=== PATIENT | male | born 1965 | race Caucasian/White ===

== ENCOUNTER 2021-12-18 16:13 | Outpatient (REF) | payer OTHER, SELFPAY ==
--- NOTE | ~2021-12-18 | XR_ITS ---
EXAMINATION: XR CHEST CLINICAL INFORMATION: Cough COMPARISON: September 24, 2015 TECHNIQUE: 2 views of the chest were obtained. FINDINGS: No significant abnormality is noted involving the heart, lungs, mediastinum, bony thorax or soft tissues. XR/XR chest 2V IMPRESSION: No acute disease.
== END 2021-12-18 16:14 | disposition home or self-care (01) ==
LOC: HO.HMGCX 16:13
PROVIDERS: Visit Provider Physician Assistant
DX: R05.9 Cough, unspecified (principal)
CPT/HCPCS: 71046

== ENCOUNTER 2022-12-28 12:18 | Inpatient (IN) | payer OTHER, SELFPAY ==
[2022-12-28] VITALS (13 sets, daily range): BP systolic 94–126; BP diastolic 56–77; PULSE 55–86; RESP 15–18; TEMP 36.1–36.8; O2SAT 94–98; BMI 29.5; BMI 26.7
--- NOTE | ~2022-12-28 | XR_ITS ---
EXAMINATION: XR chest 1V CLINICAL INFORMATION: Reason for Exam Chest pain and SOB. expose to chemical spray pain COMPARISON: November 2021 TECHNIQUE: XR chest 1V Lungs and Latanya: Both lungs are clear. Pleura: Normal. Costophrenic angles are sharp. No pneumothorax. Heart: The heart is normal in size. Mediastinum: The mediastinum is within normal limits.. Bones: Skeletal structures included are normal for patient's age. XR/XR chest 1V IMPRESSION: No radiographic evidence of acute cardiopulmonary disease.
--- NOTE | ~2022-12-28 | CT_ITS ---
EXAMINATION: CT HEAD WITHOUT CONTRAST CLINICAL INFORMATION: Patient feeling shaky and off balance. COMPARISON: None available. TECHNIQUE: Contiguous axial imaging was performed from the skull base to vertex without intravenous administration of contrast. This CT examination was performed using dose optimization techniques as appropriate, variously including the following: *Automated exposure control *Adjustment of mA and/or kV according to patient size (this includes techniques or standardized protocols for targeted exams where dose is matched to indication/reason for exam; i.e. extremities or head) *Use of iterative reconstruction technique DLP: 717 mGy-cm FINDINGS: There is no evidence of acute intracranial hemorrhage or territorial infarction. No abnormal mass-effect or midline shift is seen. Torres to white matter differentiation is well preserved. No extra-axial fluid collections are identified. The ventricles are normal in size. There is no abnormal attenuation within the brain parenchyma. The osseous structures and soft tissues are normal. The mastoid air cells and visualized portions of the paranasal sinuses are well-aerated. CT/CT head/brain wo IV con IMPRESSION: No acute intracranial pathology.
--- NOTE | ~2022-12-28 | MR_ITS ---
EXAMINATION: MR BRAIN WITHOUT CONTRAST CLINICAL INFORMATION: Cerebrovascular accident. COMPARISON: CTA head and neck from 12/28/2022. TECHNIQUE: MRI of the brain was obtained using routine sequences without contrast. FINDINGS: No focal restricted diffusion is demonstrated to suggest acute or subacute cerebral ischemia. No evidence of acute or chronic hemorrhagic products on heme-sensitive imaging. Chronic lacunar infarct of the left cerebellar hemisphere. Scattered periventricular and deep white matter T2 FLAIR hyperintensities consistent with mild underlying microangiopathy. Proportional prominence of the ventricles and sulcal spaces without evidence of obstructive hydrocephalus. No abnormal mass effect. No midline shift. Normal appearance of the pituitary gland. Normal positioning of the cerebellar tonsils. Normal arterial and venous vascular flow voids are present. Nonspecific 0.9 cm T2 hyperintense lesion in the right parietal bone with features suggestive of underlying venous ventura by CT. Otherwise, normal homogeneous marrow signal. Mild mucosal thickening of the paranasal sinuses. No signal abnormalities within the mastoids. MR/MR head/brain wo con IMPRESSION: 1. No acute intracranial abnormalities. 2. Mild underlying microangiopathy and generalized cerebral volume loss. Chronic lacunar infarct of the left cerebellar hemisphere.
--- NOTE | ~2022-12-28 | CT_ITS ---
EXAMINATION: CT ANGIOGRAM NECK WITH CONTRAST CT ANGIOGRAM BRAIN WITH CONTRAST CLINICAL INFORMATION: Dizziness, off balance, positive Romberg, unsteady gait. COMPARISON: Prior CT performed earlier today. TECHNIQUE: Test bolus sequences followed by intravenous administration 70 mL of Omnipaque 350. Helical imaging was performed in the axial plane from the thoracic inlet to the skull vertex. Delayed postcontrast imaging of the head was also performed. The data was processed at the communications technologist workstation for generation of MIP sequences. Angled MIPs and volume rendered reformatted images were also generated at an offline 3D workstation under concurrent supervision. Stenoses are assessed in accordance with NASCET criteria unless otherwise indicated. This CT examination was performed using dose optimization techniques as appropriate, variously including the following: *Automated exposure control *Adjustment of mA and/or kV according to patient size (this includes techniques or standardized protocols for targeted exams where dose is matched to indication/reason for exam; i.e. extremities or head) *Use of iterative reconstruction technique DLP: 867 mGy-cm FINDINGS: BRAIN: Small age indeterminate infarct in the left superior cerebellar hemisphere (16:42). There is no intracranial hemorrhage, hydrocephalus, extra-axial surface collection, midline shift, or other herniation pattern. Torres to white matter differentiation is diffusely maintained. The basilar cisterns are preserved. No significant soft tissue abnormality. No acute osseous abnormality. The paranasal sinuses and the mastoid air cells are well aerated. CERVICAL SOFT TISSUES AND LUNG APICES: Emphysematous changes in the lungs, otherwise no significant abnormalities in the soft tissues of the neck. NECK CTA: There is a classic 3 vessel configuration of the aortic arch. Proximal arch vessels are non-stenotic. The right vertebral artery is dominant. No significant ostial stenosis is visualized on either side. Both vertebral arteries are widely patent throughout their extracranial cervical course. Both common and internal carotid arteries are normal in course and caliber. BRAIN CTA: There is normal opacification of major intracranial arteries. No focal flow-limiting stenosis nor discrete proximal large artery occlusion. CT/CT angio head neck IMPRESSION: 1. Small age-indeterminate infarct in the left superior cerebellar hemisphere. 2. No large vessel occlusion or significant stenosis within the intracranial or extracranial arterial vasculature.
--- NOTE | 2022-12-28 12:26 | ECG_ITS ---
Test Reason : CP Blood Pressure : / mmHG Vent. Rate : 062 BPM Atrial Rate : 062 BPM P-R Int : 202 ms QRS Dur : 122 ms QT Int : 474 ms P-R-T Axes : 043 -02 090 degrees QTc Int : 481 ms Normal sinus rhythm Non-specific intra-ventricular conduction delay Minimal voltage criteria for LVH, may be normal variant ( Jake product ) ST & T wave abnormality, consider lateral ischemia Abnormal ECG No previous ECGs available Referred By: Franki Michel Electronically Signed By:FABY STEVENS MD
--- NOTE | 2022-12-28 12:26 | ED.GENADULT ---
HPI - General Adult General Chief complaint: General Medical <MARY Holm - Last Filed: 12/29/22 11:38> Stated complaint: Falling over/Dry mouth/SOB/Low pulse <MARY Holm - Last Filed: 12/29/22 11:38> Time Seen by Provider: 12/28/22 13:41 <MARY Holm - Last Filed: 12/29/22 11:38> Source: patient, EMS, RN notes reviewed and old records reviewed <MARY Oesi - Last Filed: 12/28/22 18:14> Mode of arrival: EMS <MARY Osei - Last Filed: 12/28/22 18:14> History of Present Illness HPI narrative: 57-year-old male with no significant past medical history presenting to the ED complaining of SOB, chest tightness, lightheadedness/dizziness described as presyncopal worse with position change, jitteriness/shaking x4 days s/p spray painting house without proper mask on. Reports symptoms began after spraying pain, subsequently stopped however since has had persistent/worsening symptoms. Also reports mild headache. Denies vision change/loss, abdominal pain, nausea/vomiting, diarrhea, pedal edema, syncope. Reports occasional ETOH use, denies history of EtOH withdrawal <MARY Osei - Last Filed: 12/28/22 18:14> Onset (ago): day(s) <MARY Osei - Last Filed: 12/28/22 18:14> Related Data Home medications: Home Medications Medication Instructions Recorded Confirmed albuterol sulfate 90 mcg/actuation 2 puff PO Q4-6H PRN Dyspnea 12/18/21 12/28/22 aerosol inhaler amiodarone 200 mg tablet 400 mg PO DAILY 12/18/21 12/28/22 atorvastatin 20 mg tablet 20 mg PO DAILY 12/18/21 12/28/22 clonazepam 1 mg tablet 1 mg PO TID 12/18/21 12/28/22 cyclobenzaprine 10 mg tablet 10 mg PO TID 12/18/21 12/28/22 diltiazem HCl 360 mg 360 mg PO DAILY 12/18/21 12/28/22 capsule,extended release 24 hr fluticasone propionate 110 1 puff PO BID 12/18/21 12/28/22 mcg/actuation HFA aerosol inhaler (Flovent HFA) levothyroxine 137 mcg tablet 137 mcg PO DAILY 12/18/21 12/28/22 oxycodone 20 mg tablet 20 mg PO QID 12/18/21 12/28/22 apixaban 5 mg tablet (Eliquis) 5 mg PO BID 12/28/22 12/28/22 lisinopril 20 mg tablet 20 mg PO DAILY 12/28/22 12/28/22 <MARY Holm - Last Filed: 12/29/22 11:38> Allergies/adverse reactions: Allergies Allergy/AdvReac Type Severity Reaction Status Date / Time aspirin [ASA] Allergy Unknown BLEEDING Unverified 12/18/21 15:53 ULCERS, stomach upset NSAIDS (Non-Steroidal Allergy Unknown BLEEDING Unverified 12/18/21 15:53 Anti-Inflamma ULCERS [NSAIDS (NON-STEROIDAL ANTI-INFLAMMA] <MARY Holm Last Filed: 12/29/22 11:38> Review of Systems Review of Systems: Constitutional: No Fever, No Chills, No Fatigue, No Malaise, + jittery/shaky ENT/Mouth: No Hearing loss, No Ear Pain, No Nasal Congestion, No sore throat, No Rhinorrhea, No Swallowing Difficulty Eyes: No Eye Pain, No Swelling, No Redness, No Vision Changes Cardiovascular: + Chest Pain, + SOB, No Dyspnea on Exertion, No Orthopnea, No Edema, No Palpitations Respiratory: No Cough, No Sputum, No Dyspnea Gastrointestinal: No Nausea, No Vomiting, No Diarrhea, No Constipation, No Abdominal pain Genitourinary: No Dysuria, No Urinary Frequency, No Hematuria, No Urinary Incontinence/retention, No Flank Pain Musculoskeletal: No joint pain, No Myalgias, No Joint Swelling Skin: No Skin Lesions, No rash Neuro: No Weakness, No Numbness, No Paresthesias, No Loss of Consciousness, + lightheaded/ Dizziness, + Headache <MARY Osei Last Filed: 12/28/22 18:14> Yes all other systems are reviewed and are negative <MARY Osei Last Filed: 12/28/22 18:14> Constitutional: Constitutional: Reports as per HPI <MARY Osei - Last Filed: 12/28/22 18:14> Neurologic: Denies Abnormal speech present <MARY Osei - Last Filed: 12/28/22 18:14> [facility] Past Medical History Attestation statement: The following information was validated with the patient. <MARY Osei - Last Filed: 12/28/22 18:14> Social History Social History: Social History Household Members: Significant Other Housing: Apartment Do you presently have visiting nurse or other home services: No Alcohol intake: current Alcohol intake frequency: a few times a week Patient Tobacco Use Status: Current someday Tobacco user Tobacco use type: Cigarette Cigarettes Per Day: 2 Years Smoked: 20 Smoked in Last 30 Days: Yes e-Cigarette/Vaping Use: Never Used Patient Interested in Nicotine Replacement: No Patient Given Instructions on How to Stop Smoking: No Second Hand Smoke Exposure: Yes Use of substances other than those prescribed or required for medical reasons: No Currently Displaying Signs/Symptoms of Drug Intoxication Withdrawal: No Any prior treatment program specific to substance use: No Have you been hit, kicked, punched, or otherwise hurt by someone within the past year? If so, by whom?: No Do you feel safe in your current relationship?: Yes Is there a partner from a previous relationship who is making you feel unsafe now?: No Are you made to feel afraid or neglected: No [employer]ah[employer]ism Healthcare Practices: christian Advance Directives: No Advance Directives Information Provided: Yes Do you have thoughts of harming others: None Do you have a plan to hurt others: No Plan Recently lost weight without trying: Yes How much weight loss: 24-33 pounds Eating poorly because of decreased appetite: Yes Nutrition screen score: 6 Nutrition Risks: No Nutritional Risk Poor oral hygiene: Yes <MARY Holm - Last Filed: 12/29/22 11:38> Physical Exam ED Vital Signs: Vital Signs - 24 hr 12/28/22 12:23 12/28/22 13:17 12/28/22 14:14 Temperature 96.9 F 98.3 F Pulse Rate 70 62 61 Respiratory Rate 18 17 16 Blood Pressure 124/74 126/71 102/61 Pulse Oximetry 98 98 97 Oxygen Delivery Method Room Air Room Air Room Air 04/09/23 14:15 12/28/22 14:16 12/28/22 14:17 Temperature Pulse Rate 57 61 70 Respiratory Rate Blood Pressure 107/66 101/64 94/56 L Pulse Oximetry Oxygen Delivery Method 12/28/22 14:19 12/28/22 14:20 12/28/22 14:45 Temperature 98.2 F Pulse Rate 55 Respiratory Rate 18 Blood Pressure Pulse Oximetry 98 Oxygen Delivery Method 12/28/22 18:54 12/28/22 20:00 12/28/22 23:57 Temperature 97.8 F Pulse Rate 86 70 60 Respiratory Rate 18 15 18 Blood Pressure 110/69 107/77 121/64 Pulse Oximetry 97 94 96 Oxygen Delivery Method Room Air Room Air Room Air 12/29/22 03:44 12/29/22 07:36 12/29/22 10:53 Temperature 98.1 F 97.6 F Pulse Rate 56 98 Respiratory Rate 14 20 Blood Pressure 102/59 L 100/62 103/74 Pulse Oximetry 95 92 Oxygen Delivery Method Room Air Room Air 12/28/22 14:54 12/29/22 10:54 Temperature Pulse Rate Respiratory Rate Blood Pressure 104/66 119/76 Pulse Oximetry Oxygen Delivery Method BMI result Body Mass Index 26.7 <MARY Holm - Last Filed: 12/29/22 11:38> Vital Signs - 24 hr 12/28/22 12:23 12/28/22 13:17 12/28/22 14:14 Temperature 96.9 F 98.3 F Pulse Rate 70 62 61 Respiratory Rate 18 17 16 Blood Pressure 124/74 126/71 102/61 Pulse Oximetry 98 98 97 Oxygen Delivery Method Room Air Room Air Room Air 12/28/22 14:15 12/28/22 14:16 12/28/22 14:17 Temperature Pulse Rate 57 61 70 Respiratory Rate Blood Pressure 107/66 101/64 94/56 L Pulse Oximetry Oxygen Delivery Method 12/28/22 14:19 12/28/22 14:20 12/28/22 14:45 Temperature 98.2 F Pulse Rate 55 Respiratory Rate 18 Blood Pressure Pulse Oximetry 98 Oxygen Delivery Method 12/28/22 18:54 12/28/22 20:00 12/28/22 23:57 Temperature 97.8 F Pulse Rate 86 70 60 Respiratory Rate 18 15 18 Blood Pressure 110/69 107/77 121/64 Pulse Oximetry 97 94 96 Oxygen Delivery Method Room Air Room Air Room Air 12/29/22 03:44 12/29/22 07:36 12/29/22 10:53 Temperature 98.1 F 97.6 F Pulse Rate 56 98 Respiratory Rate 14 20 Blood Pressure 102/59 L 100/62 103/74 Pulse Oximetry 95 92 Oxygen Delivery Method Room Air Room Air 12/28/22 14:54 12/29/22 10:54 Temperature Pulse Rate Respiratory Rate Blood Pressure 104/66 119/76 Pulse Oximetry Oxygen Delivery Method BMI result Body Mass Index 26.7 <MARY Osei - Last Filed: 12/28/22 18:14> Vital Signs - 24 hr 12/28/22 12:23 12/28/22 13:17 12/28/22 14:14 Temperature 96.9 F 98.3 F Pulse Rate 70 62 61 Respiratory Rate 18 17 16 Blood Pressure 124/74 126/71 102/61 Pulse Oximetry 98 98 97 Oxygen Delivery Method Room Air Room Air Room Air 12/28/22 14:15 12/28/22 14:16 12/28/22 14:17 Temperature Pulse Rate 57 61 70 Respiratory Rate Blood Pressure 107/66 101/64 94/56 L Pulse Oximetry Oxygen Delivery Method 12/28/22 14:19 12/28/22 14:20 12/28/22 14:45 Temperature 98.2 F Pulse Rate 55 Respiratory Rate 18 Blood Pressure Pulse Oximetry 98 Oxygen Delivery Method 12/28/22 18:54 12/28/22 20:00 12/28/22 23:57 Temperature 97.8 F Pulse Rate 86 70 60 Respiratory Rate 18 15 18 Blood Pressure 110/69 107/77 121/64 Pulse Oximetry 97 94 96 Oxygen Delivery Method Room Air Room Air Room Air 12/29/22 03:44 12/29/22 07:36 12/29/22 10:53 Temperature 98.1 F 97.6 F Pulse Rate 56 98 Respiratory Rate 14 20 Blood Pressure 102/59 L 100/62 103/74 Pulse Oximetry 95 92 Oxygen Delivery Method Room Air Room Air 12/28/22 14:54 12/29/22 10:54 Temperature Pulse Rate Respiratory Rate Blood Pressure 104/66 119/76 Pulse Oximetry Oxygen Delivery Method BMI result Body Mass Index 26.7 <Dheeraj Hutton - Last Filed: 12/28/22 19:23> Const General: cooperative, healthy appearing and no acute distress <MARY Osei - Last Filed: 12/28/22 18:14> Orientation/consciousness: patient oriented x3 <MARY Osei - Last Filed: 12/28/22 18:14> Limitations: no limitations <MARY Osei - Last Filed: 12/28/22 18:14> HENMT Head: Yes normal to inspection and Yes atraumatic <MARY Osei - Last Filed: 12/28/22 18:14> Ears: hearing grossly normal bilaterally <MARY Osei - Last Filed: 12/28/22 18:14> General nose exam: Normal external nose present <MARY Osei - Last Filed: 12/28/22 18:14> Face and sinus: Yes normal facial exam <MARY Osei - Last Filed: 12/28/22 18:14> Throat: Yes posterior oropharynx normal <MARY Osei - Last Filed: 12/28/22 18:14> Eyes General: appearance normal, both eyes and all related structures <MARY Osei - Last Filed: 12/28/22 18:14> Pupils: Equal, round and reactive pupils present <MARY Osei - Last Filed: 12/28/22 18:14> EOM: EOMs intact bilaterally <MARY Osei - Last Filed: 12/28/22 18:14> Neck Neck: Yes normal visual inspection and Yes no meningeal signs <MARY Osei - Last Filed: 12/28/22 18:14> Resp Effort & Inspection: normal respiratory effort and no respiratory distress <MARY Osei - Last Filed: 12/28/22 18:14> Auscultation: wheezes expiratory wheezes and throughout <MARY Osei - Last Filed: 12/28/22 18:14> Cardio Rate: regular rate <MARY Osei Last Filed: 12/28/22 18:14> Heart sounds: S1 normal heart sound present and S2 normal heart sound present <MARY Osei Last Filed: 12/28/22 18:14> GI Inspection: Yes normal to inspection <Mindy Diaz PA - Last Filed: 12/28/22 18:14> Palpation (GI): Soft to palpation, nontender, no guarding and not rigid <Mindy Diaz PA - Last Filed: 12/28/22 18:14> Skin Rashes: no rashes <Mindy Diaz PA - Last Filed: 12/28/22 18:14> Wounds: no wounds <Mindy Diaz PA - Last Filed: 12/28/22 18:14> Neuro Other: Ambulating mildly unsteady, no ataxia <Mindy Diaz PA - Last Filed: 12/28/22 18:14> General: patient oriented x3, gait normal, tone normal, moves all extremities, no meningeal signs, no focal motor deficits and CN's II-XI intact bilaterally <Mindy Diaz PA - Last Filed: 12/28/22 18:14> Cranial nerves: Yes CN's II-XII intact bilaterally, Yes Equal, round and reactive pupils present and Yes Bilaterally intact EOM present <Mindy Diaz PA - Last Filed: 12/28/22 18:14> Cognition (Neuro): normal cognition <Mindy Diaz PA - Last Filed: 12/28/22 18:14> Speech: No Abnormal speech present <Mindy Diaz PA - Last Filed: 12/28/22 18:14> Motor exam (neuro): 5/5 motor strength present throughout, Pronator motor function not present, Motor fasciculations not present and Tremors during motor activity present (+tremulous) <Mindy Diaz PA - Last Filed: 12/28/22 18:14> Coordination: [id number] test normal <Mindy Diaz PA - Last Filed: 12/28/22 18:14> Romberg Test: Positive <Mindy Diaz PA - Last Filed: 12/28/22 18:14> Extrem General: Yes normal to inspection and Yes no pedal edema <Mindy Diaz PA - Last Filed: 12/28/22 18:14> Course Course Course Narrative: RmE: 57 yold male presents to the ED for Chest pain and SOB since after being exposed to chemical spray pain while not using proper mask. EKG, LABs, and SARS ordered <MARY Holm - Last Filed: 12/29/22 11:38> RmE: 57 yold male presents to the ED for Chest pain and SOB since after being exposed to chemical spray pain while not using proper mask. EKG, LABs, and SARS ordered -1454--labs reassuring. Troponin WNL. COVID/flu/RSV negative -CXR unremarkable -orthostatic vital signs negative -1628--head CT unremarkable. Case discussed with Dr. Green will add on B12, folate, ethanol, and CTA head neck. Plan for admission -1800--B12 mildly low at 191. Folate WNL. Ethanol negative. Case discussed with hospitalist. ED care transferred to MARY Beltran pending CTA and admit <MARY Osei - Last Filed: 12/28/22 18:14> Reevaluation(s) Reevaluation #1: Patient received in sign-out pending CTA which shows subacute infarct without evidence of large vessel occlusion. Will discuss with the hospitalist <Dheeraj Hutton - Last Filed: 12/28/22 19:23> Time: 19:23 <Dheeraj Hutton - Last Filed: 12/28/22 19:23> Medications Administered Generic Name Dose Route Start Last Admin Trade Name Freq PRN Reason Stop Dose Admin Acetaminophen 650 mg 12/28/22 20:17 12/28/22 20:46 Acetaminophen 325 Mg Tablet PO 650 mg Q6H PRN Administration Pain, Mild (Pain Scale 1-3) Amiodarone HCl 400 mg 12/29/22 09:00 12/29/22 08:13 Amiodarone Hcl 200 Mg Tablet PO 400 mg DAILY KAVEH Administration Apixaban 5 mg 12/28/22 21:30 12/29/22 08:14 Apixaban 5 Mg Tablet PO 5 mg BID KAVEH Administration Aspirin 81 mg 12/28/22 20:45 12/29/22 08:13 Aspirin 81 Mg Tab.Chew PO 81 mg DAILY KAVEH Administration Atorvastatin Calcium 80 mg 12/29/22 09:00 12/29/22 08:14 Atorvastatin Calcium 80 Mg Tablet PO 80 mg DAILY KAVEH Administration Clonazepam 1 mg 12/29/22 09:00 12/29/22 08:14 Clonazepam 1 Mg Tablet PO 1 mg TID [facility] Administration Cyanocobalamin 1,000 mcg 12/29/22 09:00 12/29/22 08:14 Cyanocobalamin (Vitamin B-12) 1,000 Mcg/Ml Vial IM 1,000 mcg DAILY KAVEH Administration Cyclobenzaprine HCl 10 mg 12/28/22 21:30 12/29/22 08:13 Cyclobenzaprine Hcl 10 Mg Tablet PO 10 mg TID [facility] Administration Diltiazem HCl 360 mg 12/29/22 09:00 12/29/22 08:29 Diltiazem Hcl Cd 180 Mg Cap.Er.24h PO Not Given DAILY [facility] Protocol Diltiazem HCl 60 mg 12/29/22 09:15 12/29/22 11:02 Diltiazem Hcl 60 Mg Tablet PO Not Given QID [facility] Protocol Fluticasone Propionate 1 puff 12/29/22 08:00 12/29/22 08:49 Fluticasone Propionate 100 Mcg Blst.W.Dev INHALE Not Given RBID [facility] Folic Acid 2 mg 12/29/22 09:00 12/29/22 08:14 Folic Acid 1 Mg Tablet PO 2 mg DAILY [facility] Administration Levothyroxine Sodium 112 mcg/ 137 mcg 12/29/22 06:00 12/29/22 06:08 Levothyroxine Sodium 25 mcg PO 137 mcg DAILY@0600 [facility] Administration Melatonin 6 mg 12/29/22 01:33 12/29/22 02:06 Melatonin 3 Mg Tablet PO 6 mg BEDTIME PRN Administration Insomnia Omeprazole 40 mg 12/29/22 06:30 12/29/22 06:08 Omeprazole 40 Mg Capsule.Dr PO 40 mg DAILY@0630 [facility] Administration Oxycodone HCl 20 mg 12/28/22 21:25 12/29/22 08:13 Oxycodone Hcl Immed Release 5 Mg Tablet PO 20 mg QID [facility] Administration Sodium Chloride 3 ml 12/29/22 00:00 12/29/22 08:15 0.9 % Sodium Chloride Flush 3 Ml Syringe IVFLUSH 3 ml QSHIFT [facility] Administration Discontinued Medications Generic Name Dose Route Start Last Admin Trade Name Freq PRN Reason Stop Dose Admin Albuterol/Ipratropium 3 ml 12/28/22 13:55 12/28/22 14:20 Albuterol/Iprat 2.5/0.5mg 3 Ml Ampul.Neb INHALE 12/28/22 13:56 3 ml ONCE ONE Administration Clonazepam 1 mg 12/28/22 20:06 12/28/22 20:21 Clonazepam 1 Mg Tablet PO 12/28/22 20:07 1 mg ONCE ONE Administration Cyanocobalamin 1,000 mcg 12/28/22 20:32 12/28/22 21:59 Cyanocobalamin (Vitamin B-12) 1,000 Mcg/Ml Vial IM 12/28/22 20:33 1,000 mcg ONCE ONE Administration Folic Acid 1 mg 12/28/22 20:32 12/28/22 20:47 Folic Acid 1 Mg Tablet PO 12/28/22 20:33 1 mg ONCE ONE Administration Magnesium Sulfate 2 gm in 50 mls @ 25 mls/hr 12/29/22 05:20 12/29/22 08:31 Magnesium Sulfate/H2o IV 12/29/22 07:19 Infused ONCE ONE Infusion Iohexol 100 ml 12/28/22 17:31 12/28/22 17:31 Iohexol 350 Mg/Ml 100 Ml Infus..Btl IV 12/28/22 17:32 70 ml ONCE ONE Administration Meclizine HCl 25 mg 12/28/22 14:48 12/28/22 15:03 Meclizine Hcl 25 Mg Tablet PO 12/28/22 14:49 25 mg ONCE ONE Administration <MARY Holm - Last Filed: 12/29/22 11:38> Medications Administered Generic Name Dose Route Start Last Admin Trade Name Freq PRN Reason Stop Dose Admin Acetaminophen 650 mg 12/28/22 20:17 12/28/22 20:46 Acetaminophen 325 Mg Tablet PO 650 mg Q6H PRN Administration Pain, Mild (Pain Scale 1-3) Amiodarone HCl 400 mg 12/29/22 09:00 12/29/22 08:13 Amiodarone Hcl 200 Mg Tablet PO 400 mg DAILY KAVEH Administration Apixaban 5 mg 12/28/22 21:30 12/29/22 08:14 Apixaban 5 Mg Tablet PO 5 mg BID [facility] Administration Aspirin 81 mg 12/28/22 20:45 12/29/22 08:13 Aspirin 81 Mg Tab.Chew PO 81 mg DAILY [facility] Administration Atorvastatin Calcium 80 mg 12/29/22 09:00 12/29/22 08:14 Atorvastatin Calcium 80 Mg Tablet PO 80 mg DAILY [facility] Administration Clonazepam 1 mg 12/29/22 09:00 12/29/22 08:14 Clonazepam 1 Mg Tablet PO 1 mg TID [facility] Administration Cyanocobalamin 1,000 mcg 12/29/22 09:00 12/29/22 08:14 Cyanocobalamin (Vitamin B-12) 1,000 Mcg/Ml Vial IM 1,000 mcg DAILY [facility] Administration Cyclobenzaprine HCl 10 mg 12/28/22 21:30 12/29/22 08:13 Cyclobenzaprine Hcl 10 Mg Tablet PO 10 mg TID [facility] Administration Diltiazem HCl 360 mg 12/29/22 09:00 12/29/22 08:29 Diltiazem Hcl Cd 180 Mg Cap.Er.24h PO Not Given DAILY [facility] Protocol Diltiazem HCl 60 mg 12/29/22 09:15 12/29/22 11:02 Diltiazem Hcl 60 Mg Tablet PO Not Given QID [facility] Protocol Fluticasone Propionate 1 puff 12/29/22 08:00 12/29/22 08:49 Fluticasone Propionate 100 Mcg Blst.W.Dev INHALE Not Given RBID [facility] Folic Acid 2 mg 12/29/22 09:00 12/29/22 08:14 Folic Acid 1 Mg Tablet PO 2 mg DAILY [facility] Administration Levothyroxine Sodium 112 mcg/ 137 mcg 12/29/22 06:00 12/29/22 06:08 Levothyroxine Sodium 25 mcg PO 137 mcg DAILY@0600 [facility] Administration Melatonin 6 mg 12/29/22 01:33 12/29/22 02:06 Melatonin 3 Mg Tablet PO 6 mg BEDTIME PRN Administration Insomnia Omeprazole 40 mg 12/29/22 06:30 12/29/22 06:08 Omeprazole 40 Mg Capsule.Dr PO 40 mg DAILY@0630 [facility] Administration Oxycodone HCl 20 mg 12/28/22 21:25 12/29/22 08:13 Oxycodone Hcl Immed Release 5 Mg Tablet PO 20 mg QID [facility] Administration Sodium Chloride 3 ml 12/29/22 00:00 12/29/22 08:15 0.9 % Sodium Chloride Flush 3 Ml Syringe IVFLUSH 3 ml QSHIFT [facility] Administration Discontinued Medications Generic Name Dose Route Start Last Admin Trade Name Kristina PRN Reason Stop Dose Admin Albuterol/Ipratropium 3 ml 12/28/22 13:55 12/28/22 14:20 Albuterol/Iprat 2.5/0.5mg 3 Ml Ampul.Neb INHALE 12/28/22 13:56 3 ml ONCE ONE Administration Clonazepam 1 mg 12/28/22 20:06 12/28/22 20:21 Clonazepam 1 Mg Tablet PO 12/28/22 20:07 1 mg ONCE ONE Administration Cyanocobalamin 1,000 mcg 12/28/22 20:32 12/28/22 21:59 Cyanocobalamin (Vitamin B-12) 1,000 Mcg/Ml Vial IM 12/28/22 20:33 1,000 mcg ONCE ONE Administration Folic Acid 1 mg 12/28/22 20:32 12/28/22 20:47 Folic Acid 1 Mg Tablet PO 12/28/22 20:33 1 mg ONCE ONE Administration Magnesium Sulfate 2 gm in 50 mls @ 25 mls/hr 12/29/22 05:20 12/29/22 08:31 Magnesium Sulfate/H2o IV 12/29/22 07:19 Infused ONCE ONE Infusion Iohexol 100 ml 12/28/22 17:31 12/28/22 17:31 Iohexol 350 Mg/Ml 100 Ml Infus..Btl IV 12/28/22 17:32 70 ml ONCE ONE Administration Meclizine HCl 25 mg 12/28/22 14:48 12/28/22 15:03 Meclizine Hcl 25 Mg Tablet PO 12/28/22 14:49 25 mg ONCE ONE Administration <MARY Osei - Last Filed: 12/28/22 18:14> Medications Administered Generic Name Dose Route Start Last Admin Trade Name Kristina PRN Reason Stop Dose Admin Acetaminophen 650 mg 12/28/22 20:17 12/28/22 20:46 Acetaminophen 325 Mg Tablet PO 650 mg Q6H PRN Administration Pain, Mild (Pain Scale 1-3) Amiodarone HCl 400 mg 12/29/22 09:00 12/29/22 08:13 Amiodarone Hcl 200 Mg Tablet PO 400 mg DAILY [facility] Administration Apixaban 5 mg 12/28/22 21:30 12/29/22 08:14 Apixaban 5 Mg Tablet PO 5 mg BID [facility] Administration Aspirin 81 mg 12/28/22 20:45 12/29/22 08:13 Aspirin 81 Mg Tab.Chew PO 81 mg DAILY [facility] Administration Atorvastatin Calcium 80 mg 12/29/22 09:00 12/29/22 08:14 Atorvastatin Calcium 80 Mg Tablet PO 80 mg DAILY [facility] Administration Clonazepam 1 mg 12/29/22 09:00 12/29/22 08:14 Clonazepam 1 Mg Tablet PO 1 mg TID [facility] Administration Cyanocobalamin 1,000 mcg 12/29/22 09:00 12/29/22 08:14 Cyanocobalamin (Vitamin B-12) 1,000 Mcg/Ml Vial IM 1,000 mcg DAILY [facility] Administration Cyclobenzaprine HCl 10 mg 12/28/22 21:30 12/29/22 08:13 Cyclobenzaprine Hcl 10 Mg Tablet PO 10 mg TID [facility] Administration Diltiazem HCl 360 mg 12/29/22 09:00 12/29/22 08:29 Diltiazem Hcl Cd 180 Mg Cap.Er.24h PO Not Given DAILY [facility] Protocol Diltiazem HCl 60 mg 12/29/22 09:15 12/29/22 11:02 Diltiazem Hcl 60 Mg Tablet PO Not Given QID [facility] Protocol Fluticasone Propionate 1 puff 12/29/22 08:00 12/29/22 08:49 Fluticasone Propionate 100 Mcg Blst.W.Dev INHALE Not Given RBID [facility] Folic Acid 2 mg 12/29/22 09:00 12/29/22 08:14 Folic Acid 1 Mg Tablet PO 2 mg DAILY [facility] Administration Levothyroxine Sodium 112 mcg/ 137 mcg 12/29/22 06:00 12/29/22 06:08 Levothyroxine Sodium 25 mcg PO 137 mcg DAILY@0600 [facility] Administration Melatonin 6 mg 12/29/22 01:33 12/29/22 02:06 Melatonin 3 Mg Tablet PO 6 mg BEDTIME PRN Administration Insomnia Omeprazole 40 mg 12/29/22 06:30 12/29/22 06:08 Omeprazole 40 Mg Capsule.Dr PO 40 mg DAILY@0630 [facility] Administration Oxycodone HCl 20 mg 12/28/22 21:25 12/29/22 08:13 Oxycodone Hcl Immed Release 5 Mg Tablet PO 20 mg QID [facility] Administration Sodium Chloride 3 ml 12/29/22 00:00 12/29/22 08:15 0.9 % Sodium Chloride Flush 3 Ml Syringe IVFLUSH 3 ml QSHIFT [facility] Administration Discontinued Medications Generic Name Dose Route Start Last Admin Trade Name Kristina PRN Reason Stop Dose Admin Albuterol/Ipratropium 3 ml 12/28/22 13:55 12/28/22 14:20 Albuterol/Iprat 2.5/0.5mg 3 Ml Ampul.Neb INHALE 12/28/22 13:56 3 ml ONCE ONE Administration Clonazepam 1 mg 12/28/22 20:06 12/28/22 20:21 Clonazepam 1 Mg Tablet PO 12/28/22 20:07 1 mg ONCE ONE Administration Cyanocobalamin 1,000 mcg 12/28/22 20:32 12/28/22 21:59 Cyanocobalamin (Vitamin B-12) 1,000 Mcg/Ml Vial IM 12/28/22 20:33 1,000 mcg ONCE ONE Administration Folic Acid 1 mg 12/28/22 20:32 12/28/22 20:47 Folic Acid 1 Mg Tablet PO 12/28/22 20:33 1 mg ONCE ONE Administration Magnesium Sulfate 2 gm in 50 mls @ 25 mls/hr 12/29/22 05:20 12/29/22 08:31 Magnesium Sulfate/H2o IV 12/29/22 07:19 Infused ONCE ONE Infusion Iohexol 100 ml 12/28/22 17:31 12/28/22 17:31 Iohexol 350 Mg/Ml 100 Ml Infus..Btl IV 12/28/22 17:32 70 ml ONCE ONE Administration Meclizine HCl 25 mg 12/28/22 14:48 12/28/22 15:03 Meclizine Hcl 25 Mg Tablet PO 12/28/22 14:49 25 mg ONCE ONE Administration <Dheeraj Hutton - Last Filed: 12/28/22 19:23> Medical Decision Making Medical Decision Making MDM Narrative: 57-year-old male with no significant past medical history presenting to the ED complaining of SOB, chest tightness, lightheadedness/dizziness described as presyncopal worse with position change, jitteriness/shaking x4 days s/p spray painting house without proper mask on. On exam vital signs stable, NAD, appears jittery/shaky trauma ambulating with mild unsteady gait, no ataxia, + Romberg, exam otherwise nonfocal, lungs with diffuse expiatory wheeze. Concern for adverse reaction to paint exposure vs subacute CVA vs atypical ACS. Rule out metabolic infectious etiologies. Lower suspicion for PE/CHF Plan: EKG, labs, UA, CXR, head CT, meclizine, orthostatics, imaging with pulse ox, re-evaluate Please refer to course for remaining clinical decision making, interpretation of labs/imaging results, and discussions with consultants and/or family members. <MARY Osei - Last Filed: 12/28/22 18:14> Differential Diagnosis Differential Diagnoses: The differential diagnosis associated with the presentation includes <MARY Osei - Last Filed: 12/28/22 18:14> As above <MARY Osei - Last Filed: 12/28/22 18:14> Admission/Observation Consideration of admission/observation: Escalation of care including admission/observation considered <MARY Osei - Last Filed: 12/28/22 18:14> Lab Data MDM Lab Attestation statement: I reviewed the patient's lab results. <MARY Osei - Last Filed: 12/28/22 18:14> Result Diagrams: 12/28/22 12:36 12/28/22 12:36 <MARY Holm - Last Filed: 12/29/22 11:38> Labs: Lab Results 12/28/22 12/28/22 12/28/22 Range/Units 12:36 12:36 12:36 WBC 8.2 (4.8-10.8) X10*3/uL RBC 4.41 L (4.60-5.80) X10*6/uL Hgb 14.7 (14.0-18.0) g/dl Hct 43.0 (42.0-52.0) % MCV 97.5 (80.0-98.0) fL MCH 33.3 H (27.0-33.0) pg MCHC 34.2 (31.0-36.0) g/dl RDW 13.2 (11.0-16.0) % Plt Count 372 (160-400) X10*3/uL MPV 8.5 L (9.4-12.4) fL Immature Gran % (Auto) 0.5 H (0.0-0.4) % Neut % (Auto) 72.3 (45-73) % Lymph % (Auto) 16.7 L (20-40) % [place] % (Auto) 9.3 (2-11) % Eos % (Auto) 0.7 (0-4) % Baso % (Auto) 0.5 (0-2) % Lymph # (Auto) 1.4 (1.2-4.9) X10*3/uL [place] # (Auto) 0.8 (0.1-1.2) X10*3/uL Eos # (Auto) 0.1 (0.0-0.4) X10*3/uL Baso # (Auto) 0.0 (0.0-0.2) X10*3/uL Abs Immat Gran (auto) 0.04 H (0.00-0.03) X10*3/uL Absolute Neuts (auto) 5.9 (2.0-8.3) x10*3/uL Absolute Nucleated RBC 0.000 (0.0-0.012) X10*3/uL Nucleated RBC % (auto) 0.0 (0.0-0.2) /100WBC PT 14.2 H (10.0-13.1) SEC INR 1.2 H (0.9-1.1) APTT 33.6 (26.0-36.4) SEC Sodium 138 (135-145) mmol/L Potassium 4.8 (3.3-5.1) mmol/L Chloride 100 (96-108) mmol/L Carbon Dioxide 30 H (22-29) mmol/L Anion Gap 13 (12-20) BUN 12 (9-16) mg/dL Creatinine 1.23 (0.5-1.4) mg/dL Estim Creat Clear Calc 84.3 Estimated GFR > 60 Random Glucose 96 (60-115) mg/dL Calcium 9.5 (8.4-10.2) mg/dL Magnesium 2.5 (1.6-2.6) mg/dL Total Bilirubin 0.9 (0.0-1.0) mg/dL AST 31 (5-37) U/L ALT 31 (0-40) U/L Alkaline Phosphatase 92 (39-117) U/L Troponin I High Sens (<3.5-35.0) ng/L B-Natriuretic Peptide (<100) pg/mL Total Protein 7.3 (6.5-8.0) g/dL Albumin 4.2 (3.5-5.0) g/dL Triglycerides mg/dL Cholesterol mg/dL LDL Cholesterol, Calc mg/dl HDL Cholesterol mg/dL Vitamin B12 191 L (200-900) pg/mL Folate 4.1 (> or = 4.0) ng/mL Ethyl Alcohol < 10 mg/dL Influenza Type A (PCR) (Negative) Influenza Type B (PCR) (Negative) RSV RNA Qual (PCR) (Negative) SARS-CoV-2 RNA (RT-PCR) (Negative) 12/28/22 12/28/22 12/28/22 Range/Units 12:36 12:36 12:36 WBC (4.8-10.8) X10*3/uL RBC (4.60-5.80) X10*6/uL Hgb (14.0-18.0) g/dl Hct (42.0-52.0) % MCV (80.0-98.0) fL MCH (27.0-33.0) pg MCHC (31.0-36.0) g/dl RDW (11.0-16.0) % Plt Count (160-400) X10*3/uL MPV (9.4-12.4) fL Immature Gran % (Auto) (0.0-0.4) % Neut % (Auto) (45-73) % Lymph % (Auto) (20-40) % [place] % (Auto) (2-11) % Eos % (Auto) (0-4) % Baso % (Auto) (0-2) % Lymph # (Auto) (1.2-4.9) X10*3/uL [place] # (Auto) (0.1-1.2) X10*3/uL Eos # (Auto) (0.0-0.4) X10*3/uL Baso # (Auto) (0.0-0.2) X10*3/uL Abs Immat Gran (auto) (0.00-0.03) X10*3/uL Absolute Neuts (auto) (2.0-8.3) x10*3/uL Absolute Nucleated RBC (0.0-0.012) X10*3/uL Nucleated RBC % (auto) (0.0-0.2) /100WBC PT (10.0-13.1) SEC INR (0.9-1.1) APTT (26.0-36.4) SEC Sodium (135-145) mmol/L Potassium (3.3-5.1) mmol/L Chloride (96-108) mmol/L Carbon Dioxide (22-29) mmol/L Anion Gap (12-20) BUN (9-16) mg/dL Creatinine (0.5-1.4) mg/dL Estim Creat Clear Calc Estimated GFR Random Glucose (60-115) mg/dL Calcium (8.4-10.2) mg/dL Magnesium (1.6-2.6) mg/dL Total Bilirubin (0.0-1.0) mg/dL AST (5-37) U/L ALT (0-40) U/L Alkaline Phosphatase (39-117) U/L Troponin I High Sens 4.4 (<3.5-35.0) ng/L B-Natriuretic Peptide 44 (<100) pg/mL Total Protein (6.5-8.0) g/dL Albumin (3.5-5.0) g/dL Triglycerides mg/dL Cholesterol mg/dL LDL Cholesterol, Calc mg/dl HDL Cholesterol mg/dL Vitamin B12 (200-900) pg/mL Folate (> or = 4.0) ng/mL Ethyl Alcohol mg/dL Influenza Type A (PCR) NEGATIVE (Negative) Influenza Type B (PCR) NEGATIVE (Negative) RSV RNA Qual (PCR) NEGATIVE (Negative) SARS-CoV-2 RNA (RT-PCR) NEGATIVE (Negative) 12/29/22 12/29/22 Range/Units 05:52 05:52 WBC (4.8-10.8) X10*3/uL RBC (4.60-5.80) X10*6/uL Hgb (14.0-18.0) g/dl Hct (42.0-52.0) % MCV (80.0-98.0) fL MCH (27.0-33.0) pg MCHC (31.0-36.0) g/dl RDW (11.0-16.0) % Plt Count (160-400) X10*3/uL MPV (9.4-12.4) fL Immature Gran % (Auto) (0.0-0.4) % Neut % (Auto) (45-73) % Lymph % (Auto) (20-40) % [place] % (Auto) (2-11) % Eos % (Auto) (0-4) % Baso % (Auto) (0-2) % Lymph # (Auto) (1.2-4.9) X10*3/uL [place] # (Auto) (0.1-1.2) X10*3/uL Eos # (Auto) (0.0-0.4) X10*3/uL Baso # (Auto) (0.0-0.2) X10*3/uL Abs Immat Gran (auto) (0.00-0.03) X10*3/uL Absolute Neuts (auto) (2.0-8.3) x10*3/uL Absolute Nucleated RBC (0.0-0.012) X10*3/uL Nucleated RBC % (auto) (0.0-0.2) /100WBC PT (10.0-13.1) SEC INR (0.9-1.1) APTT (26.0-36.4) SEC Sodium (135-145) mmol/L Potassium (3.3-5.1) mmol/L Chloride (96-108) mmol/L Carbon Dioxide (22-29) mmol/L Anion Gap (12-20) BUN (9-16) mg/dL Creatinine (0.5-1.4) mg/dL Estim Creat Clear Calc Estimated GFR Random Glucose (60-115) mg/dL Calcium (8.4-10.2) mg/dL Magnesium 2.4 (1.6-2.6) mg/dL Total Bilirubin (0.0-1.0) mg/dL AST (5-37) U/L ALT (0-40) U/L Alkaline Phosphatase (39-117) U/L Troponin I High Sens (<3.5-35.0) ng/L B-Natriuretic Peptide (<100) pg/mL Total Protein (6.5-8.0) g/dL Albumin (3.5-5.0) g/dL Triglycerides 125 mg/dL Cholesterol 133 mg/dL LDL Cholesterol, Calc 58 mg/dl HDL Cholesterol 50 mg/dL Vitamin B12 (200-900) pg/mL Folate (> or = 4.0) ng/mL Ethyl Alcohol mg/dL Influenza Type A (PCR) (Negative) Influenza Type B (PCR) (Negative) RSV RNA Qual (PCR) (Negative) SARS-CoV-2 RNA (RT-PCR) (Negative) <MARY Holm - Last Filed: 12/29/22 11:38> Lab Results 12/28/22 12/28/22 12/28/22 Range/Units 12:36 12:36 12:36 WBC 8.2 (4.8-10.8) X10*3/uL RBC 4.41 L (4.60-5.80) X10*6/uL Hgb 14.7 (14.0-18.0) g/dl Hct 43.0 (42.0-52.0) % MCV 97.5 (80.0-98.0) fL MCH 33.3 H (27.0-33.0) pg MCHC 34.2 (31.0-36.0) g/dl RDW 13.2 (11.0-16.0) % Plt Count 372 (160-400) X10*3/uL MPV 8.5 L (9.4-12.4) fL Immature Gran % (Auto) 0.5 H (0.0-0.4) % Neut % (Auto) 72.3 (45-73) % Lymph % (Auto) 16.7 L (20-40) % [place] % (Auto) 9.3 (2-11) % Eos % (Auto) 0.7 (0-4) % Baso % (Auto) 0.5 (0-2) % Lymph # (Auto) 1.4 (1.2-4.9) X10*3/uL [place] # (Auto) 0.8 (0.1-1.2) X10*3/uL Eos # (Auto) 0.1 (0.0-0.4) X10*3/uL Baso # (Auto) 0.0 (0.0-0.2) X10*3/uL Abs Immat Gran (auto) 0.04 H (0.00-0.03) X10*3/uL Absolute Neuts (auto) 5.9 (2.0-8.3) x10*3/uL Absolute Nucleated RBC 0.000 (0.0-0.012) X10*3/uL Nucleated RBC % (auto) 0.0 (0.0-0.2) /100WBC PT 14.2 H (10.0-13.1) SEC INR 1.2 H (0.9-1.1) APTT 33.6 (26.0-36.4) SEC Sodium 138 (135-145) mmol/L Potassium 4.8 (3.3-5.1) mmol/L Chloride 100 (96-108) mmol/L Carbon Dioxide 30 H (22-29) mmol/L Anion Gap 13 (12-20) BUN 12 (9-16) mg/dL Creatinine 1.23 (0.5-1.4) mg/dL Estim Creat Clear Calc 84.3 Estimated GFR > 60 Random Glucose 96 (60-115) mg/dL Calcium 9.5 (8.4-10.2) mg/dL Magnesium 2.5 (1.6-2.6) mg/dL Total Bilirubin 0.9 (0.0-1.0) mg/dL AST 31 (5-37) U/L ALT 31 (0-40) U/L Alkaline Phosphatase 92 (39-117) U/L Troponin I High Sens (<3.5-35.0) ng/L B-Natriuretic Peptide (<100) pg/mL Total Protein 7.3 (6.5-8.0) g/dL Albumin 4.2 (3.5-5.0) g/dL Triglycerides mg/dL Cholesterol mg/dL LDL Cholesterol, Calc mg/dl HDL Cholesterol mg/dL Vitamin B12 191 L (200-900) pg/mL Folate 4.1 (> or = 4.0) ng/mL Ethyl Alcohol < 10 mg/dL Influenza Type A (PCR) (Negative) Influenza Type B (PCR) (Negative) RSV RNA Qual (PCR) (Negative) SARS-CoV-2 RNA (RT-PCR) (Negative) 12/28/22 12/28/22 12/28/22 Range/Units 12:36 12:36 12:36 WBC (4.8-10.8) X10*3/uL RBC (4.60-5.80) X10*6/uL Hgb (14.0-18.0) g/dl Hct (42.0-52.0) % MCV (80.0-98.0) fL MCH (27.0-33.0) pg MCHC (31.0-36.0) g/dl RDW (11.0-16.0) % Plt Count (160-400) X10*3/uL MPV (9.4-12.4) fL Immature Gran % (Auto) (0.0-0.4) % Neut % (Auto) (45-73) % Lymph % (Auto) (20-40) % [place] % (Auto) (2-11) % Eos % (Auto) (0-4) % Baso % (Auto) (0-2) % Lymph # (Auto) (1.2-4.9) X10*3/uL [place] # (Auto) (0.1-1.2) X10*3/uL Eos # (Auto) (0.0-0.4) X10*3/uL Baso # (Auto) (0.0-0.2) X10*3/uL Abs Immat Gran (auto) (0.00-0.03) X10*3/uL Absolute Neuts (auto) (2.0-8.3) x10*3/uL Absolute Nucleated RBC (0.0-0.012) X10*3/uL Nucleated RBC % (auto) (0.0-0.2) /100WBC PT (10.0-13.1) SEC INR (0.9-1.1) APTT (26.0-36.4) SEC Sodium (135-145) mmol/L Potassium (3.3-5.1) mmol/L Chloride (96-108) mmol/L Carbon Dioxide (22-29) mmol/L Anion Gap (12-20) BUN (9-16) mg/dL Creatinine (0.5-1.4) mg/dL Estim Creat Clear Calc Estimated GFR Random Glucose (60-115) mg/dL Calcium (8.4-10.2) mg/dL Magnesium (1.6-2.6) mg/dL Total Bilirubin (0.0-1.0) mg/dL AST (5-37) U/L ALT (0-40) U/L Alkaline Phosphatase (39-117) U/L Troponin I High Sens 4.4 (<3.5-35.0) ng/L B-Natriuretic Peptide 44 (<100) pg/mL Total Protein (6.5-8.0) g/dL Albumin (3.5-5.0) g/dL Triglycerides mg/dL Cholesterol mg/dL LDL Cholesterol, Calc mg/dl HDL Cholesterol mg/dL Vitamin B12 (200-900) pg/mL Folate (> or = 4.0) ng/mL Ethyl Alcohol mg/dL Influenza Type A (PCR) NEGATIVE (Negative) Influenza Type B (PCR) NEGATIVE (Negative) RSV RNA Qual (PCR) NEGATIVE (Negative) SARS-CoV-2 RNA (RT-PCR) NEGATIVE (Negative) 12/29/22 12/29/22 Range/Units 05:52 05:52 WBC (4.8-10.8) X10*3/uL RBC (4.60-5.80) X10*6/uL Hgb (14.0-18.0) g/dl Hct (42.0-52.0) % MCV (80.0-98.0) fL MCH (27.0-33.0) pg MCHC (31.0-36.0) g/dl RDW (11.0-16.0) % Plt Count (160-400) X10*3/uL MPV (9.4-12.4) fL Immature Gran % (Auto) (0.0-0.4) % Neut % (Auto) (45-73) % Lymph % (Auto) (20-40) % [place] % (Auto) (2-11) % Eos % (Auto) (0-4) % Baso % (Auto) (0-2) % Lymph # (Auto) (1.2-4.9) X10*3/uL [place] # (Auto) (0.1-1.2) X10*3/uL Eos # (Auto) (0.0-0.4) X10*3/uL Baso # (Auto) (0.0-0.2) X10*3/uL Abs Immat Gran (auto) (0.00-0.03) X10*3/uL Absolute Neuts (auto) (2.0-8.3) x10*3/uL Absolute Nucleated RBC (0.0-0.012) X10*3/uL Nucleated RBC % (auto) (0.0-0.2) /100WBC PT (10.0-13.1) SEC INR (0.9-1.1) APTT (26.0-36.4) SEC Sodium (135-145) mmol/L Potassium (3.3-5.1) mmol/L Chloride (96-108) mmol/L Carbon Dioxide (22-29) mmol/L Anion Gap (12-20) BUN (9-16) mg/dL Creatinine (0.5-1.4) mg/dL Estim Creat Clear Calc Estimated GFR Random Glucose (60-115) mg/dL Calcium (8.4-10.2) mg/dL Magnesium 2.4 (1.6-2.6) mg/dL Total Bilirubin (0.0-1.0) mg/dL AST (5-37) U/L ALT (0-40) U/L Alkaline Phosphatase (39-117) U/L Troponin I High Sens (<3.5-35.0) ng/L B-Natriuretic Peptide (<100) pg/mL Total Protein (6.5-8.0) g/dL Albumin (3.5-5.0) g/dL Triglycerides 125 mg/dL Cholesterol 133 mg/dL LDL Cholesterol, Calc 58 mg/dl HDL Cholesterol 50 mg/dL Vitamin B12 (200-900) pg/mL Folate (> or = 4.0) ng/mL Ethyl Alcohol mg/dL Influenza Type A (PCR) (Negative) Influenza Type B (PCR) (Negative) RSV RNA Qual (PCR) (Negative) SARS-CoV-2 RNA (RT-PCR) (Negative) <MARY Osei - Last Filed: 12/28/22 18:14> Lab Results 12/28/22 12/28/22 12/28/22 Range/Units 12:36 12:36 12:36 WBC 8.2 (4.8-10.8) X10*3/uL RBC 4.41 L (4.60-5.80) X10*6/uL Hgb 14.7 (14.0-18.0) g/dl Hct 43.0 (42.0-52.0) % MCV 97.5 (80.0-98.0) fL MCH 33.3 H (27.0-33.0) pg MCHC 34.2 (31.0-36.0) g/dl RDW 13.2 (11.0-16.0) % Plt Count 372 (160-400) X10*3/uL MPV 8.5 L (9.4-12.4) fL Immature Gran % (Auto) 0.5 H (0.0-0.4) % Neut % (Auto) 72.3 (45-73) % Lymph % (Auto) 16.7 L (20-40) % [place] % (Auto) 9.3 (2-11) % Eos % (Auto) 0.7 (0-4) % Baso % (Auto) 0.5 (0-2) % Lymph # (Auto) 1.4 (1.2-4.9) X10*3/uL [place] # (Auto) 0.8 (0.1-1.2) X10*3/uL Eos # (Auto) 0.1 (0.0-0.4) X10*3/uL Baso # (Auto) 0.0 (0.0-0.2) X10*3/uL Abs Immat Gran (auto) 0.04 H (0.00-0.03) X10*3/uL Absolute Neuts (auto) 5.9 (2.0-8.3) x10*3/uL Absolute Nucleated RBC 0.000 (0.0-0.012) X10*3/uL Nucleated RBC % (auto) 0.0 (0.0-0.2) /100WBC PT 14.2 H (10.0-13.1) SEC INR 1.2 H (0.9-1.1) APTT 33.6 (26.0-36.4) SEC Sodium 138 (135-145) mmol/L Potassium 4.8 (3.3-5.1) mmol/L Chloride 100 (96-108) mmol/L Carbon Dioxide 30 H (22-29) mmol/L Anion Gap 13 (12-20) BUN 12 (9-16) mg/dL Creatinine 1.23 (0.5-1.4) mg/dL Estim Creat Clear Calc 84.3 Estimated GFR > 60 Random Glucose 96 (60-115) mg/dL Calcium 9.5 (8.4-10.2) mg/dL Magnesium 2.5 (1.6-2.6) mg/dL Total Bilirubin 0.9 (0.0-1.0) mg/dL AST 31 (5-37) U/L ALT 31 (0-40) U/L Alkaline Phosphatase 92 (39-117) U/L Troponin I High Sens (<3.5-35.0) ng/L B-Natriuretic Peptide (<100) pg/mL Total Protein 7.3 (6.5-8.0) g/dL Albumin 4.2 (3.5-5.0) g/dL Triglycerides mg/dL Cholesterol mg/dL LDL Cholesterol, Calc mg/dl HDL Cholesterol mg/dL Vitamin B12 191 L (200-900) pg/mL Folate 4.1 (> or = 4.0) ng/mL Ethyl Alcohol < 10 mg/dL Influenza Type A (PCR) (Negative) Influenza Type B (PCR) (Negative) RSV RNA Qual (PCR) (Negative) SARS-CoV-2 RNA (RT-PCR) (Negative) 12/28/22 12/28/22 12/28/22 Range/Units 12:36 12:36 12:36 WBC (4.8-10.8) X10*3/uL RBC (4.60-5.80) X10*6/uL Hgb (14.0-18.0) g/dl Hct (42.0-52.0) % MCV (80.0-98.0) fL MCH (27.0-33.0) pg MCHC (31.0-36.0) g/dl RDW (11.0-16.0) % Plt Count (160-400) X10*3/uL MPV (9.4-12.4) fL Immature Gran % (Auto) (0.0-0.4) % Neut % (Auto) (45-73) % Lymph % (Auto) (20-40) % [place] % (Auto) (2-11) % Eos % (Auto) (0-4) % Baso % (Auto) (0-2) % Lymph # (Auto) (1.2-4.9) X10*3/uL [place] # (Auto) (0.1-1.2) X10*3/uL Eos # (Auto) (0.0-0.4) X10*3/uL Baso # (Auto) (0.0-0.2) X10*3/uL Abs Immat Gran (auto) (0.00-0.03) X10*3/uL Absolute Neuts (auto) (2.0-8.3) x10*3/uL Absolute Nucleated RBC (0.0-0.012) X10*3/uL Nucleated RBC % (auto) (0.0-0.2) /100WBC PT (10.0-13.1) SEC INR (0.9-1.1) APTT (26.0-36.4) SEC Sodium (135-145) mmol/L Potassium (3.3-5.1) mmol/L Chloride (96-108) mmol/L Carbon Dioxide (22-29) mmol/L Anion Gap (12-20) BUN (9-16) mg/dL Creatinine (0.5-1.4) mg/dL Estim Creat Clear Calc Estimated GFR Random Glucose (60-115) mg/dL Calcium (8.4-10.2) mg/dL Magnesium (1.6-2.6) mg/dL Total Bilirubin (0.0-1.0) mg/dL AST (5-37) U/L ALT (0-40) U/L Alkaline Phosphatase (39-117) U/L Troponin I High Sens 4.4 (<3.5-35.0) ng/L B-Natriuretic Peptide 44 (<100) pg/mL Total Protein (6.5-8.0) g/dL Albumin (3.5-5.0) g/dL Triglycerides mg/dL Cholesterol mg/dL LDL Cholesterol, Calc mg/dl HDL Cholesterol mg/dL Vitamin B12 (200-900) pg/mL Folate (> or = 4.0) ng/mL Ethyl Alcohol mg/dL Influenza Type A (PCR) NEGATIVE (Negative) Influenza Type B (PCR) NEGATIVE (Negative) RSV RNA Qual (PCR) NEGATIVE (Negative) SARS-CoV-2 RNA (RT-PCR) NEGATIVE (Negative) 12/29/22 12/29/22 Range/Units 05:52 05:52 WBC (4.8-10.8) X10*3/uL RBC (4.60-5.80) X10*6/uL Hgb (14.0-18.0) g/dl Hct (42.0-52.0) % MCV (80.0-98.0) fL MCH (27.0-33.0) pg MCHC (31.0-36.0) g/dl RDW (11.0-16.0) % Plt Count (160-400) X10*3/uL MPV (9.4-12.4) fL Immature Gran % (Auto) (0.0-0.4) % Neut % (Auto) (45-73) % Lymph % (Auto) (20-40) % [place] % (Auto) (2-11) % Eos % (Auto) (0-4) % Baso % (Auto) (0-2) % Lymph # (Auto) (1.2-4.9) X10*3/uL [place] # (Auto) (0.1-1.2) X10*3/uL Eos # (Auto) (0.0-0.4) X10*3/uL Baso # (Auto) (0.0-0.2) X10*3/uL Abs Immat Gran (auto) (0.00-0.03) X10*3/uL Absolute Neuts (auto) (2.0-8.3) x10*3/uL Absolute Nucleated RBC (0.0-0.012) X10*3/uL Nucleated RBC % (auto) (0.0-0.2) /100WBC PT (10.0-13.1) SEC INR (0.9-1.1) APTT (26.0-36.4) SEC Sodium (135-145) mmol/L Potassium (3.3-5.1) mmol/L Chloride (96-108) mmol/L Carbon Dioxide (22-29) mmol/L Anion Gap (12-20) BUN (9-16) mg/dL Creatinine (0.5-1.4) mg/dL Estim Creat Clear Calc Estimated GFR Random Glucose (60-115) mg/dL Calcium (8.4-10.2) mg/dL Magnesium 2.4 (1.6-2.6) mg/dL Total Bilirubin (0.0-1.0) mg/dL AST (5-37) U/L ALT (0-40) U/L Alkaline Phosphatase (39-117) U/L Troponin I High Sens (<3.5-35.0) ng/L B-Natriuretic Peptide (<100) pg/mL Total Protein (6.5-8.0) g/dL Albumin (3.5-5.0) g/dL Triglycerides 125 mg/dL Cholesterol 133 mg/dL LDL Cholesterol, Calc 58 mg/dl HDL Cholesterol 50 mg/dL Vitamin B12 (200-900) pg/mL Folate (> or = 4.0) ng/mL Ethyl Alcohol mg/dL Influenza Type A (PCR) (Negative) Influenza Type B (PCR) (Negative) RSV RNA Qual (PCR) (Negative) SARS-CoV-2 RNA (RT-PCR) (Negative) <Dheeraj Hutton - Last Filed: 12/28/22 19:23> Radiology Impression Discussion of test interpretation with radiology: I have reviewed the radiologist's reading. <MARY Osei - Last Filed: 12/28/22 18:14> External Record Review External record reviewed: Inpatient record, Office record, Outpatient record, Prior outpatient labs, Prior outpatient radiology, Primary care record and Outside ED record <MARY Osei - Last Filed: 12/28/22 18:14> Discharge Plan Discharge Clinical Impression: Lightheadedness, SOB (shortness of breath), Dizziness <MARY Holm - Last Filed: 12/29/22 11:38> Patient Disposition: Admitted As Inpatient <MARY Holm - Last Filed: 12/29/22 11:38> Interventions: Admission Worksheet (ED) Last Done: 12/28/22 22:43 <MARY Holm - Last Filed: 12/29/22 11:38> Discharge Date/Time: 12/28/22 22:58 <MARY Holm - Last Filed: 12/29/22 11:38>
[2022-12-28 12:47] LABS: MANUAL DIFF FLAG NO
[2022-12-28 12:49] LABS: Basophils Percent Auto 0.5 % (0-2); Eosinophils Absolute Auto 0.1 X10*3/uL (0.0-0.4); Eosinophils Percent Auto 0.7 % (0-4); Hemoglobin 14.7 g/dl (14.0-18.0); Imm Gran Abs Auto 0.04 X10*3/uL (0.00-0.03); Imm Gran Pct Auto 0.5 % (0.0-0.4); Lymphocytes Absolute Auto 1.4 X10*3/uL (1.2-4.9); Lymphocytes Percent Auto 16.7 % (20-40); Mean Corpuscular HGB Conc 34.2 g/dl (31.0-36.0); Mean Corpuscular Hemoglobin 33.3 pg (27.0-33.0); Mean Corpuscular Volume 97.5 fL (80.0-98.0); Mean Platelet Volume 8.5 fL (9.4-12.4); Monocytes Absolute Auto 0.8 X10*3/uL (0.1-1.2); Monocytes Percent Auto 9.3 % (2-11); Neutrophils Absolute Auto 5.9 x10*3/uL (2.0-8.3); Neutrophils Percent Auto 72.3 % (45-73); Platelet Count 372 X10*3/uL (160-400); Red Blood Count 4.41 X10*6/uL (4.60-5.80); Red Cell Distribution Width 13.2 % (11.0-16.0); White Blood Count 8.2 X10*3/uL (4.8-10.8)
[2022-12-28 12:54] LABS: INTERNATIONAL NORM RATIO 1.2 (0.9-1.1); Prothrombin Time 14.2 SEC (10.0-13.1)
[2022-12-28 12:57] LABS: Partial Thromboplastin Time 33.6 SEC (26.0-36.4)
[2022-12-28 13:07] LABS: Alanine Aminotransferase 31 U/L (0-40); Albumin Level 4.2 g/dL (3.5-5.0); Alkaline Phosphatase 92 U/L (39-117); Anion Gap 13 (12-20); Aspartate Amino Transferase 31 U/L (5-37); Bilirubin Total 0.9 mg/dL (0.0-1.0); Blood Urea Nitrogen 12 mg/dL (9-16); Calcium 9.5 mg/dL (8.4-10.2); Carbon Dioxide 30 mmol/L (22-29); Chloride 100 mmol/L (96-108); Creatinine Clr Calc Pharmacy 84.3; Estimated Glomerular Filt Rate > 60; Glucose Random 96 mg/dL (60-115); Potassium 4.8 mmol/L (3.3-5.1); Sodium 138 mmol/L (135-145); Total Protein 7.3 g/dL (6.5-8.0)
[2022-12-28 13:12] LABS: B Type Natriuretic Peptide 44 pg/mL (<100)
[2022-12-28 13:14] LABS: Troponin-I High Sensitivity 4.4 ng/L (<3.5-35.0)
[2022-12-28 13:25] LABS: Influenza A PCR NEGATIVE (Negative); Influenza B PCR NEGATIVE (Negative); Resp Syncy Virus RNA Qual PCR NEGATIVE (Negative); SARS COV2 PCR INHOUSE NEGATIVE (Negative)
[2022-12-28] MEDS: Albuterol/Iprat 2.5/0.5MG 3 ML AMPUL.NEB INHALE (14:20)
--- NOTE | 2022-12-28 14:30 | PC.NURSE ---
Pt lying in stretcher, airway open and patent, no obvious signs of distress, speaking in full sentences, no difficulty/labored breathing. A&ox4. Skin color pink, warm, and dry. Lung sounds reveal wheezing in right lower base, slight wheezing in right upper. Left side lung sounds clear. Heart sounds normal. Bowel sounds present all silva, abdomen soft, non-tender. No edema noted. Pt reports that he was painting on and didn't wear the proper mask, afterwards having some shortness of breath as well as his throat burning, and lightheadedness. Neuros intact. Pt denies any pain.
[2022-12-28 14:37] LABS: Magnesium 2.5 mg/dL (1.6-2.6)
--- NOTE | 2022-12-28 14:45 | MHC.EDTECH ---
STANDING RM 02: 99. I walked the patient around the Main ED. He tolerated it fine, No Complaints or concerns. Speaking and joking with Tech. Patient's 02 didn't drop below 98 %. Stated he is feeling much better after the breathing tx. While walking around took a couple of deep breaths no coughing, no distress.
[2022-12-28] MEDS: Meclizine HCl 25 MG TABLET PO (15:03)
[2022-12-28 17:11] LABS: Ethanol < 10 mg/dL
[2022-12-28] MEDS: iohexoL 350 MG/ML 100 ML INFUS..BTL IV (17:31)
[2022-12-28 17:38] LABS: Folate 4.1 ng/mL (> or = 4.0); Vitamin B12 191 pg/mL (200-900)
--- NOTE | 2022-12-28 18:55 | PC.NURSE ---
pt alert and oriented, skin pwd, respirations even and unlabored, all nuro intact at this time, pt is reporting a headache at this time, pain at 5/10 at this time, ns -tachy sinus on the monitor.
--- NOTE | 2022-12-28 19:23 | P.HPHOSP_ITS ---
History of Present Illness Date of Service: 12/28/22 Attending physician on admission: Jon Peterson Chief Complaint: Lightheadedness and dizziness Pt is a 57-year-old male with a PMH significant for?AFib on Eliquis, HTN, anxiety, panic disorder, COPD,and hypothyroidism who presents to the ED with?worsening lightheadedness, dizziness, and ataxia since . Pt states he woke up feeling weird on and felt even worse on Thursday: he had no appetite, felt hot and then cold, had lightheadedness and dizziness and a headache. Was also feeling off balance and having some difficulties walking. Watkins even worse on Thursday and this morning. Pt notes he has had similar episodes on and off the past couple of years. Says there are times he has uncontrollable shaking of his hands and feet and will fall down when walking. Will also find himself leaning to one side while standing or sitting in his recliner. 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 Complains too of photophobia. Denies chest pain/pressure. No N/V/diarrhea, abdomnial pain. In the ED patient was afebrile. Labs were largely unremarkable: Troponin negative, B12 slighlty low at 191, folate low-normal at 4.1. CXR showed no evidence of acute cardiopulmonary disease. CT of head showed no acute intracranial pathology. CTA head showed small age-indeterminate infarct in the left superior cerebellar hemisphere with no large vessel occlusion or significant stenosis within the intracranial or extracranial arterial vasculatures.?EKG demonstrated normal sinus rhythm with nonspecific ST and T- wave abnormality. Pt was treated with DuoNeb and meclizine. Pt will be admitted to observation on telemetry for further workup and evaluation of potential CVA. Review of Systems Review of Systems: Lightheadedness, dizziness Tremors, shaking of upper and lower extremities Ataxia Headache Dry mouth and sore throat Yes all other systems are reviewed and are negative [facility] Social History Household Members: Significant Other Housing: Apartment Do you presently have visiting nurse or other home services: No Alcohol intake: current Alcohol intake frequency: a few times a week Patient Tobacco Use Status: Current someday Tobacco user Tobacco use type: Cigarette Cigarettes Per Day: 2 Years Smoked: 20 Smoked in Last 30 Days: Yes e-Cigarette/Vaping Use: Never Used Patient Interested in Nicotine Replacement: No Patient Given Instructions on How to Stop Smoking: No Second Hand Smoke Exposure: Yes Use of substances other than those prescribed or required for medical reasons: No Currently Displaying Signs/Symptoms of Drug Intoxication Withdrawal: No Any prior treatment program specific to substance use: No Have you been hit, kicked, punched, or otherwise hurt by someone within the past year? If so, by whom?: No Do you feel safe in your current relationship?: Yes Is there a partner from a previous relationship who is making you feel unsafe now?: No Are you made to feel afraid or neglected: No Roman [employer] Healthcare Practices: church Advance Directives: No Advance Directives Information Provided: Yes Do you have thoughts of harming others: None Do you have a plan to hurt others: No Plan Recently lost weight without trying: Yes How much weight loss: 24-33 pounds Eating poorly because of decreased appetite: Yes Nutrition screen score: 6 Nutrition Risks: No Nutritional Risk Poor oral hygiene: Yes Meds Allergies Allergy/AdvReac Type Severity Reaction Status Date / Time aspirin [ASA] Allergy Unknown BLEEDING Unverified 12/18/21 15:53 ULCERS, stomach upset NSAIDS (Non-Steroidal Allergy Unknown BLEEDING Unverified 12/18/21 15:53 Anti-Inflamma ULCERS [NSAIDS (NON-STEROIDAL ANTI-INFLAMMA] Active Medications: Current Medications Pharmacy Consult (Consult Rx Perform Med Rec) 1 each MISCELLANE ONCE PRN PRN Reason: Consult order Home Medications Medication Instructions Recorded Confirmed Last Taken Type albuterol sulfate 90 mcg/actuation 2 puff PO Q4-6H PRN Dyspnea 12/18/21 12/28/22 12/27/22 History aerosol inhaler amiodarone 200 mg tablet 400 mg PO DAILY 12/18/21 12/28/22 12/27/22 History atorvastatin 20 mg tablet 20 mg PO DAILY 12/18/21 12/28/22 12/27/22 History clonazepam 1 mg tablet 1 mg PO TID 12/18/21 12/28/22 12/27/22 History cyclobenzaprine 10 mg tablet 10 mg PO TID 12/18/21 12/28/22 12/27/22 History diltiazem HCl 360 mg 360 mg PO DAILY 12/18/21 12/28/22 12/27/22 History capsule,extended release 24 hr fluticasone propionate 110 1 puff PO BID 12/18/21 12/28/22 12/27/22 History mcg/actuation HFA aerosol inhaler (Flovent HFA) levothyroxine 137 mcg tablet 137 mcg PO DAILY 12/18/21 12/28/22 12/27/22 History lisinopril 20 1 tab PO DAILY 12/18/21 12/28/22 12/27/22 History mg-hydrochlorothiazide 25 mg tablet oxycodone 20 mg tablet 20 mg PO QID 12/18/21 12/28/22 12/27/22 History apixaban 5 mg tablet (Eliquis) 5 mg PO BID 12/28/22 12/28/22 12/27/22 History lisinopril 20 mg tablet 20 mg PO DAILY 12/28/22 12/28/22 12/27/22 History Physical Exam Vital Signs and Narrative: Vital Signs: Last Vital Signs Temp 98.2 F 12/28/22 14:19 Pulse 86 12/28/22 18:54 Resp 18 12/28/22 18:54 BP 110/69 12/28/22 18:54 Pulse Ox 97 12/28/22 18:54 O2 Del Method Room Air 12/28/22 18:54 BMI result Body Mass Index 29.5 Constitutional: Alert, anxious, in no acute distress. Mental Status: Oriented to person, place and time. Eyes: Pupils are equal, round, and reactive to light. Ear, Nose, and Throat: Oropharynx clear, mucous membranes moist. Ears and nose without deformities. Trachea midline. Respiratory: Clear to auscultation bilaterally. No wheezing, rales, or rhonchi. Cardiovascular: S1, S2 regular. No murmurs, rubs, or gallops. Gastrointestinal: Abdomen soft, non-tender, non-distended. Normal bowel sounds. Neurologic: Cranial nerves II-XII are grossly intact bilaterally. No focal neurological deficits. Moves all extremities spontaneously. 5/5 strength to upper and lower right extremities. 4/5 strength to upper and lower left ext remities. Moderate intentional tremors noted of left upper and lower extremities. Skin: No rashes or lesions noted. Musculoskeletal: No cyanosis or clubbing. Extremities: No edema. Psychiatric: Anxious, emotionally labile. Results Labs 12/28/22 12:36 12/28/22 12:36 Labs: Laboratory Results - last 24 hr 12/28/22 12/28/22 12/28/22 12:36 12:36 12:36 MCV 97.5 MCH 33.3 H MCHC 34.2 RDW 13.2 Plt Count 372 MPV 8.5 L Immature Gran % (Auto) 0.5 H Neut % (Auto) 72.3 Lymph % (Auto) 16.7 L [place] % (Auto) 9.3 Eos % (Auto) 0.7 Baso % (Auto) 0.5 Lymph # (Auto) 1.4 [place] # (Auto) 0.8 Eos # (Auto) 0.1 Baso # (Auto) 0.0 Abs Immat Gran (auto) 0.04 H Absolute Neuts (auto) 5.9 Absolute Nucleated RBC 0.000 Nucleated RBC % (auto) 0.0 PT 14.2 H INR 1.2 H APTT 33.6 Anion Gap 13 Estim Creat Clear Calc 84.3 Estimated GFR > 60 Random Glucose 96 Calcium 9.5 Magnesium 2.5 Total Bilirubin 0.9 AST 31 ALT 31 Alkaline Phosphatase 92 Troponin I High Sens B-Natriuretic Peptide Total Protein 7.3 Albumin 4.2 Vitamin B12 191 L Folate 4.1 Ethyl Alcohol < 10 Influenza Type A (PCR) Influenza Type B (PCR) RSV RNA Qual (PCR) SARS-CoV-2 RNA (RT-PCR) 12/28/22 12/28/22 12/28/22 12:36 12:36 12:36 MCV MCH MCHC RDW Plt Count MPV Immature Gran % (Auto) Neut % (Auto) Lymph % (Auto) [place] % (Auto) Eos % (Auto) Baso % (Auto) Lymph # (Auto) [place] # (Auto) Eos # (Auto) Baso # (Auto) Abs Immat Gran (auto) Absolute Neuts (auto) Absolute Nucleated RBC Nucleated RBC % (auto) PT INR APTT Anion Gap Estim Creat Clear Calc Estimated GFR Random Glucose Calcium Magnesium Total Bilirubin AST ALT Alkaline Phosphatase Troponin I High Sens 4.4 B-Natriuretic Peptide 44 Total Protein Albumin Vitamin B12 Folate Ethyl Alcohol Influenza Type A (PCR) NEGATIVE Influenza Type B (PCR) NEGATIVE RSV RNA Qual (PCR) NEGATIVE SARS-CoV-2 RNA (RT-PCR) NEGATIVE Imaging Radiologist's Impressions: Impressions Chest X-Ray 12/28/22 12:57 IMPRESSION: No radiographic evidence of acute cardiopulmonary disease. Head CT 12/28/22 14:36 IMPRESSION: No acute intracranial pathology. Head/Neck CTA 12/28/22 17:25 IMPRESSION: 1. Small age-indeterminate infarct in the left superior cerebellar hemisphere. 2. No large vessel occlusion or significant stenosis within the intracranial or extracranial arterial vasculature. Assessment and Plan (1) CVA (cerebral vascular accident): Status: Acute Plan Pt is a 57-year-old male with a PMH significant for?AFib on Eliquis, HTN, anxiety, panic disorder, COPD,and hypothyroidism who presents to the ED with?worsening lightheadedness, dizziness, and ataxia since . Pt will be admitted to observation on telemetry for further workup and evaluation of potential CVA. CVA Question of acute vs subacute vs chronic CTA shows evidence of an age-indeterminate infarct in the left superior cerebellar hemisphere, no evidence of large vessel occlusion or significant stenosis Patient has been experiencing intentional tremors, tremors at rest, and moments of ataxia on and off for the past couple of years, seemingly worse since Start Aspirin 81mg qd and omerprazole 40mg qd Increase atorvastatin to 80 mg daily Echocardiogram MRI of head/brain wo contrast Lipid panel PT/OT evaluation Neurology consult Admit to telemetry Vitamin B12 Low at 191 Cyanocobalamin 1000 mcg IM Folate Low normal at 4.1 Folic acid 1 mg p.o. Paroxysmal AFib Continue Eliquis, diltiazem, amiodarone Anxiety Continue clonazepam COPD Continue home inhalers HTN BP soft, hold for antihypertensive for now Resume as indicated Hypothyroidism Continue levothyroxine Chronic back pain Continue oxycodone Full Code Attending:?Dr. Aviles DVT Prophylaxis: On Eliquis Patient will be admitted to observation and telemetry for further workup of possible CVA. Time Spent With Patient Time: Total time managing care of this patient today ____ minutes. Quality Stroke Does the patient have a stroke diagnosis?: Yes Reason for No Anti-thrombotic by Day Two: Not indicated (Outside of tPA therapeutic window) VTE Prior VTE?: No VTE Risk Level:: Medical - moderate - high VTE Device Contraindication: Treatment Not Indicated VTE Drug Contraindication: N/A - Med Ordered
[2022-12-28] MEDS: clonazePAM 1 MG TABLET PO (20:21)
[2022-12-28] MEDS: Acetaminophen 325 MG TABLET 650 MG PO (20:46)
[2022-12-28] MEDS: Aspirin 81 MG TAB.CHEW PO (20:47)
[2022-12-28] MEDS: Folic Acid 1 MG TABLET PO (20:47)
[2022-12-28] MEDS: oxyCODONE HCl Immed Release 5 MG TABLET 20 MG PO (21:59)
[2022-12-28] MEDS: Cyclobenzaprine HCl 10 MG TABLET PO (21:59)
[2022-12-28] MEDS: Cyanocobalamin (Vitamin B-12) 1,000 MCG/ML VIAL 1000 MCG IM (21:59)
[2022-12-28] MEDS: Apixaban 5 MG TABLET PO (21:59)
--- NOTE | 2022-12-28 22:24 | PC.NURSE ---
Pt noted to have shakiness in his hands. Pt stated this is not normal for him and it is likely caused by anxiety. Pt was given clonidine which helped relieve the anxiety. Pt was also medicated with oxycodone and flexeril per MAR for pain, medications helped with pain and anxiety. Pt states he feels much better.
[2022-12-29] VITALS (10 sets, daily range): BP systolic 96–119; BP diastolic 52–79; PULSE 53–98; RESP 14–20; TEMP 36.2–37.3; O2SAT 92–97
--- NOTE | 2022-12-29 | ECG_ITS ---
Test Reason : rhythm Blood Pressure : / mmHG Vent. Rate : 060 BPM Atrial Rate : 060 BPM P-R Int : 216 ms QRS Dur : 132 ms QT Int : 518 ms P-R-T Axes : 076 -01 071 degrees QTc Int : 518 ms Sinus rhythm with 1st degree A-V block with Premature atrial complexes Non-specific intra-ventricular conduction block Minimal voltage criteria for LVH, may be normal variant ( [place] product ) Nonspecific T wave abnormality Abnormal ECG When compared with ECG of 28-DEC-2022 12:39, Premature atrial complexes are now Present Nonspecific T wave abnormality has replaced inverted T waves in Lateral leads Referred By: Jon Peterson Electronically Signed By:FABY STEVENS MD
[2022-12-29] MEDS: 0.9 % Sodium Chloride Flush 3 ML SYRINGE IVFLUSH ×4 (02:06→20:46)
[2022-12-29] MEDS: Melatonin 3 MG TABLET 6 MG PO ×2 (02:06→20:42)
--- NOTE | 2022-12-29 04:54 | PC.NURSE ---
pt on teley, earlier on monitor pt's rhythm was sinus rhythm, but at 04:50, pt's rhythm on monitor is reading between afib/aflutter & pt c/o of chest pain. MD Peterson notified. Md Peterson ordered EKG, results pending. Will continue to monitor.
--- NOTE | 2022-12-29 05:10 | ECG_ITS ---
Test Reason : CP Blood Pressure : / mmHG Vent. Rate : 073 BPM Atrial Rate : 084 BPM P-R Int : 000 ms QRS Dur : 134 ms QT Int : 494 ms P-R-T Axes : 000 005 081 degrees QTc Int : 544 ms Atrial tachycardia /atrial flutter with variable conduction Non-specific intra-ventricular conduction block Minimal voltage criteria for LVH, may be normal variant ( [place] product ) Nonspecific T wave abnormality Abnormal ECG When compared with ECG of 29-DEC-2022 05:06, Atrial tachycardia / atrial flutter has replaced NST Nonspecific T wave abnormality no longer evident in Anterior leads Referred By: Jon Peterson Electronically Signed By:FABY STEVENS MD
[2022-12-29] MEDS: Magnesium Sulfate/H2O 2 GM/50 ML PIGGYBACK IV (06:02)
[2022-12-29] MEDS: Omeprazole 40 MG CAPSULE.DR PO (06:08)
[2022-12-29] MEDS: Levothyroxine Sodium 112 MCG, Levothyroxine Sodium 25 MCG 137 MCG PO (06:08)
[2022-12-29 06:55] LABS: Cholesterol 133 mg/dL; HDL Cholesterol 50 mg/dL; LDL Cholesterol Calculated 58 mg/dl; Magnesium 2.4 mg/dL (1.6-2.6); Triglycerides 125 mg/dL
--- NOTE | 2022-12-29 07:00 | CA_ITS ---
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 Normal LV systolic function with normal filling pattern 2. No obvious intracardiac shunting especially at atrial level based on bubble study 3. Normal cardiac valvular Doppler 4. Normal RV systolic pressure 5. Upper limits of normal ascending aortic size 6. No gross pericardial effusion Findings Left Ventricle Normal left ventricular size, thickness, and systolic function. The visually estimated ejection fraction is between 55-60%. Spectral Doppler is indicative of a normal filling pattern. Right Ventricle Normal right ventricular cavity size. Atria The left atrium is likely dilated. There is no evidence of interatrial shunt by agitated saline. The right atrium is normal in size. Aortic Valve Normal aortic valve structure and function. There is no aortic valve stenosis. There is no aortic valve regurgitation. Mitral Valve Likely normal mitral valve structure and function. There is trace mitral valve regurgitation. There is no mitral valve stenosis. Pulmonic Valve The pulmonic valve was not well visualized. Tricuspid Valve Likely normal tricuspid valve structure and function. There is trace tricuspid valve regurgitation. The right ventricular systolic pressure is normal. The right ventricular systolic pressure is 21 mmHg. Normal right atrial pressure. There is no evidence of pulmonary hypertension. Great Vessels The pulmonary artery was not well visualized. ascending aorta is at upper limits of normal in size Venous The inferior vena cava is normal in size and collapses greater than 50% with inspiration. Pericardium/Pleural There is no evidence of pericardial effusion. Prior Study Comparison No prior study available for comparison. Measurements 2D Linear Measurements IVSd: 0.86 0.6-0.9/0.6-1.0 cm LVIDd: 5.54 3.9-5.3/4.2-5.9 cm LVIDd Index: 2.40 2.4-3.2/2.2-3.1 cm/m2 LVIDs: 3.04 2.0-3.6 cm LVPWd: 0.85 0.7-1.1 cm LA Diam: 3.30 2.7-3.8/3.0-4.0 cm LAIDs Index: 1.43 1.5-2.3 cm/m2 LV Mass: 219.32 67-162/88-224 g LV Mass Index: 94.95 43-95/49-115 g/m2 LVOT Diam: 2.40 3.0+(-)1.3 cm 2D Systolic Function EF 4C: 62.30 >55% EF 2C: 54.20 >55% EF BiP: 56.80 >55% Mitral Valve MV Pk E: 0.56 MV PK A: 0.55 MV Decel Time: 248.00 E/A: 1.00 E'Lateral: 7.56 E'Medial: 5.43 E/E' Med: 10.20 E/E' Lat: 7.30 PHT: 73.00 MVA PHT: 3.01 Decel Bland: 2.24 Aortic Valve AoV Pk Rafael: 1.32 AoV Pk Grad: 7.00 GOPAL: 3.60 LVOT LVOT Pk Rafael: 1.05 LVOT Mn Rafael: 0.72 LVOT VTI: 0.19 LVOT Pk Grad: 4.00 LVOT Mn Grad: 2.00 LVOT Diam: 2.40 LVOT Area: 4.52 Diastolic Function MV Pk E: 0.56 MV Pk A: 0.55 E/A: 1.00 E'Medial: 5.43 E/E' Med: 10.20 E' Laterial: 7.56 E/E' Lat: 7.30 Right Ventricle TAPSE (mm): 18.00 TVS' Rafael: 11.30 Tricuspid Valve TR Pk Rafael: 2.13 TR Pk Grad: 18.00 RA Press: 3.00 RVSP: 21.00 Great Vessels Aorta Sinus of Valsalva: 3.50 2.0-3.5 cm Ao Asc: 3.70 2.1-3.4 cm Pulmonary Valve PV Pk Rafael: 0.80 Peak PV Grad: 3.00 Updated in Other Vendor System with Status of Final Alfredo Gomez MD electronically signed on 12/29/2022 11:03:07 AM with status of Final
--- NOTE | 2022-12-29 07:19 | PHA.MEDREC ---
Pharmacy Consult ? Medication Reconciliation Pharmacy has completed the medication reconciliation. Pharmacy has reviewed med rec done by nursing
[2022-12-29] MEDS: Amiodarone HCL 200 MG TABLET 400 MG PO (08:13)
[2022-12-29] MEDS: oxyCODONE HCl Immed Release 5 MG TABLET 20 MG PO ×4 (08:13→20:43)
[2022-12-29] MEDS: Aspirin 81 MG TAB.CHEW PO (08:13)
[2022-12-29] MEDS: Cyclobenzaprine HCl 10 MG TABLET PO ×3 (08:13→20:42)
[2022-12-29] MEDS: Cyanocobalamin (Vitamin B-12) 1,000 MCG/ML VIAL 1000 MCG IM (08:14)
[2022-12-29] MEDS: Apixaban 5 MG TABLET PO ×2 (08:14→20:43)
[2022-12-29] MEDS: Atorvastatin Calcium 80 MG TABLET PO (08:14)
[2022-12-29] MEDS: Folic Acid 1 MG TABLET 2 MG PO (08:14)
[2022-12-29] MEDS: clonazePAM 1 MG TABLET PO ×3 (08:14→20:42)
--- NOTE | 2022-12-29 12:17 | HO.PM.IMPN ---
Subjective Subjective Date of Service: 12/29/22 Interval History: ? cva vitamin b deficiency Review of Systems ? still has mild atxia Denies any new weakness or numbness or dizziness. No fever or chills Physical Exam Vital Signs: Vital Signs: Last Vital Signs Temp 97.1 F 12/29/22 12:00 Pulse 60 12/29/22 12:00 Resp 18 12/29/22 12:00 BP 113/72 12/29/22 12:00 Pulse Ox 94 12/29/22 12:00 O2 Del Method Room Air 12/29/22 12:00 BMI result Body Mass Index 26.7 Appearance: Alert.? Oriented X3. cvs: rrr, [id number] . res: clear to auscultation ,no rhonchii or wheezing abd: no rebound or guarding ,nt, bs present. ext pulses present , no cyanosis . neuro: axo3 , nonfocal. Objective Data Active Medications Acetaminophen (Acetaminophen 325 Mg Tablet) 650 mg PO Q6H PRN PRN Reason: Pain, Mild (Pain Scale 1-3) Last Admin: 12/28/22 20:46 Dose: 650 mg Documented By: YUE Albuterol Sulfate (Albuterol Sulfate 90 Mcg 8 Gm Inhaler) 2 puff INHALE Q4H PRN PRN Reason: Dyspnea Amiodarone HCl (Amiodarone Hcl 200 Mg Tablet) 400 mg PO DAILY [facility] Last Admin: 12/29/22 08:13 Dose: 400 mg Documented By: MARIAELENA Apixaban (Apixaban 5 Mg Tablet) 5 mg PO BID [facility] Last Admin: 12/29/22 08:14 Dose: 5 mg Documented By: MARIAELENA Aspirin (Aspirin 81 Mg Tab.Chew) 81 mg PO DAILY [facility] Last Admin: 12/29/22 08:13 Dose: 81 mg Documented By: MARIAELENA Atorvastatin Calcium (Atorvastatin Calcium 80 Mg Tablet) 80 mg PO DAILY [facility] Last Admin: 12/29/22 08:14 Dose: 80 mg Documented By: MARIAELENA Clonazepam (Clonazepam 1 Mg Tablet) 1 mg PO TID [facility] Last Admin: 12/29/22 08:14 Dose: 1 mg Documented By: MARIAELENA Cyanocobalamin (Cyanocobalamin (Vitamin B-12) 1,000 Mcg/Ml Vial) 1,000 mcg IM DAILY [facility] Last Admin: 12/29/22 08:14 Dose: 1,000 mcg Documented By: MARIAELENA Cyclobenzaprine HCl (Cyclobenzaprine Hcl 10 Mg Tablet) 10 mg PO TID [facility] Last Admin: 12/29/22 08:13 Dose: 10 mg Documented By: MARIAELENA Diltiazem HCl (Diltiazem Hcl Cd 180 Mg Cap.Er.24h) 360 mg PO DAILY [facility]; Protocol Last Admin: 12/29/22 08:29 Dose: Not Given Documented By: MARIAELENA Non-Admin Reason: Decreased Blood Pressure Diltiazem HCl (Diltiazem Hcl 60 Mg Tablet) 60 mg PO QID [facility]; Protocol Last Admin: 12/29/22 11:02 Dose: Not Given Documented By: MARIAELENA Non-Admin Reason: Decreased Blood Pressure Docusate Sodium (Docusate Sodium 100 Mg Capsule) 100 mg PO DAILY PRN PRN Reason: Constipation Fluticasone Propionate (Fluticasone Propionate 100 Mcg Blst.W.Dev) 1 puff INHALE RBID [facility] Last Admin: 12/29/22 08:49 Dose: Not Given Documented By: JOHN Non-Admin Reason: blocked by pharmacy Folic Acid (Folic Acid 1 Mg Tablet) 2 mg PO DAILY [facility] Last Admin: 12/29/22 08:14 Dose: 2 mg Documented By: MARIAELENA Levothyroxine Sodium 112 mcg/ (Levothyroxine Sodium 25 mcg) 137 mcg PO DAILY@0600 [facility] Last Admin: 12/29/22 06:08 Dose: 137 mcg Documented By: PRIYANKA Melatonin (Melatonin 3 Mg Tablet) 6 mg PO BEDTIME PRN PRN Reason: Insomnia Last Admin: 12/29/22 02:06 Dose: 6 mg Documented By: PRIYANKA Omeprazole (Omeprazole 40 Mg Capsule.) 40 mg PO DAILY@0630 [facility] Last Admin: 12/29/22 06:08 Dose: 40 mg Documented By: PRIYANKA Oxycodone HCl (Oxycodone Hcl Immed Release 5 Mg Tablet) 20 mg PO QID [facility] Last Admin: 12/29/22 08:13 Dose: 20 mg Documented By: MARIAELENA Pharmacy Consult (Consult Rx Perform Med Rec) 1 each MISCELLANE ONCE PRN PRN Reason: Consult order Sodium Chloride (0.9 % Sodium Chloride Flush 3 Ml Syringe) 3 ml IVFLUSH QSHIFT [facility] Last Admin: 12/29/22 08:15 Dose: 3 ml Documented By: MARIAELENA Labs 12/28/22 12:36 12/28/22 12:36 Labs: Laboratory Results - last 24 hr 12/28/22 12/28/22 12/28/22 12:36 12:36 12:36 MCV 97.5 MCH 33.3 H MCHC 34.2 RDW 13.2 Plt Count 372 MPV 8.5 L Immature Gran % (Auto) 0.5 H Neut % (Auto) 72.3 Lymph % (Auto) 16.7 L [place] % (Auto) 9.3 Eos % (Auto) 0.7 Baso % (Auto) 0.5 Lymph # (Auto) 1.4 [place] # (Auto) 0.8 Eos # (Auto) 0.1 Baso # (Auto) 0.0 Abs Immat Gran (auto) 0.04 H Absolute Neuts (auto) 5.9 Absolute Nucleated RBC 0.000 Nucleated RBC % (auto) 0.0 PT 14.2 H INR 1.2 H APTT 33.6 Anion Gap 13 Estim Creat Clear Calc 84.3 Estimated GFR > 60 Random Glucose 96 Calcium 9.5 Magnesium 2.5 Total Bilirubin 0.9 AST 31 ALT 31 Alkaline Phosphatase 92 Troponin I High Sens B-Natriuretic Peptide Total Protein 7.3 Albumin 4.2 Triglycerides Cholesterol LDL Cholesterol, Calc HDL Cholesterol Vitamin B12 191 L Folate 4.1 Ethyl Alcohol < 10 Influenza Type A (PCR) Influenza Type B (PCR) RSV RNA Qual (PCR) SARS-CoV-2 RNA (RT-PCR) 12/28/22 12/28/22 12/28/22 12:36 12:36 12:36 MCV MCH MCHC RDW Plt Count MPV Immature Gran % (Auto) Neut % (Auto) Lymph % (Auto) [place] % (Auto) Eos % (Auto) Baso % (Auto) Lymph # (Auto) [place] # (Auto) Eos # (Auto) Baso # (Auto) Abs Immat Gran (auto) Absolute Neuts (auto) Absolute Nucleated RBC Nucleated RBC % (auto) PT INR APTT Anion Gap Estim Creat Clear Calc Estimated GFR Random Glucose Calcium Magnesium Total Bilirubin AST ALT Alkaline Phosphatase Troponin I High Sens 4.4 B-Natriuretic Peptide 44 Total Protein Albumin Triglycerides Cholesterol LDL Cholesterol, Calc HDL Cholesterol Vitamin B12 Folate Ethyl Alcohol Influenza Type A (PCR) NEGATIVE Influenza Type B (PCR) NEGATIVE RSV RNA Qual (PCR) NEGATIVE SARS-CoV-2 RNA (RT-PCR) NEGATIVE 12/29/22 12/29/22 05:52 05:52 MCV MCH MCHC RDW Plt Count MPV Immature Gran % (Auto) Neut % (Auto) Lymph % (Auto) [place] % (Auto) Eos % (Auto) Baso % (Auto) Lymph # (Auto) [place] # (Auto) Eos # (Auto) Baso # (Auto) Abs Immat Gran (auto) Absolute Neuts (auto) Absolute Nucleated RBC Nucleated RBC % (auto) PT INR APTT Anion Gap Estim Creat Clear Calc Estimated GFR Random Glucose Calcium Magnesium 2.4 Total Bilirubin AST ALT Alkaline Phosphatase Troponin I High Sens B-Natriuretic Peptide Total Protein Albumin Triglycerides 125 Cholesterol 133 LDL Cholesterol, Calc 58 HDL Cholesterol 50 Vitamin B12 Folate Ethyl Alcohol Influenza Type A (PCR) Influenza Type B (PCR) RSV RNA Qual (PCR) SARS-CoV-2 RNA (RT-PCR) Assessment and Plan (1) CVA (cerebral vascular accident): Status: Acute Plan 57-year-old male with a PMH significant for?AFib on Eliquis, HTN, anxiety, panic disorder, COPD,and? hypothyroidism who presents to the ED with?worsening lightheadedness, dizziness, and ataxia since . Pt will be admitted to observation on telemetry for further workup and evaluation of potential CVA. CVA Question of acute vs subacute vs chronic CTA shows evidence of an age-indeterminate infarct in the left superior cerebellar hemisphere, no evidence of large vessel occlusion or significant stenosis ataxia on and off for the past couple of years, seemingly worse since he says was missing eliquis on /off . Echocardiogram,MRI of head/brain wo contrast . plan:continue eliquis ,? added asa, statin,added b12 also due to low b12 levels . PT/OT evaluation,Neurology consult Vitamin B12 deficiency: Low at 191 Cyanocobalamin 1000 mcg IM Folate Low normal at 4.1 Folic acid 1 mg p.o. Paroxysmal AFib Continue Eliquis, diltiazem, amiodarone Anxiety Continue clonazepam COPD Continue home inhalers HTN BP soft, hold for antihypertensive for now Resume as indicated Hypothyroidism Continue levothyroxine Chronic back pain Continue oxycodone DVT Prophylaxis: On Eliquis inpatient need : possible CVA- pening workup , neurology eval,pt/ot. Time Spent With Patient Time: Total time managing care of this patient today ____ minutes. Quality Stroke Does the patient have a stroke diagnosis?: Yes Reason for No Anti-thrombotic by Day Two: Not indicated (Outside of tPA therapeutic window) VTE Prior VTE?: No VTE Risk Level:: Medical - moderate - high VTE Device Contraindication: Treatment Not Indicated VTE Drug Contraindication: N/A - Med Ordered
--- NOTE | 2022-12-29 14:14 | P.CNNE_ITS ---
History of Present Illness Data of Consult Service Date: 12/29/22 Primary Care Provider: Unknown Physician HPI Reason for consult: possible stroke 57-year-old male with a PMH significant for?AFib on Eliquis, HTN, anxiety, panic disorder, COPD,and? hypothyroidism who presents to the ED with?worsening lightheadedness, dizziness, and ataxia? who I was asked to see for possible left cerebellar infarct. He said that he did not drink that much and was treated for anxiety for number of years. He came to hospital with unsteadiness and felt better after anxiety medicine was given. Head CT done suggested possible stroke prompting this consultation. Review of Systems 2 Review of Systems: No recent cold or flu-like illness PMFSH Social History Social History Household Members: Significant Other Housing: Apartment Do you presently have visiting nurse or other home services: No Alcohol intake: current Alcohol intake frequency: a few times a week Comment: pt refusing alarms and staff in [place] with him Patient Tobacco Use Status: Current someday Tobacco user Tobacco use type: Cigarette Cigarettes Per Day: 2 Years Smoked: 20 e-Cigarette/Vaping Use: Never Used Second Hand Smoke Exposure: Yes Advance Directives Date on File: 01/02/23 service: No Current occupational status: disabled Meds Allergies Allergy/AdvReac Type Severity Reaction Status Date / Time aspirin [ASA] Allergy Unknown BLEEDING Verified 07/31/23 10:05 ULCERS, stomach upset NSAIDS (Non-Steroidal Allergy Unknown BLEEDING Verified 07/31/23 10:05 Anti-Inflamma ULCERS [NSAIDS (NON-STEROIDAL ANTI-INFLAMMA] Active Medications: Current Medications Acetaminophen (Acetaminophen 325 Mg Tablet) 650 mg PO Q6H PRN PRN Reason: Pain, Mild (Pain Scale 1-3) Last Admin: 12/28/22 20:46 Dose: 650 mg Albuterol Sulfate (Albuterol Sulfate 90 Mcg 8 Gm Inhaler) 2 puff INHALE Q4H PRN PRN Reason: Dyspnea Amiodarone HCl (Amiodarone Hcl 200 Mg Tablet) 400 mg PO DAILY [facility] Last Admin: 12/29/22 08:13 Dose: 400 mg Apixaban (Apixaban 5 Mg Tablet) 5 mg PO BID [facility] Last Admin: 12/29/22 08:14 Dose: 5 mg Aspirin (Aspirin 81 Mg Tab.Chew) 81 mg PO DAILY [facility] Last Admin: 12/29/22 08:13 Dose: 81 mg Atorvastatin Calcium (Atorvastatin Calcium 80 Mg Tablet) 80 mg PO DAILY [facility] Last Admin: 12/29/22 08:14 Dose: 80 mg Clonazepam (Clonazepam 1 Mg Tablet) 1 mg PO TID [facility] Last Admin: 12/29/22 14:09 Dose: 1 mg Cyanocobalamin (Cyanocobalamin (Vitamin B-12) 1,000 Mcg/Ml Vial) 1,000 mcg IM DAILY [facility] Last Admin: 12/29/22 08:14 Dose: 1,000 mcg Cyclobenzaprine HCl (Cyclobenzaprine Hcl 10 Mg Tablet) 10 mg PO TID [facility] Last Admin: 12/29/22 14:09 Dose: 10 mg Protocol Last Admin: 12/29/22 08:29 Dose: Not Given Diltiazem HCl (Diltiazem Hcl 60 Mg Tablet) 60 mg PO QID [facility]; Protocol Last Admin: 12/29/22 14:10 Dose: Not Given Docusate Sodium (Docusate Sodium 100 Mg Capsule) 100 mg PO DAILY PRN PRN Reason: Constipation Fluticasone Propionate (Fluticasone Propionate 100 Mcg Blst.W.Dev) 1 puff INHALE RBID [facility] Last Admin: 12/29/22 08:49 Dose: Not Given Folic Acid (Folic Acid 1 Mg Tablet) 2 mg PO DAILY [facility] Last Admin: 12/29/22 08:14 Dose: 2 mg Levothyroxine Sodium 112 mcg/ (Levothyroxine Sodium 25 mcg) 137 mcg PO DAILY@0600 [facility] Last Admin: 12/29/22 06:08 Dose: 137 mcg Melatonin (Melatonin 3 Mg Tablet) 6 mg PO BEDTIME PRN PRN Reason: Insomnia Last Admin: 12/29/22 02:06 Dose: 6 mg Omeprazole (Omeprazole 40 Mg Capsule.Dr) 40 mg PO DAILY@0630 [facility] Last Admin: 12/29/22 06:08 Dose: 40 mg Oxycodone HCl (Oxycodone Hcl Immed Release 5 Mg Tablet) 20 mg PO QID [facility] Last Admin: 12/29/22 14:08 Dose: 20 mg Pharmacy Consult (Consult Rx Perform Med Rec) 1 each MISCELLANE ONCE PRN PRN Reason: Consult order Sodium Chloride (0.9 % Sodium Chloride Flush 3 Ml Syringe) 3 ml IVFLUSH QSHIFT [facility] Last Admin: 12/29/22 08:15 Dose: 3 ml Home Medications Medication Instructions Recorded Confirmed Last Taken Type albuterol sulfate 90 mcg/actuation 2 puff PO Q4-6H PRN Dyspnea 12/18/21 12/28/22 12/27/22 History aerosol inhaler atorvastatin 20 mg tablet 20 mg PO DAILY 12/18/21 12/28/22 12/27/22 History clonazepam 1 mg tablet 1 mg PO TID 12/18/21 12/28/22 12/27/22 History cyclobenzaprine 10 mg tablet 10 mg PO TID 12/18/21 12/28/22 12/27/22 History fluticasone propionate 110 1 puff PO BID 12/18/21 12/28/22 12/27/22 History mcg/actuation HFA aerosol inhaler (Flovent HFA) oxycodone 20 mg tablet 20 mg PO QID 12/18/21 12/28/22 12/27/22 History apixaban 5 mg tablet (Eliquis) 5 mg PO BID 12/28/22 12/28/22 12/27/22 History lisinopril 20 mg tablet 20 mg PO DAILY 12/28/22 12/28/22 12/27/22 History diltiazem HCl 360 mg 360 mg PO DAILY 07/31/23 Unknown History capsule,extended release 24 hr levothyroxine 100 mcg tablet 100 mcg PO DAILY 07/31/23 Unknown History naloxone 4 mg/actuation nasal spray intranasal 07/31/23 Unknown History Physical Exam 2 Vital Signs: Vital Signs: Last Vital Signs Temp 97.1 F 12/29/22 12:00 Pulse 60 12/29/22 12:00 Resp 18 12/29/22 12:00 BP 113/72 12/29/22 12:00 Pulse Ox 94 12/29/22 12:00 O2 Del Method Room Air 12/29/22 12:00 BMI result Body Mass Index 26.7 Neuro: Other: alert and awake with normal spontaneity of speech fluency comprehension and anxious affect. There is mild [id number] ataxia bilaterally. There is mild postural tremor. Deep tendon reflexes are absent with flat plantars. Results Labs 01/01/23 06:10 01/01/23 06:10 Labs: Mild diffuse cerebellar arm minimal cortical cerebral atrophy is noted with mild microvascular ischemic changes on MRI of brain. Assessment and Plan (1) Tremor: Status: Acute 57 years old man who probably has chronic anxiety and tremor. There is no evidence of any significant acute or chronic cerebellar infarct. There is evidence of mild diffuse cerebellar atrophy the type usually is seen with alcohol but he was resistant to that idea. In any case, this type of pathology is treated with reassurance and education, a avoidance of alcohol, and sometime with the medicine like primidone or propanolol. He already felt better and at this time probably did not require any intervention Other than treatment of anxiety. (2) Anxiety disorder: Status: Acute Time Spent With Patient Time: Total time managing care of this patient today ____ minutes. Procedures Date of Service Date of Service: 12/29/22 Status: Acute 57 years old man who probably has chronic anxiety and tremor. There is no evidence of any significant acute or chronic cerebellar infarct. There is evidence of mild diffuse cerebellar atrophy the type usually is seen with alcohol but he was resistant to that idea. In any case, this type of pathology is treated with reassurance and education, a avoidance of alcohol, and sometime with the medicine like primidone or propanolol. He already felt better and at this time probably did not require any intervention Other than treatment of anxiety. (2) Anxiety disorder: Status: Acute Time Spent With Patient Time: Total time managing care of this patient today ____ minutes.
--- NOTE | 2022-12-29 16:08 | MHC.CM.PN ---
IMM 12/29/22. D/C plan for pt to return home care self care once medically cleared. HCP completed today with pt and his girlfriend Mehnaz whom he appointed. PCP none. List of PCPs in the local area given to pt. Ben x 1 Carlos.
[2022-12-29] MEDS: Propranolol HCL 10 MG TABLET 5 MG PO (20:44)
[2022-12-30] VITALS (12 sets, daily range): BP systolic 100–129; BP diastolic 58–83; PULSE 52–64; RESP 15–18; TEMP 36.2–37.4; O2SAT 94–97
[2022-12-30] MEDS: Levothyroxine Sodium 112 MCG, Levothyroxine Sodium 25 MCG 137 MCG PO (06:07)
[2022-12-30] MEDS: Omeprazole 40 MG CAPSULE.DR PO (06:07)
--- NOTE | 2022-12-30 07:15 | PC.NURSE ---
Pt began having periods of bradycardia all the was down to 45. He was also having some pauses. Dr. Soto notified, will continue to monitor, pt respirations even.
[2022-12-30] MEDS: 0.9 % Sodium Chloride Flush 3 ML SYRINGE IVFLUSH (09:27)
[2022-12-30] MEDS: Cyanocobalamin (Vitamin B-12) 1,000 MCG/ML VIAL 1000 MCG IM (09:27)
[2022-12-30] MEDS: Amiodarone HCL 200 MG TABLET 400 MG PO (09:28)
[2022-12-30] MEDS: Folic Acid 1 MG TABLET 2 MG PO (09:29)
[2022-12-30] MEDS: Atorvastatin Calcium 80 MG TABLET PO (09:29)
[2022-12-30] MEDS: clonazePAM 1 MG TABLET PO ×3 (09:29→20:23)
[2022-12-30] MEDS: Cyclobenzaprine HCl 10 MG TABLET PO ×3 (09:29→20:23)
[2022-12-30] MEDS: dilTIAZem HCL 60 MG TABLET PO (09:29)
[2022-12-30] MEDS: Apixaban 5 MG TABLET PO ×2 (09:29→20:22)
[2022-12-30] MEDS: oxyCODONE HCl Immed Release 5 MG TABLET 20 MG PO ×4 (09:30→20:23)
[2022-12-30] MEDS: Propranolol HCL 10 MG TABLET 5 MG PO (09:32)
[2022-12-30] MEDS: Fluticasone Propionate 100 MCG BLST.W.DEV 1 PUFF INHALE ×2 (11:24→19:42)
--- NOTE | 2022-12-30 13:46 | MHC.CM.PN ---
EMR reviewed, and per PT recommendations and MD rounds D/C plan for pt to return home with PT vs acute rehab. Referrals placed for acute rehab, awaiting placement. CM will continue to follow.
--- NOTE | 2022-12-30 14:22 | P.PNIM_ITS ---
Subjective Subjective Date of Service: 12/30/22 Interval History: tremers Review of Systems patient is having dizziness with standing up and walkin Denies any chest pain or shortness of breath or palpitations. Physical Exam Vital Signs: Vital Signs: Last Vital Signs Temp 97.2 F 12/30/22 11:25 Pulse 59 12/30/22 13:19 Resp 16 12/30/22 11:25 BP 116/68 12/30/22 13:19 Pulse Ox 96 12/30/22 11:25 O2 Del Method Room Air 12/30/22 11:25 BMI result Body Mass Index 26.7 Appearance: Alert.? Oriented X3. cvs: rrr, [id number] . res: clear to auscultation ,no rhonchii or wheezing abd: no rebound or guarding ,nt, bs present. ext pulses present , no cyanosis . neuro: axo3 , nonfocal. Objective Data Active Medications Acetaminophen (Acetaminophen 325 Mg Tablet) 650 mg PO Q6H PRN PRN Reason: Pain, Mild (Pain Scale 1-3) Last Admin: 12/28/22 20:46 Dose: 650 mg Documented By: YUE Albuterol Sulfate (Albuterol Sulfate 90 Mcg 8 Gm Inhaler) 2 puff INHALE Q4H PRN PRN Reason: Dyspnea Amiodarone HCl (Amiodarone Hcl 200 Mg Tablet) 400 mg PO DAILY [facility] Last Admin: 12/30/22 09:28 Dose: 400 mg Documented By: GUSTAVO Apixaban (Apixaban 5 Mg Tablet) 5 mg PO BID [facility] Last Admin: 12/30/22 09:29 Dose: 5 mg Documented By: GUSTAVO Atorvastatin Calcium (Atorvastatin Calcium 80 Mg Tablet) 80 mg PO DAILY [facility] Last Admin: 12/30/22 09:29 Dose: 80 mg Documented By: GUSTAVO Clonazepam (Clonazepam 1 Mg Tablet) 1 mg PO TID [facility] Last Admin: 12/30/22 09:29 Dose: 1 mg Documented By: GUSTAVO Cyanocobalamin (Cyanocobalamin (Vitamin B-12) 1,000 Mcg/Ml Vial) 1,000 mcg IM DAILY [facility] Last Admin: 12/30/22 09:27 Dose: 1,000 mcg Documented By: GUSTAVO Cyclobenzaprine HCl (Cyclobenzaprine Hcl 10 Mg Tablet) 10 mg PO TID [facility] Last Admin: 12/30/22 09:29 Dose: 10 mg Documented By: GUSTAVO Diltiazem HCl (Diltiazem Hcl 60 Mg Tablet) 60 mg PO QID [facility]; Protocol Last Admin: 12/30/22 12:28 Dose: Not Given Documented By: DUGLAS Non-Admin Reason: Decreased Heart Rate Docusate Sodium (Docusate Sodium 100 Mg Capsule) 100 mg PO DAILY PRN PRN Reason: Constipation Fluticasone Propionate (Fluticasone Propionate 100 Mcg Blst.W.Dev) 1 puff INHALE RBID [facility] Last Admin: 12/30/22 11:24 Dose: 1 puff Documented By: ALEXEY Folic Acid (Folic Acid 1 Mg Tablet) 2 mg PO DAILY [facility] Last Admin: 12/30/22 09:29 Dose: 2 mg Documented By: GUSTAVO Levothyroxine Sodium 112 mcg/ (Levothyroxine Sodium 25 mcg) 137 mcg PO DAILY@0600 [facility] Last Admin: 12/30/22 06:07 Dose: 137 mcg Documented By: NIDIA Melatonin (Melatonin 3 Mg Tablet) 6 mg PO BEDTIME PRN PRN Reason: Insomnia Last Admin: 12/29/22 20:42 Dose: 6 mg Documented By: NIDIA Omeprazole (Omeprazole 40 Mg Capsule.Dr) 40 mg PO DAILY@0630 [facility] Last Admin: 12/30/22 06:07 Dose: 40 mg Documented By: NIDIA Oxycodone HCl (Oxycodone Hcl Immed Release 5 Mg Tablet) 20 mg PO QID [facility] Last Admin: 12/30/22 12:26 Dose: 20 mg Documented By: DUGLAS Pharmacy Consult (Consult Rx Perform Med Rec) 1 each MISCELLANE ONCE PRN PRN Reason: Consult order Propranolol HCl (Propranolol Hcl 10 Mg Tablet) 5 mg PO BID [facility]; Protocol Last Admin: 12/30/22 09:32 Dose: 5 mg Documented By: GUSTAVO Sodium Chloride (0.9 % Sodium Chloride Flush 3 Ml Syringe) 3 ml IVFLUSH QSHIFT [facility] Last Admin: 12/30/22 09:27 Dose: 3 ml Documented By: GUSTAVO Labs 12/28/22 12:36 12/28/22 12:36 Assessment and Plan (1) Anxiety disorder: Status: Acute (2) Tremor: Status: Acute Plan 57-year-old male with a PMH significant for?AFib on Eliquis, HTN, anxiety, panic disorder, COPD,and? hypothyroidism who presents to the ED with?worsening lightheadedness, dizziness, and ataxia since . Pt will be admitted to observation on telemetry for further workup and evaluation of potential CVA. Tremer s: dizziness CTA shows evidence of an age-indeterminate infarct in the left superior cerebellar hemisphere, no evidence of large vessel occlusion or significant stenosis ?ataxia on and off for the past couple of years, seemingly worse since mri done-less likely acute cva Echocardiogram: seems fine : - 1.? Normal LV systolic function with normal filling pattern? ? 2.? No obvious intracardiac shunting especially at atrial level? based on bubble study? 3.? Normal cardiac valvular Doppler? 4.? Normal RV systolic pressure? 5.? Upper limits of normal ascending aortic size ? 6.? No gross pericardial effusion? plan:continue eliquis , statin,added b12 also due to low b12 levels . also added orthosatstic signs neuro eval-thought to be symptom related to chronic anxiety and tremor. Also possible cerebellar atrophy usually seen in alcohol use. Patient was strongly advised to abstain from alcohol. Added propranolol but patient blood pressure fluctuates with that, we stop prop ranolol, check orthostatic if needed will need to add IV fluid. PT/OT evaluation-decide disposition acute rehab versus home. Vitamin B12 deficiency: Low at 191 Cyanocobalamin 1000 mcg IM Folate Low normal at 4.1 Folic acid 1 mg p.o. Paroxysmal AFib Continue Eliquis, diltiazem, amiodarone Anxiety Continue clonazepam COPD Continue home inhalers HTN BP soft, hold for antihypertensive for now Resume as indicated Hypothyroidism Continue levothyroxine Chronic back pain Continue oxycodone DVT Prophylaxis: On Eliquis inpatient need :? Possible orthostatic hypotension, symptomatic, may need IV fluid and monitoring of for propanolol. Time Spent With Patient Time: Total time managing care of this patient today ____ minutes. Quality Stroke Does the patient have a stroke diagnosis?: Yes Reason for No Anti-thrombotic by Day Two: Not indicated (Outside of tPA therapeutic window) VTE Prior VTE?: No VTE Risk Level:: Medical - moderate - high VTE Device Contraindication: Treatment Not Indicated VTE Drug Contraindication: N/A - Med Ordered
[2022-12-30] MEDS: Lactated Ringers 1,000 ML 70 ML IVCONT (14:32)
[2022-12-30] MEDS: Melatonin 3 MG TABLET 6 MG PO (20:22)
[2022-12-31] VITALS (11 sets, daily range): BP systolic 111–133; BP diastolic 56–83; PULSE 52–59; RESP 14–20; TEMP 36–36.8; O2SAT 95–97
[2022-12-31] MEDS: Lactated Ringers 1,000 ML 70 ML IVCONT ×3 (04:25→22:44)
[2022-12-31] MEDS: Omeprazole 40 MG CAPSULE.DR PO (05:12)
[2022-12-31] MEDS: Levothyroxine Sodium 112 MCG, Levothyroxine Sodium 25 MCG 137 MCG PO (05:12)
[2022-12-31] MEDS: Fluticasone Propionate 100 MCG BLST.W.DEV 1 PUFF INHALE ×2 (07:56→19:55)
[2022-12-31] MEDS: Apixaban 5 MG TABLET PO ×2 (08:19→20:59)
[2022-12-31] MEDS: 0.9 % Sodium Chloride Flush 3 ML SYRINGE IVFLUSH ×2 (08:19→21:02)
[2022-12-31] MEDS: dilTIAZem HCL 60 MG TABLET PO ×2 (08:20→13:20)
[2022-12-31] MEDS: Folic Acid 1 MG TABLET 2 MG PO (08:20)
[2022-12-31] MEDS: clonazePAM 1 MG TABLET PO ×3 (08:21→20:59)
[2022-12-31] MEDS: Atorvastatin Calcium 80 MG TABLET PO (08:21)
[2022-12-31] MEDS: Cyclobenzaprine HCl 10 MG TABLET PO ×3 (08:21→20:59)
[2022-12-31] MEDS: oxyCODONE HCl Immed Release 5 MG TABLET 20 MG PO ×4 (08:22→20:58)
[2022-12-31] MEDS: Amiodarone HCL 200 MG TABLET 400 MG PO (08:23)
[2022-12-31] MEDS: Cyanocobalamin (Vitamin B-12) 1,000 MCG/ML VIAL 1000 MCG IM (08:25)
--- NOTE | 2022-12-31 09:32 | ECG_ITS ---
Test Reason : sinus bradycardia Blood Pressure : / mmHG Vent. Rate : 058 BPM Atrial Rate : 058 BPM P-R Int : 238 ms QRS Dur : 126 ms QT Int : 484 ms P-R-T Axes : 065 -10 066 degrees QTc Int : 475 ms Sinus bradycardia with 1st degree A-V block with Premature supraventricular complexes Non-specific intra-ventricular conduction block Minimal voltage criteria for LVH, may be normal variant ( Jake product ) Nonspecific T wave abnormality Abnormal ECG When compared with ECG of 29-DEC-2022 05:10, Significant changes have occurred Referred By: Alfredo Gomez Electronically Signed By:ALFREDO GOMEZ MD
--- NOTE | 2022-12-31 11:05 | PM.CNCAR ---
History of Present Illness History of Present Illness Date of Service: 12/31/22 Requesting physician: Adryan Sarmiento Consult reason: other (Bradycardia) Chief complaint: ?CVA Narrative: I was consulted to see Adrian in cardiology consultation today as he was noted to have heart rate in the 30s overnight while sleeping. He has a prior history of atrial fibrillation, on amiodarone therapy. Last seen a network professional 5-6 years ago and has remained on amiodarone at 400 mg for all this time. Unclear why he did not have a follow-up, he said he just did not. He has been religiously taking his Eliquis 5 mg b.i.d. as per him and his significant other present at the bedside. He has also been taking Cardizem all this time. He came to the hospital with lightheadedness, dizziness. Suspected to might have a thrombus. His lisinopril as been withheld because of low blood pressure. He has no obvious symptoms at rest. Denies any lightheadedness. No shortness of breath, orthopnea, PND. No irregular heartbeat. Noted to have blocked PACs on the monitor. Denies any palpitations. No bleeding issues. Review of Systems Constitutional: Constitutional: Reports weakness Eyes: Eyes: Reports no additional eye complaints Cardiovascular: Cardiovascular: Denies chest pain, Reports lightheadedness, Denies Loss of Consciousness, Denies palpitations and Denies dyspnea Respiratory: Respiratory: Reports no additional respiratory complaints and Denies dyspnea Gastrointestinal: Gastrointestinal: Reports no additional gastrointestinal complaints Musculoskeletal: Musculoskeletal: Reports no additional musculoskeletal complaints Integumentary/Breasts: Skin/Breast: Reports system reviewed and no additional complaints, except as docu Neurologic: Reports weakness Psychiatric: Psychiatric: Reports no additional psychiatric complaints Endocrine: Endocrine: Denies palpitations [facility] Social History Social History Household Members: Significant Other Housing: Apartment Do you presently have visiting nurse or other home services: No Alcohol intake: current Alcohol intake frequency: a few times a week Patient Tobacco Use Status: Current someday Tobacco user Tobacco use type: Cigarette Cigarettes Per Day: 2 Years Smoked: 20 Smoked in Last 30 Days: Yes e-Cigarette/Vaping Use: Never Used Patient Interested in Nicotine Replacement: No Patient Given Instructions on How to Stop Smoking: No Second Hand Smoke Exposure: Yes Use of substances other than those prescribed or required for medical reasons: No Currently Displaying Signs/Symptoms of Drug Intoxication Withdrawal: No Any prior treatment program specific to substance use: No Have you been hit, kicked, punched, or otherwise hurt by someone within the past year? If so, by whom?: No Do you feel safe in your current relationship?: Yes Is there a partner from a previous relationship who is making you feel unsafe now?: No Are you made to feel afraid or neglected: No [facility] Practices: orthodox Advance Directives: No Advance Directives Information Provided: Yes Do you have thoughts of harming others: None Do you have a plan to hurt others: No Plan Recently lost weight without trying: Yes How much weight loss: 24-33 pounds Eating poorly because of decreased appetite: Yes Nutrition screen score: 6 Nutrition Risks: No Nutritional Risk Poor oral hygiene: Yes service: No Current occupational status: disabled Meds Allergies Allergy/AdvReac Type Severity Reaction Status Date / Time aspirin [ASA] Allergy Unknown BLEEDING Unverified 12/18/21 15:53 ULCERS, stomach upset NSAIDS (Non-Steroidal Allergy Unknown BLEEDING Unverified 12/18/21 15:53 Anti-Inflamma ULCERS [NSAIDS (NON-STEROIDAL ANTI-INFLAMMA] Active Medications: Current Medications Acetaminophen (Acetaminophen 325 Mg Tablet) 650 mg PO Q6H PRN PRN Reason: Pain, Mild (Pain Scale 1-3) Last Admin: 12/28/22 20:46 Dose: 650 mg Albuterol Sulfate (Albuterol Sulfate 90 Mcg 8 Gm Inhaler) 2 puff INHALE Q4H PRN PRN Reason: Dyspnea Amiodarone HCl (Amiodarone Hcl 200 Mg Tablet) 400 mg PO DAILY [facility] Last Admin: 12/31/22 08:23 Dose: 400 mg Apixaban (Apixaban 5 Mg Tablet) 5 mg PO BID [facility] Last Admin: 12/31/22 08:19 Dose: 5 mg Atorvastatin Calcium (Atorvastatin Calcium 80 Mg Tablet) 80 mg PO DAILY [facility] Last Admin: 12/31/22 08:21 Dose: 80 mg Clonazepam (Clonazepam 1 Mg Tablet) 1 mg PO TID [facility] Last Admin: 12/31/22 08:21 Dose: 1 mg Cyanocobalamin (Cyanocobalamin (Vitamin B-12) 1,000 Mcg/Ml Vial) 1,000 mcg IM DAILY [facility] Last Admin: 12/31/22 08:25 Dose: 1,000 mcg Cyclobenzaprine HCl (Cyclobenzaprine Hcl 10 Mg Tablet) 10 mg PO TID [facility] Last Admin: 12/31/22 08:21 Dose: 10 mg Diltiazem HCl (Diltiazem Hcl 60 Mg Tablet) 60 mg PO QID [facility]; Protocol Last Admin: 12/31/22 08:20 Dose: 60 mg Docusate Sodium (Docusate Sodium 100 Mg Capsule) 100 mg PO DAILY PRN PRN Reason: Constipation Fluticasone Propionate (Fluticasone Propionate 100 Mcg Blst.W.Dev) 1 puff INHALE RBID [facility] Last Admin: 12/31/22 07:56 Dose: 1 puff Folic Acid (Folic Acid 1 Mg Tablet) 2 mg PO DAILY [facility] Last Admin: 12/31/22 08:20 Dose: 2 mg Lactated Ringer's (Lr) 1,000 mls @ 70 mls/hr IVCONT .[id number] [facility] Last Admin: 12/31/22 04:25 Dose: 70 mls/hr Levothyroxine Sodium 112 mcg/ (Levothyroxine Sodium 25 mcg) 137 mcg PO DAILY@0600 [facility] Last Admin: 12/31/22 05:12 Dose: 137 mcg Melatonin (Melatonin 3 Mg Tablet) 6 mg PO BEDTIME PRN PRN Reason: Insomnia Last Admin: 12/30/22 20:22 Dose: 6 mg Omeprazole (Omeprazole 40 Mg Capsule.Dr) 40 mg PO DAILY@0630 [facility] Last Admin: 12/31/22 05:12 Dose: 40 mg Oxycodone HCl (Oxycodone Hcl Immed Release 5 Mg Tablet) 20 mg PO QID [facility] Last Admin: 12/31/22 08:22 Dose: 20 mg Pharmacy Consult (Consult Rx Perform Med Rec) 1 each MISCELLANE ONCE PRN PRN Reason: Consult order Sodium Chloride (0.9 % Sodium Chloride Flush 3 Ml Syringe) 3 ml IVFLUSH QSHIFT [facility] Last Admin: 12/31/22 08:19 Dose: 3 ml Home Medications Medication Instructions Recorded Confirmed Last Taken Type albuterol sulfate 90 mcg/actuation 2 puff PO Q4-6H PRN Dyspnea 12/18/21 12/28/22 12/27/22 History aerosol inhaler amiodarone 200 mg tablet 400 mg PO DAILY 12/18/21 12/28/22 12/27/22 History atorvastatin 20 mg tablet 20 mg PO DAILY 12/18/21 12/28/22 12/27/22 History clonazepam 1 mg tablet 1 mg PO TID 12/18/21 12/28/22 12/27/22 History cyclobenzaprine 10 mg tablet 10 mg PO TID 12/18/21 12/28/22 12/27/22 History diltiazem HCl 360 mg 360 mg PO DAILY 12/18/21 12/28/22 12/27/22 History capsule,extended release 24 hr fluticasone propionate 110 1 puff PO BID 12/18/21 12/28/22 12/27/22 History mcg/actuation HFA aerosol inhaler (Flovent HFA) levothyroxine 137 mcg tablet 137 mcg PO DAILY 12/18/21 12/28/22 12/27/22 History oxycodone 20 mg tablet 20 mg PO QID 12/18/21 12/28/22 12/27/22 History apixaban 5 mg tablet (Eliquis) 5 mg PO BID 12/28/22 12/28/22 12/27/22 History lisinopril 20 mg tablet 20 mg PO DAILY 12/28/22 12/28/22 12/27/22 History Physical Exam Vital Signs: Vital Signs: Last Vital Signs Temp 97.4 F 12/31/22 07:25 Pulse 59 12/31/22 08:01 Resp 14 12/31/22 07:57 BP 127/77 12/31/22 08:01 Pulse Ox 97 12/31/22 07:25 O2 Del Method Room Air 12/31/22 07:25 BMI result Body Mass Index 26.7 Const: General: cooperative, comfortable, no acute distress, alert, awake and anxious Nutritional Appearance: average body habitus Orientation/consciousness: patient oriented x3 Limitations: no limitations HEENT: Head: Yes normocephalic and Yes atraumatic Neck: Neck: Yes trachea midline, Yes supple and Yes no JVD Resp: Effort & Inspection: normal respiratory effort Auscultation: clear to auscultation bilaterally Cardio: Jugular venous distension: no JVD Palpation: normal PMI Rate: bradycardic Rhythm: regular rhythm Heart sounds: S1 normal heart sound present, S2 normal heart sound present, no click, no gallops and no murmurs GI: Auscultation: normal bowel sounds Skin: General skin exam: no rashes or lesions noted Neuro: General: patient oriented x3 and no focal motor deficits Extrem: General: Yes no clubbing, cyanosis or edema Objective Labs and Meds 12/28/22 12:36 12/28/22 12:36 Assessment and Plan (1) Sinus bradycardia: Status: Acute Sinus bradycardia appears to be related to overmedication. Patient currently on very high dose of amiodarone for long-term for unclear reasons. He never followed with Cardiology in last 5-6 years for unclear reasons as well. Is also on Cardizem therapy. At this point in time I would suggest to discontinue Cardizem therapy and reduce amiodarone to 200 mg daily. He might also have underlying sleep apnea will require outpatient sleep study. I would also consider ambulating him later in the day today to assess for chronotropic competence. There is no obvious indication for pacing therapy at this point in time. His lightheadedness might be related to bradycardia and low blood pressure related to other pharmacotherapy and would continue to hold lisinopril therapy at this point in time. He is very anxious about all these findings were told him that I do not think there is any clear abnormal findings. Will continue monitor for bradycardia and pauses overnight. (2) Paroxysmal atrial fibrillation: Status: Acute Paroxysmal atrial fibrillation the past along with prior CVA could be embolic in nature. Not sure why still on 400 mg of amiodarone. He said this was being prescribed and he was taking it religiously. He also has been taking Eliquis religiously. Importance of compliance with medication and follow-up was discussed. Reduce amiodarone to 200 mg daily and eventually will need alternative therapies if remains in sinus rhythm. Seems like rhythm control approach was selected for him many years ago. Continue uninterrupted oral anticoagulation therapy. Will follow with you Time Spent With Patient Time: Total time managing care of this patient today ____ minutes. Procedures Date of Service Date of Service: 12/31/22
--- NOTE | 2022-12-31 12:55 | P.PNIM_ITS ---
Subjective Subjective Date of Service: 12/31/22 Interval History: Episodes of asymptomatic bradycardia overnight. No tachyarrhythmias Review of Systems Denies chest pain Denies shortness of breath Denies fever chills Denies nausea vomiting diarrhea Physical Exam Vital Signs: Vital Signs: Last Vital Signs Temp 96.8 F 12/31/22 11:09 Pulse 56 12/31/22 11:09 Resp 16 12/31/22 11:09 BP 117/71 12/31/22 11:09 Pulse Ox 96 12/31/22 11:09 O2 Del Method Room Air 12/31/22 11:09 BMI result Body Mass Index 26.7 Const: Other: No acute distress Resp: Other: Clear to auscultation bilaterally no rales rhonchi or wheezes Cardio: Other: No S4; positive S1-S2; no S3 murmurs rubs or gallops GI: Other: Soft nontender nondistended normoactive bowel sounds Extrem: Other: No edema bilaterally Objective Data Active Medications Acetaminophen (Acetaminophen 325 Mg Tablet) 650 mg PO Q6H PRN PRN Reason: Pain, Mild (Pain Scale 1-3) Last Admin: 12/28/22 20:46 Dose: 650 mg Documented By: YUE Albuterol Sulfate (Albuterol Sulfate 90 Mcg 8 Gm Inhaler) 2 puff INHALE Q4H PRN PRN Reason: Dyspnea Amiodarone HCl (Amiodarone Hcl 200 Mg Tablet) 400 mg PO DAILY [facility] Last Admin: 12/31/22 08:23 Dose: 400 mg Documented By: ONDINA Apixaban (Apixaban 5 Mg Tablet) 5 mg PO BID [facility] Last Admin: 12/31/22 08:19 Dose: 5 mg Documented By: ONDINA Atorvastatin Calcium (Atorvastatin Calcium 80 Mg Tablet) 80 mg PO DAILY [facility] Last Admin: 12/31/22 08:21 Dose: 80 mg Documented By: ONDINA Clonazepam (Clonazepam 1 Mg Tablet) 1 mg PO TID [facility] Last Admin: 12/31/22 08:21 Dose: 1 mg Documented By: ONDINA Cyanocobalamin (Cyanocobalamin (Vitamin B-12) 1,000 Mcg/Ml Vial) 1,000 mcg IM DAILY [facility] Last Admin: 12/31/22 08:25 Dose: 1,000 mcg Documented By: ONDINA Cyclobenzaprine HCl (Cyclobenzaprine Hcl 10 Mg Tablet) 10 mg PO TID [facility] Last Admin: 12/31/22 08:21 Dose: 10 mg Documented By: ONDINA Diltiazem HCl (Diltiazem Hcl 60 Mg Tablet) 60 mg PO QID [facility]; Protocol Last Admin: 12/31/22 08:20 Dose: 60 mg Documented By: ONDINA Docusate Sodium (Docusate Sodium 100 Mg Capsule) 100 mg PO DAILY PRN PRN Reason: Constipation Fluticasone Propionate (Fluticasone Propionate 100 Mcg Blst.W.Dev) 1 puff INHALE RBID [facility] Last Admin: 12/31/22 07:56 Dose: 1 puff Documented By: SHARI Folic Acid (Folic Acid 1 Mg Tablet) 2 mg PO DAILY [facility] Last Admin: 12/31/22 08:20 Dose: 2 mg Documented By: ONDINA Lactated Ringer's (Lr) 1,000 mls @ 70 mls/hr IVCONT .[id number] [facility] Last Admin: 12/31/22 04:25 Dose: 70 mls/hr Documented By: LILLIAM Levothyroxine Sodium 112 mcg/ (Levothyroxine Sodium 25 mcg) 137 mcg PO ZACH LY@0600 [facility] Last Admin: 12/31/22 05:12 Dose: 137 mcg Documented By: LILLIAM Melatonin (Melatonin 3 Mg Tablet) 6 mg PO BEDTIME PRN PRN Reason: Insomnia Last Admin: 12/30/22 20:22 Dose: 6 mg Documented By: GUSTAVO Omeprazole (Omeprazole 40 Mg Frank.) 40 mg PO DAILY@0630 [facility] Last Admin: 12/31/22 05:12 Dose: 40 mg Documented By: LILLIAM Oxycodone HCl (Oxycodone Hcl Immed Release 5 Mg Tablet) 20 mg PO QID [facility] Last Admin: 12/31/22 08:22 Dose: 20 mg Documented By: ONDINA Pharmacy Consult (Consult Rx Perform Med Rec) 1 each MISCELLANE ONCE PRN PRN Reason: Consult order Sodium Chloride (0.9 % Sodium Chloride Flush 3 Ml Syringe) 3 ml IVFLUSH QSHIFT [facility] Last Admin: 12/31/22 08:19 Dose: 3 ml Documented By: ONDINA Labs 12/28/22 12:36 12/28/22 12:36 Assessment and Plan (1) Paroxysmal atrial fibrillation: Status: Acute (2) Sinus bradycardia: Status: Acute (3) Anxiety disorder: Status: Acute (4) Hypertension: Status: Acute Plan 57-year-old male with a PMH significant for?AFib on Eliquis, HTN, anxiety, panic disorder, COPD,and? hypothyroidism who presents to the ED with?worsening lighthe adedness, dizziness, and ataxia since . Pt will be admitted to observation on telemetry for further workup and evaluation of potential CVA. 1. Paroxysmal atrial fibrillation -admitting symptoms including dizziness thought to be secondary to overmedication -will DC Cardizem as per Cardiology and decrease amiodarone to 200 mg daily -follow on telemetry -ambulate later in day to assess Coreg dramatic response -continue Eliquis 2.Anxiety -continue clonazepam 3BP soft, hold for antihypertensive for now Resume as indicated 4.HTN -acceptable control on current therapies -follow response to med adjustment 5.Chronic back pain -Continue oxycodone as ordered -adjusted as indicated Eliquis Full COde Will require ongoing hospitalization on telemetry to monitor chronotropic response to decreasing medicines Time Spent With Patient Time: Total time managing care of this patient today ____ minutes. Quality Stroke Does the patient have a stroke diagnosis?: Yes Reason for No Anti-thrombotic by Day Two: Not indicated (Outside of tPA therapeutic window) VTE Prior VTE?: No VTE Risk Level:: Medical - moderate - high VTE Device Contraindication: Treatment Not Indicated VTE Drug Contraindication: N/A - Med Ordered
[2022-12-31] MEDS: LORazepam 1 MG TABLET PO (13:40)
--- NOTE | 2022-12-31 14:46 | MHC.CM.PN ---
EMR reviewed, D/C pending further evaluation, per MD rounds, pt will require ongoing hospitalization on telemetry to monitor pt response to decreasing medicines. CM will continue to follow.
[2022-12-31] MEDS: oxyCODONE HCl Immed Release 5 MG TABLET PO (17:25)
[2022-12-31] MEDS: Melatonin 3 MG TABLET 6 MG PO (21:06)
[2023-01-01] VITALS (9 sets, daily range): BP systolic 122–145; BP diastolic 72–82; PULSE 59–67; RESP 16–20; TEMP 35.9–37; O2SAT 94–98
--- NOTE | 2023-01-01 02:29 | PC.NURSE ---
VSS. HR at HS 56-Dr Soto notified-told to hold Cardizem. Midnight VSS. SB-SR on telemetry. See charting for complete assessment. Pt's girlfriend, Mehnaz staying overnight (was allowed to stay last night). Pt sleeping comfortably after receiving Melatonin per his request. IV fluids infusing as ordered.
[2023-01-01] MEDS: Levothyroxine Sodium 112 MCG, Levothyroxine Sodium 25 MCG 137 MCG PO (06:14)
[2023-01-01] MEDS: Omeprazole 40 MG CAPSULE.DR PO (06:14)
[2023-01-01 06:16] LABS: MANUAL DIFF FLAG NO
[2023-01-01 06:20] LABS: Basophils Absolute Auto 0.1 X10*3/uL (0.0-0.2); Basophils Percent Auto 0.7 % (0-2); Eosinophils Absolute Auto 0.2 X10*3/uL (0.0-0.4); Eosinophils Percent Auto 2.4 % (0-4); Hematocrit 33.5 % (42.0-52.0); Hemoglobin 11.4 g/dl (14.0-18.0); Imm Gran Abs Auto 0.05 X10*3/uL (0.00-0.03); Imm Gran Pct Auto 0.7 % (0.0-0.4); Mean Corpuscular Hemoglobin 33.3 pg (27.0-33.0); Mean Platelet Volume 8.3 fL (9.4-12.4); Monocytes Absolute Auto 0.7 X10*3/uL (0.1-1.2); Monocytes Percent Auto 9.9 % (2-11); Neutrophils Percent Auto 57.3 % (45-73); Platelet Count 240 X10*3/uL (160-400); Red Blood Count 3.42 X10*6/uL (4.60-5.80); Red Cell Distribution Width 13.1 % (11.0-16.0)
--- NOTE | 2023-01-01 06:27 | PC.NURSE ---
Went in to give Adrian his early am meds and he was just coming out of the bathroom. Pt saw me and started shaking his head, blinking his eyes and stumbled around a little. I grabbed his arm and asked him what was going on as I assisted hi, to the bed. He stated he was dizzy. After sitting a few minutes he said he was better and layed down after taking his medications. I checked telemetry and his heart rate did not change during this incident. Pts girlfriend sleeping at bedside. Will pass along in report.
[2023-01-01 06:42] LABS: Alanine Aminotransferase 22 U/L (0-40); Albumin Level 3.1 g/dL (3.5-5.0); Alkaline Phosphatase 63 U/L (39-117); Anion Gap 10 (12-20); Aspartate Amino Transferase 21 U/L (5-37); Bilirubin Total 0.3 mg/dL (0.0-1.0); Blood Urea Nitrogen 16 mg/dL (9-16); Calcium 8.2 mg/dL (8.4-10.2); Carbon Dioxide 26 mmol/L (22-29); Chloride 107 mmol/L (96-108); Creatinine Clr Calc Pharmacy 89.1; Estimated Glomerular Filt Rate > 60; Glucose Fasting 94 mg/dL (60-99); Potassium 4.3 mmol/L (3.3-5.1); Sodium 139 mmol/L (135-145); Total Protein 5.3 g/dL (6.5-8.0)
[2023-01-01] MEDS: 0.9 % Sodium Chloride Flush 3 ML SYRINGE IVFLUSH (07:51)
[2023-01-01] MEDS: oxyCODONE HCl Immed Release 5 MG TABLET 20 MG PO ×2 (07:52→13:34)
[2023-01-01] MEDS: clonazePAM 1 MG TABLET PO (07:52)
[2023-01-01] MEDS: Cyclobenzaprine HCl 10 MG TABLET PO (07:52)
[2023-01-01] MEDS: Apixaban 5 MG TABLET PO (07:53)
[2023-01-01] MEDS: Atorvastatin Calcium 80 MG TABLET PO (07:53)
[2023-01-01] MEDS: Folic Acid 1 MG TABLET 2 MG PO (07:53)
[2023-01-01] MEDS: Fluticasone Propionate 100 MCG BLST.W.DEV 1 PUFF INHALE (08:17)
--- NOTE | 2023-01-01 10:17 | MHC.CM.PN ---
IMM 01/01/23. EMR reviewed and per MD rounds pt medically cleared to D/C today, pt to return home self care. Pt to be transported by girlfriend/HCP Mehnaz.
[2023-01-01] MEDS: Amiodarone HCL 200 MG TABLET PO (10:51)
--- NOTE | 2023-01-01 11:05 | PM.PNCARD ---
Subjective Subjective Date of Service: 01/01/23 Principal diagnosis: Sinus bradycardia, paroxysmal atrial fibrillation. Interval history: Patient's heart rate as remained above 50 since yesterday. Received 1 dose of Cardizem last afternoon. His morning amiodarone and Cardizem were withheld. No atrial fibrillation. No cardiac symptoms. Review of Systems Constitutional: Reports no additional constitutional complaints Reports system reviewed and no additional complaints, except as documented and Reports disequilibrium Cardiovascular: Reports no additional cardiovascular complaints Reports disequilibrium Physical Exam Vital Signs: Last Vital Signs Temp 96.7 F L 01/01/23 07:41 Pulse 67 01/01/23 08:55 Resp 16 01/01/23 08:18 BP 138/78 01/01/23 08:55 Pulse Ox 97 01/01/23 07:41 O2 Del Method Room Air 01/01/23 07:41 BMI result Body Mass Index 26.7 Const General: cooperative, comfortable, no acute distress, alert, awake and anxious Nutritional Appearance: average body habitus Orientation/consciousness: patient oriented x3 Limitations: no limitations Neck Neck: Yes trachea midline, Yes supple and Yes no JVD Resp Effort & Inspection: normal respiratory effort Auscultation: clear to auscultation bilaterally Cardio Jugular venous distension: no JVD Palpation: normal PMI Rate: bradycardic Rhythm: regular rhythm Heart sounds: S1 normal heart sound present, S2 normal heart sound present, no click, no gallops and no murmurs Skin General skin exam: no rashes or lesions noted Neuro General: patient oriented x3 and no focal motor deficits Extrem General: Yes no clubbing, cyanosis or edema Objective Labs and Meds 01/01/23 06:10 01/01/23 06:10 Lab results: Laboratory Results - last 24 hr 01/01/23 01/01/23 06:10 06:10 WBC 7.0 RBC 3.42 L D Hgb 11.4 L D Hct 33.5 L D MCV 98.0 MCH 33.3 H MCHC 34.0 RDW 13.1 Plt Count 240 D MPV 8.3 L Immature Gran % (Auto) 0.7 H Neut % (Auto) 57.3 Lymph % (Auto) 29.0 [place] % (Auto) 9.9 Eos % (Auto) 2.4 Baso % (Auto) 0.7 Lymph # (Auto) 2.0 [place] # (Auto) 0.7 Eos # (Auto) 0.2 Baso # (Auto) 0.1 Abs Immat Gran (auto) 0.05 H Absolute Neuts (auto) 4.0 Absolute Nucleated RBC 0.000 Nucleated RBC % (auto) 0.0 Sodium 139 Potassium 4.3 Chloride 107 Carbon Dioxide 26 Anion Gap 10 L BUN 16 Creatinine 1.05 Estim Creat Clear Calc 89.1 Estimated GFR > 60 Fasting Glucose 94 Calcium 8.2 L D Total Bilirubin 0.3 AST 21 ALT 22 Alkaline Phosphatase 63 Total Protein 5.3 L Albumin 3.1 L Progress Note: A&P Assessment and plan (1) Sinus bradycardia: Status: Acute Assessment and Plan: Sinus bradycardia related to medical therapy. Discontinue Cardizem. Switch amiodarone to 200 mg daily. In the long run will have to readdress amiodarone issue given his age. Will follow-up as outpatient for the same and patient wants to follow locally. Will obtain Holter monitor as an outpatient. No indication for pacing therapy at this time (2) Paroxysmal atrial fibrillation: Status: Acute Assessment and Plan: Paroxysmal atrial fibrillation with overall suppression of atrial fibrillation amiodarone therapy. He has prior history of CVA. Strongly recommend to continue full oral anticoagulation. Does not require dual therapy with Cardizem and amiodarone. Management as above. Follow up in the clinic after Holter monitor. Will sign of the case. Will follow-up in 6 weeks time Time Spent With Patient Time: Total time managing care of this patient today ____ minutes. Progress Note: Quality Stroke Does the patient have a stroke diagnosis?: Yes Reason for No Anti-thrombotic by Day Two: Not indicated (Outside of tPA therapeutic window) Procedures Date of Service Date of Service: 01/01/23
--- NOTE | 2023-01-01 11:53 | P.DS_ITS ---
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 Reason for consultation: bradycardia Has provider been notified: Yes DS: Diagnosis Discharge Diagnosis (1) Sinus bradycardia: Status: Acute (2) Paroxysmal atrial fibrillation: Status: Acute DS: Summary Hospital Course Hospital Course: 57-year-old male with a PMH significant for?AFib on Eliquis, HTN, anxiety, panic disorder, COPD,and? hypothyroidism who presents to the ED with?worsening lightheadedness, dizziness, and ataxia since . Pt states he woke up feeling weird on and felt even worse on Thursday: he had no appetite, felt hot and then cold, had lightheadedness and dizziness and a headache. Was also feeling off balance and having some difficulties walking. Novice even worse on Thursday and this morning. Pt notes he has had similar episodes on and off the past couple of years. Says there are times he has uncontrollable shaking of his hands and feet and will fall down when walking. Will also find himself leaning to one side while standing or sitting in his recliner.? 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 Complains too of photophobia. Denies chest pain/pressure. No N/V/diarrhea, abdomnial pain. In the ED patient was afebrile. Labs were largely unremarkable: Troponin negative, B12 slighlty low at 191, folate low-normal at 4.1. CXR showed no evidence of acute cardiopulmonary disease. CT of head showed no acute intracranial pathology.? CTA head showed small age-indeterminate infarct in the left superior cerebellar hemisphere with no large vessel occlusion or significant stenosis within the intracranial or extracranial arterial vasculatures.?EKG demonstrated normal sinus rhythm with nonspecific ST and T- wave abnormality. Pt was treated with DuoNeb and meclizine. Pt will be admitted to observation on telemetry for further workup and evaluation of potential CVA. Hospital Course Patient was admitted to telemetry and observed on monitor. On several occasions heart rate dropped to 30s. Cardiology consultation was placed and was felt this was med related. Cardizem CD was DC 8 and amiodarone was cut to 200 mg daily. Going forward patient's heart rate remained 50s 60s and 70s during his stay. He was also seen in consultation by Neurology for CT findings. Neurology felt this was probably chronic anxiety and tremor and there was no evidence of any significant acute or chronic cerumen pallor infarct. Neural also felt there was evidence of mild diffuse cerebellar atrophy the type usually seen with alcohol. By the end of his hospital stay, patient felt was back to baseline. He was instructed on medication changes and advised not to ride his motorcycle until seen in follow-up by his PCP at which time his PCP can make a decision regarding usage going forward. Time Spent with Patient Time attestation: Total time managing care of this patient today ____ minutes. Discharge coordination time: Greater than 30 minutes Quality: Safe Use of Opioids Does Pt have an Active Cancer Diagnosis on the Problem List?: No Quality: Stroke Does the patient have a stroke diagnosis?: No Physical Exam Vital Signs: Vital Signs: Last Vital Signs Temp 97.3 F 01/01/23 11:42 Pulse 61 01/01/23 11:42 Resp 20 01/01/23 11:42 BP 123/74 01/01/23 11:42 Pulse Ox 98 01/01/23 11:42 O2 Del Method Room Air 01/01/23 11:42 BMI result Body Mass Index 26.7 Const: Other: No acute distress Resp: Other: Clear to auscultation bilaterally no rales rhonchi or wheezes Cardio: Other: No S4; positive S1-S2; no S3 murmurs rubs or gallops GI: Other: Soft nontender nondistended normoactive bowel sounds Neuro: Other: Cranial nerves 2-12 grossly intact as tested. Motor is 5/5 all extremities. Sensation is intact. Gait stable Extrem: Other: No edema bilaterally DS: Data Data Completed and Pending Labs on day of discharge: Laboratory Results - last 24 hr 01/01/23 01/01/23 06:10 06:10 WBC 7.0 RBC 3.42 L D Hgb 11.4 L D Hct 33.5 L D MCV 98.0 MCH 33.3 H MCHC 34.0 RDW 13.1 Plt Count 240 D MPV 8.3 L Immature Gran % (Auto) 0.7 H Neut % (Auto) 57.3 Lymph % (Auto) 29.0 Blair % (Auto) 9.9 Eos % (Auto) 2.4 Baso % (Auto) 0.7 Lymph # (Auto) 2.0 Blair # (Auto) 0.7 Eos # (Auto) 0.2 Baso # (Auto) 0.1 Abs Immat Gran (auto) 0.05 H Absolute Neuts (auto) 4.0 Absolute Nucleated RBC 0.000 Nucleated RBC % (auto) 0.0 Sodium 139 Potassium 4.3 Chloride 107 Carbon Dioxide 26 Anion Gap 10 L BUN 16 Creatinine 1.05 Estim Creat Clear Calc 89.1 Estimated GFR > 60 Fasting Glucose 94 Calcium 8.2 L D Total Bilirubin 0.3 AST 21 ALT 22 Alkaline Phosphatase 63 Total Protein 5.3 L Albumin 3.1 L Discharge Plan Discharge Anticipated Discharge Date/Time: 01/01/23 11:49 Patient Disposition: Home, Self-Care Discharge Diagnosis: Tremers Referrals: Physician,Unknown J [Primary Care Provider] - 1 Week Discharge Medications: New amiodarone 200 mg tablet 200 mg PO DAILY Qty: 30 2RF Continued lisinopril 20 mg tablet 20 mg PO DAILY Eliquis 5 mg tablet 5 mg PO BID oxycodone 20 mg tablet 20 mg PO QID levothyroxine 137 mcg tablet 137 mcg PO DAILY cyclobenzaprine 10 mg tablet 10 mg PO TID Flovent HFA 110 mcg/actuation HFA aerosol inhaler 1 puff PO BID clonazepam 1 mg tablet 1 mg PO TID atorvastatin 20 mg tablet 20 mg PO DAILY albuterol sulfate 90 mcg/actuation HFA aerosol inhaler 2 puff PO Q4-6H PRN (Reason: Dyspnea) Discontinued amiodarone 200 mg tablet 400 mg PO DAILY diltiazem HCl 360 mg capsule,extended release 24hr 360 mg PO DAILY Discharge Orders: Discharge Order (Routine); Ordered 01/01/23 Ordered By: Adryan Sarmiento Diet: Advance to usual diet Activity on Discharge: No motorcycle until seen by PCP Stand Alone Forms: Patient Portal Discharge page Care Plan Goals: Stop taking Cardizem 360 CD. Decrease amiodarone to 200 mg 1 tablet daily Health Concerns: Follow-up with cardiology; Dr. Gomez office will call with appointment Plan of Treatment: Resume all other pre-hospital meds Assessment: See discharge summary
== END 2023-01-01 14:45 | disposition home or self-care (01) | DRG 310 ==
LOC: HO.ED 18:02 → HO.EDOVER 21:02 → HO.IMC 22:09
PROVIDERS: Internal Medicine; Physician Assistant; Admitting Provider Student in an Organized Health Care Education/Training Program; Emergency Provider Emergency Medicine; Visit Provider Hospitalist
DX: R00.1 Bradycardia, unspecified (principal); T46.1X5A Adverse effect of calcium-channel blockers, initial encounter; F17.210 Nicotine dependence, cigarettes, uncomplicated; I10 Essential (primary) hypertension; E03.9 Hypothyroidism, unspecified; G89.29 Other chronic pain; M54.9 Dorsalgia, unspecified; J44.9 Chronic obstructive pulmonary disease, unspecified; E53.8 Deficiency of other specified B group vitamins; R25.1 Tremor, unspecified; F41.9 Anxiety disorder, unspecified; G31.89 Other specified degenerative diseases of nervous system; I48.0 Paroxysmal atrial fibrillation; Z20.822 Contact with and (suspected) exposure to COVID-19; Z86.73 Personal history of transient ischemic attack (TIA), and cerebral infarction without residual deficits; Z71.6 Tobacco abuse counseling; Z88.6 Allergy status to analgesic agent; Z79.01 Long term (current) use of anticoagulants; Z79.51 Long term (current) use of inhaled steroids; Z79.890 Hormone replacement therapy; Z79.899 Other long term (current) drug therapy
CPT/HCPCS: 0241U; 36415; 70450; 70496; 70498; 70551; 71045; 80053; 80061; 82077; 82607; 82746; 83735; 83880; 84484; 85025; 85610; 85730; 93005; 93306; 94640; 97116; 97162; 97166; 97530; 97535; 99285; J3475; Q9967

== ENCOUNTER 2023-01-06 21:27 | Emergency (ER) | payer OTHER, SELFPAY ==
--- NOTE | 2023-01-06 | ECG_ITS ---
Test Reason : REPEAT Blood Pressure : / mmHG Vent. Rate : 064 BPM Atrial Rate : 064 BPM P-R Int : 216 ms QRS Dur : 118 ms QT Int : 460 ms P-R-T Axes : 047 -19 057 degrees QTc Int : 474 ms Sinus rhythm with 1st degree A-V block with Premature supraventricular complexes Incomplete left bundle branch block Minimal voltage criteria for LVH, may be normal variant ( Gordon product ) Nonspecific ST and T wave abnormality Abnormal ECG When compared with ECG of 06-JAN-2023 21:37, No significant changes seen Referred By: Generic ED Physician Electronically Signed By:KEMI YADAV
--- NOTE | ~2023-01-06 | CT_ITS ---
EXAMINATION: CT HEAD WITHOUT CONTRAST CLINICAL INFORMATION: Dizziness. COMPARISON: CT head 12/28/2022 TECHNIQUE: Contiguous axial imaging was performed from the skull base to vertex without intravenous administration of contrast. Coronal and sagittal reformatted images are performed at the CT scanner. [This CT examination was performed using dose optimization techniques as appropriate, variously including the following: *Automated exposure control *Adjustment of mA and/or kV according to patient size (this includes techniques or standardized protocols for targeted exams where dose is matched to indication/reason for exam; i.e. extremities or head) *Use of iterative reconstruction technique] DLP: 676 mGy-cm. FINDINGS: There is no evidence of acute intracranial hemorrhage or territorial infarction. No abnormal mass-effect or midline shift is seen. Torres to white matter differentiation is well preserved. No extra-axial fluid collections are identified. The ventricles are normal in size. There is no abnormal attenuation within the brain parenchyma. There is no osseous abnormality. The mastoid air cells and visualized portions of the paranasal sinuses are well-aerated. CT/CT head/brain wo IV con IMPRESSION: No acute intracranial pathology.
[2023-01-06 21:27] VITALS: BP 168/93; PULSE 101; RESP 20; TEMP 36.8; O2SAT 98; BMI 21.5
--- NOTE | 2023-01-06 21:31 | ECG_ITS ---
Test Reason : CHEST PAIN Blood Pressure : / mmHG Vent. Rate : 100 BPM Atrial Rate : 100 BPM P-R Int : 146 ms QRS Dur : 120 ms QT Int : 396 ms P-R-T Axes : 074 -44 081 degrees QTc Int : 510 ms Normal sinus rhythm Left axis deviation Minimal voltage criteria for LVH, may be normal variant ( [place] product ) Inferior infarct , age undetermined Abnormal ECG When compared with ECG of 31-DEC-2022 09:48, Increase in ventricular rate Referred By: Generic ED Physician Electronically Signed By:KEMI YADAV
[2023-01-06 21:49] LABS: MANUAL DIFF FLAG NO
[2023-01-06 21:50] LABS: Basophils Absolute Auto 0.1 X10*3/uL (0.0-0.2); Basophils Percent Auto 0.7 % (0-2); Eosinophils Absolute Auto 0.1 X10*3/uL (0.0-0.4); Eosinophils Percent Auto 0.8 % (0-4); Hematocrit 40.1 % (42.0-52.0); Hemoglobin 13.5 g/dl (14.0-18.0); Imm Gran Abs Auto 0.06 X10*3/uL (0.00-0.03); Imm Gran Pct Auto 0.8 % (0.0-0.4); Lymphocytes Absolute Auto 1.7 X10*3/uL (1.2-4.9); Mean Corpuscular HGB Conc 33.7 g/dl (31.0-36.0); Mean Corpuscular Hemoglobin 33.2 pg (27.0-33.0); Mean Corpuscular Volume 98.5 fL (80.0-98.0); Mean Platelet Volume 8.5 fL (9.4-12.4); Monocytes Absolute Auto 0.7 X10*3/uL (0.1-1.2); Monocytes Percent Auto 9.4 % (2-11); Neutrophils Percent Auto 65.3 % (45-73); Platelet Count 325 X10*3/uL (160-400); Red Blood Count 4.07 X10*6/uL (4.60-5.80); Red Cell Distribution Width 12.9 % (11.0-16.0); White Blood Count 7.6 X10*3/uL (4.8-10.8)
[2023-01-06 22:02] LABS: Anion Gap 11 (12-20); Blood Urea Nitrogen 12 mg/dL (9-16); Calcium 8.8 mg/dL (8.4-10.2); Carbon Dioxide 26 mmol/L (22-29); Chloride 105 mmol/L (96-108); Creatinine Clr Calc Pharmacy 79.8; Estimated Glomerular Filt Rate > 60; Glucose Random 113 mg/dL (60-115); Potassium 4.3 mmol/L (3.3-5.1); Sodium 138 mmol/L (135-145)
[2023-01-06 22:10] LABS: Troponin-I High Sensitivity 5.2 ng/L (<3.5-35.0)
--- NOTE | 2023-01-06 22:14 | PC.NURSE ---
Pt brought in from external triage, pt stood and immediately reported sharp and increased chest pain. Repeat EKG ordered.
--- NOTE | 2023-01-06 22:52 | ED.CHESTPAIN ---
HPI - Chest Pain General Chief Complaint: Chest Pain Stated Complaint: Chest pain Time Seen by Provider: 01/06/23 22:33 Source: patient and family Mode of arrival: ambulatory History of Present Illness HPI narrative: 57-year-old male presents with known history paroxysmal atrial fibrillation and is currently on hypertensive medications as well as Eliquis. Patient was seen here recently now presents with similar symptoms lightheadedness and not feeling well. Patient is unable to identify exactly why he does not feel well but reports that his blood pressure was noted to be elevated throughout the day causing him to become more anxious and then he took his blood pressure medication just prior to presentation. Patient states that he still feels somewhat lightheaded. Otherwise, he denies any fever, chills, shortness of breath, chest pain/palpitations, GI or symptoms. Related Data Home Medications Medication Instructions Recorded Confirmed albuterol sulfate 90 mcg/actuation 2 puff PO Q4-6H PRN Dyspnea 12/18/21 12/28/22 aerosol inhaler atorvastatin 20 mg tablet 20 mg PO DAILY 12/18/21 12/28/22 clonazepam 1 mg tablet 1 mg PO TID 12/18/21 12/28/22 cyclobenzaprine 10 mg tablet 10 mg PO TID 12/18/21 12/28/22 fluticasone propionate 110 1 puff PO BID 12/18/21 12/28/22 mcg/actuation HFA aerosol inhaler (Flovent HFA) levothyroxine 137 mcg tablet 137 mcg PO DAILY 12/18/21 12/28/22 oxycodone 20 mg tablet 20 mg PO QID 12/18/21 12/28/22 apixaban 5 mg tablet (Eliquis) 5 mg PO BID 12/28/22 12/28/22 lisinopril 20 mg tablet 20 mg PO DAILY 12/28/22 12/28/22 Previous Rx's Medication Instructions Recorded amiodarone 200 mg tablet 200 mg PO DAILY #30 tabs 01/01/23 Allergies Allergy/AdvReac Type Severity Reaction Status Date / Time aspirin [ASA] Allergy Unknown BLEEDING Unverified 12/18/21 15:53 ULCERS, stomach upset NSAIDS (Non-Steroidal Allergy Unknown BLEEDING Unverified 12/18/21 15:53 Anti-Inflamma ULCERS [NSAIDS (NON-STEROIDAL ANTI-INFLAMMA] Review of Systems Review of Systems: Pertinent positives and negatives as stated in HPI [facility] Past Medical History Source: nursing notes reviewed Social History Social History Household Members: Significant Other Housing: Apartment Do you presently have visiting nurse or other home services: No Alcohol intake: current Alcohol intake frequency: a few times a week Patient Tobacco Use Status: Current someday Tobacco user Tobacco use type: Cigarette Cigarettes Per Day: 2 Years Smoked: 20 e-Cigarette/Vaping Use: Never Used Second Hand Smoke Exposure: Yes Advance Directives: Yes Advance Directives on File: Yes Advance Directives Date on File: 01/02/23 service: No Current occupational status: disabled Physical Exam Vital Signs: Vital Signs: Last Vital Signs Temp 98.3 F 01/06/23 23:45 Pulse 61 01/06/23 23:45 Resp 10 L 01/06/23 23:45 BP 137/80 01/06/23 23:45 Pulse Ox 97 01/06/23 23:45 O2 Del Method Room Air 01/06/23 23:45 BMI result Body Mass Index 21.5 VITAL SIGNS: Reviewed. GENERAL: Well developed, well nourished, in no acute distress. HEAD: Normocephalic/atraumatic EYES: PERRLA, EOMI EARS: Ext canals without abnormality NOSE: Nares patent bilateral OROPHARYNX: no oral lesions noted, posterior pharynx clear NECK: Supple, no adenopathy LUNGS: Normal breath sounds. No adventitious sounds or accessory muscle use. SpO2<98> CARDIOVASCULAR: Regular rate and rhythm without noted murmurs ABDOMEN: Soft, non-tender, non-distended with bowel sounds. MUSCULOSKELETAL: No tenderness, deformities, or effusions noted on gross inspection. EXTREMITIES: No cyanosis, clubbing or edema. SKIN: Inspection of the skin reveals no rashes NEUROLOGIC: Alert and oriented x 4. Strength and sensation to light touch were grossly intact x 4, baseline tremulousness all 4 extremities, no facial asymmetry, no pronator drift, cranial nerves 2-12 are grossly intact. Medications Administered Discontinued Medications Generic Name Dose Route Start Last Admin Trade Name Freq PRN Reason Stop Dose Admin Sodium Chloride 1,000 mls @ 999 mls/hr 01/06/23 23:45 01/06/23 23:47 Ns IV 01/07/23 00:45 999 mls/hr .Q1H1M KAVEH Administration Medical Decision Making Medical Decision Making [facility] Narrative: 2245: 57-year-old male with history and clinical presentation suggestive of possible hypovolemia, but adamantly denies any recent alcohol use or history of alcohol use, has continued to take his medications, but as he is on chronic anticoagulation will proceed with CT scan to better evaluate lightheadedness. He is otherwise nonfocal. I have low clinical suspicion after review of all previous notes by Neurology as well as hospitalist. I reviewed all investigations to include imaging studies and my interpretation is this patient is actually mildly dehydrated, he was rehydrated with 1 L of IV fluids and afterwards is reporting significant improvement. Otherwise, troponins are lateral and patient did not communicate to me that he had chest pain he was more concerned about the feeling of lightheadedness. My interpretation is in agreement with radiology's impression of the imaging studies. 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 Differential Diagnosis Please see the discussion above Lab Data Please see the discussion above 01/06/23 21:44 01/06/23 21:44 Labs: Lab Results 01/06/23 01/06/23 01/06/23 Range/Units 21:44 21:44 21:44 WBC 7.6 (4.8-10.8) X10*3/uL RBC 4.07 L (4.60-5.80) X10*6/uL Hgb 13.5 L (14.0-18.0) g/dl Hct 40.1 L (42.0-52.0) % MCV 98.5 H (80.0-98.0) fL MCH 33.2 H (27.0-33.0) pg MCHC 33.7 (31.0-36.0) g/dl RDW 12.9 (11.0-16.0) % Plt Count 325 D (160-400) X10*3/uL MPV 8.5 L (9.4-12.4) fL Immature Gran % (Auto) 0.8 H (0.0-0.4) % Neut % (Auto) 65.3 (45-73) % Lymph % (Auto) 23.0 (20-40) % Pickens % (Auto) 9.4 (2-11) % Eos % (Auto) 0.8 (0-4) % Baso % (Auto) 0.7 (0-2) % Lymph # (Auto) 1.7 (1.2-4.9) X10*3/uL Pickens # (Auto) 0.7 (0.1-1.2) X10*3/uL Eos # (Auto) 0.1 (0.0-0.4) X10*3/uL Baso # (Auto) 0.1 (0.0-0.2) X10*3/uL Abs Immat Gran (auto) 0.06 H (0.00-0.03) X10*3/uL Absolute Neuts (auto) 5.0 (2.0-8.3) x10*3/uL Absolute Nucleated RBC 0.000 (0.0-0.012) X10*3/uL Nucleated RBC % (auto) 0.0 (0.0-0.2) /100WBC Sodium 138 (135-145) mmol/L Potassium 4.3 (3.3-5.1) mmol/L Chloride 105 (96-108) mmol/L Carbon Dioxide 26 (22-29) mmol/L Anion Gap 11 L (12-20) BUN 12 (9-16) mg/dL Creatinine 0.97 (0.5-1.4) mg/dL Estim Creat Clear Calc 79.8 Estimated GFR > 60 Random Glucose 113 (60-115) mg/dL Calcium 8.8 D (8.4-10.2) mg/dL Troponin I High Sens 5.2 (<3.5-35.0) ng/L 01/06/23 Range/Units 23:57 WBC (4.8-10.8) X10*3/uL RBC (4.60-5.80) X10*6/uL Hgb (14.0-18.0) g/dl Hct (42.0-52.0) % MCV (80.0-98.0) fL MCH (27.0-33.0) pg MCHC (31.0-36.0) g/dl RDW (11.0-16.0) % Plt Count (160-400) X10*3/uL MPV (9.4-12.4) fL Immature Gran % (Auto) (0.0-0.4) % Neut % (Auto) (45-73) % Lymph % (Auto) (20-40) % Pickens % (Auto) (2-11) % Eos % (Auto) (0-4) % Baso % (Auto) (0-2) % Lymph # (Auto) (1.2-4.9) X10*3/uL Pickens # (Auto) (0.1-1.2) X10*3/uL Eos # (Auto) (0.0-0.4) X10*3/uL Baso # (Auto) (0.0-0.2) X10*3/uL Abs Immat Gran (auto) (0.00-0.03) X10*3/uL Absolute Neuts (auto) (2.0-8.3) x10*3/uL Absolute Nucleated RBC (0.0-0.012) X10*3/uL Nucleated RBC % (auto) (0.0-0.2) /100WBC Sodium (135-145) mmol/L Potassium (3.3-5.1) mmol/L Chloride (96-108) mmol/L Carbon Dioxide (22-29) mmol/L Anion Gap (12-20) BUN (9-16) mg/dL Creatinine (0.5-1.4) mg/dL Estim Creat Clear Calc Estimated GFR Random Glucose (60-115) mg/dL Calcium (8.4-10.2) mg/dL Troponin I High Sens 5.2 (<3.5-35.0) ng/L Independent Interpretation I performed an independent interpretation of an: EKG Interpretation: Sinus rhythm with first-degree AV block, HR-64, no STEMI, QTC is within normal limits Radiology Impression Radiologist Impression: My interpretation is in agreement with radiology's impression of the imaging studies. External Record Review External record reviewed: Inpatient record, Outpatient record and Prior outpatient labs Discharge Plan Discharge Clinical Impression: Light-headed, Hypertension Patient Disposition: Home, Self-Care Instructions: Lightheadedness (ED), Hypertension (ED), DASH Eating Plan (ED) Additional Instructions: 1. Resume all home medications as prescribed. 2. You should continue to drink plenty of fluids, especially when the temperatures are increasing. 3. 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 Return to the ER for any worsening symptoms. Prescriptions: No Action lisinopril 20 mg tablet 20 mg PO DAILY Eliquis 5 mg tablet 5 mg PO BID amiodarone 200 mg tablet 200 mg PO DAILY Qty: 30 2RF oxycodone 20 mg tablet 20 mg PO QID levothyroxine 137 mcg tablet 137 mcg PO DAILY cyclobenzaprine 10 mg tablet 10 mg PO TID Flovent HFA 110 mcg/actuation HFA aerosol inhaler 1 puff PO BID clonazepam 1 mg tablet 1 mg PO TID atorvastatin 20 mg tablet 20 mg PO DAILY albuterol sulfate 90 mcg/actuation HFA aerosol inhaler 2 puff PO Q4-6H PRN (Reason: Dyspnea)
[2023-01-06 23:45] VITALS: BP 137/80; PULSE 61; RESP 10; TEMP 36.8; O2SAT 97
[2023-01-06] MEDS: 0.9 % Sodium Chloride 1,000 ML 999 ML IV (23:47)
[2023-01-07 00:22] LABS: Troponin-I High Sensitivity 5.2 ng/L (<3.5-35.0)
[2023-01-07 01:55] VITALS: BP 142/90; PULSE 67; RESP 18; TEMP 36.8; O2SAT 96
--- NOTE | 2023-01-07 02:04 | PC.NURSE ---
late entry- iv line placed pt tolerated well. pt medicated according to mar. pt partner at bedside.
--- NOTE | 2023-01-07 02:05 | PC.NURSE ---
vss. skin pwd. iv removed at discharge. pt ambulatory at discharge. pt provided with discharge packet. pt verbalized understanding of discharge plan
== END 2023-01-07 02:07 | disposition home or self-care (01) ==
PROVIDERS: Emergency Provider Student in an Organized Health Care Education/Training Program
DX: R42 Dizziness and giddiness (principal); I10 Essential (primary) hypertension; I48.0 Paroxysmal atrial fibrillation; Z79.899 Other long term (current) drug therapy; Z79.01 Long term (current) use of anticoagulants
CPT/HCPCS: 36415; 70450; 80048; 84484; 85025; 93005; 96360; 96361; 99285

== ENCOUNTER 2023-07-31 09:40 | Outpatient (AMB) | payer OTHER, SELFPAY ==
[2023-07-31 09:56] VITALS: BP 132/80; PULSE 78; TEMP 37.6; O2SAT 96; BMI 29.7
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
== END 2023-07-31 10:56 | disposition home or self-care (01) ==
PROVIDERS: Visit Provider Physician Assistant Medical
DX: T24.012A Burn of unspecified degree of left thigh, initial encounter (principal); X76.XXXA Intentional self-harm by smoke, fire and flames, initial encounter; X08.8XXA Exposure to other specified smoke, fire and flames, initial encounter
CPT/HCPCS: 99213

== ENCOUNTER 2023-12-26 14:06 | Outpatient (AMB) | payer OTHER, SELFPAY ==
[2023-12-26 12:58] VITALS: BP 160/82; PULSE 57; O2SAT 96; BMI 30.7
--- NOTE | 2023-12-26 12:58 | MHC.PC.OV ---
Vital Signs 12/26/23 12:58 Height 5 ft 10 in Weight 214 lb 4 oz BMI 30.7 BP 160/82 H Blood Pressure Location Lt brachial Position Sitting Pulse 57 Pulse Source Pulse Oximeter Pulse Oximetry (%) 96 Oxygen Delivery Method Room Air Intake Visit Reasons: EP Light Head, Blurred Vision, feeling off Intake Note: Patient is here with feeling of llightheadedness, blurred vision, feeling off, feeling scared and nervous. Allergies aspirin [ASA] Allergy (Unknown, Verified 07/31/23 10:05) BLEEDING ULCERS, stomach upset NSAIDS (Non-Steroidal Anti-Inflamma [NSAIDS (NON-STEROIDAL ANTI-INFLAMMA] Allergy (Unknown, Verified 07/31/23 10:05) BLEEDING ULCERS PFSH Social History Household Members: Significant Other Housing: Apartment Do you presently have visiting nurse or other home services: No Alcohol intake: current Alcohol intake frequency: a few times a week Comment: pt refusing alarms and staff in BR with him Patient Tobacco Use Status: Current someday Tobacco user Tobacco use type: Cigarette Cigarettes Per Day: 2 Years Smoked: 20 e-Cigarette/Vaping Use: Never Used Second Hand Smoke Exposure: Yes Advance Directives Date on File: 01/02/23 service: No Current occupational status: disabled Physical exam (Primary Care) Tobacco/Smoking Status: Tobacco use Status Patient Tobacco Use Status Current someday Tobacco 07/31/23 09:59 Tobacco use type Cigarette 12/28/22 23:00 e-Cigarette/Vaping Use Never Used 12/28/22 23:00 Coding
--- NOTE | 2023-12-26 14:05 | AM.OFFWIN_ITS ---
Intake Vital Signs 12/26/23 12:58 Height 5 ft 10 in Weight 214 lb 4 oz BMI 30.7 BP 160/82 H Blood Pressure Location Lt brachial Position Sitting Pulse 57 Pulse Source Pulse Oximeter Pulse Oximetry (%) 96 Oxygen Delivery Method Room Air Intake Visit Reasons: EP Light Head, Blurred Vision, feeling off Patient Tobacco Use Status: Current someday Tobacco user Allergies aspirin [ASA] Allergy (Unknown, Verified 12/26/23 14:39) BLEEDING ULCERS, stomach upset NSAIDS (Non-Steroidal Anti-Inflamma [NSAIDS (NON-STEROIDAL ANTI-INFLAMMA] Allerg y (Unknown, Verified 12/26/23 14:39) BLEEDING ULCERS HPI EP Light Head, Blurred Vision, feeling off HPI0 Details Patient is a 58-year-old male with a history of hypertension as well as paroxysmal AFib, who comes to the walk-in clinic complaining of lightheadedness, vision changes and feeling off today. He states that he checked his blood pressure yesterday and it was normotensive, however today he had a reading of 190/90, associated with his symptoms, so he came to the walk-in to be evaluated. He reports that he had been taking his blood pressure medication as well as his Eliquis regularly until yesterday when he took his morning doses later in the da y. He has Klonopin for which she takes for anxiety prior to sleeping, but did not take this morning. Since then he has been compliant with medication. He denies current chest pain or shortness of breath, fever or chills, respiratory symptoms, numbness or tingling, memory changes, difficulty speaking, headache, GI or other significant associated symptoms. He reports a history of coronary artery disease along with the AFib, and reports that he was briefly seeing a search engine marketing manager, but has not followed up with suggested further treatment for the past year. He reports that he does smoke heavily, but had not smoked in the last 2 days, and denies alcohol intake or other drug use. Reviewed past medical history with the patient. [facility] Social History Household Members: Significant Other Housing: Apartment Do you presently have visiting nurse or other home services: No Alcohol intake: current Alcohol intake frequency: holidays/special occasions only Comment: pt refusing alarms and staff in BR with him Patient Tobacco Use Status: Current someday Tobacco user Tobacco use type: Cigarette Cigarettes Per Day: 2 Years Smoked: 20 e-Cigarette/Vaping Use: Never Used Second Hand Smoke Exposure: Yes Advance Directives Date on File: 01/02/23 service: No Current occupational status: disabled Physical Exam Vital Signs: Last Vital Signs Pulse 57 12/26/23 12:58 BP 160/82 H 12/26/23 12:58 Pulse Ox 96 12/26/23 12:58 Oxygen Delivery Method Room Air 12/26/23 12:58 BMI result Body Mass Index 30.7 Const General: cooperative, alert, awake, Physically active, acute distress and anxious; No comfortable or diaphoretic Nutritional Appearance: average body habitus Orientation/consciousness: patient oriented x3 Limitations: no limitations Chest Chest palpation & inspection: normal palpation of entire chest wall Resp Effort & Inspection: normal respiratory effort, able to speak in complete sentences, no audible wheezes, no cough, no grunting, not labored, no nasal flaring, no retractions and symmetric chest movement Auscultation: clear to auscultation bilaterally, no crackles, no rales, no rhonchi, no wheezes, lung sounds not diminished and No rub present Cardio Rate: regular rate Skin Other: Red face, warm and dry Neuro General: patient oriented x3 Psych Appearance: grossly normal Mental Status: mental status grossly normal Speech and movement: Normal speech and movement present Affect: normal affect Attitude: cooperative Thought process: Normal thought process present Insight: Good insight present (Psych) Judgement: Good judgement present (Psych) Assessment & Plan Assessment & Plan (1) Malignant hypertension: Code(s): I10 - Essential (primary) hypertension Plan: Patient is a 58-year-old male who comes to the walk-in clinic complaining of not feeling like himself along with lightheadedness and blurred vision in the setting of uncontrolled hypertension, and being noncompliant with cardiology follow-up for the past year. He states that he had a reading at home which was elevated at 190/90. He was a little lower here in the office, but was still symptomatic and had an anxious appearance, with a red face and seemed agitated. He was dealing a family member on the phone during the visit which appeared to be causing him distress. He denied chest pain or shortness of breath. His 12 lead EKG showed an incomplete left bundle-branch block, with no ST elevation noted. I told him that this was nondiagnostic for heart attack, and due to his symptoms, he should go to the emergency department for evaluation, for which she was amenable. We called for an ambulance, which came to pick him up and we were told he was going to be transported to [facility] unless his presentation changed and he needed to be transported to [facility]. An expect was called in to the emergency department. Coding Level of Care Code Est Pt Level 4 (77421) Diagnoses Malignant hypertension I10
== END 2023-12-26 14:12 | disposition home or self-care (01) ==
LOC: HO.HMGWI 14:06
DX: I10 Essential (primary) hypertension (principal)
CPT/HCPCS: 99214

== ENCOUNTER 2023-12-26 14:06 | Emergency (ER) | payer OTHER, SELFPAY ==
--- NOTE | ~2023-12-26 | XR_ITS ---
EXAMINATION: XR CHEST CLINICAL INFORMATION: Lightheaded COMPARISON: Multiple priors with the last chest x-ray of 01/07/2023 TECHNIQUE: 2 views of the chest were obtained. FINDINGS: Cardiomediastinal silhouette is normal. Biapical pleural thickening is a stable finding. No focal consolidation, changes of congestion, pleural effusions or pneumothorax. Regional skeleton is intact. Visualized upper abdomen is unremarkable. XR/XR chest 2V IMPRESSION: No radiographic evidence of pneumonia. No acute pulmonary process.
--- NOTE | 2023-12-26 14:22 | ECG_ITS ---
Test Reason : LIGHTHEADED Blood Pressure : / mmHG Vent. Rate : 047 BPM Atrial Rate : 047 BPM P-R Int : 194 ms QRS Dur : 112 ms QT Int : 532 ms P-R-T Axes : 059 -06 035 degrees QTc Int : 470 ms Sinus bradycardia with Premature supraventricular complexes T wave abnormality, consider lateral ischemia Prolonged QT Abnormal ECG When compared with ECG of 06-JAN-2023 22:14, T wave inversion now evident in Lateral leads Referred By: Francheska Schwartz Electronically Signed By:FABY STEVENS MD
[2023-12-26 14:36] VITALS: BP 129/62; BP 147/85; PULSE 50; PULSE 52; RESP 16; TEMP 36.6; O2SAT 94; O2SAT 97; BMI 27.9
--- NOTE | 2023-12-26 14:48 | ED.GENADULT ---
HPI - General Adult General Chief complaint: General Medical Stated complaint: lightheaded Time Seen by Provider: 12/26/23 14:22 Source: patient, EMS and RN notes reviewed Mode of arrival: EMS Limitations: no limitations History of Present Illness HPI narrative: Patient is a 58-year-old male with history of HTN, afib on Eliquis, anxiety, panic disorder, COPD, hypothyroidism presenting to the emergency department after getting high readings when checking his blood pressure on his machine at home. He states that yesterday, he fell asleep and did not take his a.m. meds until 6:00 p.m., then fell asleep again and woke at 11:00 p.m. and took his p.m. meds at that time. This morning he reports that he wanted to try his new blood pressure machine, so he checked his blood pressure and found it to be very high, reports systolic of 190. States that he checked his blood pressure multiple times and got similar readings. He denies any episodes of chest pain, shortness of breath, palpitations, dizziness, lightheadedness, syncope. Denies headaches or changes in vision. States his blood pressure has been well-managed with medications for the past year. MD complaint: high BP readings Onset (ago): hour(s) Associated symptoms: denies other symptoms Treatments prior to arrival: none Related Data Home Medications ?Medication ?Instructions ?Recorded ?Confirmed albuterol sulfate 90 mcg/actuation 2 puff PO Q4-6H PRN Dyspnea 12/18/21 12/28/22 aerosol inhaler atorvastatin 20 mg tablet 20 mg PO DAILY 12/18/21 12/28/22 clonazepam 1 mg tablet 1 mg PO TID 12/18/21 12/28/22 cyclobenzaprine 10 mg tablet 10 mg PO TID 12/18/21 12/28/22 fluticasone propionate 110 1 puff PO BID 12/18/21 12/28/22 mcg/actuation HFA aerosol inhaler (Flovent HFA) oxycodone 20 mg tablet 20 mg PO QID 12/18/21 12/28/22 apixaban 5 mg tablet (Eliquis) 5 mg PO BID 12/28/22 12/28/22 lisinopril 20 mg tablet 20 mg PO DAILY 12/28/22 12/28/22 diltiazem HCl 360 mg 360 mg PO DAILY 07/31/23 capsule,extended release 24 hr levothyroxine 100 mcg tablet 100 mcg PO DAILY 07/31/23 naloxone 4 mg/actuation nasal spray intranasal 07/31/23 Previous Rx's ?Medication ?Instructions ?Recorded amiodarone 200 mg tablet 200 mg PO DAILY #30 tabs 01/01/23 sulfamethoxazole 800 1 tab PO BID #20 tabs 07/31/23 mg-trimethoprim 160 mg tablet Allergies Allergy/AdvReac Type Severity Reaction Status Date / Time aspirin [ASA] Allergy Unknown BLEEDING Verified 12/26/23 14:39 ULCERS, stomach upset NSAIDS (Non-Steroidal Allergy Unknown BLEEDING Verified 12/26/23 14:39 Anti-Inflamma ULCERS [NSAIDS (NON-STEROIDAL ANTI-INFLAMMA] Review of Systems Review of Systems: As per HPI. Yes all other systems are reviewed and are negative Constitutional: Constitutional: Reports as per HPI [facility] Social History Social History Household Members: Significant Other Housing: Apartment Do you presently have visiting nurse or other home services: No Alcohol intake: current Alcohol intake frequency: holidays/special occasions only Comment: pt refusing alarms and staff in BR with him Patient Tobacco Use Status: Current someday Tobacco user Tobacco use type: Cigarette Cigarettes Per Day: 2 Years Smoked: 20 Smoked in Last 30 Days: Yes e-Cigarette/Vaping Use: Never Used Second Hand Smoke Exposure: Yes Use of substances other than those prescribed or required for medical reasons: No Advance Directives: Yes Advance Directives on File: Yes Advance Directives Date on File: 01/02/23 service: No Current occupational status: disabled Physical Exam ED Vital Signs: Vital Signs - 24 hr 12/26/23 14:36 12/26/23 16:27 Temperature 97.8 F 98.4 F Pulse Rate 50 48 L Respiratory Rate 16 16 Blood Pressure 129/62 132/63 Pulse Oximetry 94 98 Oxygen Delivery Method Room Air Room Air BMI result Body Mass Index 27.9 Vital signs have been reviewed and appear to be correct. Blood pressure normal. Heart rate bradycardic. Respiratory rate normal. Temperature normal. Oxygen saturation normal. Const General: cooperative, healthy appearing and no acute distress Orientation/consciousness: oriented to person, oriented to place, oriented to time and patient oriented x3 Limitations: no limitations [facility] Head: Yes normocephalic and Yes atraumatic Ears: external ears normal General nose exam: Normal external nose present Face and sinus: Yes face symmetric Mouth: oropharynx normal and moist mucous membranes Throat: Yes uvula midline Eyes Pupils: Equal, round and reactive pupils present Neck Neck: Yes normal visual inspection and Yes supple Resp Effort & Inspection: normal respiratory effort and able to speak in complete sentences Auscultation: clear to auscultation bilaterally Cardio Rate: regular rate Rhythm: regular rhythm Heart sounds: S1 normal heart sound present and S2 normal heart sound present GI Palpation (GI): Soft to palpation and nontender Auscultation: normoactive bowel sounds General: Yes no CVA tenderness Back/Spine/Pelvis Back: no CVA tenderness Skin General skin exam: elasticity normal and turgor normal Neuro General: oriented to person, oriented to place, oriented to time, patient oriented x3, moves all extremities, no focal motor deficits and CN's II-XI intact bilaterally Cranial nerves: Yes Equal, round and reactive pupils present Cognition (Neuro): normal cognition Extrem General: Yes full ROM, Yes no pedal edema and Yes no calf tenderness Psych Mental Status: mental status grossly normal Affect: normal affect Thought process: Normal thought process present Course Reevaluation(s) Reevaluation #1: Patient received in sign-out at change of shift pending labs and disposition. He has no leukocytosis. He does have a mild macrocytic anemia. The patient is on Eliquis for AFib. He denies any black or bloody stool. He reports he is due for a colonoscopy any ways which I encouraged him to have done. His chemistries do not have any significant abnormalities. Renal function within normal limits. The patient has not had any episodes of hypertension, he is stable for discharge Time: 18:23 Medical Decision Making Medical Decision Making MDM Narrative: Patient is a 58-year-old male with history of HTN, afib on Eliquis, anxiety, panic disorder, COPD, hypothyroidism presenting to the emergency department after getting high readings when checking his blood pressure on his machine at home. On exam patient is awake, A+Ox3, VS WNL, afebrile, normal neurological exam without focal deficits, physical exam findings as above. Given reported symptoms and physical exam findings, initial differential includes essential hypertension, ACS, viral illness, cardiac dysrhythmia. EKG notable for sinus bradycardic with premature supraventricular complexes, prolonged QT, T wave inversion in lateral leads. X-ray chest notable for no evidence pneumonia or other acute process. My interpretation is in agreement with the radiologist's interpretation. Patient signed out to MARY Beltran pending labs. Differential Diagnosis Differential Diagnoses: The differential diagnosis associated with the presentation includes As per MDM. Admission/Observation Consideration of admission/observation: Escalation of care including admission/observation considered Lab Data 12/26/23 16:00 12/26/23 16:00 Labs: Lab Results 12/26/23 Range/Units 16:00 WBC 6.1 (4.8-10.8) X10*3/uL RBC 3.76 L (4.60-5.80) X10*6/uL Hgb 12.6 L (14.0-18.0) g/dl Hct 37.0 L (42.0-52.0) % MCV 98.4 H (80.0-98.0) fL MCH 33.5 H (27.0-33.0) pg MCHC 34.1 (31.0-36.0) g/dl RDW 13.3 (11.0-16.0) % Plt Count 239 D (160-400) X10*3/uL MPV 9.0 L (9.4-12.4) fL Immature Gran % (Auto) 0.8 H (0.0-0.4) % Neut % (Auto) 63.9 (45-73) % Lymph % (Auto) 24.9 (20-40) % [place] % (Auto) 8.3 (2-11) % Eos % (Auto) 1.3 (0-4) % Baso % (Auto) 0.8 (0-2) % Lymph # (Auto) 1.5 (1.2-4.9) X10*3/uL [place] # (Auto) 0.5 (0.1-1.2) X10*3/uL Eos # (Auto) 0.1 (0.0-0.4) X10*3/uL Baso # (Auto) 0.1 (0.0-0.2) X10*3/uL Abs Immat Gran (auto) 0.05 H (0.00-0.03) X10*3/uL Absolute Neuts (auto) 3.9 (2.0-8.3) x10*3/uL Absolute Nucleated RBC 0.000 (0.0-0.012) X10*3/uL Nucleated RBC % (auto) 0.0 (0.0-0.2) /100WBC PT 14.5 H (11.1-13.3) SEC INR 1.2 H (0.9-1.1) Sodium 140 (135-145) mmol/L Potassium 4.1 (3.3-5.1) mmol/L Chloride 111 H (96-108) mmol/L Carbon Dioxide 25 (22-29) mmol/L Anion Gap 8 L (12-20) BUN 16 (9-16) mg/dL Creatinine 1.10 (0.5-1.4) mg/dL Estim Creat Clear Calc 90.8 Estimated GFR > 60 Random Glucose 98 (60-115) mg/dL Calcium 8.5 (8.4-10.2) mg/dL Magnesium 2.4 (1.6-2.6) mg/dL Total Bilirubin 0.5 (0.0-1.0) mg/dL AST 20 (5-37) U/L ALT 16 (0-40) U/L Alkaline Phosphatase 67 (39-117) U/L Troponin I High Sens 2.7 (<3.5-35.0) ng/L Total Protein 6.9 (6.5-8.0) g/dL Albumin 3.6 (3.5-5.0) g/dL Ethyl Alcohol < 10 mg/dL Influenza Type A (PCR) NEGATIVE (Negative) Influenza Type B (PCR) NEGATIVE (Negative) RSV RNA Qual (PCR) NEGATIVE (Negative) SARS-CoV-2 RNA (RT-PCR) NEGATIVE (Negative) Independent Interpretation I performed an independent interpretation of an: EKG (sinus bradycardic with premature supraventricular complexes, prolonged QT, T wave inversion in lateral leads, rate 47bpm) and Plain X-Ray Interpretation: No evidence of pneumonia or other acute abnormality on chest x-ray Radiology Impression Discussion of test interpretation with radiology: I have reviewed the radiologist's reading. Radiologist Impression: XR/XR chest 2V IMPRESSION: No radiographic evidence of pneumonia. No acute pulmonary process. External Record Review External record reviewed: Inpatient record, Office record and Outpatient record Discharge Plan Discharge Clinical Impression: Light-headedness Patient Disposition: Home, Self-Care Instructions: Lightheadedness (ED) Additional Instructions: Your blood pressure in the emergency department today was reassuring. You had no episodes of high blood pressure You are slightly anemic As discussed, I recommend that you follow-up with your colonoscopy Return to the ER if you notice any black or bloody stool Prescriptions: No Action lisinopril 20 mg tablet 20 mg PO DAILY Eliquis 5 mg tablet 5 mg PO BID amiodarone 200 mg tablet 200 mg PO DAILY Qty: 30 2RF oxycodone 20 mg tablet 20 mg PO QID cyclobenzaprine 10 mg tablet 10 mg PO TID Flovent HFA 110 mcg/actuation HFA aerosol inhaler 1 puff PO BID clonazepam 1 mg tablet 1 mg PO TID atorvastatin 20 mg tablet 20 mg PO DAILY albuterol sulfate 90 mcg/actuation HFA aerosol inhaler 2 puff PO Q4-6H PRN (Reason: Dyspnea) levothyroxine 100 mcg tablet 100 mcg PO DAILY diltiazem HCl 360 mg capsule,extended release 24hr 360 mg PO DAILY naloxone 4 mg/actuation spray,non-aerosol intranasal sulfamethoxazole-trimethoprim 800-160 mg tablet 1 tab PO BID Qty: 20 0RF Print Language: [place]
[2023-12-26 16:05] LABS: MANUAL DIFF FLAG NO
[2023-12-26 16:10] LABS: Basophils Absolute Auto 0.1 X10*3/uL (0.0-0.2); Basophils Percent Auto 0.8 % (0-2); Eosinophils Absolute Auto 0.1 X10*3/uL (0.0-0.4); Eosinophils Percent Auto 1.3 % (0-4); Hemoglobin 12.6 g/dl (14.0-18.0); Imm Gran Abs Auto 0.05 X10*3/uL (0.00-0.03); Imm Gran Pct Auto 0.8 % (0.0-0.4); Lymphocytes Absolute Auto 1.5 X10*3/uL (1.2-4.9); Lymphocytes Percent Auto 24.9 % (20-40); Mean Corpuscular HGB Conc 34.1 g/dl (31.0-36.0); Mean Corpuscular Hemoglobin 33.5 pg (27.0-33.0); Mean Corpuscular Volume 98.4 fL (80.0-98.0); Monocytes Absolute Auto 0.5 X10*3/uL (0.1-1.2); Monocytes Percent Auto 8.3 % (2-11); Neutrophils Absolute Auto 3.9 x10*3/uL (2.0-8.3); Neutrophils Percent Auto 63.9 % (45-73); Platelet Count 239 X10*3/uL (160-400); Red Blood Count 3.76 X10*6/uL (4.60-5.80); Red Cell Distribution Width 13.3 % (11.0-16.0); White Blood Count 6.1 X10*3/uL (4.8-10.8)
[2023-12-26 16:18] LABS: Ethanol < 10 mg/dL
[2023-12-26 16:20] LABS: Alanine Aminotransferase 16 U/L (0-40); Albumin Level 3.6 g/dL (3.5-5.0); Alkaline Phosphatase 67 U/L (39-117); Anion Gap 8 (12-20); Aspartate Amino Transferase 20 U/L (5-37); Bilirubin Total 0.5 mg/dL (0.0-1.0); Blood Urea Nitrogen 16 mg/dL (9-16); Calcium 8.5 mg/dL (8.4-10.2); Carbon Dioxide 25 mmol/L (22-29); Chloride 111 mmol/L (96-108); Creatinine Clr Calc Pharmacy 90.8; Estimated Glomerular Filt Rate > 60; Glucose Random 98 mg/dL (60-115); Magnesium 2.4 mg/dL (1.6-2.6); Potassium 4.1 mmol/L (3.3-5.1); Sodium 140 mmol/L (135-145); Total Protein 6.9 g/dL (6.5-8.0)
[2023-12-26 16:27] VITALS: BP 132/63; PULSE 48; RESP 16; TEMP 36.9; O2SAT 98
[2023-12-26 16:27] LABS: Troponin-I High Sensitivity 2.7 ng/L (<3.5-35.0)
[2023-12-26 16:31] LABS: INTERNATIONAL NORM RATIO 1.2 (0.9-1.1); Prothrombin Time 14.5 SEC (11.1-13.3)
--- NOTE | 2023-12-26 16:36 | MHC.EDTECH ---
PROVIDER SAID NOT TO DO THE REPEATED EKG AT THIS TIME .
[2023-12-26 16:45] LABS: Influenza A PCR NEGATIVE (Negative); Influenza B PCR NEGATIVE (Negative); Resp Syncy Virus RNA Qual PCR NEGATIVE (Negative); SARS COV2 PCR INHOUSE NEGATIVE (Negative)
[2023-12-26 18:25] VITALS: BP 152/88; PULSE 57; RESP 20; TEMP 36.9; O2SAT 98
== END 2023-12-26 18:26 | disposition home or self-care (01) ==
PROVIDERS: Registered Nurse Emergency; Emergency Provider Student in an Organized Health Care Education/Training Program
DX: R42 Dizziness and giddiness (principal); I10 Essential (primary) hypertension; I48.91 Unspecified atrial fibrillation; J44.9 Chronic obstructive pulmonary disease, unspecified; R00.1 Bradycardia, unspecified; Z79.899 Other long term (current) drug therapy; Z03.818 Encounter for observation for suspected exposure to other biological agents ruled out
CPT/HCPCS: 0241U; 36415; 71046; 80053; 80307; 83735; 84484; 85025; 85610; 93005; 99283; 99284

== ENCOUNTER → 2023-12-26 14:22 | Outpatient (BNV) | payer OTHER, SELFPAY | PROVIDERS: Emergency Provider Student in an Organized Health Care Education/Training Program; Visit Provider Internal Medicine Cardiovascular Disease | DX: R00.1 Bradycardia, unspecified (principal) | CPT/HCPCS: 93010 ==

== ENCOUNTER 2024-01-01 10:57 | Outpatient (AMB) | payer OTHER, SELFPAY ==
--- NOTE | 2024-01-01 11:12 | A.OFFVIS_ITS ---
Intake Visit Reasons: peyronie's disease Intake Note: NEW Patient presents today to established treatment for Peyronie's Disease: Meds- None Allergies to Antibiotic- No Known Allergies Blood Thinner- Eliquis Transfer Specialist Required: No Accompanied by: Self / Same As Patient Allergies aspirin [ASA] Allergy (Unknown, Verified 02/08/24 12:12) BLEEDING ULCERS, stomach upset NSAIDS (Non-Steroidal Anti-Inflamma [NSAIDS (NON-STEROIDAL ANTI-INFLAMMA] Allergy (Unknown, Verified 02/08/24 12:12) BLEEDING ULCERS HPI Comments Details: Adrian is a 58-year-old male with multiple medical conditions, nicotine dependence, chronic opioid dependence, he is here with complaints of curvature of the penis and plaque. He denies pain with erection. I have discussed smoking cessation. I will prescribe vitamin-E and pentoxifylline. [facility] Medical History (Updated 02/12/24 @ 22:14 by Janki Bran MD) Encounter for prostate cancer screening Social History Household Members: Significant Other Housing: Apartment Do you presently have visiting nurse or other home services: No Alcohol intake: current Alcohol intake frequency: holidays/special occasions only Comment: pt refusing alarms and staff in [place] with him Patient Tobacco Use Status: Current someday Tobacco user Tobacco use type: Cigarette Cigarettes Per Day: 2 Years Smoked: 20 e-Cigarette/Vaping Use: Never Used Second Hand Smoke Exposure: Yes Advance Directives: Yes Advance Directives on File: Yes Advance Directives Date on File: 01/02/23 service: No Current occupational status: disabled Review of Systems Const All systems reviewed & are unremarkable except as noted in HPI and below Reports no additional complaints Eyes Reports no additional complaints ENT Reports no additional complaints Card Reports no additional complaints Resp Reports no additional complaints GI Reports no additional complaints Reports as per HPI Musc Reports no additional complaints Skin/Breast Reports system reviewed and no additional complaints, except as documented Neuro Reports no additional complaints Psych Reports no additional complaints Endo Reports no additional complaints Roberto/Lymph Reports no additional complaints Aller/Immun Reports no additional complaints Physical Exam Const General: healthy appearing, no acute distress and well developed Orientation/consciousness: patient oriented x3 HEENT Head: Yes normocephalic and Yes atraumatic Eyes Conjunctivae: conjunctivae normal Neck Neck: Yes normal visual inspection Chest Chest palpation & inspection: normal inspection of the chest Resp Effort & Inspection: normal respiratory effort Cardio Rate: regular rate GI Inspection: Yes normal to inspection Palpation (GI): Soft to palpation Other: Penis-discrete plaque not palpated well Scrotum: scrotum normal Skin General skin exam: no rashes or lesions noted Neuro General: patient oriented x3 Extrem General: No pedal edema Psych Appearance: grossly normal Affect: normal affect Results AMB Urinalysis, Automated UA Leukoctes 0 Troy/uL Last Edit by ALAN Hassan on 01/01/24 12:03 UA Nitrite Negative Last Edit by ALAN Hassan on 01/01/24 12:03 UA Urobilinogen 0.2 mg/dL Last Edit by ALAN Hassna on 01/01/24 12:0 3 UA Protein 0 mg/dL Last Edit by ALAN Hassan on 01/01/24 12:03 UA pH 5.5 Last Edit by ALAN Hassan on 01/01/24 12:03 UA Blood 0 Valeriano/uL Last Edit by ALAN Hassan on 01/01/24 12:03 UA Specific Ashburn 1.020 Last Edit by ALAN Hassan on 01/01/24 12: 03 UA Ketone Negative Last Edit by ALAN Hassan on 01/01/24 12:03 UA Bilirubin 0 mg/dL Last Edit by ALAN Hassan on 01/01/24 12:03 UA Glucose 0 mg/dL Last Edit by ALAN Hassan on 01/01/24 12:03 Results Reviewed Results Reviewed: Laboratory Last Values Urine pH (Auto) 5.5 01/01/24 12:02 Specific [place] (Auto) 1.020 01/01/24 12:02 Urine Protein (Auto) 0 mg/dL 01/01/24 12:02 Glucose (UA)(Auto) 0 mg/dL 01/01/24 12:02 Urine Ketones (Auto) Negative 01/01/24 12:02 Urine Blood (Auto) 0 Valeriano/uL 01/01/24 12:02 Urine Nitrite (Auto) Negative 01/01/24 12:02 Urine Bilirubin (Auto) 0 mg/dL 01/01/24 12:02 Urine Urobilinogen (Auto) 0.2 mg/dL 01/01/24 12:02 Leukocyte Esterase (Auto) 0 Troy/uL 01/01/24 12:02 Assessment & Plan Assessment & Plan (1) Peyronie's disease: Code(s): N48.6 - Induration penis plastica Category: Medical (2) Nicotine dependence: Code(s): F17.200 - Nicotine dependence, unspecified, uncomplicated Category: Medical Plan Medications as noted below. Orders: Orders AMB Urinalysis Automated 01/01/24 Z13.9 - Encounter for screening, unspecified PSA,Total (Free>4and<10) 01/07/24 Z12.5 - Encounter for screening for malignant neoplasm of prostate Medications: New vitamin E (dl, acetate) 450 mg PO DAILY 90 caps 3RF pentoxifylline ER must administer with a meal/food 400 mg PO BID 180 tabs 2RF Patient Instructions: The patient had an opportunity to ask questions regarding treatment plan. The patient expressed understanding and agreement with the above treatment plan. The patient is aware they should contact our office by phone for worsening of their current condition or the appearance of new symptoms. Compliance is encouraged with any medications and followup testing that is ordered. It is a privilege to be allowed the opportunity to participate in the urologic care of your patient. If you have any questions or concerns regarding treatment for the above conditions please do not hesitate to contact me. The office telephone contact is [phone]. This note is constructed in part using voice recognition software. While every effort has been made to ensure accuracy barber tool sharpener errors may have been included. Yours sincerely, Janki Bran MD Coding Level of Care Code New Pt Level 3 (24398) Diagnoses Peyronie's disease N48.6 Nicotine dependence F17.200
== END 2024-01-01 12:34 | disposition home or self-care (01) ==
PROVIDERS: Visit Provider Urology
DX: N48.6 Induration penis plastica (principal); F17.200 Nicotine dependence, unspecified, uncomplicated
CPT/HCPCS: 99203

== ENCOUNTER → 2024-01-01 10:57 | Outpatient (BNVA) | payer OTHER, SELFPAY | PROVIDERS: Visit Provider Urology | DX: N48.6 Induration penis plastica (principal); F17.210 Nicotine dependence, cigarettes, uncomplicated | CPT/HCPCS: 81003; 99202 ==

== ENCOUNTER 2024-02-08 11:59 | Emergency (ER) | payer OTHER, SELFPAY ==
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
[2024-02-08 12:05] VITALS: BP 106/70; PULSE 94; RESP 20; TEMP 36.2; O2SAT 95; BMI 28.1
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
[2024-02-08 16:39] VITALS: BP 118/69; PULSE 69; RESP 16; TEMP 37.1; O2SAT 100
[2024-02-08 17:44] VITALS: BP 118/69; PULSE 69; RESP 16; TEMP 37.1; O2SAT 100
== END 2024-02-08 17:45 | disposition home or self-care (01) ==
PROVIDERS: Emergency Provider Internal Medicine
DX: Z04.1 Encounter for examination and observation following transport accident (principal); M54.2 Cervicalgia; M79.18 Myalgia, other site; M25.532 Pain in left wrist; M25.531 Pain in right wrist; F17.210 Nicotine dependence, cigarettes, uncomplicated; I10 Essential (primary) hypertension; I48.0 Paroxysmal atrial fibrillation; Z86.73 Personal history of transient ischemic attack (TIA), and cerebral infarction without residual deficits; Z79.01 Long term (current) use of anticoagulants; Z79.899 Other long term (current) drug therapy
CPT/HCPCS: 70450; 72125; 73110; 99282; 99284

== ENCOUNTER → 2024-04-13 16:27 | Outpatient (AMB) | payer OTHER, SELFPAY ==
[2024-04-13 16:29] VITALS: BP 178/90; PULSE 52; TEMP 36.8; O2SAT 98; BMI 28.8
--- NOTE | 2024-04-13 16:29 | MHC.OFFWIV ---
Intake Vital Signs 04/13/24 16:29 Height 6 ft 2 in Weight 224 lb BMI 28.8 BP 178/90 H Blood Pressure Location Lt brachial Position Sitting Pulse 52 Pulse Source Pulse Oximeter Temp 98.2 F Temp Source Oral Pulse Oximetry (%) 98 Intake Visit Reasons: EP Chest, Elevated BP Intake Note: pt is here for chest pain, elevated BP, BP at home was 185/74 and HR was 50 Patient Tobacco Use Status: Current someday Tobacco user Allergies aspirin [ASA] Allergy (Unknown, Verified 04/13/24 16:29) BLEEDING ULCERS, stomach upset NSAIDS (Non-Steroidal Anti-Inflamma [NSAIDS (NON-STEROIDAL ANTI-INFLAMMA] Allergy (Unknown, Verified 04/13/24 16:29) BLEEDING ULCERS Do you need a note to return to daycare/school/sports/work: No HPI HPI Comments History of Present Illness Details Patient is a 58-year-old male with a past medical history of hypertension, paroxysmal AFib, prior CVA complaining of chest pain, nausea, lightheadedness and dizziness for most of the day today. He states he woke up feeling like this. He believes his blood pressure is elevated. COUNTS INCLUDE 234 BEDS AT THE [facility] Medical History (Updated 04/13/24 @ 16:44 by Cyndie Chairez PA-C) Encounter for prostate cancer screening Social History Household Members: Significant Other Housing: Apartment Do you presently have visiting nurse or other home services: No Alcohol intake: current Alcohol intake frequency: holidays/special occasions only Comment: pt refusing alarms and staff in [place] with him Patient Tobacco Use Status: Current someday Tobacco user Tobacco use type: Cigarette Cigarettes Per Day: 2 Years Smoked: 20 e-Cigarette/Vaping Use: Never Used Second Hand Smoke Exposure: Yes Advance Directives Date on File: 01/02/23 service: No Current occupational status: disabled Review of Systems Const All systems reviewed & are unremarkable except as noted in HPI and below Physical Exam Vital Signs: BMI result Body Mass Index 28.8 Const Other: Tremulous General: cooperative, well developed, anxious and tired appearing Orientation/consciousness: patient oriented x3 Limitations: no limitations HEENT Head: Yes normal to inspection Eyes General: appearance normal, both eyes and all related structures Neck Neck: Yes normal visual inspection and Yes full ROM Resp Effort & Inspection: normal respiratory effort and able to speak in complete sentences Auscultation: clear to auscultation bilaterally Cardio Rate: bradycardic Rhythm: regular rhythm Heart sounds: normal S1 and S2 GI Inspection: Yes normal to inspection Palpation (GI): Soft to palpation and nontender Skin General skin exam: no rashes or lesions noted Neuro General: patient oriented x3 Extrem General: Yes normal to inspection Office Procedures EKG Details: Sinus bradycardia at 50 beats per minute, with sinus arrhythmia [id number], Complete Assessment & Plan Assessment & Plan (1) Hypertensive urgency: Code(s): I16.0 - Hypertensive urgency (2) Symptomatic bradycardia: Code(s): R00.1 - Bradycardia, unspecified Plan: Patient is hypertensive to 178 systolic, EKG shows sinus bradycardia @50BPM with sinus arrhythmia. Patient is symptomatic of the bradycardia and tremulous on exam. Called ambulance, requested ACLS crew for transport to [facility] ED. Called expect to ED. we will have ACLS crew do a 12 lead before the patient leaves so we can ensure there are no changes and they do not need to bring him to [facility] ED. Plan See above Coding Level of Care Code New Pt Level 5 (00028) Diagnoses Hypertensive urgency I16.0 Symptomatic bradycardia R00.1 CPT Codes EKG - CPT: 76589-[id number], Complete ([id number])
== END ==
PROVIDERS: Visit Provider Physician Assistant
DX: I16.0 Hypertensive urgency (principal); R00.1 Bradycardia, unspecified
CPT/HCPCS: 93000; 99215

== ENCOUNTER 2024-04-13 17:15 | Emergency (ER) | payer OTHER, SELFPAY ==
--- NOTE | ~2024-04-13 | CT_ITS ---
EXAMINATION: CT HEAD WITHOUT CONTRAST CLINICAL INFORMATION: Headache. On Eliquis COMPARISON: CT head February 08, 2024 TECHNIQUE: Contiguous axial imaging was performed from the skull base to vertex without intravenous administration of contrast. Coronal and sagittal reformatted images are performed at the CT scanner. [This CT examination was performed using dose optimization techniques as appropriate, variously including the following: *Automated exposure control *Adjustment of mA and/or kV according to patient size (this includes techniques or standardized protocols for targeted exams where dose is matched to indication/reason for exam; i.e. extremities or head) *Use of iterative reconstruction technique] DLP: 752 mGy-cm. FINDINGS: There is no evidence of acute intracranial hemorrhage or acute territorial infarction. Redemonstration of small lacunar infarct left cerebellar hemisphere. No abnormal mass-effect or midline shift is seen. Torres to white matter differentiation is well preserved. No extra-axial fluid collections are identified. There is generalized global volume loss. There is mild prominence of the ventricles and the sulci . There is mild hypodensity of the periventricular white matter due to chronic small vessel ischemic disease. There is no osseous abnormality. The mastoid air cells and visualized portions of the paranasal sinuses are well-aerated. CT/CT head/brain wo IV con IMPRESSION: No acute intracranial pathology.
--- NOTE | ~2024-04-13 | XR_ITS ---
EXAMINATION: XR CHEST CLINICAL INFORMATION: Pain COMPARISON: None available. TECHNIQUE: Frontal view of the chest was obtained. FINDINGS: No significant abnormality is noted involving the heart, lungs, mediastinum, bony thorax or soft tissues. XR/XR chest 1V IMPRESSION: Unremarkable examination.
--- NOTE | 2024-04-13 17:19 | ECG_ITS ---
Test Reason : chest pain Blood Pressure : / mmHG Vent. Rate : 081 BPM Atrial Rate : 000 BPM P-R Int : 000 ms QRS Dur : 102 ms QT Int : 444 ms P-R-T Axes : 000 -12 061 degrees QTc Int : 515 ms Atrial fibrillation Nonspecific ST abnormality Prolonged QT Abnormal ECG When compared with ECG of 26-DEC-2023 15:04, Atrial fibrillation has replaced Sinus rhythm Vent. rate has increased BY 34 BPM T wave inversion no longer evident in Anterolateral leads Referred By: Generic ED Physician Electronically Signed By:KEMI YADAV
[2024-04-13 17:25] VITALS: BP 177/110; PULSE 67; O2SAT 98
[2024-04-13 17:30] VITALS: BP 164/92; PULSE 71; RESP 14; TEMP 36.9; O2SAT 97
--- NOTE | 2024-04-13 17:30 | MHC.EDTECH ---
Patient was biba from home ,ekg taken and was rad by Provider ,Patient was hooked up to termite control service representative ,vitals taken ,Patient was change into hospital gown ,Patient in bed resting ,Call islas within Patient reach .
[2024-04-13 17:32] VITALS: BMI 27.7
--- NOTE | 2024-04-13 17:40 | PC.NURSE ---
pt biba after waking up from sleeping d/t sudden onset left sided chest pain. pt reports taking BP at home (190s systolic - states that this is not usual for him). pt went to [facility] office in [place] for concerns. pt was found to be hypertensive (200/120) and bradycardic (low 40s). pt also stating that throughout the day he has felt dyspnea w/ exertion. EMS administered 324mg ASA and 2 nitroglycerin (intranasally). 20gIV in the left AC via EMS DATA MANAGEMENT SPECIALIST. upon ED arrival - pt c/o 8/10 left sided chest pain/sob/[place] s/p NTG administration. labs obtained/ekg performed by tech. plan of care ongoing.
--- NOTE | 2024-04-13 17:49 | ED.CHESTPAIN ---
HPI - Chest Pain General Chief Complaint: Chest Pain Stated Complaint: Chest pain Time Seen by Provider: 04/13/24 17:26 Source: patient, EMS and old records reviewed Mode of arrival: EMS Limitations: no limitations History of Present Illness ED Provider: RAMÍREZ VINSON narrative: 58 yo male with pMH of HTN, PAF on eliquis and amiodarone, CVA, HTN here with c/o working on his car this AM then taking a nap he woke up with a startle and felt his heart racing. He had chest pain as well and felt like crap. He checked his BP and HR - it was persistently 190 and HR was 50 or 40s which is unusual for him. He went to urgent care his BP was 178 and his HR was 50. He was sent over for further work up. He reports recently he has been more short of breath. He has no changes in medications and is compliant. He states after the nitro he has a headache and he feels his eyes are blurry. He did not have headache prior to NTG. The nitro did not help his chest pain. MD complaint: chest pain Onset (ago): hour(s) (2) Timing of current episode: constant Prior episodes: Yes Onset: during rest and during exertion Pain location: left chest Pain radiation: none Severity: moderate Quality: aching Relieving factors: nothing Exacerbating factors: nothing Associated symptoms: dyspnea Treatment prior to arrival: aspirin and nitroglycerin Related Data Home Medications ?Medication ?Instructions ?Recorded ?Confirmed albuterol sulfate 90 mcg/actuation 2 puff PO Q4-6H PRN Dyspnea 12/18/21 12/28/22 aerosol inhaler atorvastatin 20 mg tablet 20 mg PO DAILY 12/18/21 12/28/22 clonazepam 1 mg tablet 1 mg PO TID 12/18/21 12/28/22 fluticasone propionate 110 1 puff PO BID 12/18/21 12/28/22 mcg/actuation HFA aerosol inhaler (Flovent HFA) oxycodone 20 mg tablet 20 mg PO QID 12/18/21 12/28/22 apixaban 5 mg tablet (Eliquis) 5 mg PO BID 12/28/22 12/28/22 lisinopril 20 mg tablet 20 mg PO DAILY 12/28/22 12/28/22 levothyroxine 100 mcg tablet 100 mcg PO DAILY 07/31/23 naloxone 4 mg/actuation nasal spray intranasal PRN 01/01/24 Previous Rx's ?Medication ?Instructions ?Recorded amiodarone 200 mg tablet 200 mg PO DAILY #30 tabs 01/01/23 pentoxifylline 400 mg 400 mg PO BID #180 tabs 01/01/24 tablet,extended release vitamin E (dl, acetate) 450 mg 450 mg PO DAILY #90 caps 01/01/24 (1,000 unit) capsule Allergies Allergy/AdvReac Type Severity Reaction Status Date / Time aspirin [ASA] Allergy Unknown BLEEDING Verified 04/13/24 17:33 ULCERS, stomach upset NSAIDS (Non-Steroidal Allergy Unknown BLEEDING Verified 04/13/24 17:33 Anti-Inflamma ULCERS [NSAIDS (NON-STEROIDAL ANTI-INFLAMMA] Review of Systems Review of Systems: Constitutional : No Fever, No Chills, No Fatigue ENT/Mouth : No sore throat, No Rhinorrhea Eyes: No Eye Pain, No Swelling, No Redness Cardiovascular : pos Chest Pain, pos SOB, No Dyspnea on Exertion, pos palpitations Respiratory : No Cough, No Sputum Gastrointestinal : No Nausea, No Vomiting, No Diarrhea, No abdominal Pain Genitourinary : No Dysuria, No Urinary Frequency, No Hematuria, Musculoskeletal : No joint pain, No Myalgias, No Joint Swelling Skin : No Skin Lesions, No rash Neuro : No Weakness, No Numbness, No Dizziness, positive Headache Psych : pos Anxiety/Panic, No Depression Heme/Lymph: No Bruising, No Bleeding,No Lymphadenopathy Endocrine : No Polyuria, No Polydipsia All other systems reviewed and are negative [facility] Past Medical History Attestation statement: The following information was validated with the patient. Source: old records reviewed Medical History (Updated 04/13/24 @ 20:45 by Karie Flood DO) Hypertension CVA (cerebral vascular accident) Paroxysmal atrial fibrillation Anxiety disorder Symptomatic bradycardia Hypertensive urgency Encounter for prostate cancer screening Social History Social History Household Members: Significant Other Housing: Apartment Do you presently have visiting nurse or other home services: No Alcohol intake: current Alcohol intake frequency: holidays/special occasions only Comment: pt refusing alarms and staff in [place] with him Patient Tobacco Use Status: Current someday Tobacco user Tobacco use type: Cigarette Cigarettes Per Day: 2 Years Smoked: 20 Smoked in Last 30 Days: No e-Cigarette/Vaping Use: Never Used Second Hand Smoke Exposure: Yes Use of substances other than those prescribed or required for medical reasons: No Advance Directives: No Advance Directives Information Provided: No Advance Directives Date on File: 01/02/23 Do you have a plan to hurt others: No Plan service: No Current occupational status: disabled Physical Exam Vital Signs: Vital Signs: Last Vital Signs Temp 98.4 F 04/13/24 19:51 Pulse 54 04/13/24 19:51 Resp 16 04/13/24 19:51 BP 177/86 H 04/13/24 19:51 Pulse Ox 98 04/13/24 19:51 O2 Del Method Room Air 04/13/24 19:51 BMI result Body Mass Index 27.7 Appearance: Alert. Oriented X3. No acute distress. anxious Eyes: Pupils equal, round and reactive to light. ENT: Pharynx normal. Neck: Normal inspection. Neck supple. CVS: irregular heart rate and rhythm. Pulses normal. Respiratory: No respiratory distress. Breath sounds normal. Abdomen: Soft and nontender. Skin: Skin warm and dry. Normal skin color. Normal skin turgor. Extremities: No lower extremity edema. Neuro: Oriented X 3. No motor deficit. No sensory deficit. 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 He is very anxious. I feel comfortable discharging him from cardiac standpoint would just try to see if our cardiology team would see him as outpatient as for the blurry vision and headache will obtain dry CT head if negative he can be DC home repeat anxiolytic ordered did ask dr. medina to follow up with patient he is agreeable Reevaluation #2: signed out to Dr. Green pending CT scan if negative would DC home Medications Administered Discontinued Medications Generic Name Dose Route Start Last Admin Trade Name Kristina PRN Reason Stop Dose Admin Magnesium Sulfate 2 gm in 50 mls @ 25 mls/hr 04/13/24 17:51 04/13/24 20:42 Magnesium Sulfate/H2o IV 04/13/24 19:50 Infused ONCE ONE Infusion Lorazepam 0.5 mg 04/13/24 18:26 04/13/24 18:37 Lorazepam 2 Mg/Ml Vial IVPUSH 04/13/24 18:27 0.5 mg ONCE ONE Administration Oxycodone HCl 20 mg 04/13/24 19:51 04/13/24 20:00 Oxycodone Hcl Immed Release 5 Mg Tablet PO 04/13/24 19:52 20 mg ONCE ONE Administration Medical Decision Making Medical Decision Making [facility] Narrative: 58 yo male with pMH of HTN, PAF on eliquis and amiodarone, CVA, HTN here with c/o L sided chest pain and HR down to 50s he has no relief with 2L nitro at this time will obtain basic labs , trop x 2, CXR, EKG, IV ativan for anxiety. Headache was after nitro doubt ICH. Differential Diagnosis Differential Diagnoses: The differential diagnosis associated with the presentation includes atypical chest pain, MSK pain, anxiety, doubt VTE is on eliquis left lateral doubt dissection has had chest pain before with admission in past Admission/Observation Consideration of admission/observation: Escalation of care including admission/observation considered negative work up atypical symptoms, trop flat in no distress watching TV has been seen here for before and admitting for neurological symptoms and pain / bradycardia with negative work up Lab Data [facility] Lab Attestation statement: I reviewed the patient's lab results. 04/13/24 17:46 04/13/24 17:45 Labs: Lab Results 04/13/24 04/13/24 04/13/24 Range/Units 17:45 17:46 19:49 WBC 8.0 (4.8-10.8) X10*3/uL RBC 3.58 L (4.60-5.80) X10*6/uL Hgb 12.0 L (14.0-18.0) g/dl Hct 35.8 L (42.0-52.0) % MCV 100.0 H (80.0-98.0) fL MCH 33.5 H (27.0-33.0) pg MCHC 33.5 (31.0-36.0) g/dl RDW 13.6 (11.0-16.0) % Plt Count 247 (160-400) X10*3/uL MPV 8.6 L (9.4-12.4) fL Immature Gran % (Auto) 0.9 H (0.0-0.4) % Neut % (Auto) 67.5 (45-73) % Lymph % (Auto) 22.8 (20-40) % Slope % (Auto) 6.7 (2-11) % Eos % (Auto) 1.6 (0-4) % Baso % (Auto) 0.5 (0-2) % Lymph # (Auto) 1.8 (1.2-4.9) X10*3/uL Slope # (Auto) 0.5 (0.1-1.2) X10*3/uL Eos # (Auto) 0.1 (0.0-0.4) X10*3/uL Baso # (Auto) 0.0 (0.0-0.2) X10*3/uL Abs Immat Gran (auto) 0.07 H (0.00-0.03) X10*3/uL Absolute Neuts (auto) 5.4 (2.0-8.3) x10*3/uL Absolute Nucleated RBC 0.000 (0.0-0.012) X10*3/uL Nucleated RBC % (auto) 0.0 (0.0-0.2) /100WBC PT 13.4 H (11.1-13.3) SEC INR 1.1 (0.9-1.1) APTT 32.0 (26.0-36.8) SEC Sodium 147 H (135-145) mmol/L Potassium 4.5 (3.3-5.1) mmol/L Chloride 110 H (96-108) mmol/L Carbon Dioxide 27 (22-29) mmol/L Anion Gap 15 (12-20) BUN 11 (9-16) mg/dL Creatinine 1.09 (0.5-1.4) mg/dL Estim Creat Clear Calc 84.8 Estimated GFR > 60 Random Glucose 96 (60-115) mg/dL Calcium 8.4 (8.4-10.2) mg/dL Magnesium 2.0 (1.6-2.6) mg/dL Total Bilirubin 0.4 (0.0-1.0) mg/dL AST 24 (5-37) U/L ALT 17 (0-40) U/L Alkaline Phosphatase 72 (39-117) U/L Troponin I High Sens 3.4 3.6 (<3.5-35.0) ng/L B-Natriuretic Peptide 100 (<100) pg/mL Total Protein 6.5 (6.5-8.0) g/dL Albumin 3.6 (3.5-5.0) g/dL Ethyl Alcohol < 10 mg/dL Influenza Type A (PCR) NEGATIVE (Negative) Influenza Type B (PCR) NEGATIVE (Negative) RSV RNA Qual (PCR) NEGATIVE (Negative) SARS-CoV-2 RNA (RT-PCR) NEGATIVE (Negative) Independent Interpretation I performed an independent interpretation of an: EKG, Plain X-Ray (normal ) and CT Scan (no ICH) Interpretation: Rate: 81 Rhythm: afib [place]: normal Normal QRS complex. ST T wave : no BITA, ST depressions V5 - V6 qTC: 515 prior studies: st depressions noted on prior The study has been interpreted contemporaneously by me. . Radiology Impression Discussion of test interpretation with radiology: I have reviewed the radiologist's reading. Discharge Plan Discharge Clinical Impression: Atypical chest pain Patient Disposition: Home, Self-Care Instructions: Chest Pain (ED) Additional Instructions: EKG afib continue eliquis and amiodarone labs at baseline troponin x 2 negative no rise and no ischemic changes on EKG no drop in HR seen on te please call the supervising producer listed below for follow up you need to see a supervising producer regularly. Prescriptions: No Action lisinopril 20 mg tablet 20 mg PO DAILY Eliquis 5 mg tablet 5 mg PO BID amiodarone 200 mg tablet 200 mg PO DAILY Qty: 30 2RF oxycodone 20 mg tablet 20 mg PO QID Flovent HFA 110 mcg/actuation HFA aerosol inhaler 1 puff PO BID clonazepam 1 mg tablet 1 mg PO TID atorvastatin 20 mg tablet 20 mg PO DAILY albuterol sulfate 90 mcg/actuation HFA aerosol inhaler 2 puff PO Q4-6H PRN (Reason: Dyspnea) levothyroxine 100 mcg tablet 100 mcg PO DAILY naloxone 4 mg/actuation spray,non-aerosol intranasal PRN vitamin E (dl, acetate) 450 mg (1,000 unit) capsule 450 mg PO DAILY Qty: 90 3RF pentoxifylline 400 mg tablet extended release 400 mg PO BID Qty: 180 2RF Rx Instructions: must administer with a meal/food Referrals: Nazario Medina MD [Physician] - (cardiology call to schedule appointment) Print Language: Ghanaian
[2024-04-13 17:51] LABS: MANUAL DIFF FLAG NO
[2024-04-13 17:53] LABS: Basophils Percent Auto 0.5 % (0-2); Eosinophils Absolute Auto 0.1 X10*3/uL (0.0-0.4); Eosinophils Percent Auto 1.6 % (0-4); Hematocrit 35.8 % (42.0-52.0); Imm Gran Abs Auto 0.07 X10*3/uL (0.00-0.03); Imm Gran Pct Auto 0.9 % (0.0-0.4); Lymphocytes Absolute Auto 1.8 X10*3/uL (1.2-4.9); Lymphocytes Percent Auto 22.8 % (20-40); Mean Corpuscular HGB Conc 33.5 g/dl (31.0-36.0); Mean Corpuscular Hemoglobin 33.5 pg (27.0-33.0); Mean Platelet Volume 8.6 fL (9.4-12.4); Monocytes Absolute Auto 0.5 X10*3/uL (0.1-1.2); Monocytes Percent Auto 6.7 % (2-11); Neutrophils Absolute Auto 5.4 x10*3/uL (2.0-8.3); Neutrophils Percent Auto 67.5 % (45-73); Platelet Count 247 X10*3/uL (160-400); Red Blood Count 3.58 X10*6/uL (4.60-5.80); Red Cell Distribution Width 13.6 % (11.0-16.0)
[2024-04-13 18:00] LABS: INTERNATIONAL NORM RATIO 1.1 (0.9-1.1); Prothrombin Time 13.4 SEC (11.1-13.3)
[2024-04-13 18:08] LABS: Alanine Aminotransferase 17 U/L (0-40); Albumin Level 3.6 g/dL (3.5-5.0); Alkaline Phosphatase 72 U/L (39-117); Anion Gap 15 (12-20); Aspartate Amino Transferase 24 U/L (5-37); Bilirubin Total 0.4 mg/dL (0.0-1.0); Blood Urea Nitrogen 11 mg/dL (9-16); Calcium 8.4 mg/dL (8.4-10.2); Carbon Dioxide 27 mmol/L (22-29); Chloride 110 mmol/L (96-108); Creatinine Clr Calc Pharmacy 84.8; Estimated Glomerular Filt Rate > 60; Glucose Random 96 mg/dL (60-115); Potassium 4.5 mmol/L (3.3-5.1); Sodium 147 mmol/L (135-145); Total Protein 6.5 g/dL (6.5-8.0)
[2024-04-13 18:14] LABS: Troponin-I High Sensitivity 3.4 ng/L (<3.5-35.0)
[2024-04-13 18:34] LABS: Influenza A PCR NEGATIVE (Negative); Influenza B PCR NEGATIVE (Negative); Resp Syncy Virus RNA Qual PCR NEGATIVE (Negative); SARS COV2 PCR INHOUSE NEGATIVE (Negative)
[2024-04-13] MEDS: Magnesium Sulfate/H2O 2 GM/50 ML PIGGYBACK IV (18:37)
[2024-04-13] MEDS: LORazepam 2 MG/ML VIAL 0.5 MG IVPUSH ×2 (18:37→21:05)
[2024-04-13 19:29] LABS: Ethanol < 10 mg/dL
[2024-04-13 19:40] LABS: B Type Natriuretic Peptide 100 pg/mL (<100)
--- NOTE | 2024-04-13 19:43 | PC.NURSE ---
repeat troponin obtained/sent to lab at this time by tech.
[2024-04-13 19:51] VITALS: BP 177/86; PULSE 54; RESP 16; TEMP 36.9; O2SAT 98
--- NOTE | 2024-04-13 19:53 | MHC.EDTECH ---
This tech assisted with the pt,repeat trop obtained and sent to lab,vitals taken BP is elevated 177/86 RN was made aware,call islas in reach
[2024-04-13] MEDS: oxyCODONE HCl Immed Release 5 MG TABLET 20 MG PO (20:00)
--- NOTE | 2024-04-13 20:01 | PC.NURSE ---
chest xray completed. medication administered per provider order.
[2024-04-13 20:24] LABS: Troponin-I High Sensitivity 3.6 ng/L (<3.5-35.0)
--- NOTE | 2024-04-13 20:44 | PC.NURSE ---
pt to CT at this time.
[2024-04-13 22:00] VITALS: BP 182/80; PULSE 56; RESP 18; TEMP 36.8; O2SAT 95
[2024-04-14 00:16] VITALS: BP 167/92; PULSE 53; RESP 15; TEMP 37.1; O2SAT 98
[2024-04-14 00:22] VITALS: BP 167/92; PULSE 53; RESP 15; TEMP 36.8; O2SAT 98
== END 2024-04-14 00:31 | disposition home or self-care (01) ==
PROVIDERS: Emergency Medicine; Emergency Provider Internal Medicine
DX: R07.89 Other chest pain (principal); R51.9 Headache, unspecified; R06.02 Shortness of breath; R06.00 Dyspnea, unspecified; Z03.818 Encounter for observation for suspected exposure to other biological agents ruled out; I10 Essential (primary) hypertension; I48.0 Paroxysmal atrial fibrillation; F17.210 Nicotine dependence, cigarettes, uncomplicated; Z79.01 Long term (current) use of anticoagulants; Z79.02 Long term (current) use of antithrombotics/antiplatelets; Z79.899 Other long term (current) drug therapy
CPT/HCPCS: 0241U; 36415; 70450; 71045; 80053; 80307; 83735; 83880; 84484; 85025; 85610; 85730; 93005; 96365; 96366; 96376; 99284; 99285; J2060; J3475

== ENCOUNTER → 2024-04-13 17:19 | Outpatient (BNV) | payer OTHER, SELFPAY | PROVIDERS: Emergency Provider Internal Medicine; Visit Provider Internal Medicine | DX: R07.9 Chest pain, unspecified (principal); I48.91 Unspecified atrial fibrillation; R94.31 Abnormal electrocardiogram [ECG] [EKG] | CPT/HCPCS: 93010 ==

== ENCOUNTER 2024-04-18 17:46 | Inpatient (IN) | payer OTHER, SELFPAY ==
--- NOTE | ~2024-04-18 | CT_ITS ---
EXAMINATION: CT head/brain wo IV con CLINICAL INFORMATION: Reason for Exam fall COMPARISON: CT head without contrast 04/13/2024 TECHNIQUE: Contiguous axial imaging was performed from the skull base to vertex without intravenous contrast. Sagittal and coronal reformatted images were obtained. This CT examination was performed using dose optimization techniques as appropriate, variously including the following: * Automated exposure control * Adjustment of mA and/or kV according to patient size (this includes techniques or standardized protocols for targeted exams where dose is matched to indication/reason for exam; i.e. extremities or head) Use of iterative reconstruction technique DLP: 675.93 mGy-cm FINDINGS: No acute osseous or soft tissue abnormality. The mastoid air cells and visualized portions of the paranasal sinuses are well aerated. There is no evidence of acute intracranial hemorrhage or territorial infarction. No abnormal mass effect or midline shift is seen. Torres to white matter differentiation is well preserved. No extra-axial fluid collections are identified. No hydrocephalus. No significant volume loss. Patchy periventricular and deep white matter hypoattenuation is consistent with mild small vessel ischemic changes. CT/CT head/brain wo IV con IMPRESSION: No acute intracranial abnormality including hemorrhage, mass effect, hydrocephalus, or acute territorial edematous infarction.
--- NOTE | 2024-04-18 17:47 | ECG_ITS ---
Test Reason : CHEST PAIN Blood Pressure : / mmHG Vent. Rate : 080 BPM Atrial Rate : 080 BPM P-R Int : 154 ms QRS Dur : 110 ms QT Int : 394 ms P-R-T Axes : 101 -15 077 degrees QTc Int : 454 ms Atrial flutter with variable block Nonspecific ST and T wave abnormality Abnormal ECG When compared with ECG of 13-APR-2024 17:18, Atrial flutter present Referred By: Sabina Barbour Electronically Signed By:Rome Queen
--- NOTE | 2024-04-18 18:00 | MHC.EDTECH ---
PATIENT EKG TAKEN AND WAS READ BY PROVIDER .
--- NOTE | 2024-04-18 18:01 | ED.GENADULT ---
HPI - General Adult General Chief complaint: Dizziness Stated complaint: Chest pain, headache, BP195/93 Time Seen by Provider: 04/18/24 21:20 Related Data Home Medications ?Medication ?Instructions ?Recorded ?Confirmed albuterol sulfate 90 mcg/actuation 2 puff PO Q4-6H PRN Dyspnea 12/18/21 12/28/22 aerosol inhaler atorvastatin 20 mg tablet 20 mg PO DAILY 12/18/21 12/28/22 clonazepam 1 mg tablet 1 mg PO TID 12/18/21 12/28/22 fluticasone propionate 110 1 puff PO BID 12/18/21 12/28/22 mcg/actuation HFA aerosol inhaler (Flovent HFA) oxycodone 20 mg tablet 20 mg PO QID 12/18/21 12/28/22 apixaban 5 mg tablet (Eliquis) 5 mg PO BID 12/28/22 12/28/22 lisinopril 20 mg tablet 20 mg PO DAILY 12/28/22 12/28/22 levothyroxine 100 mcg tablet 100 mcg PO DAILY 07/31/23 naloxone 4 mg/actuation nasal spray intranasal PRN 01/01/24 Previous Rx's ?Medication ?Instructions ?Recorded amiodarone 200 mg tablet 200 mg PO DAILY #30 tabs 01/01/23 pentoxifylline 400 mg 400 mg PO BID #180 tabs 01/01/24 tablet,extended release vitamin E (dl, acetate) 450 mg 450 mg PO DAILY #90 caps 01/01/24 (1,000 unit) capsule Allergies Allergy/AdvReac Type Severity Reaction Status Date / Time aspirin [ASA] Allergy Unknown BLEEDING Verified 04/18/24 18:03 ULCERS, stomach upset NSAIDS (Non-Steroidal Allergy Unknown BLEEDING Verified 04/18/24 18:03 Anti-Inflamma ULCERS [NSAIDS (NON-STEROIDAL ANTI-INFLAMMA] PMFSH Past Medical History Medical History Hypertension CVA (cerebral vascular accident) Paroxysmal atrial fibrillation Anxiety disorder Symptomatic bradycardia Hypertensive urgency Encounter for prostate cancer screening Social History Social History Household Members: Significant Other Housing: Apartment Do you presently have visiting nurse or other home services: No Alcohol intake: current Alcohol intake frequency: holidays/special occasions only Comment: pt refusing alarms and staff in [place] with him Patient Tobacco Use Status: Current someday Tobacco user Tobacco use type: Cigarette Cigarettes Per Day: 2 Years Smoked: 20 Smoked in Last 30 Days: Yes e-Cigarette/Vaping Use: Never Used Second Hand Smoke Exposure: Yes Use of substances other than those prescribed or required for medical reasons: No Advance Directives: Yes Advance Directives on File: Yes Advance Directives Date on File: 01/02/23 Do you have a plan to hurt others: No Plan service: No Current occupational status: disabled Physical Exam ED Vital Signs: Vital Signs - 24 hr 04/18/24 18:02 04/18/24 20:15 04/18/24 20:52 Temperature 98 F 98.2 F 97.7 F Pulse Rate 80 57 57 Respiratory Rate 16 15 17 Blood Pressure 163/93 H 161/62 H 148/81 H Pulse Oximetry 96 97 97 Oxygen Delivery Method Room Air Room Air Room Air 04/18/24 23:59 Temperature 97.9 F Pulse Rate 60 Respiratory Rate 17 Blood Pressure 156/82 H Pulse Oximetry 97 Oxygen Delivery Method Room Air BMI result Body Mass Index 28.5 Course Course Course Narrative: This is an RME: Additional HPI, ROS, PE not included below will be deferred to primary provider. RME assessment and note performed by: Sabina Barbour PA-C This is a [id number], with a hx of HTN, PAF on eliquis and amiodarone, CVA, HTN, who presents to the ER with complaints of lightheadedness and dizziness starting 1 hour ago. Was seen here several days ago for similar symptoms. He is concerned as his blood pressure was elevated at home. Plan: Labs, EKG, further ER evaluation Medical Decision Making Lab Data 04/18/24 18:42 04/18/24 18:42 Labs: Lab Results 04/18/24 Range/Units 18:42 WBC 8.2 (4.8-10.8) X10*3/uL RBC 3.88 L (4.60-5.80) X10*6/uL Hgb 13.1 L (14.0-18.0) g/dl Hct 38.9 L (42.0-52.0) % MCV 100.3 H (80.0-98.0) fL MCH 33.8 H (27.0-33.0) pg MCHC 33.7 (31.0-36.0) g/dl RDW 13.7 (11.0-16.0) % Plt Count 263 (160-400) X10*3/uL MPV 9.1 L (9.4-12.4) fL Immature Gran % (Auto) 0.9 H (0.0-0.4) % Neut % (Auto) 62.2 (45-73) % Lymph % (Auto) 26.0 (20-40) % [place] % (Auto) 8.5 (2-11) % Eos % (Auto) 1.8 (0-4) % Baso % (Auto) 0.6 (0-2) % Lymph # (Auto) 2.1 (1.2-4.9) X10*3/uL [place] # (Auto) 0.7 (0.1-1.2) X10*3/uL Eos # (Auto) 0.2 (0.0-0.4) X10*3/uL Baso # (Auto) 0.1 (0.0-0.2) X10*3/uL Abs Immat Gran (auto) 0.07 H (0.00-0.03) X10*3/uL Absolute Neuts (auto) 5.1 (2.0-8.3) x10*3/uL Absolute Nucleated RBC 0.000 (0.0-0.012) X10*3/uL Nucleated RBC % (auto) 0.0 (0.0-0.2) /100WBC PT 12.3 (11.1-13.3) SEC INR 1.0 (0.9-1.1) APTT 31.2 (26.0-36.8) SEC Sodium 141 (135-145) mmol/L Potassium 4.8 (3.3-5.1) mmol/L Chloride 109 H (96-108) mmol/L Carbon Dioxide 25 (22-29) mmol/L Anion Gap 12 (12-20) BUN 11 (9-16) mg/dL Creatinine 1.13 (0.5-1.4) mg/dL Estim Creat Clear Calc 89.2 Estimated GFR > 60 Random Glucose 92 (60-115) mg/dL Calcium 8.9 (8.4-10.2) mg/dL Magnesium 2.2 (1.6-2.6) mg/dL Total Bilirubin 0.3 (0.0-1.0) mg/dL Direct Bilirubin 0.1 (0.0-0.5) mg/dL AST 32 (5-37) U/L ALT 23 (0-40) U/L Alkaline Phosphatase 76 (39-117) U/L Troponin I High Sens < 2.7 (<3.5-35.0) ng/L Total Protein 7.1 (6.5-8.0) g/dL Albumin 4.0 (3.5-5.0) g/dL Discharge Plan Discharge Clinical Impression: Chest pain, Syncope Patient Disposition: Admitted As Inpatient Print Language: Colombian
[2024-04-18 18:02] VITALS: BP 163/93; PULSE 80; RESP 16; TEMP 36.6; O2SAT 96; BMI 28.5
--- NOTE | 2024-04-18 18:46 | MHC.EDTECH ---
PATIENT BLOOD DRAWN AND SENT TO LAB .
[2024-04-18 18:47] LABS: MANUAL DIFF FLAG NO
[2024-04-18 19:02] LABS: Alanine Aminotransferase 23 U/L (0-40); Alkaline Phosphatase 76 U/L (39-117); Anion Gap 12 (12-20); Aspartate Amino Transferase 32 U/L (5-37); Bilirubin Direct 0.1 mg/dL (0.0-0.5); Bilirubin Total 0.3 mg/dL (0.0-1.0); Blood Urea Nitrogen 11 mg/dL (9-16); Calcium 8.9 mg/dL (8.4-10.2); Carbon Dioxide 25 mmol/L (22-29); Chloride 109 mmol/L (96-108); Creatinine Clr Calc Pharmacy 89.2; Estimated Glomerular Filt Rate > 60; Glucose Random 92 mg/dL (60-115); Magnesium 2.2 mg/dL (1.6-2.6); Potassium 4.8 mmol/L (3.3-5.1); Sodium 141 mmol/L (135-145); Total Protein 7.1 g/dL (6.5-8.0)
[2024-04-18 19:04] LABS: Prothrombin Time 12.3 SEC (11.1-13.3)
[2024-04-18 19:07] LABS: Partial Thromboplastin Time 31.2 SEC (26.0-36.8)
[2024-04-18 19:08] LABS: Basophils Absolute Auto 0.1 X10*3/uL (0.0-0.2); Basophils Percent Auto 0.6 % (0-2); Eosinophils Absolute Auto 0.2 X10*3/uL (0.0-0.4); Eosinophils Percent Auto 1.8 % (0-4); Hematocrit 38.9 % (42.0-52.0); Hemoglobin 13.1 g/dl (14.0-18.0); Imm Gran Abs Auto 0.07 X10*3/uL (0.00-0.03); Imm Gran Pct Auto 0.9 % (0.0-0.4); Lymphocytes Absolute Auto 2.1 X10*3/uL (1.2-4.9); Mean Corpuscular HGB Conc 33.7 g/dl (31.0-36.0); Mean Corpuscular Hemoglobin 33.8 pg (27.0-33.0); Mean Corpuscular Volume 100.3 fL (80.0-98.0); Mean Platelet Volume 9.1 fL (9.4-12.4); Monocytes Absolute Auto 0.7 X10*3/uL (0.1-1.2); Monocytes Percent Auto 8.5 % (2-11); Neutrophils Absolute Auto 5.1 x10*3/uL (2.0-8.3); Neutrophils Percent Auto 62.2 % (45-73); Platelet Count 263 X10*3/uL (160-400); Red Blood Count 3.88 X10*6/uL (4.60-5.80); Red Cell Distribution Width 13.7 % (11.0-16.0); White Blood Count 8.2 X10*3/uL (4.8-10.8)
[2024-04-18 19:10] LABS: Troponin-I High Sensitivity < 2.7 ng/L (<3.5-35.0)
[2024-04-18 20:15] VITALS: BP 161/62; PULSE 57; RESP 15; TEMP 36.8; O2SAT 97
[2024-04-18 20:52] VITALS: BP 148/81; PULSE 57; RESP 17; TEMP 36.5; O2SAT 97
--- NOTE | 2024-04-18 21:43 | ECG_ITS ---
Test Reason : DIZZINESS Blood Pressure : / mmHG Vent. Rate : 055 BPM Atrial Rate : 055 BPM P-R Int : 202 ms QRS Dur : 110 ms QT Int : 516 ms P-R-T Axes : 076 -13 059 degrees QTc Int : 493 ms Sinus bradycardia with Premature supraventricular complexes Nonspecific ST and T wave abnormality Abnormal ECG When compared with ECG of 18-APR-2024 17:47, Premature supraventricular complexes are now Present Incomplete left bundle branch block is no longer Present Nonspecific T wave abnormality, worse in Lateral leads Referred By: Anila Rosales Electronically Signed By:Rome Queen
--- NOTE | 2024-04-18 22:57 | ED_ITS ---
HPI - Dizziness General Chief Complaint: Dizziness Stated Complaint: Chest pain, headache, BP195/93 Time Seen by Provider: 04/18/24 21:20 History of Present Illness HPI Narrative: Patient is a 58-year-old male with a history of hypertension, hypercholesterolemia, smoking, history of atrial fibrillation currently on Eliquis. History of having CVA. Patient had a stroke to the cerebellar area. Complaining today of having chest pain along with light-headedness dizziness spinning and almost passing out. Patient denies any fever chills. Denies any coughing congestion. Denies any bloody stool. He is from home. No travel history no leg swelling. No new medication. Been compliant in taking his Eliquis. Related Data Home Medications ?Medication ?Instructions ?Recorded ?Confirmed albuterol sulfate 90 mcg/actuation 2 puff PO Q4-6H PRN Dyspnea 12/18/21 12/28/22 aerosol inhaler atorvastatin 20 mg tablet 20 mg PO DAILY 12/18/21 12/28/22 clonazepam 1 mg tablet 1 mg PO TID 12/18/21 12/28/22 fluticasone propionate 110 1 puff PO BID 12/18/21 12/28/22 mcg/actuation HFA aerosol inhaler (Flovent HFA) oxycodone 20 mg tablet 20 mg PO QID 12/18/21 12/28/22 apixaban 5 mg tablet (Eliquis) 5 mg PO BID 12/28/22 12/28/22 lisinopril 20 mg tablet 20 mg PO DAILY 12/28/22 12/28/22 levothyroxine 100 mcg tablet 100 mcg PO DAILY 07/31/23 naloxone 4 mg/actuation nasal spray intranasal PRN 01/01/24 Previous Rx's ?Medication ?Instructions ?Recorded amiodarone 200 mg tablet 200 mg PO DAILY #30 tabs 01/01/23 pentoxifylline 400 mg 400 mg PO BID #180 tabs 01/01/24 tablet,extended release vitamin E (dl, acetate) 450 mg 450 mg PO DAILY #90 caps 01/01/24 (1,000 unit) capsule Allergies Allergy/AdvReac Type Severity Reaction Status Date / Time aspirin [ASA] Allergy Unknown BLEEDING Verified 04/18/24 18:03 ULCERS, stomach upset NSAIDS (Non-Steroidal Allergy Unknown BLEEDING Verified 04/18/24 18:03 Anti-Inflamma ULCERS [NSAIDS (NON-STEROIDAL ANTI-INFLAMMA] Review of Systems 2 Review of Systems: Positive dizziness positive chest pain Yes all other systems are reviewed and are negative [facility] Past Medical History Attestation statement: The following information was validated with the patient. Medical History Hypertension CVA (cerebral vascular accident) Paroxysmal atrial fibrillation Anxiety disorder Symptomatic bradycardia Hypertensive urgency Encounter for prostate cancer screening Social History Social History Household Members: Significant Other Housing: Apartment Do you presently have visiting nurse or other home services: No Alcohol intake: current Alcohol intake frequency: holidays/special occasions only Comment: pt refusing alarms and staff in [place] with him Patient Tobacco Use Status: Current someday Tobacco user Tobacco use type: Cigarette Cigarettes Per Day: 2 Years Smoked: 20 Smoked in Last 30 Days: Yes e-Cigarette/Vaping Use: Never Used Second Hand Smoke Exposure: Yes Use of substances other than those prescribed or required for medical reasons: No Advance Directives: Yes Advance Directives on File: Yes Advance Directives Date on File: 01/02/23 Do you have a plan to hurt others: No Plan service: No Current occupational status: disabled Physical Exam 2 Vital Signs: Vital Signs: Last Vital Signs Temp 97.9 F 04/18/24 23:59 Pulse 60 04/18/24 23:59 Resp 17 04/18/24 23:59 BP 156/82 H 04/18/24 23:59 Pulse Ox 97 04/18/24 23:59 O2 Del Method Room Air 04/18/24 23:59 BMI result Body Mass Index 28.5 Appearance: Alert. Oriented X3. No acute distress. Eyes: Pupils equal, round and reactive to light. ENT: Pharynx normal. Neck: Normal inspection. Neck supple. No lymph nodes noted. No crepitus CVS: Normal heart rate and rhythm. Pulses normal. Normal S1 and S2 Respiratory: No respiratory distress. Breath sounds normal. No Wheezing. No rales Abdomen: Soft and nontender. No rigidity. No distention. good BS x4 Skin: Skin warm and dry. Normal skin color. Normal skin turgor. Extremities: No lower extremity edema. Neurovascular intact to all extremities. No Lacerations. No Rash Neuro: Oriented X 3. No motor deficit. No sensory deficit. Moving all extermities. No slurred speech Medical Decision Making Medical Decision Making [facility] Narrative: Significant cardiac risk factors including hypertension hypercholesterolemia smoking previous history of CVA history of atrial fibrillation on Eliquis presented today with having lightheadedness spinning and chest pain that is mid chest. Associated with some shortness of breath. My interpretation of patient's EKG showed a sinus rhythm heart rate is 60 [place] QRS QTC is normal there is diffuse T-wave flattening noted. This EKG is not changed from a previous EKG done. He also has a history of anxiety. However given patient's history significant cardiac risk now has chest pain along with having a near syncopal episode. Will admit for further observation. Patient is hemoglobin is 13. Electrolytes are normal LFTs are normal 1st set of troponin came back negative. Patient claims compliance with his medication denies noticing any bloody stool. No evidence for GI bleed. Differential Diagnosis Differential Diagnoses: The differential diagnosis associated with the presentation includes Anemia, irregular heartbeat, PE, ACS Admission/Observation Consideration of admission/observation: Escalation of care including admission/observation considered Consult Healthcare Provider Management of the patient was discussed with: Hospitalist Lab Data [facility] Lab Attestation statement: I reviewed the patient's lab results. 04/18/24 18:42 04/18/24 18:42 Labs: Lab Results 04/18/24 Range/Units 18:42 WBC 8.2 (4.8-10.8) X10*3/uL RBC 3.88 L (4.60-5.80) X10*6/uL Hgb 13.1 L (14.0-18.0) g/dl Hct 38.9 L (42.0-52.0) % MCV 100.3 H (80.0-98.0) fL MCH 33.8 H (27.0-33.0) pg MCHC 33.7 (31.0-36.0) g/dl RDW 13.7 (11.0-16.0) % Plt Count 263 (160-400) X10*3/uL MPV 9.1 L (9.4-12.4) fL Immature Gran % (Auto) 0.9 H (0.0-0.4) % Neut % (Auto) 62.2 (45-73) % Lymph % (Auto) 26.0 (20-40) % [place] % (Auto) 8.5 (2-11) % Eos % (Auto) 1.8 (0-4) % Baso % (Auto) 0.6 (0-2) % Lymph # (Auto) 2.1 (1.2-4.9) X10*3/uL [place] # (Auto) 0.7 (0.1-1.2) X10*3/uL Eos # (Auto) 0.2 (0.0-0.4) X10*3/uL Baso # (Auto) 0.1 (0.0-0.2) X10*3/uL Abs Immat Gran (auto) 0.07 H (0.00-0.03) X10*3/uL Absolute Neuts (auto) 5.1 (2.0-8.3) x10*3/uL Absolute Nucleated RBC 0.000 (0.0-0.012) X10*3/uL Nucleated RBC % (auto) 0.0 (0.0-0.2) /100WBC PT 12.3 (11.1-13.3) SEC INR 1.0 (0.9-1.1) APTT 31.2 (26.0-36.8) SEC Sodium 141 (135-145) mmol/L Potassium 4.8 (3.3-5.1) mmol/L Chloride 109 H (96-108) mmol/L Carbon Dioxide 25 (22-29) mmol/L Anion Gap 12 (12-20) BUN 11 (9-16) mg/dL Creatinine 1.13 (0.5-1.4) mg/dL Estim Creat Clear Calc 89.2 Estimated GFR > 60 Random Glucose 92 (60-115) mg/dL Calcium 8.9 (8.4-10.2) mg/dL Magnesium 2.2 (1.6-2.6) mg/dL Total Bilirubin 0.3 (0.0-1.0) mg/dL Direct Bilirubin 0.1 (0.0-0.5) mg/dL AST 32 (5-37) U/L ALT 23 (0-40) U/L Alkaline Phosphatase 76 (39-117) U/L Troponin I High Sens < 2.7 (<3.5-35.0) ng/L Total Protein 7.1 (6.5-8.0) g/dL Albumin 4.0 (3.5-5.0) g/dL Independent Interpretation I performed an independent interpretation of an: EKG (Sinus heart rate is 60 [place] QRS QTC normal no acute ST segment elevation diffuse T-wave flattening noted.) Radiology Impression Discussion of test interpretation with radiology: I have reviewed the radiologist's reading. External Record Review External record reviewed: Inpatient record Chronic Conditions Patient?s care impacted by: Hypertension Hypercholesterolemia smoking Social Determinants Patient?s care significantly limited by Social Determinants of Health including: Inadequate housing, Low income and Alcoholism and drug addiction in family Discharge Plan Discharge Clinical Impression: Chest pain, Syncope Patient Disposition: Admitted As Inpatient Print Language: Chinese
[2024-04-18 23:59] VITALS: BP 156/82; PULSE 60; RESP 17; TEMP 36.6; O2SAT 97
[2024-04-19] VITALS (12 sets, daily range): BP systolic 133–190; BP diastolic 55–92; PULSE 41–65; RESP 12–20; TEMP 36.3–36.9; O2SAT 94–97; BMI 28.5
--- NOTE | 2024-04-19 00:08 | P.HPHOSP_ITS ---
History of Present Illness Date of Service: 04/19/24 Chief Complaint: Syncope This is a 58-year-old male with pertinent history of paroxysmal atrial fibrillation on Eliquis, hypothyroidism, hypertension, chronic back pain with chronic opioid use, mood disorder who presents to the emergency department for evaluation of chest pain and syncope. Patient states he started having midsternal chest discomfort when he was sitting in chair and watching the [place]. It was nonradiating but associated with sweating. Patient soon after started having palpitations and when he tried to get up, the next thing he knew he was on the floor. Patient felt dizzy and lightheaded before he lost consciousness. This has never happened before. Patient states he has been maintaining adequate p.o. intake. He was having loose stools for the last 4 days but says he is maintaining adequate hydration. No fever, chills, shortness of breath, abdominal pain, changes in urinary or bowel habits. Review of Systems 2 Constitutional: Constitutional: Reports no additional constitutional complaints ENT: Reports dizziness Cardiovascular: Cardiovascular: Reports chest pain, Reports syncope and Reports rapid heart rate Respiratory: Respiratory: Reports no additional respiratory complaints Gastrointestinal: Gastrointestinal: Reports no additional gastrointestinal complaints Genitourinary: Genitourinary: Reports no additional male genitourinary complaints Neurologic: Reports dizziness and Reports syncope [facility] Medical History Hypertension CVA (cerebral vascular accident) Paroxysmal atrial fibrillation Anxiety disorder Symptomatic bradycardia Hypertensive urgency Encounter for prostate cancer screening Social History Household Members: Significant Other Housing: Apartment Do you presently have visiting nurse or other home services: No Alcohol intake: current Alcohol intake frequency: holidays/special occasions only Comment: pt refusing alarms and staff in [place] with him Patient Tobacco Use Status: Current someday Tobacco user Tobacco use type: Cigarette Cigarettes Per Day: 2 Years Smoked: 20 Smoked in Last 30 Days: Yes e-Cigarette/Vaping Use: Never Used Second Hand Smoke Exposure: Yes Use of substances other than those prescribed or required for medical reasons: No Advance Directives: Yes Advance Directives on File: Yes Advance Directives Date on File: 01/02/23 Do you have a plan to hurt others: No Plan service: No Current occupational status: disabled Meds Allergies Allergy/AdvReac Type Severity Reaction Status Date / Time aspirin [ASA] Allergy Unknown BLEEDING Verified 04/18/24 18:03 ULCERS, stomach upset NSAIDS (Non-Steroidal Allergy Unknown BLEEDING Verified 04/18/24 18:03 Anti-Inflamma ULCERS [NSAIDS (NON-STEROIDAL ANTI-INFLAMMA] Home Medications ?Medication ?Instructions ?Recorded ?Confirmed ?Last Taken ?Type albuterol sulfate 90 mcg/actuation 2 puff PO Q4-6H PRN Dyspnea 12/18/21 12/28/22 12/27/22 History aerosol inhaler atorvastatin 20 mg tablet 20 mg PO DAILY 12/18/21 12/28/22 12/27/22 History clonazepam 1 mg tablet 1 mg PO TID 12/18/21 12/28/22 12/27/22 History fluticasone propionate 110 1 puff PO BID 12/18/21 12/28/22 12/27/22 History mcg/actuation HFA aerosol inhaler (Flovent HFA) oxycodone 20 mg tablet 20 mg PO QID 12/18/21 12/28/22 12/27/22 History apixaban 5 mg tablet (Eliquis) 5 mg PO BID 12/28/22 12/28/22 12/27/22 History lisinopril 20 mg tablet 20 mg PO DAILY 12/28/22 12/28/22 12/27/22 History levothyroxine 100 mcg tablet 100 mcg PO DAILY 07/31/23 Unknown History naloxone 4 mg/actuation nasal spray intranasal PRN 01/01/24 Unknown History Physical Exam 2 Vital Signs and Narrative: Vital Signs: Last Vital Signs Temp 97.9 F 04/18/24 23:59 Pulse 60 04/18/24 23:59 Resp 17 04/18/24 23:59 BP 156/82 H 04/18/24 23:59 Pulse Ox 97 04/18/24 23:59 O2 Del Method Room Air 04/18/24 23:59 BMI result Body Mass Index 28.5 Middle-aged male lying in bed in no distress Neck supple, no JVD Regular rate and rhythm, S1-S2 heard Regular breath sounds bilaterally, no wheezing or crackles appreciated Abdomen soft nontender, no guarding, no rigidity Patient is awake, alert and oriented to self, place, time and person ; no focal motor deficit Psych: Normal mood No pedal edema Results Labs 04/18/24 18:42 04/18/24 18:42 Labs: Laboratory Results - last 24 hr 04/18/24 18:42 MCV 100.3 H MCH 33.8 H MCHC 33.7 RDW 13.7 Plt Count 263 MPV 9.1 L Immature Gran % (Auto) 0.9 H Neut % (Auto) 62.2 Lymph % (Auto) 26.0 [place] % (Auto) 8.5 Eos % (Auto) 1.8 Baso % (Auto) 0.6 Lymph # (Auto) 2.1 [place] # (Auto) 0.7 Eos # (Auto) 0.2 Baso # (Auto) 0.1 Abs Immat Gran (auto) 0.07 H Absolute Neuts (auto) 5.1 Absolute Nucleated RBC 0.000 Nucleated RBC % (auto) 0.0 PT 12.3 INR 1.0 APTT 31.2 Anion Gap 12 Estim Creat Clear Calc 89.2 Estimated GFR > 60 Random Glucose 92 Calcium 8.9 Magnesium 2.2 Total Bilirubin 0.3 Direct Bilirubin 0.1 AST 32 ALT 23 Alkaline Phosphatase 76 Troponin I High Sens < 2.7 Total Protein 7.1 Albumin 4.0 Assessment and Plan (1) Syncope: Status: Acute Plan This is a 58-year-old male with pertinent history of paroxysmal atrial fibrillation on Eliquis, hypothyroidism, hypertension, chronic back pain with chronic opioid use, mood disorder who presents to the emergency department for evaluation of chest pain and syncope. #. Syncope: Will admit patient with cardiac monitoring for observation. Giving 1 L IV crystalloids and obtain orthostatic vital signs in a.m.. Also had episode of chest pain and palpitations. Appreciate cardiology assistance. #. Paroxysmal atrial fibrillation: On Eliquis and amiodarone #. Hypothyroidism: On Synthroid #. Hypertension: On lisinopril #. Chronic back pain: On opiates #. Mood disorder: On clonazepam Med rec pending DVT prophylaxis: Eliquis Full code Quality Stroke Does the patient have a stroke diagnosis?: No VTE Prior VTE?: No VTE Risk Level:: Medical - moderate - high VTE Device Contraindication: Treatment Not Indicated VTE Drug Contraindication: N/A - Med Ordered
[2024-04-19] MEDS: 0.9 % Sodium Chloride 1,000 ML 999 ML IV (01:06)
[2024-04-19] MEDS: oxyCODONE HCl Immed Release 5 MG TABLET 20 MG PO ×5 (01:09→21:23)
[2024-04-19] MEDS: Apixaban 5 MG TABLET PO ×3 (01:09→21:24)
[2024-04-19] MEDS: clonazePAM 1 MG TABLET PO ×3 (01:09→21:23)
[2024-04-19 05:07] LABS: Hematocrit 34.9 % (42.0-52.0); Mean Corpuscular HGB Conc 34.4 g/dl (31.0-36.0); Mean Corpuscular Hemoglobin 33.8 pg (27.0-33.0); Mean Corpuscular Volume 98.3 fL (80.0-98.0); Platelet Count 214 X10*3/uL (160-400); Red Blood Count 3.55 X10*6/uL (4.60-5.80); Red Cell Distribution Width 13.6 % (11.0-16.0); White Blood Count 6.1 X10*3/uL (4.8-10.8)
[2024-04-19 05:30] LABS: Anion Gap 11 (12-20); Blood Urea Nitrogen 13 mg/dL (9-16); Calcium 8.6 mg/dL (8.4-10.2); Carbon Dioxide 26 mmol/L (22-29); Chloride 109 mmol/L (96-108); Creatinine Clr Calc Pharmacy 92.4; Estimated Glomerular Filt Rate > 60; Glucose Random 97 mg/dL (60-115); Potassium 3.8 mmol/L (3.3-5.1); Sodium 142 mmol/L (135-145)
[2024-04-19 05:35] LABS: Troponin-I High Sensitivity < 2.7 ng/L (<3.5-35.0)
--- NOTE | 2024-04-19 06:07 | PC.NURSE ---
C/O palpitations, MD notified
[2024-04-19] MEDS: 0.9 % Sodium Chloride Flush 3 ML SYRINGE IVFLUSH ×3 (07:06→21:24)
--- NOTE | 2024-04-19 07:07 | PC.NURSE ---
report recieved from previous RN, patient resting on stretcher at this time, offering no complaints at time, patient awaiting inpatient bed assignment.
--- NOTE | 2024-04-19 07:20 | PC.NURSE ---
patient provided with breakfast tray
--- NOTE | 2024-04-19 09:13 | PHA.MEDREC ---
Pharmacy Consult ? Medication Reconciliation Pharmacy has completed the medication reconciliation, spoke to patient at bedside, was able to confirm most medications, including all heart meds and oxycodone. Pt was very unsure of using flovent but does have pharmacy claims to support use, when [facility] was called, stated the patient just got a 60 day supply on 03/07/24. Pt was also really unsure of taking pentoxifylline 400mg ER tablet BID but [facility] confirmed it was last picked up on 03/31/24. For bupropion 100 mg, pt states that he does not know if he takes it, [facility] confirmed it was last picked up 09/22/23, so that was left unconfirmed.
[2024-04-19] MEDS: Levothyroxine Sodium 100 MCG TABLET PO (09:48)
[2024-04-19] MEDS: lisinopriL 20 MG TABLET PO (09:48)
[2024-04-19] MEDS: Pentoxifylline ER 400 MG TABLET.ER PO ×2 (09:48→21:23)
[2024-04-19] MEDS: Amiodarone HCL 200 MG TABLET 400 MG PO (09:48)
[2024-04-19] MEDS: Atorvastatin Calcium 20 MG TABLET PO (09:49)
--- NOTE | 2024-04-19 09:58 | MHC.CM.PN ---
[facility]VIS 04/19/24, EMR REVIEWED, PT W/SYNCOPE, PT LIVES ALONE, IS FULLY INDEP W/CARE, DENIES USE OF DME/SERVICES AND HAS NO PCP, STATES, SOMEONE IS WORKING ON THAT FOR ME AND DECLINES TO LET CM MAKE A NEW PCP APPT FOR HIM, PT'S GOAL FOR DC IS HOME. PT COOMPLETED A NEW HCP HE BROKE UP W/GF, PT'S NEW PCP/PRIMARY CONTACT IS EX MICHAEL PRECIADO [phone], COPY UPLOADED TO [employer] AND PLACED IN CHART.
--- NOTE | 2024-04-19 10:12 | PM.CNCAR ---
History of Present Illness History of Present Illness Date of Service: 04/19/24 Requesting physician: Sukhdev Tomlinson Chief complaint: Syncope Narrative: 58-year-old gentleman who is presenting for syncopal episode. He has background history of atrial fibrillation and has been on anticoagulation with Eliquis 5 mg twice a day. Apparently also has been taking amiodarone 400 mg daily. Yesterday he was sitting with his friend when he stood up to go get a drink of water. He said he was feeling little lightheaded and apparently as he got close to the refrigerator he fell down and passed out. He is not sure how long he passed out for. His friend quickly came and checked on him. The patient said he was little confused for few seconds but knew where he was. He said his friend's is a nurse who checked his blood pressure was quite elevated and there talked him into coming to the emergency department. He also had some pressure-like feeling in the chest which he stills feels. He is smoking 4-5 cigarettes per day and has known diagnosis of COPD. He drinks off and on but does not do binge drinking. He is saying he was not drinking alcohol yesterday. As mentioned he is taking amiodarone 400 mg daily. Blood pressure continues to be elevated. His biomarkers are negative. Initial EKGs showed atrial flutter but repeat EKGs showing sinus bradycardia with nonspecific ST changes. [facility] Past Medical History Medical History Hypertension CVA (cerebral vascular accident) Paroxysmal atrial fibrillation Anxiety disorder Symptomatic bradycardia Hypertensive urgency Encounter for prostate cancer screening Social History Social History Household Members: Significant Other Housing: Apartment Do you presently have visiting nurse or other home services: No Alcohol intake: current Alcohol intake frequency: holidays/special occasions only Comment: pt refusing alarms and staff in [place] with him Patient Tobacco Use Status: Current someday Tobacco user Tobacco use type: Cigarette Cigarettes Per Day: 4 Years Smoked: 20 Smoked in Last 30 Days: Yes e-Cigarette/Vaping Use: Never Used Patient Interested in Nicotine Replacement: No Patient Given Instructions on How to Stop Smoking: No Second Hand Smoke Exposure: Yes Use of substances other than those prescribed or required for medical reasons: No Currently Displaying Signs/Symptoms of Drug Intoxication Withdrawal: No Advance Directives: Yes Advance Directives on File: Yes Advance Directives Date on File: 01/02/23 Do you have a plan to hurt others: No Plan service: No Current occupational status: disabled Meds Allergies Allergy/AdvReac Type Severity Reaction Status Date / Time aspirin [ASA] Allergy Unknown BLEEDING Verified 04/18/24 18:03 ULCERS, stomach upset NSAIDS (Non-Steroidal Allergy Unknown BLEEDING Verified 04/18/24 18:03 Anti-Inflamma ULCERS [NSAIDS (NON-STEROIDAL ANTI-INFLAMMA] Active Medications: Current Medications Acetaminophen (Acetaminophen 325 Mg Tablet) 650 mg PO Q6H PRN PRN Reason: Pain, Mild (Pain Scale 1-3), fever or headache Albuterol Sulfate (Albuterol Sulfate 90 Mcg 8 Gm Inhaler) 2 puff INHALE Q4H PRN PRN Reason: Dyspnea Amiodarone HCl (Amiodarone Hcl 200 Mg Tablet) 400 mg PO DAILY [facility] Last Admin: 04/19/24 09:48 Dose: 400 mg Apixaban (Apixaban 5 Mg Tablet) 5 mg PO BID [facility] Atorvastatin Calcium (Atorvastatin Calcium 20 Mg Tablet) 20 mg PO DAILY [facility] Last Admin: 04/19/24 09:49 Dose: 20 mg Calcium Carbonate (Calcium Carbonate 750 Mg Tab.Chew) 750 mg PO Q4H PRN PRN Reason: Heartburn Clonazepam (Clonazepam 1 Mg Tablet) 1 mg PO TID [facility] Fluticasone Propionate (Fluticasone Propionate 100 Mcg Blst.W.Dev) 1 puff INHALE RBID [facility] Levothyroxine Sodium (Levothyroxine Sodium 100 Mcg Tablet) 100 mcg PO DAILY@0600 [facility] Last Admin: 04/19/24 09:48 Dose: 100 mcg Lisinopril (Lisinopril 20 Mg Tablet) 20 mg PO DAILY [facility]; Protocol Last Admin: 04/19/24 09:48 Dose: 20 mg Magnesium Hydroxide (Milk Of Magnesia 30 Ml Oral.Susp) 30 ml PO DAILY PRN PRN Reason: Constipation Melatonin (Melatonin 3 Mg Tablet) 6 mg PO BEDTIME PRN PRN Reason: Insomnia Naloxone HCl (Naloxone Hcl Nasal 4 Mg [place]) 4 mg NOSTRILALT Q5M PRN PRN Reason: overdose Ondansetron HCl (Ondansetron Hcl 4 Mg/2 Ml Vial) 4 mg IVPUSH Q8H PRN PRN Reason: Nausea and Vomiting Oxycodone HCl (Oxycodone Hcl Immed Release 5 Mg Tablet) 20 mg PO QID [facility] Pentoxifylline (Pentoxifylline Er 400 Mg Tablet.Er) 400 mg PO BID [facility] Last Admin: 04/19/24 09:48 Dose: 400 mg Sodium Chloride (0.9 % Sodium Chloride Flush 3 Ml Syringe) 3 ml IVFLUSH QSHIFT [facility] Last Admin: 04/19/24 07:06 Dose: 3 ml Home Medications ?Medication ?Instructions ?Recorded ?Confirmed ?Last Taken ?Type albuterol sulfate 90 mcg/actuation 2 puff PO Q4H PRN Dyspnea 12/18/21 04/19/24 12/27/22 History aerosol inhaler atorvastatin 20 mg tablet 20 mg PO DAILY 12/18/21 04/19/24 04/18/24 History clonazepam 1 mg tablet 1 mg PO TID 12/18/21 04/19/24 12/27/22 History fluticasone propionate 110 1 puff PO BID 12/18/21 04/19/24 12/27/22 History mcg/actuation HFA aerosol inhaler (Flovent HFA) oxycodone 20 mg tablet 20 mg PO QID 12/18/21 04/19/24 12/27/22 History apixaban 5 mg tablet (Eliquis) 5 mg PO BID 12/28/22 04/19/24 04/18/24 History lisinopril 20 mg tablet 20 mg PO DAILY 12/28/22 04/19/24 04/18/24 History levothyroxine 100 mcg tablet 100 mcg PO DAILY@0600 07/31/23 04/19/24 04/18/24 History naloxone 4 mg/actuation nasal spray 1 spray intranasal Q5M PRN overdose 01/01/24 04/19/24 Unknown History amiodarone 200 mg tablet 400 mg PO DAILY 04/19/24 04/19/24 04/18/24 History Physical Exam Vital Signs: Vital Signs: Last Vital Signs Temp 98.1 F 04/19/24 08:00 Pulse 65 04/19/24 08:48 Resp 20 04/19/24 08:00 BP 179/92 H 04/19/24 08:48 Pulse Ox 97 04/19/24 08:00 O2 Del Method Room Air 04/19/24 08:00 BMI result Body Mass Index 28.5 GENERAL APPEARANCE: in no acute distress, pleasant. NECK: no carotid bruit, no jugular venous distention. SKIN: no suspicious lesions, warm and dry. HEART: no murmurs, regular rate and rhythm. Bradycardic. LUNGS: clear to auscultation bilaterally. Diminished breath sounds bilaterally. ABDOMEN: soft, nontender. EXTREMITIES: no edema. PERIPHERAL PULSES: equal. NEUROLOGIC: No gross deficits, AAO X 3 Objective Labs and Meds 04/19/24 04:54 04/19/24 04:54 Lab results: Laboratory Results - last 24 hr 04/18/24 04/19/24 18:42 04:54 WBC 8.2 6.1 RBC 3.88 L 3.55 L Hgb 13.1 L 12.0 L Hct 38.9 L 34.9 L MCV 100.3 H 98.3 H MCH 33.8 H 33.8 H MCHC 33.7 34.4 RDW 13.7 13.6 Plt Count 263 214 MPV 9.1 L 9.0 L Immature Gran % (Auto) 0.9 H Neut % (Auto) 62.2 Lymph % (Auto) 26.0 [place] % (Auto) 8.5 Eos % (Auto) 1.8 Baso % (Auto) 0.6 Lymph # (Auto) 2.1 [place] # (Auto) 0.7 Eos # (Auto) 0.2 Baso # (Auto) 0.1 Abs Immat Gran (auto) 0.07 H Absolute Neuts (auto) 5.1 Absolute Nucleated RBC 0.000 0.000 Nucleated RBC % (auto) 0.0 0.0 PT 12.3 INR 1.0 APTT 31.2 Sodium 141 142 Potassium 4.8 3.8 D Chloride 109 H 109 H Carbon Dioxide 25 26 Anion Gap 12 11 L BUN 11 13 Creatinine 1.13 1.09 Estim Creat Clear Calc 89.2 92.4 Estimated GFR > 60 > 60 Random Glucose 92 97 Calcium 8.9 8.6 Magnesium 2.2 Total Bilirubin 0.3 Direct Bilirubin 0.1 AST 32 ALT 23 Alkaline Phosphatase 76 Troponin I High Sens < 2.7 < 2.7 Total Protein 7.1 Albumin 4.0 Imaging Radiologist's impression: Impressions Head CT 04/19/24 00:20 IMPRESSION: No acute intracranial abnormality including hemorrhage, mass effect, hydrocephalus, or acute territorial edematous infarction. Assessment and Plan (1) Syncope: Status: Acute Plan [age] gentleman with known history of atrial fibrillation for which he has been on amiodarone and Eliquis, COPD, peripheral vascular disease and tobacco use who is presenting for syncopal episode. Etiology is unclear currently. He is not orthostatic. Blood pressures are elevated. Resume his home blood pressure medications and titrate. Stop the amiodarone for few weeks and restart at 200 mg daily. Monitor on telemetry for any arrhythmia. We will check echocardiogram to assess for any wall motion abnormalities. His chest pressure appears to be related to elevated blood pressure as it has been persistently present other possibility is underlying COPD 2. As he improves we will discuss further workup including ischemic evaluation. If echocardiography showed wall motion abnormalities or cardiomyopathy then we will transfer him for diagnostic angiography. Thank you for allowing me to participate in the care of your patient. Please feel free to contact me if you have any questions. Procedures Date of Service Date of Service: 04/19/24
--- NOTE | 2024-04-19 12:46 | HO.PM.IMPN ---
Subjective Subjective Date of Service: 04/20/24 Interval History: f/u on syncope, elevated BP no dizziness, no arrythmia Physical Exam Vital Signs: Vital Signs: Last Vital Signs Temp 98.5 F 04/19/24 12:00 Pulse 53 04/19/24 12:00 Resp 20 04/19/24 12:00 BP 162/82 H 04/19/24 12:00 Pulse Ox 94 04/19/24 12:00 O2 Del Method Room Air 04/19/24 12:00 BMI result Body Mass Index 28.5 General: AO X 3, no acute distress Resp: CTA bilateral CVS: S1,S2,RRR GI: +BS, NT, no distention Skin: No rash Neuro: motor grossly intact Psych: appropriate affect Objective Data Active Medications Acetaminophen (Acetaminophen 325 Mg Tablet) 650 mg PO Q6H PRN PRN Reason: Pain, Mild (Pain Scale 1-3), fever or headache Albuterol Sulfate (Albuterol Sulfate 90 Mcg 8 Gm Inhaler) 2 puff INHALE Q4H PRN PRN Reason: Dyspnea Apixaban (Apixaban 5 Mg Tablet) 5 mg PO ONCE ONE Stop: 04/19/24 23:01 Apixaban (Apixaban 5 Mg Tablet) 5 mg PO BID [facility] Atorvastatin Calcium (Atorvastatin Calcium 20 Mg Tablet) 20 mg PO DAILY [facility] Last Admin: 04/19/24 09:49 Dose: 20 mg Documented By: JALEN Calcium Carbonate (Calcium Carbonate 750 Mg Tab.Chew) 750 mg PO Q4H PRN PRN Reason: Heartburn Clonazepam (Clonazepam 1 Mg Tablet) 1 mg PO TID [facility] Fluticasone Propionate (Fluticasone Propionate 100 Mcg Blst.W.Dev) 1 puff INHALE RBID [facility] Last Admin: 04/19/24 12:05 Dose: Not Given Documented By: JALEN Non-Admin Reason: awaiting med to come Levothyroxine Sodium (Levothyroxine Sodium 100 Mcg Tablet) 100 mcg PO DAILY@0600 [facility] Last Admin: 04/19/24 09:48 Dose: 100 mcg Documented By: JALEN Lisinopril (Lisinopril 20 Mg Tablet) 20 mg PO DAILY [facility]; Protocol Last Admin: 04/19/24 09:48 Dose: 20 mg Documented By: JALEN Magnesium Hydroxide (Milk Of Magnesia 30 Ml Oral.Susp) 30 ml PO DAILY PRN PRN Reason: Constipation Melatonin (Melatonin 3 Mg Tablet) 6 mg PO BEDTIME PRN PRN Reason: Insomnia Naloxone HCl (Naloxone Hcl Nasal 4 Mg [place]) 4 mg NOSTRILALT Q5M PRN PRN Reason: overdose Ondansetron HCl (Ondansetron Hcl 4 Mg/2 Ml Vial) 4 mg IVPUSH Q8H PRN PRN Reason: Nausea and Vomiting Oxycodone HCl (Oxycodone Hcl Immed Release 5 Mg Tablet) 20 mg PO QID [facility] Pentoxifylline (Pentoxifylline Er 400 Mg Tablet.Er) 400 mg PO BID [facility] Last Admin: 04/19/24 09:48 Dose: 400 mg Documented By: JALEN Sodium Chloride (0.9 % Sodium Chloride Flush 3 Ml Syringe) 3 ml IVFLUSH QSHIFT [facility] Last Admin: 04/19/24 07:06 Dose: 3 ml Documented By: CHU Labs 04/19/24 04:54 04/19/24 04:54 Labs: Laboratory Results - last 24 hr 04/18/24 04/19/24 18:42 04:54 MCV 100.3 H 98.3 H MCH 33.8 H 33.8 H MCHC 33.7 34.4 RDW 13.7 13.6 Plt Count 263 214 MPV 9.1 L 9.0 L Immature Gran % (Auto) 0.9 H Neut % (Auto) 62.2 Lymph % (Auto) 26.0 [place] % (Auto) 8.5 Eos % (Auto) 1.8 Baso % (Auto) 0.6 Lymph # (Auto) 2.1 [place] # (Auto) 0.7 Eos # (Auto) 0.2 Baso # (Auto) 0.1 Abs Immat Gran (auto) 0.07 H Absolute Neuts (auto) 5.1 Absolute Nucleated RBC 0.000 0.000 Nucleated RBC % (auto) 0.0 0.0 PT 12.3 INR 1.0 APTT 31.2 Anion Gap 12 11 L Estim Creat Clear Calc 89.2 92.4 Estimated GFR > 60 > 60 Random Glucose 92 97 Calcium 8.9 8.6 Magnesium 2.2 Total Bilirubin 0.3 Direct Bilirubin 0.1 AST 32 ALT 23 Alkaline Phosphatase 76 Troponin I High Sens < 2.7 < 2.7 Total Protein 7.1 Albumin 4.0 Assessment and Plan (1) Syncope: Status: Acute (2) Chest pain: Status: Acute Plan 58-year-old male with pertinent history of paroxysmal atrial fibrillation on Eliquis, hypothyroidism, hypertension, chronic back pain with chronic opioid use, mood disorder who presents to the emergency department for evaluation of chest pain and syncope. Syncope: Story is rather vague, hard to figure what may have happened, DDx orthostatic hypotension, no arrythmia noted. Cardiology Paroxysmal atrial fibrillation: On Eliquis and amiodarone Hypothyroidism: On Synthroid Hypertension: On lisinopril Chronic back pain: On opiates Mood disorder: On clonazepam DVT prophylaxis: Eliquis Full code Quality Stroke Does the patient have a stroke diagnosis?: No VTE Prior VTE?: No VTE Risk Level:: Medical - moderate - high VTE Device Contraindication: Treatment Not Indicated VTE Drug Contraindication: N/A - Med Ordered
--- NOTE | 2024-04-19 14:11 | PC.NURSE ---
Addendum entered by Alisa Green RN 04/19/24 14:13: cardio following* Original Note: Pt flipped into afib on tele for 3min then back into SB HR 50s. Pt asymptomatic after wasnt aware but states does have palpitations at times, especially when goes from laying to sittng does feel well. notified, maddy mascorro
[2024-04-19] MEDS: Fluticasone Propionate 100 MCG BLST.W.DEV 1 PUFF INHALE (20:35)
[2024-04-20] VITALS (8 sets, daily range): BP systolic 121–180; BP diastolic 54–85; PULSE 52–66; RESP 16–20; TEMP 36.1–37.2; O2SAT 94–96
[2024-04-20] MEDS: Levothyroxine Sodium 100 MCG TABLET PO (04:41)
--- NOTE | 2024-04-20 07:00 | CA_ITS ---
Transthoracic Echocardiogram Patient (Last, First, Middle): Adrian Samuels, Gender: Male Date of : 1965 Age: 58 Procedure Date: 04/20/2024 Procedure Type: Transthoracic Echocardiogram Location: [facility] [place] Height: 187.96 cm Weight: 100.7 kg BSA: 2.27 m2 Heart Rate: 55 bpm BP: 180 / 85 mmHg Stone Trimmer: RAMANDEEP Referring MD: Linnea HERNANDEZ Symptoms: syncope Study Quality: Adequate w contrast ECG Rhythm: Bradycardia Conclusions: - Normal left ventricular size and systolic function. There is mildly increased left ventricular wall thickness. The visually estimated ejection fraction is between 55-60%. There is no evidence of regional wall motion abnormalities. Diastolic function is normal for age. - Normal right ventricular cavity size and systolic function. - The left atrium is mildly dilated. The right atrium is mildly dilated. - There is mild dilatation of the ascending aorta measuring 3.80 cm. Findings Procedure Information Contrast agent, definity, is being given per protocol without apparent complications. Left Ventricle Normal left ventricular size and systolic function. There is mildly increased left ventricular wall thickness. The visually estimated ejection fraction is between 55-60%. There is no evidence of regional wall motion abnormalities. Diastolic function is normal for age. Right Ventricle Normal right ventricular cavity size and systolic function. Atria The left atrium is mildly dilated. The right atrium is mildly dilated. Aortic Valve Normal aortic valve structure and function. There is no aortic valve stenosis. There is no aortic valve regurgitation. Mitral Valve The mitral valve appears normal. There is no mitral valve regurgitation. There is no mitral valve stenosis. Pulmonic Valve The pulmonic valve is likely normal. Tricuspid Valve Normal tricuspid valve structure. There is no tricuspid valve regurgitation. Normal right atrial pressure. There is no evidence of pulmonary hypertension. Great Vessels There is mild dilatation of the ascending aorta measuring 3.80 cm. The visualized portions of the pulmonary artery and branches are normal. Venous The inferior vena cava is normal in size and collapses greater than 50% with inspiration. Pericardium/Pleural There is no evidence of pericardial effusion. Prior Study Comparison Changes noted compared to prior study dated: 12/29/2022. Mild dilatation ascending aorta 3.8 cm. Measurements 2D Linear Measurements LVOT Diam: 2.50 3.0+(-)1.3 cm Mitral Valve MV Pk E: 0.64 MV PK A: 0.57 MV Decel Time: 373.00 E/A: 1.10 E'Lateral: 8.05 E'Medial: 5.87 E/E' Med: 10.90 E/E' Lat: 7.90 PHT: 109.00 MVA PHT: 2.02 Decel [place]: 1.71 Aortic Valve AoV Pk Rafael: 1.31 AoV Mn Rafael: 0.92 AoV VTI: 0.33 AoV Pk Grad: 7.00 Aov Mn Grad: 4.00 GOPAL Cont.VTI: 3.04 LVOT LVOT Pk Rafael: 0.90 LVOT Mn Rafael: 0.51 LVOT VTI: 0.20 LVOT Pk Grad: 3.00 LVOT Mn Grad: 1.00 LVOT Diam: 2.50 LVOT Area: 4.91 Diastolic Function MV Pk E: 0.64 MV Pk A: 0.57 E/A: 1.10 E'Medial: 5.87 E/E' Med: 10.90 E' Laterial: 8.05 E/E' Lat: 7.90 Right Ventricle TAPSE (mm): 25.40 TVS' Rafael: 11.20 Tricuspid Valve TR Pk Rafael: 1.97 TR Pk Grad: 16.00 RA Press: 3.00 RVSP: 19.00 Great Vessels Aorta Sinus of Valsalva: 3.60 2.0-3.5 cm Ao Asc: 3.80 2.1-3.4 cm Ao Arch: 3.30 Updated in Other Vendor System with Status of Final Rome Queen MD electronically signed on 04/20/2024 7:02:56 PM with status of Final
[2024-04-20] MEDS: Fluticasone Propionate 100 MCG BLST.W.DEV 1 PUFF INHALE (07:38)
[2024-04-20] MEDS: Pentoxifylline ER 400 MG TABLET.ER PO ×2 (08:02→22:09)
[2024-04-20] MEDS: clonazePAM 1 MG TABLET PO ×3 (08:02→22:10)
[2024-04-20] MEDS: oxyCODONE HCl Immed Release 5 MG TABLET 20 MG PO ×4 (08:02→22:09)
[2024-04-20] MEDS: Atorvastatin Calcium 20 MG TABLET PO (08:02)
[2024-04-20] MEDS: lisinopriL 20 MG TABLET PO (08:02)
[2024-04-20] MEDS: Apixaban 5 MG TABLET PO ×2 (08:04→22:10)
[2024-04-20] MEDS: 0.9 % Sodium Chloride Flush 3 ML SYRINGE IVFLUSH ×3 (08:09→22:10)
--- NOTE | 2024-04-20 13:34 | PM.PNCARD ---
Subjective Subjective Date of Service: 04/20/24 Interval history: Seen examined at bedside. Blood pressure is better. He said he felt mildly dizzy when he got out of bed today. He is wheezing on examination and has mild chest tightness. Physical Exam Vital Signs: Last Vital Signs Temp 97.7 F 04/20/24 11:49 Pulse 55 04/20/24 11:49 Resp 20 04/20/24 11:49 BP 121/65 04/20/24 11:49 Pulse Ox 94 04/20/24 11:49 O2 Del Method Room Air 04/20/24 11:49 BMI result Body Mass Index 28.5 GENERAL APPEARANCE: in no acute distress, pleasant. NECK: no carotid bruit, no jugular venous distention. SKIN: no suspicious lesions, warm and dry. HEART: no murmurs, regular rate and rhythm. Bradycardic. LUNGS: Mild expiratory wheezes. ABDOMEN: soft, nontender. EXTREMITIES: no edema. PERIPHERAL PULSES: equal. NEUROLOGIC: No gross deficits, AAO X 3 Objective Labs and Meds 04/19/24 04:54 04/19/24 04:54 Progress Note: A&P Assessment and plan (1) Syncope: Status: Acute Plan [age] year gentleman with known history of paroxysmal atrial fibrillation who has been on amiodarone and Eliquis presenting with syncope. Etiology is currently unclear. He is due to get echocardiography to assess LV function. Has been on anticoagulation so pulmonary embolism is low risk. He is describing that someone took his heart rate at the time and his heart rate was 30s but he has been in 50s to 60s heart rate here. He has chronic bradycardia based on previous presentation. There is also some confusion whether he was taking amiodarone 200 mg or 400 mg. He is saying that he has been taking amiodarone 200 mg daily but when he felt the script he was told by pharmacist to take it 400 mg for 3 days. He took it for 3 days and then went back to 1 tablet daily. I have advised him that amiodarone should be used 200 mg daily. We have to look at some definitive treatment for his atrial fibrillation like ablation and then get him off the amiodarone because he is young. Mild wheezes on examination due to underlying COPD and this is likely cause for the chest tightness he has been experiencing. Please treat this. I think we will get echocardiogram today and if it is normal then do exercise stress test on him tomorrow. Thank you for allowing me to participate in the care of your patient. Please feel free to contact me if you have any questions. Time Spent With Patient Time: Total time managing care of this patient today ____ minutes. Progress Note: Quality Stroke Does the patient have a stroke diagnosis?: No Procedures Date of Service Date of Service: 04/20/24
--- NOTE | 2024-04-20 13:56 | MHC.CM.PN ---
Pt changed to inpatient, IMM given 04/20.
--- NOTE | 2024-04-20 14:04 | PC.NURSE ---
Pt refusing bed alarm - educated pt on purpose of especially with fall history. Pt still declined, states will ring if feels dizzy upon ambulaton. Will cont to re-edu importance
--- NOTE | 2024-04-20 15:08 | P.PNIM_ITS ---
Subjective Subjective Date of Service: 04/21/24 Interval History: f/u on syncope, elevated BP no dizziness, no arrythmia, variable bp, anxious Physical Exam 2 Vital Signs: Vital Signs: Last Vital Signs Temp 97.7 F 04/20/24 11:49 Pulse 55 04/20/24 11:49 Resp 20 04/20/24 11:49 BP 121/65 04/20/24 11:49 Pulse Ox 94 04/20/24 11:49 O2 Del Method Room Air 04/20/24 11:49 BMI result Body Mass Index 28.5 GENERAL APPEARANCE: in no acute distress, pleasant. NECK: no carotid bruit, no jugular venous distention. SKIN: no suspicious lesions, warm and dry. HEART: no murmurs, regular rate and rhythm. Bradycardic. LUNGS: Mild expiratory wheezes. ABDOMEN: soft, nontender. EXTREMITIES: no edema. PERIPHERAL PULSES: equal. NEUROLOGIC: No gross deficits, AAO X 3 Objective Data Active Medications Acetaminophen (Acetaminophen 325 Mg Tablet) 650 mg PO Q6H PRN PRN Reason: Pain, Mild (Pain Scale 1-3), fever or headache Albuterol Sulfate (Albuterol Sulfate 90 Mcg 8 Gm Inhaler) 2 puff INHALE Q4H PRN PRN Reason: Dyspnea Amiodarone HCl (Amiodarone Hcl 200 Mg Tablet) 200 mg PO DAILY [facility] Apixaban (Apixaban 5 Mg Tablet) 5 mg PO BID [facility] Last Admin: 04/19/24 21:24 Dose: 5 mg Documented By: NIK Atorvastatin Calcium (Atorvastatin Calcium 20 Mg Tablet) 20 mg PO DAILY [facility] Last Admin: 04/20/24 08:02 Dose: 20 mg Documented By: JALEN Calcium Carbonate (Calcium Carbonate 750 Mg Tab.Chew) 750 mg PO Q4H PRN PRN Reason: Heartburn Clonazepam (Clonazepam 1 Mg Tablet) 1 mg PO TID [facility] Last Admin: 04/20/24 08:02 Dose: 1 mg Documented By: JALEN Fluticasone Propionate (Fluticasone Propionate 100 Mcg Blst.W.Dev) 1 puff INHALE RBID [facility] Last Admin: 04/20/24 07:38 Dose: 1 puff Documented By: ROSA ELENA Levothyroxine Sodium (Levothyroxine Sodium 100 Mcg Tablet) 100 mcg PO DAILY@0600 [facility] Last Admin: 04/20/24 04:41 Dose: 100 mcg Documented By: NIK Lisinopril (Lisinopril 20 Mg Tablet) 20 mg PO DAILY [facility]; Protocol Last Admin: 04/20/24 08:02 Dose: 20 mg Documented By: JALEN Magnesium Hydroxide (Milk Of Magnesia 30 Ml Oral.Susp) 30 ml PO DAILY PRN PRN Reason: Constipation Melatonin (Melatonin 3 Mg Tablet) 6 mg PO BEDTIME PRN PRN Reason: Insomnia Naloxone HCl (Naloxone Hcl Nasal 4 Mg [place]) 4 mg NOSTRILALT Q5M PRN PRN Reason: overdose Ondansetron HCl (Ondansetron Hcl 4 Mg/2 Ml Vial) 4 mg IVPUSH Q8H PRN PRN Reason: Nausea and Vomiting Oxycodone HCl (Oxycodone Hcl Immed Release 5 Mg Tablet) 20 mg PO QID [facility] Last Admin: 04/20/24 12:39 Dose: 20 mg Documented By: JALEN Pentoxifylline (Pentoxifylline Er 400 Mg Tablet.Er) 400 mg PO BID [facility] Last Admin: 04/20/24 08:02 Dose: 400 mg Documented By: JALEN Sodium Chloride (0.9 % Sodium Chloride Flush 3 Ml Syringe) 3 ml IVFLUSH QSHIFT [facility] Last Admin: 04/20/24 08:09 Dose: 3 ml Documented By: JALEN Labs 04/19/24 04:54 04/19/24 04:54 Assessment and Plan (1) Syncope: Status: Acute (2) Chest pain: Status: Acute Plan 58-year-old male with pertinent history of paroxysmal atrial fibrillation on Eliquis, hypothyroidism, hypertension, chronic back pain with chronic opioid use, mood disorder who presents to the emergency department for evaluation of chest pain and syncope. Syncope: difficult to characterise what happened, no further episodes. DDx orthostatic hypotension, no arrythmia noted. To have echo today and possibly stress test tomorrow. Further testing with echo and stress Paroxysmal atrial fibrillation: On Eliquis, amiodarone--dose adjusted Hypothyroidism: On Synthroid Hypertension: On lisinopril Chronic back pain: On opiates Mood disorder: On clonazepam DVT prophylaxis: Eliquis Full code Quality Stroke Does the patient have a stroke diagnosis?: No VTE Prior VTE?: No VTE Risk Level:: Medical - moderate - high VTE Device Contraindication: Treatment Not Indicated VTE Drug Contraindication: N/A - Med Ordered
[2024-04-21 03:33] VITALS: BP 151/66; PULSE 53; RESP 16; TEMP 36.1; O2SAT 95
[2024-04-21] MEDS: Fluticasone Propionate 100 MCG BLST.W.DEV 1 PUFF INHALE (07:34)
[2024-04-21 07:37] VITALS: PULSE 60; RESP 16; O2SAT 97
[2024-04-21 07:43] VITALS: BP 173/79; PULSE 53; RESP 20; TEMP 36.4; O2SAT 97
[2024-04-21] MEDS: lisinopriL 20 MG TABLET PO (08:04)
[2024-04-21] MEDS: Apixaban 5 MG TABLET PO (08:04)
[2024-04-21] MEDS: clonazePAM 1 MG TABLET PO (08:04)
[2024-04-21] MEDS: Atorvastatin Calcium 20 MG TABLET PO (08:04)
[2024-04-21] MEDS: Levothyroxine Sodium 100 MCG TABLET PO (08:05)
[2024-04-21] MEDS: Amiodarone HCL 200 MG TABLET PO (08:05)
[2024-04-21] MEDS: oxyCODONE HCl Immed Release 5 MG TABLET 20 MG PO ×2 (08:05→11:56)
[2024-04-21] MEDS: Pentoxifylline ER 400 MG TABLET.ER PO (08:05)
[2024-04-21] MEDS: 0.9 % Sodium Chloride Flush 3 ML SYRINGE IVFLUSH (08:07)
--- NOTE | 2024-04-21 11:07 | PM.DS ---
DS: Providers Provider Date of Service: 04/21/24 Date of admission: 04/20/24 13:36 Primary care physician: Unknown Physician Consults: 04/19/24 00:06 Consult to Cardiology Routine Consulting [place] [facility] [place] [facility] Reason for consultation: syncope, chest pain, palpitations Has provider been notified: Yes DS: Diagnosis Discharge Diagnosis (1) Syncope: Status: Acute (2) Chest pain: Status: Acute DS: Summary Hospital Course Hospital Course: admission hpi Chief Complaint: Syncope This is a 58-year-old male with pertinent history of paroxysmal atrial fibrillation on Eliquis, hypothyroidism, hypertension, chronic back pain with chronic opioid use, mood disorder who presents to the emergency department for evaluation of chest pain and syncope. Patient states he started having midsternal chest discomfort when he was sitting in chair and watching the [place]. It was nonradiating but associated with sweating. Patient soon after started having palpitations and when he tried to get up, the next thing he knew he was on the floor. Patient felt dizzy and lightheaded before he lost consciousness. This has never happened before. Patient states he has been maintaining adequate p.o. intake. He was having loose stools for the last 4 days but says he is maintaining adequate hydration. No fever, chills, shortness of breath, abdominal pain, changes in urinary or bowel habits. Hospital course: Patient presented with syncope of unclear etiology and was noted to have elevated blood pressures. Troponin levels were unremarkable, and no ischemic changes were observed on the ECG. Orthostatic blood pressures were negative. The patient was monitored on cardiac telemetry, which showed no malignant arrhythmias to account for the syncope, though there were episodes of bradycardia in the 40s but no sinus pauses. Cardiology assessed the patient and recommended reducing amiodarone to 200 mg daily. Norvasc 5 mg was added to the blood pressure regimen. An echocardiogram revealed no significant abnormalities and a normal ejection fraction. A stress test was also normal. Currently, the patient's blood pressure is within the normal range at 138/81, and the heart rate is 65. The patient has no other symptoms. Final diagnosis: uncontrolled HTN, Syncope, chest pain Time Attestation Discharge Coordination Time (in mins): 35 Quality: Safe Use of Opioids Does Pt have an Active Cancer Diagnosis on the Problem List?: No Quality: Stroke Does the patient have a stroke diagnosis?: No Physical Exam Vital Signs: Vital Signs: Last Vital Signs Temp 97.5 F 04/21/24 07:43 Pulse 53 04/21/24 07:43 Resp 20 04/21/24 07:43 BP 173/79 H 04/21/24 07:43 Pulse Ox 97 04/21/24 07:43 O2 Del Method Room Air 04/21/24 07:43 BMI result Body Mass Index 28.5 General: AO X 3, no acute distress Resp: CTA bilateral CVS: S1,S2,RRR GI: +BS, NT, no distention Skin: No rash Neuro: motor grossly intact Psych: appropriate affect Discharge Plan Discharge Anticipated Discharge Date/Time: 04/21/24 13:18 Patient Disposition: Home, Self-Care Discharge Diagnosis: syncope, chest pain Referrals: Physician,Unknown J [Primary Care Provider] - 1 Week Discharge Medications: New amlodipine 5 mg Tablet 5 mg PO DAILY Qty: 90 0RF Protocol: Hold for SBP< HOLD for SBP < : 90 amiodarone 200 mg Tablet 200 mg PO DAILY Qty: 90 0RF Continued lisinopril 20 mg tablet 20 mg PO DAILY Eliquis 5 mg tablet 5 mg PO BID oxycodone 20 mg tablet 20 mg PO QID Flovent HFA 110 mcg/actuation HFA aerosol inhaler 1 puff PO BID clonazepam 1 mg tablet 1 mg PO TID atorvastatin 20 mg tablet 20 mg PO DAILY albuterol sulfate 90 mcg/actuation HFA aerosol inhaler 2 puff PO Q4H PRN (Reason: Dyspnea) levothyroxine 100 mcg tablet 100 mcg PO DAILY@0600 naloxone 4 mg/actuation spray,non-aerosol 1 spray intranasal Q5M PRN (Reason: overdose) pentoxifylline 400 mg tablet extended release 400 mg PO BID Qty: 180 2RF Rx Instructions: must administer with a meal/food Discontinued amiodarone 200 mg tablet 400 mg PO DAILY Discharge Orders: Discharge Order (Routine); Ordered 04/21/24 Ordered By: Sukhdev Tomlinson Diet: Advance to usual diet Activity on Discharge: As tolerated Stand Alone Forms: Patient Portal Discharge page Print Language: Mohawk Care Plan Goals: Good blood pressure control and prevent cardiovascular disease Health Concerns: Syncope chest pain Elevated blood pressure Plan of Treatment: Amiodarone dose has been reduced to 200 mg (1tab) daily Norvasc is new blood pressure medication to help control your blood pressure Follow up with your regular doctor in a week, call for appointment Assessment: see above Patient Instructions: Low-Sodium Diet (GEN) Discharge Date/Time: 04/21/24 13:46
--- NOTE | 2024-04-21 11:30 | CA_ITS ---
Acquisition Time: 2024-04-21 10:13:43 Total Exercise Time: 00:06:31 Test Indications: Syncope Medications: SEE EMAR Protocol: JONNIE Max HR: 129 BPM 80% of Pred: 161 BPM Max BP: 200/088 mmHG Max Work Load: 7.7 METS Exercise stress test exercise 6 min 31 sec of Jonnie protocfol 78% MPHR, with moderate to severe SOB, without chest discomfort, with frequent PACs and isolated PVCs , with hypertensive response to exercise, without EKG changes. Echo images obtained by tech at rest and immdiately post peak exercise. Definity contrast used. Breathing returned to baselien with rest. Test reviewed with Dr. Queen. Stress echo images reviewed at rest and post stress. At rest: Normal LVEF with no regional wall motion abnormalities. Post tress: LVEF augmented, LV cavity is smaller and no definite regional wall motion abnormalities. Conclusion: No evidence of ischemia at the achieved workload. Hypertensive response to exercise. Close monitoring of blood pressure and titration of medications. Referred By: Rome Queen Overread By: Rome Queen
[2024-04-21 11:51] VITALS: BP 138/81; PULSE 65; RESP 20; TEMP 36.2; O2SAT 96
[2024-04-21] MEDS: amLODIPine Besylate 5 MG TABLET PO (11:57)
--- NOTE | 2024-04-21 12:58 | PM.PNCARD ---
Subjective Subjective Date of Service: 04/21/24 Interval history: Seen examined at bedside. Feeling good. Underwent stress testing today. Physical Exam Vital Signs: Last Vital Signs Temp 97.2 F 04/21/24 11:51 Pulse 65 04/21/24 11:51 Resp 20 04/21/24 11:51 BP 138/81 04/21/24 11:51 Pulse Ox 96 04/21/24 11:51 O2 Del Method Room Air 04/21/24 11:51 BMI result Body Mass Index 28.5 GENERAL APPEARANCE: in no acute distress, pleasant. NECK: no carotid bruit, no jugular venous distention. SKIN: no suspicious lesions, warm and dry. HEART: no murmurs, regular rate and rhythm. Bradycardic. LUNGS: Mild expiratory wheezes. ABDOMEN: soft, nontender. EXTREMITIES: no edema. PERIPHERAL PULSES: equal. NEUROLOGIC: No gross deficits, AAO X 3 Objective Labs and Meds 04/19/24 04:54 04/19/24 04:54 Progress Note: A&P Assessment and plan (1) Syncope: Status: Acute Plan [age] year gentleman with known history of paroxysmal atrial fibrillation who has been on amiodarone and Eliquis presenting with syncope. Etiology is currently unclear. No arrhythmia noticed on telemetry. He has bradycardia but has been bradycardic for more than a year based on previous consults. Continue amiodarone 200 mg daily. Echocardiography showed normal biventricular function without any wall motion abnormalities. He underwent exercise stress test where he had dyspnea (due to COPD as he has been wheezing) but no ischemic EKG changes were noted and his stress echo images did not show any stress-induced ischemia. He did have a hypertensive response to exercise. Continue lisinopril 20 mg and send him home with amlodipine 2.5 mg which can be titrated further on follow-up with us. He has seen Dr. Gomez in the past and he will follow-up with him. Thank you for allowing me to participate in the care of your patient. Please feel free to contact me if you have any questions. Time Spent With Patient Time: Total time managing care of this patient today ____ minutes. Progress Note: Quality Stroke Does the patient have a stroke diagnosis?: No Procedures Date of Service Date of Service: 04/21/24
--- NOTE | 2024-04-21 14:06 | MHC.CM.PN ---
PT MEDICALLY CLEARED FOR DC HOME SELF-CARE, PT HAS ARRANGED TRANSPORT
== END 2024-04-21 13:46 | disposition home or self-care (01) | DRG 312 ==
LOC: HO.ED 23:07 → HO.EDOVER 04-19 00:52 → HO.IMC 04-19 07:34
PROVIDERS: Physician Assistant Medical; Admitting Provider Student in an Organized Health Care Education/Training Program; Emergency Provider Emergency Medicine Emergency Medical Services; Visit Provider Internal Medicine
DX: R55 Syncope and collapse (principal); R07.9 Chest pain, unspecified; F17.210 Nicotine dependence, cigarettes, uncomplicated; I10 Essential (primary) hypertension; E78.00 Pure hypercholesterolemia, unspecified; E03.9 Hypothyroidism, unspecified; I48.0 Paroxysmal atrial fibrillation; F39 Unspecified mood [affective] disorder; J44.9 Chronic obstructive pulmonary disease, unspecified; M45.9 Ankylosing spondylitis of unspecified sites in spine; I73.9 Peripheral vascular disease, unspecified; G89.29 Other chronic pain; Z71.6 Tobacco abuse counseling; Z79.891 Long term (current) use of opiate analgesic; Z79.01 Long term (current) use of anticoagulants; Z79.890 Hormone replacement therapy; Z79.899 Other long term (current) drug therapy
CPT/HCPCS: 36415; 70450; 80048; 80076; 83735; 84484; 85025; 85027; 85610; 85730; 93005; 93306; 93350; 94640; 99222; 99285; Q9957

== ENCOUNTER → 2024-04-18 17:47 | Outpatient (BNV) | payer OTHER, SELFPAY | PROVIDERS: Admitting Provider Student in an Organized Health Care Education/Training Program; Emergency Provider Emergency Medicine Emergency Medical Services; Visit Provider Internal Medicine Cardiovascular Disease | DX: R42 Dizziness and giddiness (principal); R00.1 Bradycardia, unspecified; R94.31 Abnormal electrocardiogram [ECG] [EKG]; R07.9 Chest pain, unspecified; I48.92 Unspecified atrial flutter | CPT/HCPCS: 93010 ==

== ENCOUNTER → 2024-04-18 19:43 | Outpatient (BNV) | payer OTHER, SELFPAY | PROVIDERS: Emergency Provider Emergency Medicine Emergency Medical Services; Visit Provider Student in an Organized Health Care Education/Training Program | DX: R55 Syncope and collapse (principal); R07.9 Chest pain, unspecified | CPT/HCPCS: 99222; 99232; 99239; 99499 ==

== ENCOUNTER → 2024-04-19 00:06 | Outpatient (BNV) | payer OTHER, SELFPAY | PROVIDERS: Admitting Provider Student in an Organized Health Care Education/Training Program; Emergency Provider Emergency Medicine Emergency Medical Services; Visit Provider Internal Medicine Cardiovascular Disease | DX: R55 Syncope and collapse (principal) | CPT/HCPCS: 99223; 99233 ==

== ENCOUNTER → 2024-04-20 07:00 | Outpatient (BNV) | payer OTHER, SELFPAY | PROVIDERS: Admitting Provider Student in an Organized Health Care Education/Training Program; Emergency Provider Emergency Medicine Emergency Medical Services; Visit Provider Internal Medicine Cardiovascular Disease | DX: I51.7 Cardiomegaly (principal); R93.1 Abnormal findings on diagnostic imaging of heart and coronary circulation | CPT/HCPCS: 93306 ==

== ENCOUNTER 2024-04-20 13:36 | Outpatient (BNV) | payer OTHER, SELFPAY | END 2024-04-21 11:30 | PROVIDERS: Admitting Provider Student in an Organized Health Care Education/Training Program; Emergency Provider Emergency Medicine Emergency Medical Services; Visit Provider Internal Medicine Cardiovascular Disease | DX: R06.02 Shortness of breath (principal); I49.1 Atrial premature depolarization; I49.3 Ventricular premature depolarization | CPT/HCPCS: 93351; 93352 ==

== ENCOUNTER 2024-05-18 13:30 | Outpatient (AMB) | payer OTHER, SELFPAY ==
[2024-05-18 13:42] VITALS: BP 116/58; PULSE 75; BMI 27.2
--- NOTE | 2024-05-18 13:42 | MHC.OFFVIS ---
Vital Signs 05/18/24 13:42 Height 6 ft 2 in Weight 211 lb 10.3 oz BMI 27.2 BP 116/58 L Blood Pressure Location Lt brachial Position Sitting Pulse 75 Pulse Source Monitor Intake Visit Reasons: r/s x 2 05/03/24 [facility] [place] Allergies aspirin [ASA] Allergy (Unknown, Verified 05/25/24 14:48) BLEEDING ULCERS, stomach upset NSAIDS (Non-Steroidal Anti-Inflamma [NSAIDS (NON-STEROIDAL ANTI-INFLAMMA] Allergy (Unknown, Verified 05/25/24 13:52) BLEEDING ULCERS Medication List - Last Reconciled 05/18/24 by Rakel Michael NP albuterol sulfate 90 mcg/actuation 2 puffs PO Q4H PRN amiodarone 200 mg PO DAILY amlodipine 10 mg See Protocol PO DAILY apixaban (Eliquis) 5 mg PO BID atorvastatin 20 mg PO DAILY clonazepam 1 mg PO TID fluticasone propionate 110 mcg/actuation (Flovent HFA) 1 puff PO BID levothyroxine 100 mcg PO DAILY@0600 lisinopril 20 mg PO DAILY oxycodone 20 mg PO QID pentoxifylline ER 400 mg PO BID HPI Comments Details: 58-year-old male presents today for follow-up after hospitalization. He was seen on 04/18/2024 at the [facility] Emergency Department. He was complaining of chest pains and headache and was noted to be hypertensive. He has a history of atrial fibrillation, nicotine dependence, alcohol use, CVA, and hypertension. Since his discharge he reports he is on longer is having chest pains, palpitations, or shortness of breath. He has no bleeding concerns related to his anticoagulation. He has stopped drinking hard liquor but still drinks beer. He reports eating better and is avoiding salt. [facility] Medical History (Updated 05/30/24 @ 12:40 by Rakel Michael NP) Hypertension Paroxysmal atrial fibrillation CVA (cerebral vascular accident) Anxiety disorder Symptomatic bradycardia Hypertensive urgency Encounter for prostate cancer screening Social History Household Members: None Housing: Apartment Do you presently have visiting nurse or other home services: No Alcohol intake: current Alcohol intake frequency: a few times a month Alcohol type: beer Patient Tobacco Use Status: Current everyday Tobacco user Tobacco use type: Cigarette Cigarettes Per Day: 3 Years Smoked: 20 e-Cigarette/Vaping Use: Never Used Second Hand Smoke Exposure: Yes Advance Directives Date on File: 01/02/23 service: No Current occupational status: disabled Review of Systems Const Denies weakness ENT Denies dizziness Card Denies chest pain, Denies chest pain with activity, Denies syncope, Denies rapid heart rate, Denies pedal edema, Denies edema, Denies leg edema, Denies lightheadedness, Denies palpitations, Denies dyspnea, Denies dyspnea on exertion and Denies orthopnea Resp Denies cough, Denies dyspnea and Denies dyspnea on exertion GI Denies hematochezia and Denies change in stool character Musc Denies abnormal gait, Denies muscle cramps, Denies muscle weakness, Denies numbness, Denies radiating pain into limb and Denies tingling Neuro Denies abnormal gait, Denies dizziness, Denies syncope, Denies numbness, Denies tingling and Denies weakness Endo Denies palpitations Physical Exam Vital Signs: Last Vital Signs Pulse 75 05/18/24 13:42 BP 116/58 L 05/18/24 13:42 BMI result Body Mass Index 27.2 Const General: healthy appearing and no acute distress Orientation/consciousness: patient oriented x3 HEENT Head: Yes normal to inspection Eyes General: appearance normal, both eyes and all related structures Neck Neck: Yes normal visual inspection Chest Chest palpation & inspection: normal inspection of the chest Resp Effort & Inspection: normal respiratory effort Auscultation: clear to auscultation bilaterally Cardio Jugular venous distension: no JVD Palpation: normal PMI Rate: regular rate Rhythm: regular rhythm Heart sounds: S1 normal heart sound present, S2 normal heart sound present, no click, no gallops, no murmurs and no rubs GI Inspection: Yes normal to inspection Palpation (GI): Soft to palpation Skin General skin exam: no rashes or lesions noted Neuro General: patient oriented x3 Extrem General: Yes normal to inspection Psych Appearance: grossly normal Office Procedures EKG Details: EKG today. Normal sinus rhythm. Ventricular rate 75 beats per minute. TX interval 180 MS. QRS duration 108 MS. QTC 57 [place]. [id number], Complete Assessment & Plan Assessment & Plan (1) Hypertension: Code(s): I10 - Essential (primary) hypertension Category: Medical (2) Paroxysmal atrial fibrillation: Code(s): I48.0 - Paroxysmal atrial fibrillation Category: Medical (3) Nicotine dependence: Code(s): F17.200 - Nicotine dependence, unspecified, uncomplicated Category: Medical Plan Stress echo revealed hypertensive response. No ischemia at achieved workload. Blood pressure as high as 200/88. Workload of 7.7 Mets. Discussed in detail blood pressure control in his importance. We will increase amlodipine at this time to help lower blood pressure a little more. Monitor blood pressures at home. Goal under 130/80. Log blood pressures and bring to next visit. He is currently on amiodarone and Eliquis. Signs and symptoms of bleeding reviewed. Advised complete smoking cessation. Avoidance of alcohol strongly advised. Medications: Changed From amlodipine 5 mg See Protocol PO DAILY To amlodipine 10 mg See Protocol PO DAILY Coding Level of Care Code Est Pt Level 4 (38521) Diagnoses Hypertension I10 Paroxysmal atrial fibrillation I48.0 Nicotine dependence F17.200 CPT Codes EKG - CPT: 85045-[id number], Complete ([id number])
== END 2024-05-18 14:35 | disposition home or self-care (01) ==
PROVIDERS: Visit Provider Nurse Practitioner
DX: I48.0 Paroxysmal atrial fibrillation (principal)
CPT/HCPCS: 93010; 99214

== ENCOUNTER → 2024-05-18 13:30 | Outpatient (BNVA) | payer OTHER, SELFPAY | PROVIDERS: Visit Provider Nurse Practitioner | DX: I10 Essential (primary) hypertension (principal); I48.0 Paroxysmal atrial fibrillation; F17.210 Nicotine dependence, cigarettes, uncomplicated; Z86.73 Personal history of transient ischemic attack (TIA), and cerebral infarction without residual deficits | CPT/HCPCS: 93005; 99212 ==

== ENCOUNTER 2024-05-25 13:15 | Outpatient (AMB) | payer OTHER, SELFPAY ==
[2024-05-25 13:21] VITALS: BP 90/60; PULSE 70; TEMP 36.8; O2SAT 95; BMI 27.3
--- NOTE | 2024-05-25 13:21 | MHC.OFFWIV ---
Intake Vital Signs 05/25/24 13:21 05/25/24 13:51 05/25/24 13:52 Height 6 ft 2 in Weight 213 lb BMI 27.3 BP 90/60 78/48 L 134/80 Blood Pressure Location Rt brachial Lt brachial Rt brachial Position Sitting Sitting Supine Pulse 70 Pulse Source Pulse Oximeter Temp 98.3 F Temp Source Oral Pulse Oximetry (%) 95 Oxygen Delivery Method Room Air Intake Visit Reasons: EP Spider bite Intake Note: pt c/o spider bite LT leg. Redness and swelling at site. Low BP, dizziness. Sore throat. Noticed bite yesterday Patient Tobacco Use Status: Current everyday Tobacco user Allergies aspirin [ASA] Allergy (Unknown, Verified 05/25/24 14:48) BLEEDING ULCERS, stomach upset NSAIDS (Non-Steroidal Anti-Inflamma [NSAIDS (NON-STEROIDAL ANTI-INFLAMMA] Allergy (Unknown, Verified 05/25/24 13:52) BLEEDING ULCERS HPI HPI Comments History of Present Illness Details While this patient was being roomed, the MA checked his blood pressure, it was 90/60, upon recheck it was 70/40 and patient began to lose consciousness. The MA immediately shut it out for help, we laid the patient down and elevated his legs. He was alert and oriented x3 however kept a fluttering his eyes. He maintained a good pulse and his blood pressure did increase to 130's systolic. EKG was normal sinus rhythm, no acute ST changes. Patient was able to tell me he got a spider bite a few days ago and that is why he came in. He also tells me he is allergic to aspirin, has a diagnosis of hypertension and diabetes and takes a few to-since. He is thinking he might have taken his antihypertensives a little too early this afternoon and that is why his blood pressure is low. He states he has been eating and drinking normally and has had no recent fevers. Patient denies any illicit drug use. [facility] Medical History Hypertension CVA (cerebral vascular accident) Paroxysmal atrial fibrillation Anxiety disorder Symptomatic bradycardia Hypertensive urgency Encounter for prostate cancer screening Social History Household Members: None Housing: Apartment Do you presently have visiting nurse or other home services: Yes Alcohol intake: current Alcohol intake frequency: a few times a month Alcohol type: beer Patient Tobacco Use Status: Current everyday Tobacco user Tobacco use type: Cigarette Cigarettes Per Day: 3 Years Smoked: 20 e-Cigarette/Vaping Use: Never Used Second Hand Smoke Exposure: Yes Advance Directives: Yes Advance Directives on File: Yes Advance Directives Date on File: 01/02/23 service: No Current occupational status: disabled Review of Systems Const Details: as above Physical Exam Vital Signs: Last Vital Signs Temp 98.3 F 05/25/24 13:21 Pulse 70 05/25/24 13:21 BP 134/80 05/25/24 13:52 Pulse Ox 95 05/25/24 13:21 Oxygen Delivery Method Room Air 05/25/24 13:21 BMI result Body Mass Index 27.3 Const General: cooperative, anxious, poor hygiene and tired appearing Orientation/consciousness: patient oriented x3 Limitations: no limitations HEENT Head: Yes normal to inspection Ears: hearing grossly normal bilaterally General nose exam: Normal external nose present Face and sinus: Yes normal facial exam Eyes General: appearance normal, both eyes and all related structures Neck Neck: Yes normal visual inspection and Yes full ROM Resp Effort & Inspection: normal respiratory effort Skin General skin exam: no rashes or lesions noted Neuro General: patient oriented x3 Extrem General: Yes normal to inspection Office Procedures EKG Details: NSR no acute changes [id number], Complete Assessment & Plan Assessment & Plan (1) Hypotension: Code(s): I95.9 - Hypotension, unspecified Qualifiers: Hypotension type: unspecified hypotension type Qualified Code(s): I95.9 - Hypotension, unspecified Plan: Called ALS crew to transport patient to the hospital, improvement in blood pressure as we raised the patient's legs but this is probably temporary, most likely hypotensive secondary to medication misuse. However, patient does have prescriptions for opioids and benzos which he did not report to us but show up on the prescription monitoring program. Plan See above Coding Level of Care Code Est Pt Level 5 (56609) Diagnoses Hypotension, unspecified hypotension type I95.9 Hypotension type: unspecified hypotension type CPT Codes EKG - CPT: 77823-[id number], Complete ([id number])
[2024-05-25 13:51] VITALS: BP 78/48
[2024-05-25 13:52] VITALS: BP 134/80
== END 2024-05-25 14:15 | disposition home or self-care (01) ==
PROVIDERS: Visit Provider Physician Assistant
DX: I95.9 Hypotension, unspecified (principal)
CPT/HCPCS: 93000; 99215

== ENCOUNTER 2024-05-25 14:22 | Inpatient (IN) | payer OTHER, SELFPAY ==
[2024-05-25 14:42] VITALS: BP 116/76; BP 127/71; PULSE 68; PULSE 86; RESP 20; TEMP 37.2; O2SAT 100; O2SAT 98; BMI 27.3
--- NOTE | 2024-05-25 15:16 | ECG_ITS ---
Test Reason : DIZZINESS Blood Pressure : / mmHG Vent. Rate : 078 BPM Atrial Rate : 000 BPM P-R Int : 000 ms QRS Dur : 116 ms QT Int : 446 ms P-R-T Axes : 000 -03 049 degrees QTc Int : 508 ms Atrial fibrillation Incomplete left bundle branch block Prolonged QT Abnormal ECG When compared with ECG of 18-APR-2024 22:26, Atrial fibrillation has replaced Sinus rhythm Incomplete left bundle branch block is now Present Nonspecific T wave abnormality no longer evident in Lateral leads Referred By: Karie Flood Electronically Signed By:ANTOINETTE RUCKER
[2024-05-25] MEDS: Lactated Ringers 1,000 ML 999 ML IV ×2 (15:30→16:53)
[2024-05-25 15:56] LABS: MANUAL DIFF FLAG NO
[2024-05-25 15:59] LABS: Basophils Absolute Auto 0.1 X10*3/uL (0.0-0.2); Basophils Percent Auto 0.7 % (0-2); Eosinophils Absolute Auto 0.1 X10*3/uL (0.0-0.4); Eosinophils Percent Auto 1.3 % (0-4); Hematocrit 34.3 % (42.0-52.0); Hemoglobin 11.9 g/dl (14.0-18.0); Imm Gran Abs Auto 0.07 X10*3/uL (0.00-0.03); Imm Gran Pct Auto 0.8 % (0.0-0.4); Lymphocytes Absolute Auto 1.6 X10*3/uL (1.2-4.9); Lymphocytes Percent Auto 19.6 % (20-40); Mean Corpuscular HGB Conc 34.7 g/dl (31.0-36.0); Mean Corpuscular Hemoglobin 33.6 pg (27.0-33.0); Mean Corpuscular Volume 96.9 fL (80.0-98.0); Mean Platelet Volume 8.3 fL (9.4-12.4); Monocytes Absolute Auto 0.6 X10*3/uL (0.1-1.2); Neutrophils Absolute Auto 5.9 x10*3/uL (2.0-8.3); Neutrophils Percent Auto 70.6 % (45-73); Platelet Count 254 X10*3/uL (160-400); Red Blood Count 3.54 X10*6/uL (4.60-5.80); Red Cell Distribution Width 12.8 % (11.0-16.0); White Blood Count 8.3 X10*3/uL (4.8-10.8)
--- NOTE | 2024-05-25 16:06 | ED_ITS ---
HPI - General Adult General Chief complaint: General Medical Stated complaint: LOW BP 70/40 FROM SNF,147/78 PER EMS Time Seen by Provider: 05/25/24 14:42 Source: patient Mode of arrival: ambulatory Limitations: no limitations History of Present Illness ED Provider: RAMÍREZ VINSON narrative: 58 yo male with PMH of severe anxiety, afib on eliquis, hypothyroidism, HTN, chronic back pain, mood disorder, hx of recent visits for syncope and chest pain with normal echo and stress test in April here with c/o working in the garden on his knees when to get up and felt dizzy. No falls, no head strike. Denies CP/SOB. He has a bite on his left leg blames a spider never saw the spider was wondering if that was the issue. He didn't drink much fluids today, no GIB bleed or infectious symptoms reported. Patient notes urgent care took BP it was 70s/40s but then EMS had BP of 127/71 after 1L of NS. MD complaint: dizziness Onset (ago): hour(s) (1) Location: head Radiation: non-radiation Severity: mild Relieving factors: rest Exacerbating factors: movement Associated symptoms: denies other symptoms Treatments prior to arrival: none Related Data Home Medications ?Medication ?Instructions ?Recorded ?Confirmed albuterol sulfate 90 mcg/actuation 2 puff PO Q4H PRN Dyspnea 12/18/21 05/18/24 aerosol inhaler atorvastatin 20 mg tablet 20 mg PO DAILY 12/18/21 05/18/24 clonazepam 1 mg tablet 1 mg PO TID 12/18/21 05/18/24 fluticasone propionate 110 1 puff PO BID 12/18/21 05/18/24 mcg/actuation HFA aerosol inhaler (Flovent HFA) oxycodone 20 mg tablet 20 mg PO QID 12/18/21 05/18/24 apixaban 5 mg tablet (Eliquis) 5 mg PO BID 12/28/22 05/18/24 lisinopril 20 mg tablet 20 mg PO DAILY 12/28/22 05/18/24 levothyroxine 100 mcg tablet 100 mcg PO DAILY@0600 07/31/23 05/18/24 amlodipine 5 mg tablet 10 mg PO DAILY 05/18/24 05/18/24 Previous Rx's ?Medication ?Instructions ?Recorded pentoxifylline 400 mg 400 mg PO BID #180 tabs 01/01/24 tablet,extended release amiodarone 200 mg tablet 200 mg PO DAILY #90 tabs 04/21/24 Allergies Allergy/AdvReac Type Severity Reaction Status Date / Time aspirin [ASA] Allergy Unknown BLEEDING Verified 05/25/24 14:48 ULCERS, stomach upset NSAIDS (Non-Steroidal Allergy Unknown BLEEDING Verified 05/25/24 13:52 Anti-Inflamma ULCERS [NSAIDS (NON-STEROIDAL ANTI-INFLAMMA] Review of Systems 2 Review of Systems: Constitutional : No Fever, No Chills, No Fatigue ENT/Mouth : No sore throat, No Rhinorrhea Eyes: No Eye Pain, No Swelling, No Redness Cardiovascular : No Chest Pain, No SOB, No Dyspnea on Exertion Respiratory : No Cough, No Sputum Gastrointestinal : No Nausea, No Vomiting, No Diarrhea, No abdominal Pain Genitourinary : No Dysuria, No Urinary Frequency, No Hematuria, Musculoskeletal : No joint pain, No Myalgias, No Joint Swelling Skin : No Skin Lesions, No rash Neuro : No Weakness, No Numbness, pos Dizziness, no Headache Psych : No Anxiety/Panic, No Depression All other systems reviewed and are negative [facility] Past Medical History Attestation statement: The following information was validated with the patient. Source: old records reviewed Medical History Hypertension CVA (cerebral vascular accident) Paroxysmal atrial fibrillation Anxiety disorder Symptomatic bradycardia Hypertensive urgency Encounter for prostate cancer screening Social History Social History Household Members: None Housing: Apartment Do you presently have visiting nurse or other home services: Yes Alcohol intake: current Alcohol intake frequency: a few times a month Alcohol type: beer Patient Tobacco Use Status: Current everyday Tobacco user Tobacco use type: Cigarette Cigarettes Per Day: 3 Years Smoked: 20 e-Cigarette/Vaping Use: Never Used Second Hand Smoke Exposure: Yes Advance Directives: Yes Advance Directives on File: Yes Advance Directives Date on File: 01/02/23 service: No Current occupational status: disabled Physical Exam ED Vital Signs: Vital Signs - 24 hr 05/25/24 14:42 Temperature 99.0 F Pulse Rate 86 Respiratory Rate 20 Blood Pressure 116/76 Pulse Oximetry 98 BMI result Body Mass Index 27.3 Appearance: Alert. Oriented X3. No acute distress. Patient up and walking Eyes: Pupils equal, round and reactive to light. ENT: Pharynx normal. Neck: Normal inspection. Neck supple. CVS: irregular heart rate and rhythm. Pulses normal. Respiratory: No respiratory distress. Breath sounds normal. Abdomen: Soft and nontender. Skin: Skin warm and dry. Normal skin color. Normal skin turgor. Extremities: No lower extremity edema. No calf ttp Neuro: Oriented X 3. No motor deficit. No sensory deficit. Medications Administered Generic Name Dose Route Start Last Admin Trade Name Freq PRN Reason Stop Dose Admin Lactated Ringer's 1,000 mls @ 999 mls/hr 05/25/24 15:16 05/25/24 15:30 Lr IV 05/25/24 16:16 999 mls/hr .Q1H1M ONE Administration Medical Decision Making Medical Decision Making [facility] Narrative: 58 yo male with PMH of severe anxiety, afib on eliquis, hypothyroidism, HTN, chronic back pain, mood disorder with hx of recent visits for syncope and chest pain at this time he reports dizzines no CP/SOB and no GIB symptoms - started with gardening in the heat. Doubt ACS, VTE, suspect dehydration. He is walking here no symptoms with steady gait. IVFx 2L, has slightly prolonged qtc IV magnesium ordered, only on 200mg amio at this time Differential Diagnosis Differential Diagnoses: The differential diagnosis associated with the presentation includes dehydration, anemia, orthostatics Admission/Observation Consideration of admission/observation: Escalation of care including admission/observation considered signed out to Dr. Barrett pending repeat Cr Lab Data [facility] Lab Attestation statement: I reviewed the patient's lab results. 05/25/24 15:52 05/25/24 15:52 Labs: Lab Results 05/25/24 Range/Units 15:52 WBC 8.3 (4.8-10.8) X10*3/uL RBC 3.54 L (4.60-5.80) X10*6/uL Hgb 11.9 L (14.0-18.0) g/dl Hct 34.3 L (42.0-52.0) % MCV 96.9 (80.0-98.0) fL MCH 33.6 H (27.0-33.0) pg MCHC 34.7 (31.0-36.0) g/dl RDW 12.8 (11.0-16.0) % Plt Count 254 (160-400) X10*3/uL MPV 8.3 L (9.4-12.4) fL Immature Gran % (Auto) 0.8 H (0.0-0.4) % Neut % (Auto) 70.6 (45-73) % Lymph % (Auto) 19.6 L (20-40) % [place] % (Auto) 7.0 (2-11) % Eos % (Auto) 1.3 (0-4) % Baso % (Auto) 0.7 (0-2) % Lymph # (Auto) 1.6 (1.2-4.9) X10*3/uL [place] # (Auto) 0.6 (0.1-1.2) X10*3/uL Eos # (Auto) 0.1 (0.0-0.4) X10*3/uL Baso # (Auto) 0.1 (0.0-0.2) X10*3/uL Abs Immat Gran (auto) 0.07 H (0.00-0.03) X10*3/uL Absolute Neuts (auto) 5.9 (2.0-8.3) x10*3/uL Absolute Nucleated RBC 0.000 (0.0-0.012) X10*3/uL Nucleated RBC % (auto) 0.0 (0.0-0.2) /100WBC Independent Interpretation I performed an independent interpretation of an: EKG Interpretation: Rate: 78 Rhythm: afib [place]: normal Normal QRS complex. ST T wave : nonspecific inf changes, no BITA qTC: 508 prior studies: qtc prolonged The study has been interpreted contemporaneously by me. . External Record Review External record reviewed: Inpatient record Discharge Plan Discharge Clinical Impression: Dizziness, Acute dehydration Patient Disposition: Still a Patient Instructions: Dizziness (ED), Dehydration (ED) Prescriptions: No Action lisinopril 20 mg tablet 20 mg PO DAILY Eliquis 5 mg tablet 5 mg PO BID amiodarone 200 mg Tablet 200 mg PO DAILY Qty: 90 0RF oxycodone 20 mg tablet 20 mg PO QID Flovent HFA 110 mcg/actuation HFA aerosol inhaler 1 puff PO BID clonazepam 1 mg tablet 1 mg PO TID atorvastatin 20 mg tablet 20 mg PO DAILY albuterol sulfate 90 mcg/actuation HFA aerosol inhaler 2 puff PO Q4H PRN (Reason: Dyspnea) levothyroxine 100 mcg tablet 100 mcg PO DAILY@0600 pentoxifylline 400 mg tablet extended release 400 mg PO BID Qty: 180 2RF Rx Instructions: must administer with a meal/food amlodipine 5 mg tablet 10 mg PO DAILY Protocol: Hold for SBP< HOLD for SBP < : 90 Print Language: Maori
[2024-05-25] MEDS: Magnesium Sulfate/H2O 2 GM/50 ML PIGGYBACK IV (16:14)
[2024-05-25 16:16] LABS: Alanine Aminotransferase 22 U/L (0-40); Albumin Level 3.7 g/dL (3.5-5.0); Alkaline Phosphatase 73 U/L (39-117); Anion Gap 14 (12-20); Aspartate Amino Transferase 30 U/L (5-37); Bilirubin Direct 0.1 mg/dL (0.0-0.5); Bilirubin Total 0.3 mg/dL (0.0-1.0); Blood Urea Nitrogen 19 mg/dL (9-16); Calcium 8.5 mg/dL (8.4-10.2); Carbon Dioxide 22 mmol/L (22-29); Chloride 109 mmol/L (96-108); Estimated Glomerular Filt Rate 44; Ethanol < 10 mg/dL; Glucose Random 85 mg/dL (60-115); Magnesium 2.2 mg/dL (1.6-2.6); Potassium 4.1 mmol/L (3.3-5.1); Sodium 141 mmol/L (135-145); Total Protein 6.6 g/dL (6.5-8.0)
[2024-05-25 18:11] VITALS: BP 133/83; PULSE 91
[2024-05-25 18:12] VITALS: BP 136/89; BP 142/85; PULSE 111; PULSE 91
[2024-05-25 18:34] LABS: Anion Gap 12 (12-20); Blood Urea Nitrogen 19 mg/dL (9-16); Calcium 8.5 mg/dL (8.4-10.2); Carbon Dioxide 24 mmol/L (22-29); Chloride 110 mmol/L (96-108); Creatinine Clr Calc Pharmacy 60.4; Estimated Glomerular Filt Rate 47; Glucose Random 91 mg/dL (60-115); Potassium 4.6 mmol/L (3.3-5.1); Sodium 141 mmol/L (135-145)
--- NOTE | 2024-05-25 19:28 | P.HPHOSP_ITS ---
History of Present Illness Date of Service: 05/25/24 <MARY Lopez - Last Filed: 05/25/24 20:27> Attending physician on admission: Tootie Soto <MARY Lopez - Last Filed: 05/25/24 20:27> Chief Complaint: Hypotension, dehydration <MARY Lopez - Last Filed: 05/25/24 20:27> Pt is a 58-year-old male with a PMH significant for persistent AFib on Eliquis,?HTN, COPD, hypothyroidism, chronic back pain, severe anxiety, and panic disorder who presents to the ED from urgent care for evaluation of presyncope and hypotension. Patient reports he was outside wokring on his hands and knees digging up shrubs when he stood up and felt lightheaded and dizzy. Ate something without improvement. Had noticed two ibarra on his lower leg yesterday that he thought came from a spider bite, even though he never saw a spider. Thought this might be contributory to his condition so initially presented to urgent care where he was noted to have a BP in the 70s over 40s. EMS was called who administered 1L IVF and brought him to the ED for further evaluation. Patient states he feels ?terrible? and ?weak?. Reports has not been drinking much fluids although has been working outside and sweating a lot the past few days. No fever, chills, N/V/D, or abd pain. Reports he is feeling quite anxious and has chest tightness he attributes to his anxiety. No SOB. Pt currently smoke 4-5 packs of cigarettes weekly. ? In the ED pt was tachycardic up to 111 and hypotensive as low as 78/48. Labs were significant for creatinine 1.62 (baseline 1.10), otherwise unremarkable. No leukocytosis. Stable normocytic anemia of 11.9/34.3. No significant electrolyte abnormalities. Hepatic function WNL. EKG demonstrated atrial fibrillation with QTc of 508 with incomplete LBBB with no evidence of acute ischemia. Pt was treated with 2L IVF and mag sulfate. Pt will be admitted to the hospital for treatment and further evaluation of orthostatic presyncope, hypotension, and LAW in the setting of dehydration. <MARY Lopez - Last Filed: 05/25/24 20:27> Review of Systems 2 Review of Systems: Lightheadedness, dizziness Generalized weakness Chest tightness Increased anxiety No fever, chills, N/V/D or abd pain Denies SOB <MARY Lopez - Last Filed: 05/25/24 20:27> [facility] Medical History: Medical History Hypertension CVA (cerebral vascular accident) Paroxysmal atrial fibrillation Anxiety disorder Symptomatic bradycardia Hypertensive urgency Encounter for prostate cancer screening <MARY Lopez - Last Filed: 05/25/24 20:27> Social History: Social History Household Members: None Housing: Apartment Do you presently have visiting nurse or other home services: Yes Alcohol intake: current Alcohol intake frequency: a few times a month Alcohol type: beer Patient Tobacco Use Status: Current everyday Tobacco user Tobacco use type: Cigarette Cigarettes Per Day: 3 Years Smoked: 20 e-Cigarette/Vaping Use: Never Used Second Hand Smoke Exposure: Yes Advance Directives: Yes Advance Directives on File: Yes Advance Directives Date on File: 01/02/23 service: No Current occupational status: disabled <MARY Lopez - Last Filed: 05/25/24 20:27> Meds Allergies/Adverse reactions: Allergies Allergy/AdvReac Type Severity Reaction Status Date / Time aspirin [ASA] Allergy Unknown BLEEDING Verified 05/25/24 14:48 ULCERS, stomach upset NSAIDS (Non-Steroidal Allergy Unknown BLEEDING Verified 05/25/24 13:52 Anti-Inflamma ULCERS [NSAIDS (NON-STEROIDAL ANTI-INFLAMMA] <MARY Lopez - Last Filed: 05/25/24 20:27> Active Medications: Current Medications Acetaminophen (Acetaminophen 325 Mg Tablet) 650 mg PO Q6H PRN PRN Reason: Pain, Mild (Pain Scale 1-3), fever or headache Calcium Carbonate (Calcium Carbonate 750 Mg Tab.Chew) 750 mg PO Q4H PRN PRN Reason: Heartburn Magnesium Hydroxide (Milk Of Magnesia 30 Ml Oral.Susp) 30 ml PO DAILY PRN PRN Reason: Constipation Melatonin (Melatonin 3 Mg Tablet) 6 mg PO BEDTIME PRN PRN Reason: Insomnia Ondansetron HCl (Ondansetron Hcl 4 Mg/2 Ml Vial) 4 mg IVPUSH Q8H PRN PRN Reason: Nausea and Vomiting Sodium Chloride (0.9 % Sodium Chloride Flush 3 Ml Syringe) 3 ml IVFLUSH QSHIFT KAVEH <MARY Lopez - Last Filed: 05/25/24 20:27> Home medications: Home Medications ?Medication ?Instructions ?Recorded ?Confirmed ?Last Taken ?Type albuterol sulfate 90 mcg/actuation 2 puff PO Q4H PRN Dyspnea 12/18/21 05/18/24 12/27/22 History aerosol inhaler atorvastatin 20 mg tablet 20 mg PO DAILY 12/18/21 05/18/24 04/18/24 History clonazepam 1 mg tablet 1 mg PO TID 12/18/21 05/18/24 12/27/22 History fluticasone propionate 110 1 puff PO BID 12/18/21 05/18/24 12/27/22 History mcg/actuation HFA aerosol inhaler (Flovent HFA) oxycodone 20 mg tablet 20 mg PO QID 12/18/21 05/18/24 12/27/22 History apixaban 5 mg tablet (Eliquis) 5 mg PO BID 12/28/22 05/18/24 04/18/24 History lisinopril 20 mg tablet 20 mg PO DAILY 12/28/22 05/18/24 04/18/24 History levothyroxine 100 mcg tablet 100 mcg PO DAILY@0600 07/31/23 05/18/24 04/18/24 History amlodipine 5 mg tablet 10 mg PO DAILY 05/18/24 05/18/24 Unknown History amiodarone 200 mg tablet 400 mg PO DAILY 05/25/24 Unknown History venlafaxine 75 mg capsule,extended 75 mg PO BID 05/25/24 Unknown History release 24 hr <MARY Lopez - Last Filed: 05/25/24 20:27> Physical Exam 2 Vital Signs and Narrative: Vital Signs: Last Vital Signs Temp 99.0 F 05/25/24 14:42 Pulse 91 05/25/24 18:12 Resp 20 05/25/24 14:42 BP 142/85 H 05/25/24 18:12 Pulse Ox 98 05/25/24 14:42 BMI result Body Mass Index 27.3 <MARY Lopez - Last Filed: 05/25/24 20:27> General: AOx3, no acute distress Resp: CTA bilaterally CVS: S1, S2, RRR GI: +BS, NT, no distention Skin: Warm, dry Neuro: Cranial nerves II-XII grossly intact bilaterally. Motor grossly intact bilaterally Extremities: No edema. Two small superficial wounds on LLE. No signs of infection. As pictured below. Psych: Appears anxious <MARY Lopez - Last Filed: 05/25/24 20:27> Results Labs CBC and Chem 7: 05/25/24 15:52 05/25/24 18:19 <MARY Lopez - Last Filed: 05/25/24 20:27> Labs: Laboratory Results - last 24 hr 05/25/24 05/25/24 05/25/24 15:52 15:52 15:52 MCV 96.9 MCH 33.6 H MCHC 34.7 RDW 12.8 Plt Count 254 MPV 8.3 L Immature Gran % (Auto) 0.8 H Neut % (Auto) 70.6 Lymph % (Auto) 19.6 L [place] % (Auto) 7.0 Eos % (Auto) 1.3 Baso % (Auto) 0.7 Lymph # (Auto) 1.6 [place] # (Auto) 0.6 Eos # (Auto) 0.1 Baso # (Auto) 0.1 Abs Immat Gran (auto) 0.07 H Absolute Neuts (auto) 5.9 Absolute Nucleated RBC 0.000 Nucleated RBC % (auto) 0.0 Anion Gap 14 Estim Creat Clear Calc 57.0 Cancelled Estimated GFR 44 Cancelled Random Glucose 85 Calcium 8.5 Magnesium 2.2 Total Bilirubin 0.3 Direct Bilirubin 0.1 AST 30 ALT 22 Alkaline Phosphatase 73 Total Protein 6.6 Albumin 3.7 Ethyl Alcohol < 10 05/25/24 18:19 MCV MCH MCHC RDW Plt Count MPV Immature Gran % (Auto) Neut % (Auto) Lymph % (Auto) [place] % (Auto) Eos % (Auto) Baso % (Auto) Lymph # (Auto) [place] # (Auto) Eos # (Auto) Baso # (Auto) Abs Immat Gran (auto) Absolute Neuts (auto) Absolute Nucleated RBC Nucleated RBC % (auto) Anion Gap 12 Estim Creat Clear Calc 60.4 Estimated GFR 47 Random Glucose 91 Calcium 8.5 Magnesium Total Bilirubin Direct Bilirubin AST ALT Alkaline Phosphatase Total Protein Albumin Ethyl Alcohol <MARY Lopez - Last Filed: 05/25/24 20:27> Assessment and Plan (1) LAW (acute kidney injury): Status: Acute <MARY Lopez - Last Filed: 05/25/24 20:27> (2) Acute dehydration: Status: Acute <MARY Lopez - Last Filed: 05/25/24 20:27> (3) Lightheadedness: Status: Acute <MARY Lopez - Last Filed: 05/25/24 20:27> Pt is a 58-year-old male with a PMH significant for persistent AFib on Eliquis,?HTN, COPD, hypothyroidism, chronic back pain, severe anxiety, and panic disorder who presents to the ED from urgent care for evaluation of presyncope and hypotension. Pt will be admitted to the hospital for treatment and further evaluation of presyncope, hypotension, and LAW in the setting of dehydration. LAW Creatinine 1.62 at time of presentation, increased from baseline 1.10 Secondary to dehydration: pt has been working outside, sweating, w/ reduced p.o. intake Received total of 3L IVF from EMS and ED with minimal creatinine improvement Encourage p.o. intake Hold lisinopril Follow kidney function Presyncope Pt with lightheadedness, dizziness Secondary to dehydration Orthostatics negative in the ED, no electrolyte abnormalities Treat as above with IVF Monitor on telemetry Hypotension BP as low as 78/48 in the ED Secondary to dehydration Patient received IVF by EMS and ED, BP currently 142/85 Treat as above Monitor BP Question of spider bite Pt with two small superficial circular lesions on anterior aspect of left diallo Pt attributes to spider bite though never saw spider No sign of infection Monitor of now, no indication as of now for further workup or treatment HTN Hold anti-hypertensives for now due to soft BP Hold lisinopril due to LAW Resume as indicated Persistent AFib Continue Eliquis, amiodarone HLD Continue statin Chronic lower back pain Continue home oxycodone Hypothyroidism Continue levothyroxine Mood disorder Continue clonazepam Full Code Attending:?Dr. Soto DVT Prophylaxis: On Eliquis Pt will require a hospitalization of at least two nights for treatment of?presyncope, hypotension, and LAW in setting of dehydration that will IVF and close monitoring of vitals and kidney function. <MARY Lopez - Last Filed: 05/25/24 20:27> Pt is a 58-year-old male with a PMH significant for persistent AFib on Eliquis,?HTN, COPD, hypothyroidism, chronic back pain, severe anxiety, and panic disorder who presents to the ED from urgent care for evaluation of presyncope and hypotension. Pt will be admitted to the hospital for treatment and further evaluation of presyncope, hypotension, and LAW in the setting of dehydration. LAW Creatinine 1.62 at time of presentation, increased from baseline 1.10 Secondary to dehydration: pt has been working outside, sweating, w/ reduced p.o. intake Received total of 3L IVF from EMS and ED with minimal creatinine improvement Encourage p.o. intake Hold lisinopril Follow kidney function Presyncope Pt with lightheadedness, dizziness Secondary to dehydration Orthostatics negative in the ED, no electrolyte abnormalities Treat as above with IVF Monitor on telemetry Hypotension BP as low as 78/48 in the ED No sepsis Secondary to dehydration Patient received IVF by EMS and ED, BP currently 142/85 Treat as above Monitor BP Question of spider bite Pt with two small superficial circular lesions on anterior aspect of left diallo Pt attributes to spider bite though never saw spider No sign of infection Monitor of now, no indication as of now for further workup or treatment HTN Hold anti-hypertensives for now due to soft BP Hold lisinopril due to LAW Resume as indicated Persistent AFib Continue Eliquis, amiodarone HLD Continue statin Chronic lower back pain Continue home oxycodone Hypothyroidism Continue levothyroxine Mood disorder Continue clonazepam Full Code Attending:?Dr. Soto DVT Prophylaxis: On Eliquis Pt will require a hospitalization of at least two nights for treatment of?presyncope, hypotension, and LAW in setting of dehydration that will IVF and close monitoring of vitals and kidney function. <Tootie Soto MD - Last Filed: 05/25/24 20:40> Quality Stroke Does the patient have a stroke diagnosis?: No <MARY Lopez - Last Filed: 05/25/24 20:27> VTE Prior VTE?: No <MARY Lopez - Last Filed: 05/25/24 20:27> VTE Risk Level:: Medical - moderate - high <MARY Lopez - Last Filed: 05/25/24 20:27> VTE Device Contraindication: Treatment Not Indicated <MARY Lopez - Last Filed: 05/25/24 20:27> VTE Drug Contraindication: N/A - Med Ordered <MARY Lopez - Last Filed: 05/25/24 20:27>
--- NOTE | 2024-05-25 19:30 | PC.NURSE ---
Assumed care of pt.
[2024-05-25] MEDS: oxyCODONE HCl Immed Release 5 MG TABLET 20 MG PO (20:58)
[2024-05-25] MEDS: clonazePAM 1 MG TABLET PO (20:58)
[2024-05-25] MEDS: Melatonin 3 MG TABLET 6 MG PO (20:58)
[2024-05-25] MEDS: Apixaban 5 MG TABLET PO (20:59)
--- NOTE | 2024-05-25 21:12 | PHA.MEDREC ---
Addendum entered by Lance Vivar [facility] 05/25/24 21:43: med rec checked by [facility] Original Note: Pharmacy Consult ? Medication Reconciliation Pharmacy has completed the medication reconciliation. Spoke to patient to confirm med list. patient could only confirm a few of his medications. Patient stats he takes Amiodarone 200 mg daily, medication [place] [facility] [place] Patient wasn't sure if he was taking Atorvastatin, last fill dates are 05-22-24 for 90 days and has been filling 02-18 for 90 days and 12-19 for 90 days. left on med list was confirmed last visit. Patient was also unsure if he was taking Pentoxifylline 400 mg, last fill date was 01-04-24 for 90 days and Venlafaxie 75 mg bid, last fill date was 05-20 for 90 days. Left unconfirmed.
[2024-05-25 22:28] VITALS: BMI 27.7
[2024-05-25 22:42] VITALS: BP 127/64; PULSE 68; RESP 18; TEMP 36.6; O2SAT 93
[2024-05-25] MEDS: 0.9 % Sodium Chloride Flush 3 ML SYRINGE IVFLUSH (23:07)
[2024-05-26] VITALS (8 sets, daily range): BP systolic 106–145; BP diastolic 65–79; PULSE 56–70; RESP 16–20; TEMP 36.3–36.9; O2SAT 93–100
[2024-05-26] MEDS: Levothyroxine Sodium 100 MCG TABLET PO (06:30)
[2024-05-26] MEDS: oxyCODONE HCl Immed Release 5 MG TABLET 20 MG PO ×4 (06:43→22:47)
[2024-05-26 07:33] LABS: MANUAL DIFF FLAG NO
[2024-05-26 07:53] LABS: Anion Gap 10 (12-20); Blood Urea Nitrogen 21 mg/dL (9-16); Calcium 8.9 mg/dL (8.4-10.2); Carbon Dioxide 29 mmol/L (22-29); Chloride 109 mmol/L (96-108); Creatinine Clr Calc Pharmacy 58.9; Estimated Glomerular Filt Rate 45; Glucose Random 83 mg/dL (60-115); Potassium 4.8 mmol/L (3.3-5.1); Sodium 143 mmol/L (135-145)
[2024-05-26 07:54] LABS: Basophils Absolute Auto 0.1 X10*3/uL (0.0-0.2); Basophils Percent Auto 0.7 % (0-2); Eosinophils Absolute Auto 0.2 X10*3/uL (0.0-0.4); Eosinophils Percent Auto 2.1 % (0-4); Hematocrit 36.8 % (42.0-52.0); Hemoglobin 12.3 g/dl (14.0-18.0); Imm Gran Abs Auto 0.07 X10*3/uL (0.00-0.03); Imm Gran Pct Auto 0.9 % (0.0-0.4); Lymphocytes Absolute Auto 2.2 X10*3/uL (1.2-4.9); Lymphocytes Percent Auto 28.8 % (20-40); Mean Corpuscular HGB Conc 33.4 g/dl (31.0-36.0); Mean Corpuscular Hemoglobin 33.2 pg (27.0-33.0); Mean Corpuscular Volume 99.2 fL (80.0-98.0); Mean Platelet Volume 8.8 fL (9.4-12.4); Monocytes Absolute Auto 0.7 X10*3/uL (0.1-1.2); Neutrophils Absolute Auto 4.5 x10*3/uL (2.0-8.3); Neutrophils Percent Auto 58.5 % (45-73); Platelet Count 293 X10*3/uL (160-400); Red Blood Count 3.71 X10*6/uL (4.60-5.80); Red Cell Distribution Width 13.1 % (11.0-16.0); White Blood Count 7.6 X10*3/uL (4.8-10.8)
[2024-05-26] MEDS: Amiodarone HCL 200 MG TABLET PO (08:38)
[2024-05-26] MEDS: Apixaban 5 MG TABLET PO ×2 (08:38→20:22)
[2024-05-26] MEDS: Atorvastatin Calcium 20 MG TABLET PO (08:38)
[2024-05-26] MEDS: 0.9 % Sodium Chloride Flush 3 ML SYRINGE IVFLUSH (08:40)
--- NOTE | 2024-05-26 09:03 | MHC.CM.PN ---
IMM 05/26/24, EMR REVIEWED, CM MET W/PT WHO REPORTS HE STILL LIVES ALONE, IS INDEP W/CARE AND HAS A CANE/GRAB BARS IN SHOWER/A BEDSIDE RAIL/TOILET RISER AND NO HOME SERVICES, PT DOES REPORT HE CAN HAVE A [facility] NURSE COME SEE HIM WHENEVER HE NEEDS, GOAL FOR DC IS HOME. CM DID ENCOURAGE PT TO LET CM ASSIST W/NEW PCP APPT HOWEVER PT BECAME IRRITABLE AND CLAIMS HE HAS ONE IN MIND, WHEN CM ASKED NAME PT REPORTS HE WANTS THAT HIP THING (HIPPA) AND REFUSED TO GIVE CM A NAME, PT AWARE CM WILL NOT BE ABLE TO SET UP ANY VNA SERVICES ON DC W/NO PCP AND PT REPEATED HE WANTED HIPPA AND THAT HE WOULD CONTACT [facility] TO ARRANGE A NURSE TO VISIT HIM AT HOME. HCP ON FILE FROM PREVIOUS ADMIT.
[2024-05-26] MEDS: Lactated Ringers 1,000 ML 80 ML IVCONT ×2 (10:41→20:23)
[2024-05-26 10:59] LABS: Thyroid Stimulating Hormone 1.13 uIU/mL (0.32-4.0)
--- NOTE | 2024-05-26 11:58 | P.CONCA_ITS ---
History of Present Illness History of Present Illness Date of Service: 05/26/24 Chief complaint: Dizziness Narrative: This is a cardiology consultation regarding question of pauses on telemetry. He has been seen as an inpatient by Dr. Gomez and . In the clinic, he has been seen by our nurse practitioner recently. Per documentation, he has a history of paroxysmal atrial fibrillation and is maintained on amiodarone and Eliquis. The current time, he is admitted mainly because of not generally feeling well, hypotension, presyncope and LAW. He is being rehydrated. There is also question of spider bite and unclear if that is leading to the current presentation. Any case, it was felt by the hospitalist that there would pauses on telemetry and hence we are asked to see him. Patient himself denies any cardiac symptoms at this time. He states he just does not feel well overall but nothing clear-cut cardiac like angina. Otherwise, he states he takes all his medications regularly. Review of Systems 2 Review of Systems: Yes all other systems are reviewed and are negative Constitutional: Constitutional: Reports as per HPI and Reports no additional constitutional complaints Eyes: Eyes: Reports as per HPI and Denies no additional eye complaints ENT: Denies system reviewed and no additional complaints, except as documented and Reports as per HPI Cardiovascular: Cardiovascular: Reports as per HPI, Reports no additional cardiovascular complaints, Denies acrocyanosis, Denies cool extremities, Denies chest pain, Denies leg edema, Denies lightheadedness, Denies palpitations and Denies dyspnea Respiratory: Respiratory: Reports as per HPI, Denies no additional respiratory complaints and Denies dyspnea Gastrointestinal: Gastrointestinal: Reports as per HPI and Denies no additional gastrointestinal complaints Genitourinary: Genitourinary: Reports no additional male genitourinary complaints and Reports as per HPI Musculoskeletal: Musculoskeletal: Reports no additional musculoskeletal complaints and Reports as per HPI Integumentary/Breasts: Skin/Breast: Reports system reviewed and no additional complaints, except as docu Neurologic: Reports system reviewed and no additional complaints, except as documented and Reports as per HPI Psychiatric: Psychiatric: Reports no additional psychiatric complaints and Reports as per HPI Endocrine: Endocrine: Reports no additional endocrine complaints, Reports as per HPI and Denies palpitations Hematologic/Lymphatic: Hematologic/Lymphatic: Reports no additional hematologic/lymphatic complaints and Reports as per HPI Allergic/Immunologic: Allergic/Immunologic: Reports no additional allergic/immunologic complaints and Reports as per [facility] Past Medical History Medical History (Updated 05/26/24 @ 12:02 by Nazario Patton MD) Paroxysmal atrial fibrillation Hypertension CVA (cerebral vascular accident) Anxiety disorder Symptomatic bradycardia Hypertensive urgency Encounter for prostate cancer screening Family History Pertinent family history: No pertinent family history Social History Social History Household Members: None Housing: Apartment Do you presently have visiting nurse or other home services: No Alcohol intake: current Alcohol intake frequency: a few times a month Alcohol type: beer Patient Tobacco Use Status: Current everyday Tobacco user Tobacco use type: Cigarette Cigarettes Per Day: 3 Years Smoked: 20 e-Cigarette/Vaping Use: Never Used Second Hand Smoke Exposure: Yes Advance Directives Date on File: 01/02/23 service: No Current occupational status: disabled Meds Allergies Allergy/AdvReac Type Severity Reaction Status Date / Time aspirin [ASA] Allergy Unknown BLEEDING Verified 05/25/24 14:48 ULCERS, stomach upset NSAIDS (Non-Steroidal Allergy Unknown BLEEDING Verified 05/25/24 13:52 Anti-Inflamma ULCERS [NSAIDS (NON-STEROIDAL ANTI-INFLAMMA] Active Medications: Current Medications Acetaminophen (Acetaminophen 325 Mg Tablet) 650 mg PO Q6H PRN PRN Reason: Pain, Mild (Pain Scale 1-3), fever or headache Albuterol Sulfate (Albuterol Sulfate 90 Mcg 8 Gm Inhaler) 2 puff INHALE Q4H PRN PRN Reason: Dyspnea Amiodarone HCl (Amiodarone Hcl 200 Mg Tablet) 200 mg PO DAILY [facility] Last Admin: 05/26/24 08:38 Dose: 200 mg Apixaban (Apixaban 5 Mg Tablet) 5 mg PO BID [facility] Last Admin: 05/26/24 08:38 Dose: 5 mg Atorvastatin Calcium (Atorvastatin Calcium 20 Mg Tablet) 20 mg PO DAILY [facility] Last Admin: 05/26/24 08:38 Dose: 20 mg Calcium Carbonate (Calcium Carbonate 750 Mg Tab.Chew) 750 mg PO Q4H PRN PRN Reason: Heartburn Clonazepam (Clonazepam 1 Mg Tablet) 1 mg PO TID PRN PRN Reason: Anxiety Last Admin: 05/25/24 20:58 Dose: 1 mg Lactated Ringer's (Lr) 1,000 mls @ 80 mls/hr IVCONT .[id number] [facility] Last Admin: 05/26/24 10:41 Dose: 80 mls/hr Levothyroxine Sodium (Levothyroxine Sodium 100 Mcg Tablet) 100 mcg PO DAILY@0600 [facility] Last Admin: 05/26/24 06:30 Dose: 100 mcg Magnesium Hydroxide (Milk Of Magnesia 30 Ml Oral.Susp) 30 ml PO DAILY PRN PRN Reason: Constipation Melatonin (Melatonin 3 Mg Tablet) 6 mg PO BEDTIME PRN PRN Reason: Insomnia Last Admin: 05/25/24 20:58 Dose: 6 mg Ondansetron HCl (Ondansetron Hcl 4 Mg/2 Ml Vial) 4 mg IVPUSH Q8H PRN PRN Reason: Nausea and Vomiting Oxycodone HCl (Oxycodone Hcl Immed Release 5 Mg Tablet) 20 mg PO QID PRN PRN Reason: Pain, Moderate(Pain Scale 4-6) Last Admin: 05/26/24 06:43 Dose: 20 mg Sodium Chloride (0.9 % Sodium Chloride Flush 3 Ml Syringe) 3 ml IVFLUSH QSHIFT [facility] Last Admin: 05/26/24 08:40 Dose: 3 ml Home Medications ?Medication ?Instructions ?Recorded ?Confirmed ?Last Taken ?Type albuterol sulfate 90 mcg/actuation 2 puff PO Q4H PRN Dyspnea 12/18/21 05/25/24 05/25/24 History aerosol inhaler atorvastatin 20 mg tablet 20 mg PO DAILY 12/18/21 05/25/24 05/25/24 History clonazepam 1 mg tablet 1 mg PO TID 12/18/21 05/25/24 05/25/24 History oxycodone 20 mg tablet 20 mg PO QID 12/18/21 05/25/24 05/25/24 History apixaban 5 mg tablet (Eliquis) 5 mg PO BID 12/28/22 05/25/24 05/25/24 History lisinopril 20 mg tablet 20 mg PO DAILY 12/28/22 05/25/24 05/25/24 History levothyroxine 100 mcg tablet 100 mcg PO DAILY@0600 07/31/23 05/25/24 05/25/24 History amlodipine 5 mg tablet 10 mg PO DAILY 05/18/24 05/25/24 05/25/24 History amiodarone 200 mg tablet 200 mg PO DAILY 05/25/24 05/25/24 05/25/24 History venlafaxine 75 mg capsule,extended 75 mg PO BID 05/25/24 Unknown History release 24 hr Physical Exam 2 Vital Signs: Vital Signs: Last Vital Signs Temp 97.4 F 05/26/24 08:42 Pulse 65 05/26/24 08:42 Resp 19 05/26/24 08:42 BP 145/74 H 05/26/24 08:42 Pulse Ox 97 05/26/24 08:42 O2 Del Method Room Air 05/26/24 08:42 BMI result Body Mass Index 27.7 Const: General: comfortable and no acute distress O rientation/consciousness: patient oriented x3 HEENT: Other: Unremarkable Head: Yes normal to inspection Neck: Neck: Yes normal visual inspection Chest: Chest palpation & inspection: normal inspection of the chest Resp: Auscultation: clear to auscultation bilaterally Cardio: Palpation: normal PMI Heart sounds: S1 normal heart sound present, S2 normal heart sound present, no gallops, no murmurs and no rubs GI: Palpation (GI): Soft to palpation Back/Spine/Pelvis: Other: unremarkable Skin: General skin exam: no rashes or lesions noted Neuro: General: patient oriented x3 Extrem: General: Yes normal to inspection Psych: Mental Status: mental status grossly normal Objective Labs and Meds 05/26/24 05:57 05/26/24 05:57 Lab results: Laboratory Results - last 24 hr 05/25/24 05/25/24 05/25/24 15:52 15:52 15:52 WBC 8.3 RBC 3.54 L Hgb 11.9 L Hct 34.3 L MCV 96.9 MCH 33.6 H MCHC 34.7 RDW 12.8 Plt Count 254 MPV 8.3 L Immature Gran % (Auto) 0.8 H Neut % (Auto) 70.6 Lymph % (Auto) 19.6 L [place] % (Auto) 7.0 Eos % (Auto) 1.3 Baso % (Auto) 0.7 Lymph # (Auto) 1.6 [place] # (Auto) 0.6 Eos # (Auto) 0.1 Baso # (Auto) 0.1 Abs Immat Gran (auto) 0.07 H Absolute Neuts (auto) 5.9 Absolute Nucleated RBC 0.000 Nucleated RBC % (auto) 0.0 Sodium 141 Potassium 4.1 Chloride 109 H Carbon Dioxide 22 Anion Gap 14 BUN 19 H Creatinine 1.62 H Cancelled Estim Creat Clear Calc 57.0 Cancelled Estimated GFR 44 Random Glucose Calcium Magnesium Total Bilirubin Direct Bilirubin AST ALT Alkaline Phosphatase Total Protein Albumin TSH Ethyl Alcohol 05/25/24 05/25/24 05/26/24 15:52 18:19 05:57 WBC 7.6 RBC 3.71 L Hgb 12.3 L Hct 36.8 L MCV 99.2 H MCH 33.2 H MCHC 33.4 RDW 13.1 Plt Count 293 MPV 8.8 L Immature Gran % (Auto) 0.9 H Neut % (Auto) 58.5 Lymph % (Auto) 28.8 [place] % (Auto) 9.0 Eos % (Auto) 2.1 Baso % (Auto) 0.7 Lymph # (Auto) 2.2 [place] # (Auto) 0.7 Eos # (Auto) 0.2 Baso # (Auto) 0.1 Abs Immat Gran (auto) 0.07 H Absolute Neuts (auto) 4.5 Absolute Nucleated RBC 0.000 Nucleated RBC % (auto) 0.0 Sodium 141 143 Potassium 4.6 4.8 Chloride 110 H 109 H Carbon Dioxide 24 29 Anion Gap 12 10 L BUN 19 H 21 H Creatinine 1.53 H 1.57 H Estim Creat Clear Calc 60.4 58.9 Estimated GFR Cancelled 47 45 Random Glucose 85 91 83 Calcium 8.5 8.5 8.9 Magnesium 2.2 Total Bilirubin 0.3 Direct Bilirubin 0.1 AST 30 ALT 22 Alkaline Phosphatase 73 Total Protein 6.6 Albumin 3.7 TSH 1.13 Ethyl Alcohol < 10 ECG Interpretation: Admission EKG suggestive of atrial flutter with a ventricular rate of 78/Min; incomplete left bundle-branch pattern. Corrected QT slightly prolonged which could also be related to the widened QRS. Currently on telemetry he is in sinus rhythm. There are no clear-cut pauses but rather blocked PACs. Assessment and Plan (1) Paroxysmal atrial fibrillation: Status: Acute (2) Hypotension: Qualifiers: Hypotension type: unspecified hypotension type Qualified Code(s): I95.9 - Hypotension, unspecified Status: Acute (3) Dizziness: Status: Acute (4) Acute dehydration: Status: Acute (5) LAW (acute kidney injury): Status: Acute Plan Initial EKG showed atrial flutter with controlled rate but currently he is in sinus rhythm. There is no clear-cut pauses but rather blocked PACs which gives the appearance of pauses. Echocardiogram from March shows LVEF of 55-60%. Atrium mildly dilated. Otherwise, unremarkable. Exercise stress echocardiogram from March shows no evidence of ischemia at the attained workload of 7.7 Mets and 70% max predicted heart rate. There was hypertensive blood pressure response. Suboptimal heart rate response could be because of the medications. Agree with the current management plan regarding hydration. No clear pauses of concern. With regard to atrial fibrillation itself, ideally should not be on long-term amiodarone considering his age. Any case, in spite of it it seems he was in atrial flutter in the initial EKG. Probably consider ablation as an outpatient and I did bring it up today although he seems quite anxious about that. Remains on anticoagulation otherwise. Supportive care. Will follow with you. Procedures Date of Service Date of Service: 05/26/24
[2024-05-26] MEDS: clonazePAM 1 MG TABLET PO ×2 (14:02→22:47)
--- NOTE | 2024-05-26 15:05 | HO.PM.IMPN ---
Subjective Subjective Date of Service: 05/26/24 Interval History: law, presyncope Review of Systems feels generalised weak no fever or chills Physical Exam Vital Signs: Vital Signs: Last Vital Signs Temp 97.8 F 05/26/24 12:00 Pulse 60 05/26/24 12:00 Resp 20 05/26/24 12:00 BP 106/65 05/26/24 12:00 Pulse Ox 100 05/26/24 12:00 O2 Del Method Room Air 05/26/24 12:00 BMI result Body Mass Index 27.7 Appearance: Alert.? Oriented X3.? cvs: rrr, [id number] . res: clear to auscultation ,no rhonchii or wheezing abd: no rebound or guarding ,nt, bs present. ext pulses present , no cyanosis . neuro: axo3 , nonfocal. Our plan Objective Data Active Medications Acetaminophen (Acetaminophen 325 Mg Tablet) 650 mg PO Q6H PRN PRN Reason: Pain, Mild (Pain Scale 1-3), fever or headache Albuterol Sulfate (Albuterol Sulfate 90 Mcg 8 Gm Inhaler) 2 puff INHALE Q4H PRN PRN Reason: Dyspnea Amiodarone HCl (Amiodarone Hcl 200 Mg Tablet) 200 mg PO DAILY [facility] Last Admin: 05/26/24 08:38 Dose: 200 mg Documented By: QUINN Apixaban (Apixaban 5 Mg Tablet) 5 mg PO BID [facility] Last Admin: 05/26/24 08:38 Dose: 5 mg Documented By: QUINN Atorvastatin Calcium (Atorvastatin Calcium 20 Mg Tablet) 20 mg PO DAILY [facility] Last Admin: 05/26/24 08:38 Dose: 20 mg Documented By: QUINN Calcium Carbonate (Calcium Carbonate 750 Mg Tab.Chew) 750 mg PO Q4H PRN PRN Reason: Heartburn Clonazepam (Clonazepam 1 Mg Tablet) 1 mg PO TID PRN PRN Reason: Anxiety Last Admin: 05/26/24 14:02 Dose: 1 mg Documented By: QUNIN Lactated Ringer's (Lr) 1,000 mls @ 80 mls/hr IVCONT .[id number] [facility] [place] Last Admin: 05/26/24 10:41 Dose: 80 mls/hr Documented By: QUINN Levothyroxine Sodium (Levothyroxine Sodium 100 Mcg Tablet) 100 mcg PO DAILY@0600 [facility] Last Admin: 05/26/24 06:30 Dose: 100 mcg Documented By: RAY Magnesium Hydroxide (Milk Of Magnesia 30 Ml Oral.Susp) 30 ml PO DAILY PRN PRN Reason: Constipation Melatonin (Melatonin 3 Mg Tablet) 6 mg PO BEDTIME PRN PRN Reason: Insomnia Last Admin: 05/25/24 20:58 Dose: 6 mg Documented By: CANDIDA Ondansetron HCl (Ondansetron Hcl 4 Mg/2 Ml Vial) 4 mg IVPUSH Q8H PRN PRN Reason: Nausea and Vomiting Oxycodone HCl (Oxycodone Hcl Immed Release 5 Mg Tablet) 20 mg PO QID PRN PRN Reason: Pain, Moderate(Pain Scale 4-6) Last Admin: 05/26/24 14:01 Dose: 20 mg Documented By: QUINN Sodium Chloride (0.9 % Sodium Chloride Flush 3 Ml Syringe) 3 ml IVFLUSH QSHIFT [facility] Last Admin: 05/26/24 08:40 Dose: 3 ml Documented By: QUINN Labs 05/26/24 05:57 05/26/24 05:57 Labs: Laboratory Results - last 24 hr 05/25/24 05/25/24 05/25/24 15:52 15:52 15:52 MCV 96.9 MCH 33.6 H MCHC 34.7 RDW 12.8 Plt Count 254 MPV 8.3 L Immature Gran % (Auto) 0.8 H Neut % (Auto) 70.6 Lymph % (Auto) 19.6 L [place] % (Auto) 7.0 Eos % (Auto) 1.3 Baso % (Auto) 0.7 Lymph # (Auto) 1.6 [place] # (Auto) 0.6 Eos # (Auto) 0.1 Baso # (Auto) 0.1 Abs Immat Gran (auto) 0.07 H Absolute Neuts (auto) 5.9 Absolute Nucleated RBC 0.000 Nucleated RBC % (auto) 0.0 Anion Gap 14 Estim Creat Clear Calc 57.0 Cancelled Estimated GFR 44 Cancelled Random Glucose 85 Calcium 8.5 Magnesium 2.2 Total Bilirubin 0.3 Direct Bilirubin 0.1 AST 30 ALT 22 Alkaline Phosphatase 73 Total Protein 6.6 Albumin 3.7 TSH Ethyl Alcohol < 10 05/25/24 05/26/24 18:19 05:57 MCV 99.2 H MCH 33.2 H MCHC 33.4 RDW 13.1 Plt Count 293 MPV 8.8 L Immature Gran % (Auto) 0.9 H Neut % (Auto) 58.5 Lymph % (Auto) 28.8 [place] % (Auto) 9.0 Eos % (Auto) 2.1 Baso % (Auto) 0.7 Lymph # (Auto) 2.2 [place] # (Auto) 0.7 Eos # (Auto) 0.2 Baso # (Auto) 0.1 Abs Immat Gran (auto) 0.07 H Absolute Neuts (auto) 4.5 Absolute Nucleated RBC 0.000 Nucleated RBC % (auto) 0.0 Anion Gap 12 10 L Estim Creat Clear Calc 60.4 58.9 Estimated GFR 47 45 Random Glucose 91 83 Calcium 8.5 8.9 Magnesium Total Bilirubin Direct Bilirubin AST ALT Alkaline Phosphatase Total Protein Albumin TSH 1.13 Ethyl Alcohol Assessment and Plan (1) LAW (acute kidney injury): Status: Acute (2) Acute dehydration: Status: Acute (3) Dizziness: Status: Acute Plan 58-year-old male with a PMH significant for persistent AFib on Eliquis,?HTN, COPD, hypothyroidism, chronic back pain, severe anxiety, and panic disorder who presents to the ED from urgent care for evaluation of presyncope and hypotension. Pt will be admitted to the hospital for treatment and further evaluation of presyncope, hypotension, and LAW in the setting of dehydration. LAW baseline cr 1.10 Secondary to dehydration: pt has been working outside, sweating, w/ reduced p.o. intake plan: ivf Lr @80 ml/hr ,Encourage p.o. intake Hold lisinopril,Follow kidney function Presyncope/hypotension : possible dehydration/law also has bradycardia , 2 sec pause Orthostatics negative in the ED, no electrolyte abnormalities plan: check tsh Treat as above with IVF Monitor on telemetry,cardiology eval HTN Hold anti-hypertensives for now due to soft BP Hold lisinopril due to LAW Resume as indicated Persistent AFib Continue Eliquis, amiodarone HLD Continue statin Chronic lower back pain Continue home oxycodone Hypothyroidism Continue levothyroxine Mood disorder Continue clonazepam Full Code DVT Prophylaxis: On Eliquis ongoing hospitalization of at least two nights for treatment of?presyncope, and LAW in setting of dehydration -need IVF and close monitoring of vitals and kidney function, tele monitering ,cardiology eval. Quality Stroke Does the patient have a stroke diagnosis?: No VTE Prior VTE?: No VTE Risk Level:: Medical - moderate - high VTE Device Contraindication: Treatment Not Indicated VTE Drug Contraindication: N/A - Med Ordered
[2024-05-26] MEDS: Melatonin 3 MG TABLET 6 MG PO (22:47)
[2024-05-27] VITALS (7 sets, daily range): BP systolic 131–153; BP diastolic 68–83; PULSE 51–57; RESP 16–20; TEMP 36.1–36.8; O2SAT 94–99
[2024-05-27] MEDS: oxyCODONE HCl Immed Release 5 MG TABLET 20 MG PO ×3 (06:38→19:11)
[2024-05-27] MEDS: Levothyroxine Sodium 100 MCG TABLET PO (06:38)
[2024-05-27] MEDS: Lactated Ringers 1,000 ML 80 ML IVCONT ×2 (08:28→20:13)
[2024-05-27] MEDS: Docusate Sodium 100 MG CAPSULE PO (08:31)
[2024-05-27] MEDS: polyethylene glycoL 3350 17 GM POWD.PACK PO (08:31)
[2024-05-27] MEDS: Atorvastatin Calcium 20 MG TABLET PO (08:31)
[2024-05-27] MEDS: Amiodarone HCL 200 MG TABLET PO (08:31)
[2024-05-27] MEDS: 0.9 % Sodium Chloride Flush 3 ML SYRINGE IVFLUSH ×2 (08:31→18:09)
[2024-05-27] MEDS: Apixaban 5 MG TABLET PO ×2 (08:31→20:11)
[2024-05-27 09:07] LABS: Anion Gap 12 (12-20); Blood Urea Nitrogen 22 mg/dL (9-16); Carbon Dioxide 27 mmol/L (22-29); Chloride 106 mmol/L (96-108); Creatinine Clr Calc Pharmacy 68.5; Estimated Glomerular Filt Rate 54; Glucose Random 101 mg/dL (60-115); Potassium 4.5 mmol/L (3.3-5.1); Sodium 140 mmol/L (135-145)
--- NOTE | 2024-05-27 10:28 | PM.PNCARD ---
Subjective Subjective Date of Service: 05/27/24 Interval history: He states he is feeling fine. He states that he is much better than when he got admitted. Review of Systems Review of Systems Yes all other systems are reviewed and are negative Constitutional: Reports as per HPI and Reports no additional constitutional complaints Eyes: Reports as per HPI and Denies no additional eye complaints Denies system reviewed and no additional complaints, except as documented and Reports as per HPI Cardiovascular: Reports as per HPI, Reports no additional cardiovascular complaints, Denies acrocyanosis, Denies cool extremities, Denies chest pain, Denies leg edema, Denies lightheadedness, Denies palpitations and Denies dyspnea Respiratory: Reports as per HPI, Denies no additional respiratory complaints and Denies dyspnea Gastrointestinal: Reports as per HPI and Denies no additional gastrointestinal complaints Genitourinary: Reports no additional male genitourinary complaints and Reports as per HPI Musculoskeletal: Reports no additional musculoskeletal complaints and Reports as per HPI Skin/Breast: Reports system reviewed and no additional complaints, except as docu Reports system reviewed and no additional complaints, except as documented and Reports as per HPI Psychiatric: Reports no additional psychiatric complaints and Reports as per HPI Endocrine: Reports no additional endocrine complaints, Reports as per HPI and Denies palpitations Hematologic/Lymphatic: Reports no additional hematologic/lymphatic complaints and Reports as per HPI Allergic/Immunologic: Reports no additional allergic/immunologic complaints and Reports as per HPI Physical Exam Vital Signs: Last Vital Signs Temp 97.7 F 05/27/24 08:00 Pulse 53 05/27/24 08:00 Resp 18 05/27/24 08:00 BP 134/74 05/27/24 08:00 Pulse Ox 94 05/27/24 08:00 O2 Del Method Room Air 05/27/24 08:00 BMI result Body Mass Index 27.7 Const General: comfortable and no acute distress Orientation/consciousness: patient oriented x3 HEENT Other: Unremarkable Head: Yes normal to inspection Neck Neck: Yes normal visual inspection Chest Chest palpation & inspection: normal inspection of the chest Resp Auscultation: clear to auscultation bilaterally Cardio Palpation: normal PMI Heart sounds: S1 normal heart sound present, S2 normal heart sound present, no gallops, no murmurs and no rubs GI Palpation (GI): Soft to palpation Back/Spine/Pelvis Other: unremarkable Skin General skin exam: no rashes or lesions noted Neuro General: patient oriented x3 Extrem General: Yes normal to inspection Psych Mental Status: mental status grossly normal Objective Labs and Meds 05/26/24 05:57 05/27/24 08:29 Lab results: Laboratory Results - last 24 hr 05/26/24 05/27/24 05:57 08:29 Sodium 140 Potassium 4.5 Chloride 106 Carbon Dioxide 27 Anion Gap 12 BUN 22 H Creatinine 1.35 Estim Creat Clear Calc 68.5 Estimated GFR 54 Random Glucose 101 Calcium 9.0 TSH 1.13 Progress Note: A&P Assessment and plan (1) Paroxysmal atrial fibrillation: Status: Acute (2) Hypotension: Status: Acute (3) Dizziness: Status: Acute (4) Acute dehydration: Status: Acute (5) LAW (acute kidney injury): Status: Acute Plan Initial EKG showed atrial flutter with controlled rate but currently he is in sinus rhythm. There is no clear-cut pauses but rather blocked PACs which gives the appearance of pauses. Echocardiogram from March shows LVEF of 55-60%. Atrium mildly dilated. Otherwise, unremarkable. Exercise stress echocardiogram from March shows no evidence of ischemia at the attained workload of 7.7 Mets and 70% max predicted heart rate. There was hypertensive blood pressure response. Suboptimal heart rate response could be because of the medications. Agree with the current management plan regarding hydration. No clear pauses of concern. With regard to atrial fibrillation issue, he is not a candidate for long-term amiodarone due to age. Will need to consider ablation as an outpatient. Will follow in clinic. Discussed with Dr. Sutton. Time Spent With Patient Time: Total time managing care of this patient today ____ minutes. Progress Note: Quality Stroke Does the patient have a stroke diagnosis?: No Procedures Date of Service Date of Service: 05/27/24
--- NOTE | 2024-05-27 12:59 | MHC.CM.PN ---
Pt is medically cleared for discharge home self-care, pt has arranged his own transport home.
--- NOTE | 2024-05-27 13:12 | PM.DS ---
DS: Providers Provider Date of Service: 05/28/24 Date of admission: 05/25/24 19:08 Date of discharge: 05/28/24 Primary care physician: Jody Physician Admitting clinician: Tootie Soto Attending physician on admission: Tootie Soto Consults: 05/26/24 09:47 Consult to Cardiology Routine Consulting Provider: [facility] Reason for consultation: Bradycardia with pauses Has provider been notified: No Attending physician on discharge: Francisco Sutton Discharging clinician: Francisco Sutton DS: Diagnosis Discharge Diagnosis (1) Paroxysmal atrial fibrillation: Status: Acute (2) Hypotension: Status: Acute (3) Dizziness: Status: Acute (4) Acute dehydration: Status: Acute (5) LAW (acute kidney injury): Status: Acute DS: Summary Hospital Course Hospital Course: date of service and discharge : 05/28/24, yesterday unable to go because still synptomatic. 58-year-old male with a PMH significant for persistent AFib on Eliquis,?HTN, COPD, hypothyroidism, chronic back pain, severe anxiety, and panic disorder who presents to the ED from urgent care for evaluation of presyncope and hypotension. Patient reports he was outside wokring on his hands and knees digging up shrubs when he stood up and felt lightheaded and dizzy. Ate something without improvement. Had noticed two ibarra on his lower leg yesterday that he thought came from a spider bite, even though he never saw a spider. Thought this might be contributory to his condition so initially presented to urgent care where he was noted to have a BP in the 70s over 40s. EMS was called who administered 1L IVF and brought him to the ED for further evaluation. Patient states he feels ?terrible? and ?weak?. Reports has not been drinking much fluids although has been working outside and sweating a lot the past few days. No fever, chills, N/V/D, or abd pain. Reports he is feeling quite anxious and has chest tightness he attributes to his anxiety. No SOB. Pt currently smoke 4-5 packs of cigarettes weekly. ? In the ED pt was tachycardic up to 111 and hypotensive as low as 78/48. Labs were significant for creatinine 1.62 (baseline 1.10), otherwise unremarkable. No leukocytosis. Stable normocytic anemia of 11.9/34.3. No significant electrolyte abnormalities. Hepatic function WNL. EKG demonstrated atrial fibrillation with QTc of 508 with incomplete LBBB with no evidence of acute ischemia. Pt was treated with 2L IVF and mag sulfate. Pt will be admitted to the hospital for treatment and further evaluation of orthostatic presyncope, hypotension, and ALW in the setting of dehydration. Hospital course: Patient came to the hospital presyncope, hypotension, and LAW in the setting of dehydration: Patient blood pressure medications placed on hold including lisinopril and amlodipine and given IV hydration: Patient blood pressure seems to be improved, LAW also improved. Incidental finding: Pt with two small superficial circular lesions on anterior aspect of left diallo-Pt thinks to spider bite though never saw spider- Patient leg area seems to be improving, no pain ,no fever ,no erythema.follow-up with PCP for further management. Patient was strongly advised to hold lisinopril until BMP repeated with PCP outpatient. continue amlodipine back 5 mg daily( patient was prescribed amlodipine last admission seems like have not started taking yet.), monitor blood pressure and Further management outpatient PCP. Patient was also strongly advised to hydrate. Plan: continue amlodipine back 5 mg daily. Incidental finding: Pt with two small superficial circular lesions on anterior aspect of left diallo-Pt thinks to spider bite though never saw spider- Patient leg area seems to be improving, no pain ,no fever ,no erythema.follow-up with PCP for further management. bmp in 1 week. if renal function allows then lisinopril can be started for htn outpatient. Above management discussed with the patient detail length he understand and in agreement with the plan, time spent 40 minute. Time Attestation Total time managing care of this patient today: 40 mintues. Discharge Coordination Time (in mins): 40 min Quality: Safe Use of Opioids Does Pt have an Active Cancer Diagnosis on the Problem List?: No Quality: Stroke Does the patient have a stroke diagnosis?: No Physical Exam Vital Signs: Vital Signs: Last Vital Signs Temp 97.0 F 05/27/24 11:50 Pulse 55 05/27/24 11:50 Resp 18 05/27/24 11:50 BP 133/68 05/27/24 11:50 Pulse Ox 99 05/27/24 11:50 O2 Del Method Room Air 05/27/24 11:50 BMI result Body Mass Index 27.7 vitals reviewed on 05/28/24 -seems fine Appearance: Alert.? Oriented X3.? not in distress.? Eyes: Pupils equal, round and reactive to light.? Sclera nonicteric.? ENT: Pharynx normal.? Moist mucous membranes. cvs: rrr, [id number]. res: clear to auscultation ,no rhonchii or wheezing abd: no rebound or guarding ,nt, bs present. ext pulses present , no cyanosis . neuro: axo3 , nonfocal. DS: Data Data Completed and Pending Labs on day of discharge: Laboratory Results - last 24 hr 05/27/24 08:29 Sodium 140 Potassium 4.5 Chloride 106 Carbon Dioxide 27 Anion Gap 12 BUN 22 H Creatinine 1.35 Estim Creat Clear Calc 68.5 Estimated GFR 54 Random Glucose 101 Calcium 9.0 Discharge Plan Discharge Anticipated Discharge Date/Time: 05/27/24 12:51 Patient Disposition: Home, Self-Care Discharge Diagnosis: Hypotension/dizziness secondary to LAW. Referrals: Physician,None [Primary Care Provider] - 1 Week Discharge Medications: New polyethylene glycol 3350 17 gram Powder In Packet 17 g PO DAILY Qty: 30 0RF docusate sodium 100 mg Capsule 100 mg PO BID PRN (Reason: Constipation) Qty: 30 0RF Continued venlafaxine 75 mg capsule,extended release 24hr 75 mg PO BID amiodarone 200 mg tablet 200 mg PO DAILY Eliquis 5 mg tablet 5 mg PO BID oxycodone 20 mg tablet 20 mg PO QID clonazepam 1 mg tablet 1 mg PO TID atorvastatin 20 mg tablet 20 mg PO DAILY albuterol sulfate 90 mcg/actuation HFA aerosol inhaler 2 puff PO Q4H PRN (Reason: Dyspnea) levothyroxine 100 mcg tablet 100 mcg PO DAILY@0600 pentoxifylline 400 mg tablet extended release 400 mg PO BID Qty: 180 2RF Rx Instructions: must administer with a meal/food Changed amlodipine 5 mg tablet 5 mg PO DAILY Qty: 90 0RF Protocol: Hold for SBP< HOLD for SBP < : 90 Held lisinopril 20 mg tablet 20 mg PO DAILY Hold Instructions: Resume on 06/03/24. Discharge Orders: Discharge Order (Routine); Ordered 05/28/24 Ordered By: Francisco Sutton Diet: Advance to usual diet Activity on Discharge: As tolerated Stand Alone Forms: Patient Portal Discharge page Print Language: Japanese Care Plan Goals: Patient came to the hospital presyncope, hypotension, and LAW in the setting of dehydration: Patient blood pressure medications placed on hold including lisinopril and amlodipine and given IV hydration: Patient blood pressure seems to be improved, LAW also improved.. Incidental finding: Pt with two small superficial circular lesions on anterior aspect of left diallo-Pt thinks to spider bite though never saw spider: Patient leg area seems to be improving, no pain ,no fever ,no erythema.follow-up with PCP for further management. Patient was strongly advised to hold lisinopril until BMP repeated with PCP outpatient. continue amlodipine back 5 mg daily, monitor blood pressure and Further management outpatient PCP. Patient was also strongly advised to hydrate. Health Concerns: As above. Plan of Treatment: As above. Assessment: As above. Patient Instructions: Dehydration (ED), Dizziness (ED) Discharge Date/Time: 05/28/24 12:01
--- NOTE | 2024-05-27 17:43 | P.PNIM_ITS ---
Subjective Subjective Date of Service: 05/27/24 Interval History: dizziness Review of Systems has still dizziness denies any chest pain or sob Physical Exam 2 Vital Signs: Vital Signs: Last Vital Signs Temp 96.9 F 05/27/24 16:00 Pulse 52 05/27/24 16:00 Resp 20 05/27/24 16:00 BP 153/76 H 05/27/24 16:00 Pulse Ox 98 05/27/24 16:00 O2 Del Method Room Air 05/27/24 16:00 BMI result Body Mass Index 27.7 Appearance: Alert.? Oriented X3.? cvs: rrr, [id number] . res: clear to auscultation ,no rhonchii or wheezing abd: no rebound or guarding ,nt, bs present. ext pulses present , no cyanosis . neuro: axo3 , nonfocal. Objective Data Active Medications Acetaminophen (Acetaminophen 325 Mg Tablet) 650 mg PO Q6H PRN PRN Reason: Pain, Mild (Pain Scale 1-3), fever or headache Albuterol Sulfate (Albuterol Sulfate 90 Mcg 8 Gm Inhaler) 2 puff INHALE Q4H PRN PRN Reason: Dyspnea Amiodarone HCl (Amiodarone Hcl 200 Mg Tablet) 200 mg PO DAILY [facility] Last Admin: 05/27/24 08:31 Dose: 200 mg Documented By: YARIEL Apixaban (Apixaban 5 Mg Tablet) 5 mg PO BID [facility] Last Admin: 05/27/24 08:31 Dose: 5 mg Documented By: YARIEL Atorvastatin Calcium (Atorvastatin Calcium 20 Mg Tablet) 20 mg PO DAILY [facility] Last Admin: 05/27/24 08:31 Dose: 20 mg Documented By: YARIEL Calcium Carbonate (Calcium Carbonate 750 Mg Tab.Chew) 750 mg PO Q4H PRN PRN Reason: Heartburn Clonazepam (Clonazepam 1 Mg Tablet) 1 mg PO TID PRN PRN Reason: Anxiety Last Admin: 05/26/24 22:47 Dose: 1 mg Documented By: RAY Docusate Sodium (Docusate Sodium 100 Mg Capsule) 100 mg PO BID PRN PRN Reason: Constipation Last Admin: 05/27/24 08:31 Dose: 100 mg Documented By: YARIEL Lactated Ringer's (Lr) 1,000 mls @ 80 mls/hr IVCONT .[id number] [facility] Last Admin: 05/27/24 08:28 Dose: 80 mls/hr Documented By: YARIEL Levothyroxine Sodium (Levothyroxine Sodium 100 Mcg Tablet) 100 mcg PO DAILY@0600 [facility] Last Admin: 05/27/24 06:38 Dose: 100 mcg Documented By: RAY Magnesium Hydroxide (Milk Of Magnesia 30 Ml Oral.Susp) 30 ml PO DAILY PRN PRN Reason: Constipation Melatonin (Melatonin 3 Mg Tablet) 6 mg PO BEDTIME PRN PRN Reason: Insomnia Last Admin: 05/26/24 22:47 Dose: 6 mg Documented By: RAY Ondansetron HCl (Ondansetron Hcl 4 Mg/2 Ml Vial) 4 mg IVPUSH Q8H PRN PRN Reason: Nausea and Vomiting Oxycodone HCl (Oxycodone Hcl Immed Release 5 Mg Tablet) 20 mg PO QID PRN PRN Reason: Pain, Moderate(Pain Scale 4-6) Last Admin: 05/27/24 13:09 Dose: 20 mg Documented By: YARIEL Polyethylene Glycol (Polyethylene Glycol 3350 17 Gm Powd.Pack) 17 gm PO DAILY [facility] Last Admin: 05/27/24 08:31 Dose: 17 gm Documented By: YARIEL Sodium Chloride (0.9 % Sodium Chloride Flush 3 Ml Syringe) 3 ml IVFLUSH QSHIFT [facility] Last Admin: 05/27/24 08:31 Dose: 3 ml Documented By: YARIEL Labs 05/26/24 05:57 05/27/24 08:29 Labs: Laboratory Results - last 24 hr 05/27/24 08:29 Anion Gap 12 Estim Creat Clear Calc 68.5 Estimated GFR 54 Random Glucose 101 Calcium 9.0 Assessment and Plan (1) LAW (acute kidney injury): Status: Acute (2) Acute dehydration: Status: Acute (3) Dizziness: Status: Acute Plan 58-year-old male with a PMH significant for persistent AFib on Eliquis,?HTN, COPD, hypothyroidism, chronic back pain, severe anxiety, and panic disorder who presents to the ED from urgent care for evaluation of presyncope and hypotension. Pt will be admitted to the hospital for treatment and further evaluation of presyncope, hypotension, and LAW in the setting of dehydration. LAW cr imrpoving 1.38 baseline cr 1.10 Secondary to dehydration: pt has been working outside, sweating, w/ reduced p.o. intake plan: continue ivf Lr ,Encourage p.o. intake Hold lisinopril,Follow kidney function Presyncope/hypotension : possible dehydration/law Orthostatics negative in the ED, no electrolyte abnormalities d/w cardiology-has barbycardia , no pauses , further management outpatient. plan: normal tsh Treat as above with IVF Monitor on telemetry,cardiology eval HTN Hold anti-hypertensives for now due to soft BP Hold lisinopril due to LAW Resume as indicated Persistent AFib Continue Eliquis, amiodarone HLD Continue statin Chronic lower back pain Continue home oxycodone Hypothyroidism Continue levothyroxine Mood disorder Continue clonazepam Full Code DVT Prophylaxis: On Eliquis ongoing hospitalization need for treatment of?presyncope, and LAW in setting of dehydration -need IVF and close monitoring of vitals and kidney function, tele monitering . Quality Stroke Does the patient have a stroke diagnosis?: No VTE Prior VTE?: No VTE Risk Level:: Medical - moderate - high VTE Device Contraindication: Treatment Not Indicated VTE Drug Contraindication: N/A - Med Ordered
[2024-05-27] MEDS: clonazePAM 1 MG TABLET PO (20:10)
[2024-05-27] MEDS: Melatonin 3 MG TABLET 6 MG PO (20:10)
[2024-05-28] MEDS: oxyCODONE HCl Immed Release 5 MG TABLET 20 MG PO ×2 (01:00→08:16)
[2024-05-28 01:18] LABS: Appearance Urine Clear; Color Urine Yellow; Glucose Urine UA Negative (Negative); Leukocyte Esterase Urine Negative (Negative); Nitrite Urine Negative (Negative); PH 6.5 (5.0-9.0); Urine Blood Negative (Negative); Urine Ketones Negative (Negative); Urine Protein Negative (Neg-Trace)
[2024-05-28 02:55] VITALS: BP 139/79; PULSE 61; RESP 20; TEMP 36.7; O2SAT 96
[2024-05-28] MEDS: Levothyroxine Sodium 100 MCG TABLET PO (06:11)
[2024-05-28 07:42] VITALS: BP 141/77; PULSE 54; RESP 18; TEMP 36.5; O2SAT 96
[2024-05-28] MEDS: Apixaban 5 MG TABLET PO (08:15)
[2024-05-28] MEDS: Atorvastatin Calcium 20 MG TABLET PO (08:15)
[2024-05-28] MEDS: polyethylene glycoL 3350 17 GM POWD.PACK PO (08:15)
[2024-05-28] MEDS: Amiodarone HCL 200 MG TABLET PO (08:15)
[2024-05-28] MEDS: 0.9 % Sodium Chloride Flush 3 ML SYRINGE IVFLUSH (08:15)
[2024-05-28 11:39] VITALS: BP 140/79; PULSE 55; RESP 18; TEMP 36.7; O2SAT 96
== END 2024-05-28 12:01 | disposition home or self-care (01) | DRG 641 ==
LOC: HO.ED 19:24 → HO.EDOVER 19:38 → HO.IMC 21:03
PROVIDERS: Emergency Medicine; Admitting Provider Student in an Organized Health Care Education/Training Program; Emergency Provider Emergency Medicine; Visit Provider Internal Medicine
DX: E86.0 Dehydration (principal); N17.9 Acute kidney failure, unspecified; I48.19 Other persistent atrial fibrillation; I10 Essential (primary) hypertension; E03.9 Hypothyroidism, unspecified; I49.1 Atrial premature depolarization; M54.50 Low back pain, unspecified; D64.9 Anemia, unspecified; G89.29 Other chronic pain; F17.210 Nicotine dependence, cigarettes, uncomplicated; Z91.148 Patient's other noncompliance with medication regimen for other reason; Z71.6 Tobacco abuse counseling; Z79.01 Long term (current) use of anticoagulants; Z79.890 Hormone replacement therapy; Z79.899 Other long term (current) drug therapy
CPT/HCPCS: 36415; 80048; 80076; 80307; 81003; 83735; 84443; 85025; 93005; 99285; J3475; J7120

== ENCOUNTER → 2024-05-25 19:08 | Outpatient (BNV) | payer OTHER, SELFPAY | PROVIDERS: Admitting Provider Student in an Organized Health Care Education/Training Program; Emergency Provider Emergency Medicine; Visit Provider Student in an Organized Health Care Education/Training Program | DX: N17.9 Acute kidney failure, unspecified (principal); E86.0 Dehydration; R42 Dizziness and giddiness | CPT/HCPCS: 99222; 99232; 99239 ==

== ENCOUNTER → 2024-05-25 19:08 | Outpatient (BNV) | payer OTHER, SELFPAY | PROVIDERS: Admitting Provider Student in an Organized Health Care Education/Training Program; Emergency Provider Emergency Medicine; Visit Provider Internal Medicine | DX: I48.0 Paroxysmal atrial fibrillation (principal); I95.9 Hypotension, unspecified; R42 Dizziness and giddiness; E86.0 Dehydration; N17.9 Acute kidney failure, unspecified | CPT/HCPCS: 99223; 99233 ==

== ENCOUNTER 2024-06-13 11:22 | Outpatient (REF) | payer OTHER, SELFPAY ==
[2024-06-13 14:23] LABS: Influenza A PCR NEGATIVE (Negative); Influenza B PCR NEGATIVE (Negative); Resp Syncy Virus RNA Qual PCR NEGATIVE (Negative); SARS COV2 PCR INHOUSE NEGATIVE (Negative)
== END 2024-06-13 11:23 | disposition home or self-care (01) ==
LOC: HO.LAB 11:22
PROVIDERS: Visit Provider Registered Nurse
DX: J02.0 Streptococcal pharyngitis (principal); J06.9 Acute upper respiratory infection, unspecified
CPT/HCPCS: 0241U; 87880; 99212

== ENCOUNTER 2024-06-13 11:22 | Outpatient (AMB) | payer OTHER, SELFPAY ==
[2024-06-13 11:28] VITALS: BP 116/70; PULSE 74; TEMP 36.8; O2SAT 98; BMI 27.6
--- NOTE | 2024-06-13 11:28 | AM.OFFWIN_ITS ---
Intake Vital Signs 06/13/24 11:28 Height 6 ft 2 in Weight 215 lb BMI 27.6 BP 116/70 Blood Pressure Location Lt brachial Position Sitting Pulse 74 Pulse Source Pulse Oximeter Temp 98.2 F Temp Source Oral Pulse Oximetry (%) 98 Oxygen Delivery Method Room Air Intake Visit Reasons: EP Strep throat? Throat pain, white patch Intake Note: pt c/o sore throat, white spots. Started 3 days ago Patient Tobacco Use Status: Current everyday Tobacco user Allergies aspirin [ASA] Allergy (Unknown, Verified 06/13/24 11:34) BLEEDING ULCERS, stomach upset NSAIDS (Non-Steroidal Anti-Inflamma [NSAIDS (NON-STEROIDAL ANTI-INFLAMMA] Allergy (Unknown, Verified 06/13/24 11:34) BLEEDING ULCERS Medication List - Last Reconciled 06/13/24 by Demetra Reyna NP albuterol sulfate 90 mcg/actuation 2 puffs PO Q4H PRN amiodarone 200 mg PO DAILY amlodipine 5 mg See Protocol PO DAILY amoxicillin 500 mg PO BID 10 days apixaban (Eliquis) 5 mg PO BID atorvastatin 20 mg PO DAILY clonazepam 1 mg PO TID docusate sodium 100 mg PO BID PRN levothyroxine 100 mcg PO DAILY@0600 lisinopril 10 mg PO DAILY oxycodone 20 mg PO QID pentoxifylline ER 400 mg PO BID polyethylene glycol 3350 17 grams PO DAILY venlafaxine ER 75 mg PO BID Do you need a note to return to daycare/school/sports/work: No HPI EP Strep throat? Throat pain, white patch HPI Details This note is constructed using voice recognition software. While every effort has been made to ensure accuracy, shade bander errors may have been included. The patient is a 58 year old male who presents to the clinic today with pharyngitis for the past 2 days. He notes that he has a visiting nurse that comes in and checks on him and looked in the back of his throat and told him that he might have strep and needs to be checked. He denies fever, chills, cough, shortness of breath. [facility] Medical History (Updated 06/02/24 @ 00:03 by Jo-Ann Cantrell) Hypertension Paroxysmal atrial fibrillation CVA (cerebral vascular accident) Anxiety disorder Symptomatic bradycardia Hypertensive urgency Encounter for prostate cancer screening Social History Household Members: None Housing: Apartment Do you presently have visiting nurse or other home services: No Alcohol intake: current Alcohol intake frequency: a few times a month Alcohol type: beer Patient Tobacco Use Status: Current everyday Tobacco user Tobacco use type: Cigarette Cigarettes Per Day: 3 Years Smoked: 20 e-Cigarette/Vaping Use: Never Used Second Hand Smoke Exposure: Yes Advance Directives Date on File: 01/02/23 service: No Current occupational status: disabled Review of Systems Const All systems reviewed & are unremarkable except as noted in HPI and below Physical Exam Vital Signs: Last Vital Signs Temp 98.2 F 06/13/24 11:28 Pulse 74 06/13/24 11:28 BP 116/70 06/13/24 11:28 Pulse Ox 98 06/13/24 11:28 Oxygen Delivery Method Room Air 06/13/24 11:28 BMI result Body Mass Index 27.6 Const General: cooperative, healthy appearing, comfortable and no acute distress Orientation/consciousness: patient oriented x3 Limitations: no limitations HEENT Head: Yes normal to inspection Ears: hearing grossly normal bilaterally, external ears normal and TM's normal bilaterally General nose exam: Normal external nose present, Normal nares present and No nasal discharge present Face and sinus: Yes normal facial exam and Yes sinuses nontender Mouth: Normal oral and palatal mucosa present and moist mucous membranes Throat: Yes tonsils normal, Yes uvula midline and Yes posterior oropharynx abnormal (Erythema with exudate) Eyes General: appearance normal, both eyes and all related structures Neck Neck: Yes normal visual inspection and Yes lymphadenopathy (anterior) Resp Effort & Inspection: normal respiratory effort, able to speak in complete sentences, Actively coughing, no respiratory distress, not tachypneic, no tripod positioning and no use of accessory muscles Auscultation: clear to auscultation bilaterally Cardio Rate: regular rate Rhythm: regular rhythm Heart sounds: normal S1 and S2 Skin General skin exam: no rashes or lesions noted Neuro General: patient oriented x3 Extrem General: Yes normal to inspection and Yes no clubbing, cyanosis or edema Results AMB Rapid Strep AMB Rapid Strep Positive Last Edit by Donny Hackett CMA on 06/13/24 11:43 Results Reviewed Results Reviewed: Laboratory Last Values Strep Scn Rapid Clinic Positive 06/13/24 11:42 Assessment & Plan Assessment & Plan (1) Strep pharyngitis: Code(s): J02.0 - Streptococcal pharyngitis Plan: In office rapid strep positive, we will treat with amoxicillin twice a day for 10 days. Advised patient to take dosing until complete. Advised to change toothbrush after 24 hours with antibiotics and avoid close exposure with any other person's until antibiotics in place for at least 24 hours. Advised follow up with worsening or failure to resolve. Viral panel obtain due to symptomatology to rule out dual infection. Plan See above for full details and plan. Orders: Orders SARS-CoV2/FLU/RSV Today J06.9 - Acute upper respiratory infection, unspecified AMB Rapid Strep Screen Today Z13.9 - Encounter for screening, unspecified Medications: New amoxicillin 500 mg PO BID 10 days 20 tabs 0RF Coding Level of Care Code Est Pt Level 3 (64532) Diagnoses Strep pharyngitis J02.0
== END 2024-06-13 11:59 | disposition home or self-care (01) ==
PROVIDERS: Visit Provider Registered Nurse
DX: J02.0 Streptococcal pharyngitis (principal); Z13.9 Encounter for screening, unspecified

== ENCOUNTER 2024-08-16 09:17 | Outpatient (AMB) | payer OTHER, SELFPAY ==
--- NOTE | 2024-08-16 09:24 | AM.OFFWIN_ITS ---
Intake Vital Signs 08/16/24 09:27 Weight 210 lb BP 118/80 Blood Pressure Location Rt brachial Position Sitting Pulse 72 Pulse Source Pulse Oximeter Pulse Oximetry (%) 97 Oxygen Delivery Method Room Air Intake Visit Reasons: EP chest, dizzy, shaking, lighthead Intake Note: Patient here for chest discomfort, shaking, lightheaded and dizzy that started last night. Patient Tobacco Use Status: Current everyday Tobacco user Allergies aspirin [ASA] Allergy (Unknown, Verified 08/16/24 09:27) BLEEDING ULCERS, stomach upset NSAIDS (Non-Steroidal Anti-Inflamma [NSAIDS (NON-STEROIDAL ANTI-INFLAMMA] Allergy (Unknown, Verified 08/16/24 09:27) BLEEDING ULCERS Do you need a note to return to daycare/school/sports/work: No HPI HPI Comments History of Present Illness Details History of Present Illness The patient is a 58-year-old male presenting with atrial fibrillation associated with symptoms of chest burning and dizziness. He reports abrupt onset of burning sensation in the center of his chest upon waking up that morning, which was severe enough to wake him from sleep. The burning comes and goes and is not alleviated by changing positions. He denies prior episodes of acid reflux and did not take any reflux medications. Additionally, he reports lightheadedness but denies any vertiginous sensations. He has experienced shortness of breath. There is bilateral numbness in the fingertips without loss of strength or sensation in the arms. The patient's past medical history includes atrial fibrillation for which he is on amiodarone, Eliquis, atorvastatin, and lisinopril. He has been compliant with his medication regimen. He experienced dizziness and lightheadedness alongside this episode of chest burning. He does not report radiation of chest discomfort to the back or shoulders. There is a notable absence of sweating, nausea, or vomiting. [facility] Medical History (Updated 08/16/24 @ 09:53 by Cyndie Chairez PA-C) Hypertension Paroxysmal atrial fibrillation CVA (cerebral vascular accident) Anxiety disorder Symptomatic bradycardia Hypertensive urgency Encounter for prostate cancer screening Social History Household Members: None Housing: Apartment Do you presently have visiting nurse or other home services: No Alcohol intake: current Alcohol intake frequency: a few times a month Alcohol type: beer Patient Tobacco Use Status: Current everyday Tobacco user Tobacco use type: Cigarette Cigarettes Per Day: 3 Years Smoked: 20 e-Cigarette/Vaping Use: Never Used Second Hand Smoke Exposure: Yes Advance Directives Date on File: 01/02/23 service: No Current occupational status: disabled Review of Systems Const All systems reviewed & are unremarkable except as noted in HPI and below Physical Exam Vital Signs: Last Vital Signs Pulse 72 08/16/24 09:27 BP 118/80 08/16/24 09:27 Pulse Ox 97 08/16/24 09:27 Oxygen Delivery Method Room Air 08/16/24 09:27 Const General: cooperative, well developed and anxious Nutritional Appearance: average body habitus Orientation/consciousness: patient oriented x3 Limitations: no limitations HEENT Head: Yes normal to inspection Ears: hearing grossly normal bilaterally General nose exam: Normal external nose present Face and sinus: Yes normal facial exam Eyes General: appearance normal, both eyes and all related structures Neck Neck: Yes normal visual inspection and Yes full ROM Resp Effort & Inspection: normal respiratory effort and able to speak in complete sentences Auscultation: clear to auscultation bilaterally Cardio Rate: Other (irregular) Rhythm: abnormal rhythm Heart sounds: normal S1 and S2 GI Inspection: Yes normal to inspection Palpation (GI): Soft to palpation and nontender Skin General skin exam: no rashes or lesions noted Neuro General: patient oriented x3 Extrem General: Yes normal to inspection Office Procedures EKG Details: afib rate 77 BPM, no acute st or t wave changes [id number], Complete Assessment & Plan Assessment & Plan (1) Chest pain: Code(s): R07.9 - Chest pain, unspecified Qualifiers: Chest pain type: unspecified Qualified Code(s): R07.9 - Chest pain, unspecified Plan: afib rate 77 BPM, no acute st or t wave changes. With redness, dizziness, central burning chest pain and numbness and tingling in his fingers, and EKG, called 911 to transport to [facility] for further workup. Called [facility] ED with expect Coding Level of Care Code New Pt Level 5 (63107) Diagnoses Chest pain, unspecified type R07.9 Chest pain type: unspecified CPT Codes EKG - CPT: 38987-[id number], Complete ([id number])
[2024-08-16 09:27] VITALS: BP 118/80; PULSE 72; O2SAT 97
== END 2024-08-16 12:30 | disposition home or self-care (01) ==
PROVIDERS: Visit Provider Physician Assistant
DX: R07.9 Chest pain, unspecified (principal)

== ENCOUNTER 2024-08-16 10:26 | Emergency (ER) | payer OTHER, SELFPAY ==
--- NOTE | ~2024-08-16 | XR_ITS ---
EXAMINATION: XR CHEST CLINICAL INFORMATION: chest pain COMPARISON: Chest radiograph dated 04/13/2024. TECHNIQUE: Frontal view of the chest was obtained. FINDINGS: The lungs are clear. The cardiomediastinal silhouette is normal in size. There is no pleural effusion or pneumothorax. No acute osseous abnormality. XR/XR chest 1V IMPRESSION: No acute cardiopulmonary findings. Electronically signed by: Mati Jackson MD 08/16/2024 12:28 PM [facility]
--- NOTE | 2024-08-16 10:42 | ECG_ITS ---
Test Reason : chest pain Blood Pressure : / mmHG Vent. Rate : 078 BPM Atrial Rate : 267 BPM P-R Int : 000 ms QRS Dur : 118 ms QT Int : 424 ms P-R-T Axes : 000 -22 084 degrees QTc Int : 483 ms Atrial flutter with variable A-V block Incomplete left bundle branch block Nonspecific T wave abnormality Abnormal ECG When compared with ECG of 25-MAY-2024 15:17, No significant changes seen Referred By: Generic ED Physician Electronically Signed By:KEMI YADAV
[2024-08-16 10:43] VITALS: BP 120/60; BP 127/68; PULSE 66; PULSE 77; RESP 14; TEMP 36.3; O2SAT 96; O2SAT 98; BMI 28.3
--- NOTE | 2024-08-16 11:01 | ED.CHESTPAIN ---
HPI - Chest Pain General Chief Complaint: Chest Pain Stated Complaint: CENTRALIZED BURNING CHEST PAIN PER EMS Time Seen by Provider: 08/16/24 10:44 Source: patient and EMS Mode of arrival: EMS Limitations: no limitations History of Present Illness ED Provider: DR. Hester HPI narrative: 58-year-old male PMH for AFib on Eliquis, HTN referred from urgent care to us for further evaluation of chest pain started since 08:00, feels like burning sensation in the epigastric and mid chest area, associated with nausea, bilateral fingertip numbness, dizziness and lightheadedness. patient had a big meal last night of [employer] cabbage then went to bed right after he ate, no chest trauma or injury pain described as intermittent comes and goes. Normal bowel movement, no blood in the stool. No fever, no chills Related Data Home Medications ?Medication ?Instructions ?Recorded ?Confirmed albuterol sulfate 90 mcg/actuation 2 puff PO Q4H PRN Dyspnea 12/18/21 06/13/24 aerosol inhaler atorvastatin 20 mg tablet 20 mg PO DAILY 12/18/21 06/13/24 clonazepam 1 mg tablet 1 mg PO TID 12/18/21 06/13/24 oxycodone 20 mg tablet 20 mg PO QID 12/18/21 06/13/24 apixaban 5 mg tablet (Eliquis) 5 mg PO BID 12/28/22 06/13/24 levothyroxine 100 mcg tablet 100 mcg PO DAILY@0600 07/31/23 06/13/24 amiodarone 200 mg tablet 200 mg PO DAILY 05/25/24 06/13/24 venlafaxine 75 mg capsule,extended 75 mg PO BID 05/25/24 06/13/24 release 24 hr lisinopril 20 mg tablet 10 mg PO DAILY 06/13/24 06/13/24 Previous Rx's ?Medication ?Instructions ?Recorded docusate sodium 100 mg capsule 100 mg PO BID PRN Constipation #30 05/27/24 caps polyethylene glycol 3350 17 gram 17 g PO DAILY #30 ea 05/27/24 oral powder packet amlodipine 5 mg tablet 5 mg PO DAILY #90 tabs 05/28/24 omeprazole 40 mg capsule,delayed 40 mg PO DAILY #30 caps 08/16/24 release Allergies Allergy/AdvReac Type Severity Reaction Status Date / Time aspirin [ASA] Allergy Intermediate BLEEDING Verified 08/16/24 10:45 ULCERS, stomach upset NSAIDS (Non-Steroidal Allergy Intermediate BLEEDING Verified 08/16/24 10:45 Anti-Inflamma ULCERS [NSAIDS (NON-STEROIDAL ANTI-INFLAMMA] Review of Systems Review of Systems: All other systems are reviewed and are negative Constitutional: Reports as per HPI and Reports no additional constitutional complaints Eyes: Reports as per HPI and Reports no additional eye complaints Reports system reviewed and no additional complaints, except as documented Cardiovascular: Reports as per HPI and Reports no additional cardiovascular complaints Respiratory: Reports as per HPI and Reports no additional respiratory complaints Gastrointestinal: Reports as per HPI and Reports no additional gastrointestinal complaints Genitourinary: Reports no additional female genitourinary complaints Musculoskeletal: Reports no additional musculoskeletal complaints Skin/Breast: Reports system reviewed and no additional complaints, except as docu Psychiatric: Reports no additional psychiatric complaints Endocrine: Reports no additional endocrine complaints Hematologic/Lymphatic: Reports no additional hematologic/lymphatic complaints Allergic/Immunologic: Reports no additional allergic/immunologic complaints Reports system reviewed and no additional complaints, except as documented and Reports Abnormal speech present [facility] Past Medical History Medical History Hypertension Paroxysmal atrial fibrillation CVA (cerebral vascular accident) Anxiety disorder Symptomatic bradycardia Hypertensive urgency Encounter for prostate cancer screening Social History Social History Household Members: None Housing: Apartment Do you presently have visiting nurse or other home services: No Alcohol intake: current Alcohol intake frequency: holidays/special occasions only Alcohol type: beer Patient Tobacco Use Status: Current everyday Tobacco user Tobacco use type: Cigarette Cigarettes Per Day: 3 Years Smoked: 20 Smoked in Last 30 Days: Yes e-Cigarette/Vaping Use: Never Used Second Hand Smoke Exposure: Yes Use of substances other than those prescribed or required for medical reasons: No Advance Directives: Yes Advance Directives on File: Yes Advance Directives Date on File: 01/02/23 Do you have a plan to hurt others: No Plan service: No Current occupational status: disabled Physical Exam Vital Signs: Vital Signs: Last Vital Signs Temp 98.3 F 08/16/24 14:07 Pulse 60 08/16/24 14:07 Resp 16 08/16/24 14:07 BP 97/61 08/16/24 14:07 Pulse Ox 95 08/16/24 14:07 O2 Del Method Room Air 08/16/24 14:07 BMI result Body Mass Index 28.3 Vital signs have been reviewed and appear to be correct. Blood pressure elevated. Heart rate normal. Respiratory rate normal. Temperature normal. Oxygen saturation normal. Appearance: Alert. Oriented X3. No acute distress. Head: Normal external exam. Normocephalic. Atraumatic. No Cohn signs noted. No raccoon eyes noted Eyes: PERRLA. EOMI. Conjunctiva and sclera normal. Eyelids normal. ENT: TM's Normal. Pharynx normal. Uvula midline. Moist mucous membranes. No trismus noted. No drooling noted. No muffled voice noted. Neck: Normal inspection. Neck supple. FROM. No adenopathy. Thyroid Normal. No meningeal signs. No neck mass noted. CVS: Normal heart rate and rhythm. Heart sound normal. No murmurs noted. Pulses normal throughout. Respiratory: No respiratory distress. Painless inspiration. Breath sounds normal. No wheezes/rales/rhonchi noted. Chest nontender. No accessory muscle usage noted or decreased air movement noted. Abdomen: Epigastric tenderness, no rebound tenderness, no guarding.Bowel sounds normal in all 4 quadrants. No distention noted. No organomegaly noted. No visible injury noted. Back: No CVA tenderness. Full range of motion noted. Skin: Skin warm and dry. Normal skin color. Normal skin turgor. No rashes/lesions/lacerations noted. Extremities: No lower extremity edema. Extremities exhibit normal range of motion. Extremities nontender. Neuro: Oriented X 3. Cranial nerve exam: II-XII are grossly intact No motor deficit. No sensory deficit. Reflexes normal. Course Reevaluation(s) Reevaluation #1: epigastric/chest pain after eating heavy dinners and went to bed immediately physical exam is consistent with a gastritis, ACS is unfavorable diagnosis with negative troponin and EKG for non ST-elevation. Will start the patient on Prilosec. 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 Time: 14:16 Medications Administered Discontinued Medications Generic Name Dose Route Start Last Admin Trade Name Freq PRN Reason Stop Dose Admin Al Hydroxide/Mg Hydroxide 30 ml 08/16/24 10:58 08/16/24 11:26 Magnesium Hydrox/Alum Hydrox 30 Ml Oral.Susp PO 08/16/24 10:59 30 ml ONCE ONE Administration Famotidine 20 mg 08/16/24 10:58 08/16/24 11:26 Famotidine/Pf 20 Mg/2 Ml Vial IVPUSH 08/16/24 10:59 20 mg ONCE ONE Administration Ondansetron HCl 4 mg 08/16/24 11:01 08/16/24 11:26 Ondansetron Hcl 4 Mg/2 Ml Vial IVPUSH 08/16/24 11:02 4 mg ONCE ONE Administration Medical Decision Making Differential Diagnosis Differential Diagnoses: The differential diagnosis associated with the presentation includes ( ACS, pneumonia, pneumothorax, costochondritis, chest wall pain gastritis, GERD, electrolyte derangement, severe Anemia.) Admission/Observation Consideration of admission/observation: Escalation of care including admission/observation considered Lab Data MDM Lab Attestation statement: I reviewed the patient's lab results. 08/16/24 11:18 08/16/24 11:18 Labs: Lab Results 08/16/24 08/16/24 Range/Units 11:18 11:18 WBC 7.5 (4.8-10.8) X10*3/uL RBC 3.80 L (4.60-5.80) X10*6/uL Hgb 12.7 L (14.0-18.0) g/dl Hct 36.7 L (42.0-52.0) % MCV 96.6 (80.0-98.0) fL MCH 33.4 H (27.0-33.0) pg MCHC 34.6 (31.0-36.0) g/dl RDW 13.2 (11.0-16.0) % Plt Count 260 (160-400) X10*3/uL MPV 8.7 L (9.4-12.4) fL Immature Gran % (Auto) 1.2 H (0.0-0.4) % Neut % (Auto) 62.8 (45-73) % Lymph % (Auto) 24.5 (20-40) % [place] % (Auto) 9.2 (2-11) % Eos % (Auto) 1.5 (0-4) % Baso % (Auto) 0.8 (0-2) % Lymph # (Auto) 1.8 (1.2-4.9) X10*3/uL [place] # (Auto) 0.7 (0.1-1.2) X10*3/uL Eos # (Auto) 0.1 (0.0-0.4) X10*3/uL Baso # (Auto) 0.1 (0.0-0.2) X10*3/uL Abs Immat Gran (auto) 0.09 H (0.00-0.03) X10*3/uL Absolute Neuts (auto) 4.7 (2.0-8.3) x10*3/uL Absolute Nucleated RBC 0.000 (0.0-0.012) X10*3/uL Nucleated RBC % (auto) 0.0 (0.0-0.2) /100WBC PT 11.8 (10.9-12.4) SEC INR 1.0 (0.9-1.1) Sodium 136 (135-145) mmol/L Potassium 3.6 (3.3-5.1) mmol/L Chloride 105 (96-108) mmol/L Carbon Dioxide 23 (22-29) mmol/L Anion Gap 12 (12-20) BUN 10 (9-16) mg/dL Creatinine 1.32 (0.5-1.4) mg/dL Estim Creat Clear Calc 76.1 Estimated GFR 56 Random Glucose 100 (60-115) mg/dL Calcium 8.2 L D (8.4-10.2) mg/dL Total Bilirubin 0.3 (0.0-1.0) mg/dL Direct Bilirubin 0.1 (0.0-0.5) mg/dL AST 29 (5-37) U/L ALT 26 (0-40) U/L Alkaline Phosphatase 74 (39-117) U/L Troponin I High Sens < 2.7 < 2.7 (<3.5-35.0) ng/L B-Natriuretic Peptide 54 (<100) pg/mL Total Protein 7.0 (6.5-8.0) g/dL Albumin 3.9 (3.5-5.0) g/dL Lipase 21 (8-78) U/L Independent Interpretation I performed an independent interpretation of an: Plain X-Ray ( Chest: No acute cardiopulmonary findings.) Radiology Impression Discussion of test interpretation with radiology: I have reviewed the radiologist's reading. Discharge Plan Discharge Clinical Impression: Gastritis, Chest pain, Atypical chest pain Patient Disposition: Still a Patient Instructions: Gastritis (ED) Prescriptions: New omeprazole 40 mg capsule,delayed release(DR/EC) 40 mg PO DAILY Qty: 30 0RF No Action venlafaxine 75 mg capsule,extended release 24hr 75 mg PO BID amiodarone 200 mg tablet 200 mg PO DAILY polyethylene glycol 3350 17 gram Powder In Packet 17 g PO DAILY Qty: 30 0RF docusate sodium 100 mg Capsule 100 mg PO BID PRN (Reason: Constipation) Qty: 30 0RF amlodipine 5 mg tablet 5 mg PO DAILY Qty: 90 0RF Protocol: Hold for SBP< HOLD for SBP < : 90 Eliquis 5 mg tablet 5 mg PO BID oxycodone 20 mg tablet 20 mg PO QID clonazepam 1 mg tablet 1 mg PO TID atorvastatin 20 mg tablet 20 mg PO DAILY albuterol sulfate 90 mcg/actuation HFA aerosol inhaler 2 puff PO Q4H PRN (Reason: Dyspnea) levothyroxine 100 mcg tablet 100 mcg PO DAILY@0600 lisinopril 20 mg tablet 10 mg PO DAILY Referrals: Coco Hinojosa MD [Physician] - Print Language: Slovenian
[2024-08-16 11:23] LABS: MANUAL DIFF FLAG NO
[2024-08-16] MEDS: Famotidine/PF 20 MG/2 ML VIAL IVPUSH (11:26)
[2024-08-16] MEDS: Magnesium Hydrox/Alum Hydrox 30 ML ORAL.SUSP PO (11:26)
[2024-08-16] MEDS: ondansetron HCL 4 MG/2 ML VIAL IVPUSH (11:26)
[2024-08-16 11:28] LABS: Basophils Absolute Auto 0.1 X10*3/uL (0.0-0.2); Basophils Percent Auto 0.8 % (0-2); Eosinophils Absolute Auto 0.1 X10*3/uL (0.0-0.4); Eosinophils Percent Auto 1.5 % (0-4); Hematocrit 36.7 % (42.0-52.0); Hemoglobin 12.7 g/dl (14.0-18.0); Imm Gran Abs Auto 0.09 X10*3/uL (0.00-0.03); Imm Gran Pct Auto 1.2 % (0.0-0.4); Lymphocytes Absolute Auto 1.8 X10*3/uL (1.2-4.9); Lymphocytes Percent Auto 24.5 % (20-40); Mean Corpuscular HGB Conc 34.6 g/dl (31.0-36.0); Mean Corpuscular Hemoglobin 33.4 pg (27.0-33.0); Mean Corpuscular Volume 96.6 fL (80.0-98.0); Mean Platelet Volume 8.7 fL (9.4-12.4); Monocytes Absolute Auto 0.7 X10*3/uL (0.1-1.2); Monocytes Percent Auto 9.2 % (2-11); Neutrophils Absolute Auto 4.7 x10*3/uL (2.0-8.3); Neutrophils Percent Auto 62.8 % (45-73); Platelet Count 260 X10*3/uL (160-400); Red Cell Distribution Width 13.2 % (11.0-16.0); White Blood Count 7.5 X10*3/uL (4.8-10.8)
[2024-08-16 11:29] LABS: Prothrombin Time 11.8 SEC (10.9-12.4)
--- NOTE | 2024-08-16 11:29 | PC.NURSE ---
pt a&ox3, vss, potline monitor intact, ekg performed, labs drawn, iv previously inserted by ems, pt medicated per order, awaiting results, call islas within reach, will continue to monitor
[2024-08-16 11:38] VITALS: BP 110/68; PULSE 78; RESP 16; TEMP 36.7; O2SAT 95
[2024-08-16 11:41] LABS: Alanine Aminotransferase 26 U/L (0-40); Albumin Level 3.9 g/dL (3.5-5.0); Alkaline Phosphatase 74 U/L (39-117); Anion Gap 12 (12-20); Aspartate Amino Transferase 29 U/L (5-37); Bilirubin Direct 0.1 mg/dL (0.0-0.5); Bilirubin Total 0.3 mg/dL (0.0-1.0); Blood Urea Nitrogen 10 mg/dL (9-16); Calcium 8.2 mg/dL (8.4-10.2); Carbon Dioxide 23 mmol/L (22-29); Chloride 105 mmol/L (96-108); Creatinine Clr Calc Pharmacy 76.1; Estimated Glomerular Filt Rate 56; Glucose Random 100 mg/dL (60-115); Lipase 21 U/L (8-78); Potassium 3.6 mmol/L (3.3-5.1); Sodium 136 mmol/L (135-145)
[2024-08-16 11:47] LABS: B Type Natriuretic Peptide 54 pg/mL (<100); Troponin-I High Sensitivity < 2.7 ng/L (<3.5-35.0)
[2024-08-16 14:07] VITALS: BP 97/61; PULSE 60; RESP 16; TEMP 36.8; O2SAT 95
[2024-08-16 14:49] LABS: Troponin-I High Sensitivity < 2.7 ng/L (<3.5-35.0)
--- NOTE | 2024-08-16 15:06 | PC.NURSE ---
pt a&ox3, library monitor intact, pt c/o 12/29 midsternal chest pain, pt states I feel like shit, I feel very fatigued will speak with the provider
--- NOTE | 2024-08-16 15:13 | PC.NURSE ---
patient requesting medication for anxiety, provider notified, also will get a sars/flu/rsv swab when they are sent up from the lab
[2024-08-16] MEDS: LORazepam 1 MG TABLET PO (15:37)
--- NOTE | 2024-08-16 15:38 | PC.NURSE ---
nasal swab performed, pt medicated for anxiety. pt requesting his home po pain medication he states he takes 4xs a day. will speak with the provider 04/30 back pain
[2024-08-16 16:20] LABS: Influenza A PCR NEGATIVE (Negative); Influenza B PCR NEGATIVE (Negative); Resp Syncy Virus RNA Qual PCR NEGATIVE (Negative); SARS COV2 PCR INHOUSE NEGATIVE (Negative)
[2024-08-16 16:50] VITALS: BP 126/73; PULSE 74; RESP 18; TEMP 36.8; O2SAT 94
[2024-08-16 16:51] VITALS: BP 126/73; PULSE 74; RESP 18; TEMP 36.8; O2SAT 94
== END 2024-08-16 16:52 | disposition home or self-care (01) ==
PROVIDERS: Emergency Provider Emergency Medicine
DX: K29.70 Gastritis, unspecified, without bleeding (principal); R07.89 Other chest pain; I48.91 Unspecified atrial fibrillation; R42 Dizziness and giddiness; R06.02 Shortness of breath; Z79.01 Long term (current) use of anticoagulants; Z79.899 Other long term (current) drug therapy; F17.210 Nicotine dependence, cigarettes, uncomplicated; Z03.818 Encounter for observation for suspected exposure to other biological agents ruled out
CPT/HCPCS: 0241U; 36415; 71045; 80048; 80076; 83690; 83880; 84484; 85025; 85610; 93005; 96374; 96375; 99202; 99284; 99285; J2405

== ENCOUNTER → 2024-08-16 10:42 | Outpatient (BNV) | payer OTHER, SELFPAY | PROVIDERS: Emergency Provider Emergency Medicine; Visit Provider Internal Medicine | DX: R07.9 Chest pain, unspecified (principal); I44.7 Left bundle-branch block, unspecified; R94.31 Abnormal electrocardiogram [ECG] [EKG] | CPT/HCPCS: 93010 ==

== ENCOUNTER 2025-02-04 06:25 | Inpatient (IN) | payer OTHER, SELFPAY ==
[2025-02-04] VITALS (15 sets, daily range): BP systolic 86–132; BP diastolic 47–64; PULSE 81–117; RESP 14–20; TEMP 36.6–37.1; O2SAT 89–99; BMI 30.1
--- NOTE | 2025-02-04 | ECG_ITS ---
Test Reason : DISPENA Blood Pressure : */* mmHG Vent. Rate : 76 BPM Atrial Rate : * BPM P-R Int : * ms QRS Dur : 118 ms QT Int : 440 ms P-R-T Axes : * -7 84 degrees QTcB Int : 495 ms Atrial fibrillation Incomplete left bundle branch block Abnormal ECG When compared with ECG of 16-Aug-2024 10:50, Atrial fibrillation has replaced Atrial flutter Referred By: Generic ED Physician Electronically Signed By: FABY STEVENS MD
--- NOTE | ~2025-02-04 | XR_ITS ---
CLINICAL HISTORY: chest pain 1 view chest x-ray Comparison: 08/16/2024 Findings: Portions of the exam are obscured by overlying material. There is consolidation in the right lung, possible pneumonia or pulmonary edema. Heart size is normal. No acute fracture. IMPRESSION: 1. Right pulmonary consolidation, differential considerations noted This document has been electronically signed by: Deric Amaya MD on 02/04/2025 08:16:57
[2025-02-04 06:56] LABS: MANUAL DIFF FLAG NO
[2025-02-04 06:57] LABS: Basophils Percent Auto 0.5 % (0-2); Eosinophils Absolute Auto 0.2 X10*3/uL (0.0-0.4); Eosinophils Percent Auto 1.8 % (0-4); Hematocrit 33.6 % (42.0-52.0); Hemoglobin 11.8 g/dl (14.0-18.0); Imm Gran Pct Auto 1.1 % (0.0-0.4); Lymphocytes Percent Auto 33.6 % (20-40); Mean Corpuscular HGB Conc 35.1 g/dl (31.0-36.0); Mean Corpuscular Hemoglobin 32.9 pg (27.0-33.0); Mean Corpuscular Volume 93.6 fL (80.0-98.0); Mean Platelet Volume 8.5 fL (9.4-12.4); Monocytes Absolute Auto 0.6 X10*3/uL (0.1-1.2); Monocytes Percent Auto 6.5 % (2-11); Neutrophils Percent Auto 56.5 % (45-73); Platelet Count 249 X10*3/uL (160-400); Red Blood Count 3.59 X10*6/uL (4.60-5.80); Red Cell Distribution Width 12.9 % (11.0-16.0); White Blood Count 8.9 X10*3/uL (4.8-10.8)
--- NOTE | 2025-02-04 07:06 | PC.NURSE ---
patient a&ox3, iv previously inserted by ems, ekg performed, labs obtained, classroom monitor applied-afib on monitor, pt c/o chest pain, ambulates with a cane at baseline, not home O2 dependent- currently on O2 for comfort, call islas within reach, plan of care ongoing.
--- NOTE | 2025-02-04 07:10 | MHC.EDTECH ---
07:10, I went into patient room to do a covid swab that was ordered and patient refused. RN aware
[2025-02-04 07:13] LABS: Alanine Aminotransferase 15 U/L (0-40); Albumin Level 3.6 g/dL (3.5-5.0); Alkaline Phosphatase 56 U/L (39-117); Anion Gap 12 (12-20); Aspartate Amino Transferase 22 U/L (5-37); Bilirubin Total 0.3 mg/dL (0.0-1.0); Blood Urea Nitrogen 19 mg/dL (9-16); Carbon Dioxide 21 mmol/L (22-29); Chloride 100 mmol/L (96-108); Creatinine Clr Calc Pharmacy 69.4; Estimated Glomerular Filt Rate 49; Glucose Random 97 mg/dL (60-115); Potassium 3.6 mmol/L (3.3-5.1); Sodium 129 mmol/L (135-145); Total Protein 6.2 g/dL (6.5-8.0)
[2025-02-04 07:15] LABS: INTERNATIONAL NORM RATIO 1.1 (0.9-1.1); Prothrombin Time 12.8 SEC (10.9-12.4)
[2025-02-04 07:21] LABS: Troponin-I High Sensitivity < 2.7 ng/L (<3.5-35.0)
--- NOTE | 2025-02-04 07:22 | PC.NURSE ---
per tech, patient is refusing to have nasal swab performed.
--- NOTE | 2025-02-04 07:47 | ED_ITS ---
HPI - Chest Pain General Chief Complaint: Chest Pain Stated Complaint: Diff breathing & CP Time Seen by Provider: 02/04/25 07:46 Source: patient Mode of arrival: EMS Limitations: no limitations History of Present Illness ED Provider: Dr. Yony Pedro HPI narrative: 59-year-old male with a history of hypertension, hyperlipidemia, atrial fibrillation on Eliquis, asthma, who presents emergency department for evaluation of chest pain, shortness of breath and cough. Patient states that the last 2-3 days he has felt short of breath in his had a nonproductive cough. He has been feeling lightheaded, dizzy and weak. The patient states that this morning he woke up from sleep with pain in the center of his chest. He describes it as a tightness. The pain started at 05:30 hours and lasted 1 hour and by the time he came to the emergency department in his pain resolved and he was pain-free. Patient states he has had similar pain in the past secondary to anxiety. EMS reported that the patient's O2 saturation was 89% on room air was 94% on 4 L. EMS gave the patient aspirin. The patient denied fever, chills, nausea, vomiting, diarrhea, frequency, urgency or dysuria. He denied dark stools or bloody stools. Related Data Home Medications ?Medication ?Instructions ?Recorded ?Confirmed albuterol sulfate 90 mcg/actuation 2 puff PO Q4H PRN Dyspnea 12/18/21 06/13/24 aerosol inhaler atorvastatin 20 mg tablet 20 mg PO DAILY 12/18/21 06/13/24 clonazepam 1 mg tablet 1 mg PO TID 12/18/21 06/13/24 oxycodone 20 mg tablet 20 mg PO QID 12/18/21 06/13/24 apixaban 5 mg tablet (Eliquis) 5 mg PO BID 12/28/22 06/13/24 levothyroxine 100 mcg tablet 100 mcg PO DAILY@0600 07/31/23 06/13/24 amiodarone 200 mg tablet 200 mg PO DAILY 05/25/24 06/13/24 venlafaxine 75 mg capsule,extended 75 mg PO BID 05/25/24 06/13/24 release 24 hr lisinopril 20 mg tablet 10 mg PO DAILY 06/13/24 06/13/24 Previous Rx's ?Medication ?Instructions ?Recorded docusate sodium 100 mg capsule 100 mg PO BID PRN Constipation #30 05/27/24 caps polyethylene glycol 3350 17 gram 17 g PO DAILY #30 ea 05/27/24 oral powder packet amlodipine 5 mg tablet 5 mg PO DAILY #90 tabs 05/28/24 omeprazole 40 mg capsule,delayed 40 mg PO DAILY #30 caps 08/16/24 release Allergies Allergy/AdvReac Type Severity Reaction Status Date / Time aspirin [ASA] Allergy Intermediate BLEEDING Verified 02/04/25 06:37 ULCERS, stomach upset NSAIDS (Non-Steroidal Allergy Intermediate BLEEDING Verified 02/04/25 06:37 Anti-Inflamma ULCERS [NSAIDS (NON-STEROIDAL ANTI-INFLAMMA] Review of Systems 2 Review of Systems: Yes all other systems are reviewed and are negative [facility] Past Medical History [facility] Narrative: Social history: The patient smokes less than a half a pack of cigarettes per day times 46 years. He does drink alcohol and he states that he last drank 2 beers 2 days ago. Denies drug use. Medical History Hypertension Paroxysmal atrial fibrillation CVA (cerebral vascular accident) Anxiety disorder Symptomatic bradycardia Hypertensive urgency Encounter for prostate cancer screening Social History Social History Household Members: None Housing: Apartment Do you presently have visiting nurse or other home services: No Alcohol intake: current Alcohol intake frequency: holidays/special occasions only Alcohol type: beer Patient Tobacco Use Status: Current everyday Tobacco user Tobacco use type: Cigarette Cigarettes Per Day: 3 Years Smoked: 20 Smoked in Last 30 Days: Yes e-Cigarette/Vaping Use: Never Used Second Hand Smoke Exposure: Yes Use of substances other than those prescribed or required for medical reasons: No Advance Directives: Yes Advance Directives on File: Yes Advance Directives Date on File: 01/02/23 service: No Current occupational status: disabled Physical Exam 2 Vital Signs: Vital Signs: Last Vital Signs Temp 98.1 F 02/04/25 10:10 Pulse 101 H 02/04/25 10:10 Resp 18 02/04/25 10:10 BP 107/47 L 02/04/25 10:10 Pulse Ox 97 02/04/25 10:10 O2 Del Method Room Air 02/04/25 10:10 O2 Flow Rate 3 02/04/25 09:43 Oxygen Flow Rate 3 02/04/25 06:36 BMI result Body Mass Index 30.1 Vital signs revealed an O2 saturation of 99% on 3 L of oxygen via nasal cannula Exam: General: Awake, alert in no distress Head: Normocephalic, atraumatic EENT: PERRL, Lids normal, sclera normal, conjunctiva normal, nose normal , ears normal, throat without erythema or exudates Neck: Supple, no adenopathy Lung: breath sounds symmetric, no wheezing, rales or rhonchi Chest: symmetric movement, nontender Heart: regular rate and rhythm, normal S1, S2 no murmurs or rubs Abdomen: soft, non-tender, nondistended, normal bowel sounds Back: no vertebral tenderness, no CVAT Extremities: no deformities, moves all extremities symmetrically Neuro: Awake, alert, oriented, normal speech, cranial nerves intact, moves all extremities symmetrically Psych: Pleasant, cooperative Medications Administered Discontinued Medications Generic Name Dose Route Start Last Admin Trade Name Timq PRN Reason Stop Dose Admin Ceftriaxone Sodium 1 gm 02/04/25 08:13 02/04/25 08:46 Ceftriaxone Sodium 1 Gm Vial IVPUSH 02/04/25 08:14 1 gm ONCE ONE Administration Sodium Chloride 2,466 mls @ 2,466 mls/hr 02/04/25 08:13 02/04/25 09:40 Ns IV 02/04/25 09:12 Infused .Q1H STA Infusion Azithromycin 500 mg/ Sodium 250 mls @ 125 mls/hr 02/04/25 08:13 02/04/25 09:13 Chloride IV 02/04/25 10:12 125 mls/hr ONCE ONE Administration Lorazepam 2 mg 02/04/25 08:13 02/04/25 08:28 Lorazepam 1 Mg Tablet PO 02/04/25 08:14 2 mg ONCE STA Administration Medical Decision Making Medical Decision Making MDM Narrative: 59-year-old male with a history of hypertension, hyperlipidemia, atrial fibrillation on Eliquis, asthma, who presents emergency department for evaluation of chest pain, shortness of breath and cough. Patient states that the last 2-3 days he has felt short of breath in his had a nonproductive cough. He has been feeling lightheaded, dizzy and weak. The patient states that this morning he woke up from sleep with pain in the center of his chest. He describes it as a tightness. The pain started at 05:30 hours and lasted 1 hour and by the time he came to the emergency department in his pain resolved and he was pain-free. Patient states he has had similar pain in the past secondary to anxiety. EMS reported that the patient's O2 saturation was 89% on room air was 94% on 4 L. EMS gave the patient aspirin. Vital signs revealed an O2 saturation of 99% on 3 L of oxygen via nasal cannula. Exam was otherwise unremarkable. 08:13 Differential diagnosis: ?Includes but is not limited to viral syndrome, COVID- 19, influenza, RSV, bronchitis, pneumonia, myocardial infarction, myocardial ischemia, chest wall pain, anxiety, anemia, electrolyte abnormalities Course: 08:13 My interpretation patient's laboratory evaluation is as follows: Chronic normocytic anemia with an H&H of 11.8 and 33.6. WBC normal 8900. Sodium low 129. Bicarb low 21. BUN and creatinine elevated 19 and 1.47-patient has had similar values in the past but has also had some normal values. LFTs were normal. First troponin was below detectable limits. Lactic acid normal 1.3. Twelve EKG revealed atrial fibrillation was unchanged from his previous EKG. I did order a 2 hour troponin. Patient's chest x-ray is concerning for right sided infiltrate/pneumonia. Patient was treated with ceftriaxone 1 g IV and Zithromax 500 mg IV. Patient was also given lorazepam 2 mg orally for his anxiety. The patient is obese with a BMI of 30.1 kg per m2. He was given a 30 cc/kilogram normal saline bolus of 2466 mL. The patient refused SARs testing. 10:16 Patient's anxiety is improved, he has no chest pain. Blood pressure is 113/63. I will discuss admission with the covering hospitalis, physician respiratory equipment assistant Santi Pham who did evaluate the patient in the emergency department and will admit the patient to the hospitalist service. Admission/Observation Consideration of admission/observation: Escalation of care including admission/observation considered (Yes) Consult Healthcare Provider Management of the patient was discussed with: Hospitalist Lab Data MDM Lab Attestation statement: I reviewed the patient's lab results. 02/04/25 06:51 02/04/25 06:50 Labs: Lab Results 02/04/25 02/04/25 02/04/25 Range/Units 06:50 06:51 07:56 WBC 8.9 (4.8-10.8) X10*3/uL RBC 3.59 L (4.60-5.80) X10*6/uL Hgb 11.8 L (14.0-18.0) g/dl Hct 33.6 L (42.0-52.0) % MCV 93.6 (80.0-98.0) fL MCH 32.9 (27.0-33.0) pg MCHC 35.1 (31.0-36.0) g/dl RDW 12.9 (11.0-16.0) % Plt Count 249 (160-400) X10*3/uL MPV 8.5 L (9.4-12.4) fL Immature Gran % (Auto) 1.1 H (0.0-0.4) % Neut % (Auto) 56.5 (45-73) % Lymph % (Auto) 33.6 (20-40) % [place] % (Auto) 6.5 (2-11) % Eos % (Auto) 1.8 (0-4) % Baso % (Auto) 0.5 (0-2) % Lymph # (Auto) 3.0 (1.2-4.9) X10*3/uL [place] # (Auto) 0.6 (0.1-1.2) X10*3/uL Eos # (Auto) 0.2 (0.0-0.4) X10*3/uL Baso # (Auto) 0.0 (0.0-0.2) X10*3/uL Abs Immat Gran (auto) 0.10 H (0.00-0.03) X10*3/uL Absolute Neuts (auto) 5.0 (2.0-8.3) x10*3/uL Absolute Nucleated RBC 0.000 (0.0-0.012) X10*3/uL Nucleated RBC % (auto) 0.0 (0.0-0.2) /100WBC PT 12.8 H (10.9-12.4) SEC INR 1.1 (0.9-1.1) Sodium 129 L (135-145) mmol/L Potassium 3.6 (3.3-5.1) mmol/L Chloride 100 (96-108) mmol/L Carbon Dioxide 21 L (22-29) mmol/L Anion Gap 12 (12-20) BUN 19 H (9-16) mg/dL Creatinine 1.47 H (0.5-1.4) mg/dL Estim Creat Clear Calc 69.4 Estimated GFR 49 Random Glucose 97 (60-115) mg/dL Lactic Acid (0.5-2.0) mmol/L Calcium 8.0 L (8.4-10.2) mg/dL Total Bilirubin 0.3 (0.0-1.0) mg/dL AST 22 (5-37) U/L ALT 15 (0-40) U/L Alkaline Phosphatase 56 (39-117) U/L Troponin I High Sens < 2.7 (<3.5-35.0) ng/L B-Natriuretic Peptide 68 (<100) pg/mL Total Protein 6.2 L (6.5-8.0) g/dL Albumin 3.6 (3.5-5.0) g/dL / Range/Units 08:45 WBC (4.8-10.8) X10*3/uL RBC (4.60-5.80) X10*6/uL Hgb (14.0-18.0) g/dl Hct (42.0-52.0) % MCV (80.0-98.0) fL MCH (27.0-33.0) pg MCHC (31.0-36.0) g/dl RDW (11.0-16.0) % Plt Count (160-400) X10*3/uL MPV (9.4-12.4) fL Immature Gran % (Auto) (0.0-0.4) % Neut % (Auto) (45-73) % Lymph % (Auto) (20-40) % [place] % (Auto) (2-11) % Eos % (Auto) (0-4) % Baso % (Auto) (0-2) % Lymph # (Auto) (1.2-4.9) X10*3/uL [place] # (Auto) (0.1-1.2) X10*3/uL Eos # (Auto) (0.0-0.4) X10*3/uL Baso # (Auto) (0.0-0.2) X10*3/uL Abs Immat Gran (auto) (0.00-0.03) X10*3/uL Absolute Neuts (auto) (2.0-8.3) x10*3/uL Absolute Nucleated RBC (0.0-0.012) X10*3/uL Nucleated RBC % (auto) (0.0-0.2) /100WBC PT (10.9-12.4) SEC INR (0.9-1.1) Sodium (135-145) mmol/L Potassium (3.3-5.1) mmol/L Chloride (96-108) mmol/L Carbon Dioxide (22-29) mmol/L Anion Gap (12-20) BUN (9-16) mg/dL Creatinine (0.5-1.4) mg/dL Estim Creat Clear Calc Estimated GFR Random Glucose (60-115) mg/dL Lactic Acid 1.3 (0.5-2.0) mmol/L Calcium (8.4-10.2) mg/dL Total Bilirubin (0.0-1.0) mg/dL AST (5-37) U/L ALT (0-40) U/L Alkaline Phosphatase (39-117) U/L Troponin I High Sens (<3.5-35.0) ng/L B-Natriuretic Peptide (<100) pg/mL Total Protein (6.5-8.0) g/dL Albumin (3.5-5.0) g/dL Independent Interpretation I performed an independent interpretation of an: EKG and Plain X-Ray Interpretation: My independent interpretation patient's 12 lead EKG done on 02/04/2025 at 06:36 hours is as follows: Atrial fibrillation with a ventricular rate of 76, prolonged QRS of 118 milliseconds, prolonged QTC of 495 milliseconds, no ST segment elevation, no ST segment depression, Q-wave in lead 3, no significant T- wave abnormalities, no PVCs, no PACs. Compared to EKG dated 08/16/2024 at 10:50 hours there is no significant change. My independent interpretation of the patient's one-view chest x-ray is as follows: Right sided infiltrate Radiology Impression Discussion of test interpretation with radiology: I have reviewed the radiologist's reading. Radiologist Impression: 1 view chest x-ray Comparison: 08/16/2024 Findings: Portions of the exam are obscured by overlying material. There is consolidation in the right lung, possible pneumonia or pulmonary edema. Heart size is normal. No acute fracture. IMPRESSION: 1. Right pulmonary consolidation, differential considerations noted This document has been electronically signed by: Deric Amaya MD on 02/04/2025 08:16:57 Dictated By: Deric Amaya MD External Record Review External record reviewed: Inpatient record Chronic Conditions Patient?s care impacted by: Hypertension and Other (Chronic atrial fibrillation) Critical Care Time Critical Care Time Critical Care Time: Yes Total Critical Care Time: 35 Attestation: Critical Care: The patient was critically ill with a high probability of imminent or life threatening deterioration. I spent greater than 30 minutes of discontinuous time evaluating the patient,delivering critical care at the bedside, discussing and evaluating pertinent data with consultants. Critical care time does not include time spent performing separately billable procedures or teaching. Total time spent performing critical care was 35 minutes. Discharge Plan Discharge Clinical Impression: Anxiety Pneumonia Qualifiers: Laterality: right Lung location: lower lobe of lung Prescriptions: No Action venlafaxine 75 mg capsule,extended release 24hr 75 mg PO BID amiodarone 200 mg tablet 200 mg PO DAILY polyethylene glycol 3350 17 gram Powder In Packet 17 g PO DAILY Qty: 30 0RF docusate sodium 100 mg Capsule 100 mg PO BID PRN (Reason: Constipation) Qty: 30 0RF amlodipine 5 mg tablet 5 mg PO DAILY Qty: 90 0RF Protocol: Hold for SBP< HOLD for SBP < : 90 omeprazole 40 mg capsule,delayed release(DR/EC) 40 mg PO DAILY Qty: 30 0RF Eliquis 5 mg tablet 5 mg PO BID oxycodone 20 mg tablet 20 mg PO QID clonazepam 1 mg tablet 1 mg PO TID atorvastatin 20 mg tablet 20 mg PO DAILY albuterol sulfate 90 mcg/actuation HFA aerosol inhaler 2 puff PO Q4H PRN (Reason: Dyspnea) levothyroxine 100 mcg tablet 100 mcg PO DAILY@0600 lisinopril 20 mg tablet 10 mg PO DAILY Print Language: [place]
[2025-02-04 08:19] LABS: B Type Natriuretic Peptide 68 pg/mL (<100)
[2025-02-04] MEDS: LORazepam 1 MG TABLET 2 MG PO (08:28)
[2025-02-04] MEDS: 0.9 % Sodium Chloride 2,466 ML 2466 ML IV (08:29)
[2025-02-04] MEDS: cefTRIAXone sodium 1 GM VIAL IVPUSH (08:46)
[2025-02-04 09:08] LABS: Lactic Acid 1.3 mmol/L (0.5-2.0)
[2025-02-04] MEDS: Azithromycin 500 MG in 0.9 % Sodium Chloride 250 ML 125 MG IV (09:13)
--- NOTE | 2025-02-04 09:20 | PC.NURSE ---
blood cultures drawn, pt continues to refuse nasal swab, ivf hung, abx given per order, medicated for anxiety, pt continues to be afib on monitor, call islas within reach, plan of care ongoing
[2025-02-04 10:21] LABS: Troponin-I High Sensitivity < 2.7 ng/L (<3.5-35.0)
--- NOTE | 2025-02-04 10:43 | P.HPHOSP_ITS ---
History of Present Illness Date of Service: 02/04/25 Attending physician on admission: Baylee Dominguez Chief Complaint: SOB, chest tightness Pt is a 59-year-old male with a PMH significant for?persistent AFib on Eliquis,?HTN, COPD, hypothyroidism, chronic back pain, CKD, severe anxiety, and panic disorder who presents to the ED for evaluation of chest tightness and difficulty breathing since this morning. Pt reports ?has been feeling ?crappy the past 2-3 days with generalized fatigue, difficulty breathing, SOB, and nonproductive cough. This morning pt was awoken from sleep with severe central, nonradiating tightness in his chest and had difficulty breathing. Pt was also tachycardic, sweaty, lightheaded, and dizzy. No measured fever but felt cold. Pt was feeling extremely anxious and decided to come to the ED for further evaluation. EMS found pt desatting into the 80s on RA; give him aspirin and placed him on 4 L NC with improvement to 94%. Denies nausea, vomiting, abdominal pain. No headache or acute vision changes. Currently smoking half a pack daily. In the ED pt was tachycardic up to 101, soft BP as low as 91/53, and desatting to 89% on RA with ambulation. Labs were significant for hyponatremia 129 and creatinine 1.47 (mild elevation from previous of 1.32 on 08/16/2024). No leukocytosis. Stable H&H. Lactic acid WNL. Serial troponins negative. BNP WNL. CXR showed right pulmonary consolidation secondary to pneumonia vs pulmonary edema. EKG demonstrated atrial fibrillation without evidence of significant ST elevations or depressions. Pt was treated in the ED with lorazepam, IVF, ceftriaxone, and azithromycin. Pt is admitted to the hospital for treatment and further evaluation of hypoxic respiratory failure and hyponatremia in the setting of community-acquired pneumonia. Review of Systems 2 Review of Systems: Negative except for that which is stated in the HPI. [facility] Medical History Hypertension Paroxysmal atrial fibrillation CVA (cerebral vascular accident) Anxiety disorder Symptomatic bradycardia Hypertensive urgency Encounter for prostate cancer screening Social History Household Members: None Housing: Apartment Do you presently have visiting nurse or other home services: No Alcohol intake: current Alcohol intake frequency: holidays/special occasions only Alcohol type: beer Patient Tobacco Use Status: Current everyday Tobacco user Tobacco use type: Cigarette Cigarettes Per Day: 3 Years Smoked: 20 Smoked in Last 30 Days: Yes e-Cigarette/Vaping Use: Never Used Second Hand Smoke Exposure: Yes Use of substances other than those prescribed or required for medical reasons: No Advance Directives: Yes Advance Directives on File: Yes Advance Directives Date on File: 01/02/23 service: No Current occupational status: disabled Meds Allergies Allergy/AdvReac Type Severity Reaction Status Date / Time aspirin [ASA] Allergy Intermediate BLEEDING Verified 02/04/25 06:37 ULCERS, stomach upset NSAIDS (Non-Steroidal Allergy Intermediate BLEEDING Verified 02/04/25 06:37 Anti-Inflamma ULCERS [NSAIDS (NON-STEROIDAL ANTI-INFLAMMA] Home Medications ?Medication ?Instructions ?Recorded ?Confirmed ?Last Taken ?Type albuterol sulfate 90 mcg/actuation 2 puff PO Q4H PRN Dyspnea 12/18/21 06/13/24 05/25/24 History aerosol inhaler atorvastatin 20 mg tablet 20 mg PO DAILY 12/18/21 06/13/24 05/25/24 History clonazepam 1 mg tablet 1 mg PO TID 12/18/21 06/13/24 05/25/24 History oxycodone 20 mg tablet 20 mg PO QID 12/18/21 06/13/24 05/25/24 History apixaban 5 mg tablet (Eliquis) 5 mg PO BID 12/28/22 06/13/24 05/25/24 History levothyroxine 100 mcg tablet 100 mcg PO DAILY@0600 07/31/23 06/13/24 05/25/24 History amiodarone 200 mg tablet 200 mg PO DAILY 05/25/24 06/13/24 05/25/24 History lisinopril 20 mg tablet 10 mg PO DAILY 06/13/24 06/13/24 Unknown History amlodipine 10 mg tablet 10 mg PO DAILY 02/04/25 Unknown History Physical Exam 2 Vital Signs and Narrative: Vital Signs: Last Vital Signs Temp 98.1 F 02/04/25 10:10 Pulse 101 H 02/04/25 10:10 Resp 18 02/04/25 10:10 BP 107/47 L 02/04/25 10:10 Pulse Ox 94 02/04/25 10:38 O2 Del Method Nasal Cannula 02/04/25 10:38 O2 Flow Rate 3 02/04/25 10:38 Oxygen Flow Rate 3 02/04/25 06:36 BMI result Body Mass Index 30.1 General: AOx3, no acute distress Resp: CTA bilaterally though diminished CVS: Irregularly irregular rhythm, tachycardic GI: +BS, NT, no distention Skin: Warm, dry Neuro: Cranial nerves II-XII grossly intact bilaterally. Motor grossly intact bilaterally Extremities: No edema Psych: Anxious, emotionally labile Results Labs 02/04/25 06:51 02/04/25 06:50 Labs: Laboratory Results - last 24 hr 02/04/25 02/04/25 02/04/25 06:50 06:51 07:56 MCV 93.6 MCH 32.9 MCHC 35.1 RDW 12.9 Plt Count 249 MPV 8.5 L Immature Gran % (Auto) 1.1 H Neut % (Auto) 56.5 Lymph % (Auto) 33.6 [place] % (Auto) 6.5 Eos % (Auto) 1.8 Baso % (Auto) 0.5 Lymph # (Auto) 3.0 [place] # (Auto) 0.6 Eos # (Auto) 0.2 Baso # (Auto) 0.0 Abs Immat Gran (auto) 0.10 H Absolute Neuts (auto) 5.0 Absolute Nucleated RBC 0.000 Nucleated RBC % (auto) 0.0 PT 12.8 H INR 1.1 Anion Gap 12 Estim Creat Clear Calc 69.4 Estimated GFR 49 Random Glucose 97 Lactic Acid Calcium 8.0 L Total Bilirubin 0.3 AST 22 ALT 15 Alkaline Phosphatase 56 B-Natriuretic Peptide 68 Total Protein 6.2 L Albumin 3.6 02/04/25 08:45 MCV MCH MCHC RDW Plt Count MPV Immature Gran % (Auto) Neut % (Auto) Lymph % (Auto) [place] % (Auto) Eos % (Auto) Baso % (Auto) Lymph # (Auto) [place] # (Auto) Eos # (Auto) Baso # (Auto) Abs Immat Gran (auto) Absolute Neuts (auto) Absolute Nucleated RBC Nucleated RBC % (auto) PT INR Anion Gap Estim Creat Clear Calc Estimated GFR Random Glucose Lactic Acid 1.3 Calcium Total Bilirubin AST ALT Alkaline Phosphatase B-Natriuretic Peptide Total Protein Albumin Assessment and Plan (1) Acute hypoxic respiratory failure: Status: Acute (2) Community acquired pneumonia: Status: Acute Plan Pt is a 59-year-old male with a PMH significant for?persistent AFib on Eliquis,?HTN, COPD not on home O2, hypothyroidism, chronic back pain, CKD, severe anxiety, and panic disorder who presents to the ED for evaluation of chest tightness and difficulty breathing since this morning. Pt is admitted to the hospital for treatment and further evaluation of hypoxic respiratory failure and hyponatremia in the setting of community-acquired pneumonia. Acute hypoxic respiratory failure in the setting of community-acquired pneumonia Pt with SOB, chest tightness, difficulty breathing, cough times 2-3 days, CXR showing right lung consolidation, desatting into the 80s on RA with ambulation No sepsis: Tachycardia secondary to anxiety, no fever or leukocytosis; lactic acid WNL Pt given IVF and started on broad-spectrum antibiotics in the ED Will treat with doxycycline and ceftriaxone, started 02/04/2025 Titrate supplemental O2 >92, wean as tolerated Hyponatremia, mild Sodium 129 at time of presentation Pt given IVF in the ED Follow sodium CKD Creatinine 1.47, mildly elevated from previous 1.32 Pt given IVF in the ED Follow kidney function Chest tightness Likely secondary to pneumonia and anxiety, not cardiogenic EKG without ischemia, serial troponins negative Prolonged QTc, chronic EKG with QTc 495, is chronically elevated Avoid additional QT-prolonging agents Anxiety Pt with extreme anxiety, has been anxious and emotionally labile in the ED Continue clonazepam COPD Not in acute exacerbation Continue home inhalers Persistent AFib Continue amiodarone, Eliquis HLD Continue statin HTN BP has been soft since admission, hold amlodipine and lisinopril Hypothyroidism Continue levothyroxine Full Code Attending:?Dr. Dominguez DVT Prophylaxis: On Eliquis Pt will require a hospitalization of at least two nights for treatment of?acute hypoxic respiratory failure and hyponatremia in the setting of community- acquired pneumonia. Pt will require hospital level care for administration of IV antibiotics, supplemental oxygen, IVF, and close monitoring of labs and respiratory status. Quality Stroke Does the patient have a stroke diagnosis?: No VTE Prior VTE?: No VTE Risk Level:: Medical - moderate - high VTE Device Contraindication: Treatment Not Indicated VTE Drug Contraindication: N/A - Med Ordered
--- NOTE | 2025-02-04 11:32 | PHA.MEDREC ---
Addendum entered by Marcus Maddox RP 02/04/25 12:34: Reviewed by [facility] Original Note: Pharmacy Consult ? Medication Reconciliation Pharmacy has completed the medication reconciliation. Spoke to pt to confirm meds. Pt no longer amiodarone.
[2025-02-04] MEDS: Albumin Human 25 % 100 ML IV ×2 (13:06→17:57)
[2025-02-04] MEDS: Apixaban 5 MG TABLET PO ×2 (13:09→21:09)
[2025-02-04] MEDS: Atorvastatin Calcium 20 MG TABLET PO (13:09)
[2025-02-04] MEDS: oxyCODONE HCl Immed Release 5 MG TABLET 20 MG PO ×3 (13:09→21:09)
[2025-02-04] MEDS: clonazePAM 1 MG TABLET PO ×2 (13:41→21:10)
--- NOTE | 2025-02-04 13:45 | PC.NURSE ---
patient a&ox3, front desk monitor afib- pt continues to be hypotensive, albumin started per order- pt denies dizzines, pt changed from stretcher to hospital bed as he has chronic back pain- pt medicated for pain, call islas within reach, plan of care ongoing
[2025-02-04] MEDS: Albuterol/Iprat 2.5/0.5MG 3 ML AMPUL.NEB INHALE ×2 (14:24→20:35)
[2025-02-04] MEDS: 0.9 % Sodium Chloride Flush 3 ML SYRINGE IVFLUSH ×2 (16:54→21:12)
[2025-02-05] VITALS (9 sets, daily range): BP systolic 100–143; BP diastolic 50–78; PULSE 66–93; RESP 16–18; TEMP 36.3–36.9; O2SAT 94–97
[2025-02-05] MEDS: Levothyroxine Sodium 100 MCG TABLET PO (05:32)
[2025-02-05 07:00] LABS: MANUAL DIFF FLAG NO
[2025-02-05 07:12] LABS: Basophils Percent Auto 0.5 % (0-2); Eosinophils Absolute Auto 0.1 X10*3/uL (0.0-0.4); Eosinophils Percent Auto 1.1 % (0-4); Hematocrit 30.4 % (42.0-52.0); Hemoglobin 10.3 g/dl (14.0-18.0); Imm Gran Abs Auto 0.05 X10*3/uL (0.00-0.03); Imm Gran Pct Auto 0.6 % (0.0-0.4); Lymphocytes Absolute Auto 1.9 X10*3/uL (1.2-4.9); Lymphocytes Percent Auto 22.8 % (20-40); Mean Corpuscular HGB Conc 33.9 g/dl (31.0-36.0); Mean Corpuscular Hemoglobin 33.1 pg (27.0-33.0); Mean Corpuscular Volume 97.7 fL (80.0-98.0); Mean Platelet Volume 9.2 fL (9.4-12.4); Monocytes Absolute Auto 0.6 X10*3/uL (0.1-1.2); Monocytes Percent Auto 7.6 % (2-11); Neutrophils Absolute Auto 5.6 x10*3/uL (2.0-8.3); Neutrophils Percent Auto 67.4 % (45-73); Platelet Count 226 X10*3/uL (160-400); Red Blood Count 3.11 X10*6/uL (4.60-5.80); Red Cell Distribution Width 13.9 % (11.0-16.0); White Blood Count 8.3 X10*3/uL (4.8-10.8)
[2025-02-05] MEDS: Albuterol/Iprat 2.5/0.5MG 3 ML AMPUL.NEB INHALE (07:41)
[2025-02-05 07:45] LABS: Anion Gap 12 (12-20); Blood Urea Nitrogen 18 mg/dL (9-16); Calcium 8.4 mg/dL (8.4-10.2); Carbon Dioxide 24 mmol/L (22-29); Chloride 109 mmol/L (96-108); Creatinine Clr Calc Pharmacy 89.5; Estimated Glomerular Filt Rate > 60; Glucose Random 101 mg/dL (60-115); Potassium 3.9 mmol/L (3.3-5.1); Sodium 141 mmol/L (135-145)
[2025-02-05] MEDS: oxyCODONE HCl Immed Release 5 MG TABLET 20 MG PO ×4 (07:47→21:13)
[2025-02-05] MEDS: Apixaban 5 MG TABLET PO ×2 (07:48→21:13)
[2025-02-05] MEDS: Doxycycline Hyclate 100 MG in 0.9 % Sodium Chloride 250 ML 166.67 MG IV ×2 (07:48→19:51)
[2025-02-05] MEDS: Atorvastatin Calcium 20 MG TABLET PO (07:48)
[2025-02-05] MEDS: clonazePAM 1 MG TABLET PO ×3 (07:48→21:13)
[2025-02-05] MEDS: cefTRIAXone sodium 1 GM VIAL IVPUSH (07:48)
[2025-02-05] MEDS: 0.9 % Sodium Chloride Flush 3 ML SYRINGE IVFLUSH ×3 (07:49→21:16)
--- NOTE | 2025-02-05 09:47 | MHC.CM.PN ---
IMM 02/05/25, Pt lives alone, he has a [employer] for 17 hrs per week. He does not have a PCP, brochure given. For DME, he has a cane, walker, nebulizer. HCP is on file and confirmed: Eri. He is very private and does not want information shared with anyone except Eri if she should call or ask. He can arrange transport home at DC, or may need assistance. DCP: home, self care, CM to follow for DC needs.
--- NOTE | 2025-02-05 10:27 | HO.PM.IMPN ---
Subjective Subjective Date of Service: 02/05/25 Interval History: Pt seen and evaluated in his room where he is resting comfortably in bed Reports feeling and breathing much better than yesterday Improvement in cough Feeling less anxious BP has remained soft though not hypotensive Has been up and out of bed, walking to the bathroom No lightheadedness or dizziness Review of Systems Review of Systems: Yes all other systems are reviewed and are negative Physical Exam Vital Signs: Vital Signs: Last Vital Signs Temp 97.7 F 02/05/25 07:27 Pulse 87 02/05/25 07:42 Resp 18 02/05/25 07:42 BP 117/73 02/05/25 07:27 Pulse Ox 97 02/05/25 07:27 O2 Del Method Nasal Cannula 02/05/25 07:27 O2 Flow Rate 2 02/05/25 07:27 Oxygen Flow Rate 3 02/04/25 06:36 BMI result Body Mass Index 30.1 General: AOx3, no acute distress Resp: Mild end-expiratory wheezing bilaterally CVS: S1, S2, RRR GI: +BS, NT, no distention Skin: Warm, dry Neuro: Cranial nerves II-XII grossly intact bilaterally. Motor grossly intact bilaterally Extremities: No edema Psych: Less anxious, mood upbeat Objective Data Active Medications Acetaminophen (Acetaminophen 325 Mg Tablet) 650 mg PO Q6H PRN PRN Reason: Pain, Mild 1-3,fever,headache Albuterol Sulfate (Albuterol Sulfate 90 Mcg 8 Gm Inhaler) 2 puff INHALE Q4H PRN PRN Reason: Dyspnea Albuterol/Ipratropium (Albuterol/Iprat 2.5/0.5mg 3 Ml Ampul.Neb) 3 ml INHALE RQ4H WHILE AWAKE [facility] Stop: 02/05/25 15:59 Last Admin: 02/05/25 07:41 Dose: 3 ml Documented By: STEW Apixaban (Apixaban 5 Mg Tablet) 5 mg PO BID [facility] Last Admin: 02/05/25 07:48 Dose: 5 mg Documented By: COURTNEY Atorvastatin Calcium (Atorvastatin Calcium 20 Mg Tablet) 20 mg PO DAILY [facility] Last Admin: 02/05/25 07:48 Dose: 20 mg Documented By: COURTNEY Calcium Carbonate (Calcium Carbonate 750 Mg Tab.Chew) 750 mg PO Q4H PRN PRN Reason: Heartburn Ceftriaxone Sodium (Ceftriaxone Sodium 1 Gm Vial) 1 gm IVPUSH Q24H [facility] Last Admin: 02/05/25 07:48 Dose: 1 gm Documented By: COURTNEY Clonazepam (Clonazepam 1 Mg Tablet) 1 mg PO TID [facility] Last Admin: 02/05/25 07:48 Dose: 1 mg Documented By: COURTNEY Doxycycline Hyclate 100 mg/ (Sodium Chloride) 250 mls @ 166.67 mls/hr IV Q12H [facility] Last Infusion: 02/05/25 09:40 Dose: Infused Documented By: COURTNEY Levothyroxine Sodium (Levothyroxine Sodium 100 Mcg Tablet) 100 mcg PO DAILY@0600 [facility] Last Admin: 02/05/25 05:32 Dose: 100 mcg Documented By: LOWELL Magnesium Hydroxide (Milk Of Magnesia 30 Ml Oral.Susp) 30 ml PO DAILY PRN PRN Reason: Constipation Melatonin (Melatonin 3 Mg Tablet) 6 mg PO BEDTIME PRN PRN Reason: Insomnia Oxycodone HCl (Oxycodone Hcl Immed Release 5 Mg Tablet) 20 mg PO QID [facility] Last Admin: 02/05/25 07:47 Dose: 20 mg Documented By: COURTNEY Sodium Chloride (0.9 % Sodium Chloride Flush 3 Ml Syringe) 3 ml IVFLUSH QSHIFT [facility] Last Admin: 02/05/25 07:49 Dose: 3 ml Documented By: COURTNEY Labs 02/05/25 06:18 02/05/25 06:18 Labs: Laboratory Results - last 24 hr 02/05/25 06:18 MCV 97.7 MCH 33.1 H MCHC 33.9 RDW 13.9 Plt Count 226 MPV 9.2 L Immature Gran % (Auto) 0.6 H Neut % (Auto) 67.4 Lymph % (Auto) 22.8 [place] % (Auto) 7.6 Eos % (Auto) 1.1 Baso % (Auto) 0.5 Lymph # (Auto) 1.9 [place] # (Auto) 0.6 Eos # (Auto) 0.1 Baso # (Auto) 0.0 Abs Immat Gran (auto) 0.05 H Absolute Neuts (auto) 5.6 Absolute Nucleated RBC 0.000 Nucleated RBC % (auto) 0.0 Anion Gap 12 Estim Creat Clear Calc 89.5 Estimated GFR > 60 Random Glucose 101 Calcium 8.4 Assessment and Plan (1) Acute hypoxic respiratory failure: Status: Acute (2) Community acquired pneumonia: Status: Acute Plan Pt is a 59-year-old male with a PMH significant for?persistent AFib on Eliquis,?HTN, COPD not on home O2, hypothyroidism, chronic back pain, CKD, severe anxiety, and panic disorder who presents to the ED for evaluation of chest tightness and difficulty breathing since this morning. Pt is admitted to the hospital for treatment and further evaluation of hypoxic respiratory failure and hyponatremia in the setting of community-acquired pneumonia. Acute hypoxic respiratory failure in the setting of community-acquired pneumonia Pt with SOB, chest tightness, difficulty breathing, cough x2-3 days, CXR showing right lung consolidation, desatting into the 80s on RA with ambulation No sepsis: Tachycardia secondary to anxiety, no fever or leukocytosis; lactic acid WNL Continue doxycycline and ceftriaxone, day 2 (started 02/04/2025) Duonebs prn Titrate supplemental O2 >92, wean as tolerated Monitor respiratory status HTN Pt's BP has been soft during admission Received IVF and albumin with improvement, currently 117/73 Hold amlodipine and lisinopril Consider d/cing antihypertensives if BP remains soft or normotensive Follow up wi PCP for outpatient BP management Hyponatremia, resolved Sodium 129 at time of presentation, currently WNL after IVF in the ED Elevated creatinine, respolved Initial creatinine, elevated from 1.32 on 08/16/2024 Currently 1.14 after IVF Chest tightness Likely secondary to pneumonia and anxiety, not cardiogenic EKG without ischemia, serial troponins negative Pt currently asymptomatic Prolonged QTc, chronic EKG with QTc 495, is chronically elevated Avoid additional QT-prolonging agents Switch azithromycin to doxycycline Anxiety Pt with extreme anxiety, initially anxious and emotionally labile in the ED Currently less anxious, mood upbeat Continue clonazepam COPD Not in acute exacerbation Continue home inhalers Persistent AFib Continue amiodarone, Eliquis HLD Continue statin Hypothyroidism Continue levothyroxine Full Code DVT Prophylaxis: On Eliquis Pt will require continued hospitalization due to continued supplemental O2 and need for IV antibiotics for pneumonia. Quality Stroke Does the patient have a stroke diagnosis?: No VTE Prior VTE?: No VTE Risk Level:: Medical - moderate - high VTE Device Contraindication: Treatment Not Indicated VTE Drug Contraindication: N/A - Med Ordered
[2025-02-05 15:21] LABS: Influenza A PCR NEGATIVE (Negative); Influenza B PCR NEGATIVE (Negative); Resp Syncy Virus RNA Qual PCR NEGATIVE (Negative); SARS COV2 PCR INHOUSE NEGATIVE (Negative)
[2025-02-05] MEDS: Albuterol Sulfate 90 MCG 8 GM INHALER 2 PUFF INHALE ×2 (15:38→23:20)
--- NOTE | 2025-02-05 18:07 | PC.NURSE ---
Pt arrived to unit, independently ambulated from wheelchair to bed. Room air sat 94%. No c/o pain or sob at this time. Oriented to room.
[2025-02-06 03:47] VITALS: BP 117/80; PULSE 87; RESP 18; TEMP 36.3; O2SAT 96
[2025-02-06] MEDS: Levothyroxine Sodium 100 MCG TABLET PO (05:12)
[2025-02-06 06:14] LABS: MANUAL DIFF FLAG NO
[2025-02-06 06:52] LABS: Anion Gap 11 (12-20); Blood Urea Nitrogen 18 mg/dL (9-16); Carbon Dioxide 27 mmol/L (22-29); Chloride 104 mmol/L (96-108); Creatinine Clr Calc Pharmacy 84.3; Estimated Glomerular Filt Rate > 60; Glucose Random 93 mg/dL (60-115); Potassium 4.3 mmol/L (3.3-5.1); Sodium 138 mmol/L (135-145)
[2025-02-06 06:55] LABS: Basophils Absolute Auto 0.1 X10*3/uL (0.0-0.2); Basophils Percent Auto 0.5 % (0-2); Eosinophils Absolute Auto 0.2 X10*3/uL (0.0-0.4); Hematocrit 33.4 % (42.0-52.0); Hemoglobin 11.1 g/dl (14.0-18.0); Imm Gran Abs Auto 0.11 X10*3/uL (0.00-0.03); Imm Gran Pct Auto 1.1 % (0.0-0.4); Lymphocytes Absolute Auto 1.9 X10*3/uL (1.2-4.9); Lymphocytes Percent Auto 19.2 % (20-40); Mean Corpuscular HGB Conc 33.2 g/dl (31.0-36.0); Mean Corpuscular Hemoglobin 32.9 pg (27.0-33.0); Mean Corpuscular Volume 99.1 fL (80.0-98.0); Mean Platelet Volume 9.4 fL (9.4-12.4); Monocytes Percent Auto 10.4 % (2-11); Neutrophils Absolute Auto 6.5 x10*3/uL (2.0-8.3); Neutrophils Percent Auto 66.8 % (45-73); Platelet Count 244 X10*3/uL (160-400); Red Blood Count 3.37 X10*6/uL (4.60-5.80); Red Cell Distribution Width 13.5 % (11.0-16.0); White Blood Count 9.7 X10*3/uL (4.8-10.8)
[2025-02-06 07:27] VITALS: BP 136/67; PULSE 63; RESP 18; TEMP 36.9; O2SAT 94
[2025-02-06] MEDS: clonazePAM 1 MG TABLET PO (08:07)
[2025-02-06] MEDS: oxyCODONE HCl Immed Release 5 MG TABLET 20 MG PO ×2 (08:07→12:19)
[2025-02-06] MEDS: Apixaban 5 MG TABLET PO (08:07)
[2025-02-06] MEDS: Atorvastatin Calcium 20 MG TABLET PO (08:08)
[2025-02-06] MEDS: Doxycycline Hyclate 100 MG in 0.9 % Sodium Chloride 250 ML 166.67 MG IV (08:08)
[2025-02-06] MEDS: cefTRIAXone sodium 1 GM VIAL IVPUSH (08:08)
[2025-02-06] MEDS: 0.9 % Sodium Chloride Flush 3 ML SYRINGE IVFLUSH (08:15)
[2025-02-06 09:43] VITALS: O2SAT 99
[2025-02-06] MEDS: Albuterol Sulfate 90 MCG 8 GM INHALER 2 PUFF INHALE (09:48)
--- NOTE | 2025-02-06 12:29 | PM.DS ---
DS: Providers Provider Date of Service: 02/06/25 Date of admission: 02/04/25 10:31 Date of discharge: 02/06/25 Primary care physician: Jody Physician DS: Diagnosis Discharge Diagnosis (1) Acute hypoxic respiratory failure: Status: Acute (2) Community acquired pneumonia: Status: Acute (3) COPD (chronic obstructive pulmonary disease): Status: Acute (4) Hypertension: Status: Acute (5) Hypotension: Status: Acute (6) Nicotine dependence: Status: Acute DS: Summary Hospital Course Hospital Course: Admission note HPI Pt is a 59-year-old male with a PMH significant for?persistent AFib on Eliquis,?HTN, COPD, hypothyroidism, chronic back pain, CKD, severe anxiety, and panic disorder who presents to the ED for evaluation of chest tightness and difficulty breathing since this morning. Pt reports ?has been feeling ?crappy the past 2-3 days with generalized fatigue, difficulty breathing, SOB, and nonproductive cough. This morning pt was awoken from sleep with severe central, nonradiating tightness in his chest and had difficulty breathing. Pt was also tachycardic, sweaty, lightheaded, and dizzy. No measured fever but felt cold. Pt was feeling extremely anxious and decided to come to the ED for further evaluation. EMS found pt desatting into the 80s on RA; give him aspirin and placed him on 4 L NC with improvement to 94%. Denies nausea, vomiting, abdominal pain. No headache or acute vision changes. Currently smoking half a pack daily. In the ED pt was tachycardic up to 101, soft BP as low as 91/53, and desatting to 89% on RA with ambulation. Labs were significant for hyponatremia 129 and creatinine 1.47 (mild elevation from previous of 1.32 on 08/16/2024). No leukocytosis. Stable H&H. Lactic acid WNL. Serial troponins negative. BNP WNL. CXR showed right pulmonary consolidation secondary to pneumonia vs pulmonary edema. EKG demonstrated atrial fibrillation without evidence of significant ST elevations or depressions. Pt was treated in the ED with lorazepam, IVF, ceftriaxone, and azithromycin. Pt is admitted to the hospital for treatment and further evaluation of hypoxic respiratory failure and hyponatremia in the setting of community-acquired pneumonia. Hospital course The patient was treated for: # Acute hypoxic respiratory failure in the setting of community-acquired pneumonia. CXR showing right lung consolidation, desatting into the 80s on RA with ambulation in ED. Treated with Doxycycline and ceftriaxone with good response as he was weaned off O2. blood cultures came back negative. was able to ambulate on room air with no reported dyspnea or hypoxia. To be discharged on 1 more week of Doxycycline and Ceftin. # Hypotension. BP has been soft during admission. He reported low readings at home of 80s/50s. Received IVF and albumin with improvement as we Held amlodipine and lisinopril. To hold BP medications at discharge and monitor blood pressure at home and discuss with PCP if he needs to restart his home medications. Hold Lisinopril and Take half tablet of Amlodipine for the time being # Acute Hyponatremia, Sodium 129 at time of presentation, resolved after IV fluids and holding Lisinopril. # Elevated creatinine, resolved. Initial creatinine, elevated 1.14 after IVF. # Chest tightness, Likely secondary to pneumonia and anxiety. EKG without ischemia, serial troponins negative. # Prolonged QTc, chronic. EKG with QTc 495, is chronically elevated. Discharge plan Continue Ceftin and Doxycycline for 1 more week Avoid smoking Duonebs 3-4 times for the next 3 days then as needed Hold Lisinopril Take half tablet of Amlodipine for the time being Monitor blood pressure at home and report 1 week readings to PCP before restarting any blood pressure medication Time Attestation Discharge Coordination Time (in mins): 34 Quality: Safe Use of Opioids Does Pt have an Active Cancer Diagnosis on the Problem List?: No Quality: Stroke Does the patient have a stroke diagnosis?: No Physical Exam Vital Signs: Vital Signs: Last Vital Signs Temp 98.5 F 02/06/25 07:27 Pulse 63 02/06/25 07:27 Resp 18 02/06/25 07:27 BP 136/67 02/06/25 07:27 Pulse Ox 99 02/06/25 09:43 O2 Del Method Room Air 02/06/25 07:27 O2 Flow Rate 1 02/05/25 15:52 Oxygen Flow Rate 3 02/04/25 06:36 BMI result Body Mass Index 30.1 Const: Other: Constitutional : Awake, interactive, not in distress Neck : Normal inspection, Supple Cardiovascular : RRR, no JVP, no lower extremity edema Respiratory : fair bilateral air entry but far and distant, no crackles, scattered wheezes , on room air Gastrointestinal: soft, lax, Normal bowel sounds, Non tender Skin : Warm, Dry Neurological : Alert & oriented x3, No focal deficit DS: Data Data Completed and Pending Labs on day of discharge: Laboratory Results - last 24 hr 02/05/25 02/06/25 14:37 05:29 WBC 9.7 RBC 3.37 L Hgb 11.1 L Hct 33.4 L MCV 99.1 H MCH 32.9 MCHC 33.2 RDW 13.5 Plt Count 244 MPV 9.4 Immature Gran % (Auto) 1.1 H Neut % (Auto) 66.8 Lymph % (Auto) 19.2 L [place] % (Auto) 10.4 Eos % (Auto) 2.0 Baso % (Auto) 0.5 Lymph # (Auto) 1.9 [place] # (Auto) 1.0 Eos # (Auto) 0.2 Baso # (Auto) 0.1 Abs Immat Gran (auto) 0.11 H Absolute Neuts (auto) 6.5 Absolute Nucleated RBC 0.000 Nucleated RBC % (auto) 0.0 Sodium 138 Potassium 4.3 Chloride 104 Carbon Dioxide 27 Anion Gap 11 L BUN 18 H Creatinine 1.21 Estim Creat Clear Calc 84.3 Estimated GFR > 60 Random Glucose 93 Calcium 9.0 D Influenza Type A (PCR) NEGATIVE Influenza Type B (PCR) NEGATIVE RSV RNA Qual (PCR) NEGATIVE SARS-CoV-2 RNA (RT-PCR) NEGATIVE Preliminary micro results at discharge 02/04/25 09:08 Blood Culture - Preliminary Blood - Venous No growth after 48 hours. 02/04/25 08:45 Blood Culture - Preliminary Blood - Venous No growth after 48 hours. Imaging Chest x-ray: My impression: IMPRESSION: 1. Right pulmonary consolidation, differential considerations noted Discharge Plan Discharge Anticipated Discharge Date/Time: 02/06/25 12:21 Patient Disposition: Home, Self-Care Discharge Diagnosis: Pneumonia Referrals: Physician,None [Primary Care Provider] - 1 Week Discharge Medications: New doxycycline monohydrate 100 mg capsule 100 mg PO BID Qty: 14 0RF cefuroxime axetil 500 mg tablet 500 mg PO BID Qty: 14 0RF ipratropium-albuterol 0.5 mg-3 mg(2.5 mg base)/3 mL solution for nebulization 3 ml inhalation Q6-8H PRN (Reason: Dyspnea, Wheezing) Qty: 90 0RF Continued Eliquis 5 mg tablet 5 mg PO BID oxycodone 20 mg tablet 20 mg PO QID clonazepam 1 mg tablet 1 mg PO TID atorvastatin 20 mg tablet 20 mg PO DAILY albuterol sulfate 90 mcg/actuation HFA aerosol inhaler 2 puff PO Q4H PRN (Reason: Dyspnea) levothyroxine 100 mcg tablet 100 mcg PO DAILY@0600 Changed amlodipine 10 mg tablet 5 mg PO DAILY Qty: 30 0RF Held lisinopril 20 mg tablet 10 mg PO DAILY Hold Instructions: Monitor blood pressure at home and report 1 week readings to PCP before restarting any blood pressure medicaiton Discharge Orders: Discharge Order (Routine); Ordered 02/06/25 Ordered By: Tara Gannon Diet: Advance to usual diet Activity on Discharge: As tolerated Stand Alone Forms: Patient Portal Discharge page Print Language: Ethiopian Care Plan Goals: Continue Ceftin and Doxycycline for 1 more week Avoid smoking Duonebs 3-4 times for the next 3 days then as needed Hold Lisinopril Take half tablet of Amlodipine for the time being Monitor blood pressure at home and report 1 week readings to PCP before restarting any blood pressure medication Health Concerns: Pnuemonia Plan of Treatment: Antibiotics Assessment: as above Discharge Date/Time: 02/06/25 13:43
--- NOTE | 2025-02-06 12:52 | MHC.CM.PN ---
Patient medically cleared for dc home. Will resume [employer] services. States a friend will provide transport. RN aware.
[2025-02-06 13:01] VITALS: BP 151/78; PULSE 76; RESP 18; TEMP 36.6; O2SAT 96
== END 2025-02-06 13:43 | disposition home or self-care (01) | DRG 193 ==
LOC: HO.ED 07:46 → HO.EDOVER 10:52 → HO.IMC 15:04 → HO.S3 02-05 16:02
PROVIDERS: Admitting Provider Student in an Organized Health Care Education/Training Program; Emergency Provider Emergency Medicine Emergency Medical Services; PCP Internal Medicine; Visit Provider Student in an Organized Health Care Education/Training Program
DX: J18.9 Pneumonia, unspecified organism (principal); J96.01 Acute respiratory failure with hypoxia; J44.0 Chronic obstructive pulmonary disease with (acute) lower respiratory infection; I48.19 Other persistent atrial fibrillation; M54.9 Dorsalgia, unspecified; G89.29 Other chronic pain; I95.9 Hypotension, unspecified; F17.210 Nicotine dependence, cigarettes, uncomplicated; E78.5 Hyperlipidemia, unspecified; I12.9 Hypertensive chronic kidney disease with stage 1 through stage 4 chronic kidney disease, or unspecified chronic kidney disease; R94.31 Abnormal electrocardiogram [ECG] [EKG]; N18.9 Chronic kidney disease, unspecified; D63.1 Anemia in chronic kidney disease; F41.9 Anxiety disorder, unspecified; E03.9 Hypothyroidism, unspecified; Z20.822 Contact with and (suspected) exposure to COVID-19; Z71.6 Tobacco abuse counseling; Z79.01 Long term (current) use of anticoagulants; Z79.890 Hormone replacement therapy; Z79.899 Other long term (current) drug therapy
CPT/HCPCS: 0241U; 36415; 71045; 80048; 80053; 83605; 83880; 84484; 85025; 85610; 87040; 93005; 99285; J0456; J0696; J1271; P9047

== ENCOUNTER → 2025-02-04 06:36 | Outpatient (BNV) | payer OTHER, SELFPAY | PROVIDERS: Admitting Provider Student in an Organized Health Care Education/Training Program; Emergency Provider Emergency Medicine Emergency Medical Services; Visit Provider Internal Medicine Cardiovascular Disease | DX: I48.91 Unspecified atrial fibrillation (principal); I44.7 Left bundle-branch block, unspecified | CPT/HCPCS: 93010 ==

== ENCOUNTER → 2025-02-04 07:20 | Outpatient (BNV) | payer OTHER, SELFPAY | PROVIDERS: Emergency Provider Emergency Medicine Emergency Medical Services; Visit Provider Specialist | DX: R06.00 Dyspnea, unspecified (principal) | CPT/HCPCS: 71045 ==

== ENCOUNTER → 2025-02-04 10:31 | Outpatient (BNV) | payer OTHER, SELFPAY | PROVIDERS: Admitting Provider Student in an Organized Health Care Education/Training Program; Emergency Provider Emergency Medicine Emergency Medical Services; Visit Provider Student in an Organized Health Care Education/Training Program | DX: J96.01 Acute respiratory failure with hypoxia (principal); J18.9 Pneumonia, unspecified organism | CPT/HCPCS: 99223; 99233; 99239 ==

== ENCOUNTER 2025-03-14 09:50 | Emergency (ER) | payer OTHER, SELFPAY ==
[2025-03-14] VITALS (7 sets, daily range): BP systolic 100–133; BP diastolic 57–77; PULSE 64–91; RESP 13–22; TEMP 36.5–36.6; O2SAT 94–98; BMI 29.5
--- NOTE | ~2025-03-14 | XR_ITS ---
EXAMINATION: XR CHEST 1 VIEW HISTORY: cp COMPARISON: Comparison is made with the prior examination dated 02/04/2025. FINDINGS: Two AP portable views of the chest performed at 12:23 PM are submitted. The lungs are hyperinflated, consistent with COPD. The lungs are clear. The previously seen right basilar consolidation has resolved. There is no pleural effusion, pneumothorax, or pulmonary vascular congestion. The heart is normal in size. The bones are intact. XR/XR chest 1V IMPRESSION: No acute cardiopulmonary abnormality. The previously seen right basilar consolidation has resolved. Electronically signed by: Scott Ervin MD 03/14/2025 12:36 PM EDT
--- OUTSIDE RECORDS SUMMARY | 2025-03-14 11:22 | XMS_ITS | Clinical Summary ---
Author Organization [facility] [address] [facility] Address [address] [place] [address] Phone Care Team Providers Care [employer] Name Role Phone Deric Ricketts MD Primary Care Provider [phone] Allergies No known active allergies Medications oxyCODONE (ROXICODONE) 30 mg immediate release tablet Take 30 mg by mouth 2 times daily Active diazePAM (VALIUM) 5 mg tablet Take 5 mg by mouth 3 times daily as needed., 5 mg, Oral, 3 TIMES DAILY PRN, Until Discontinued Active morphine (MS Contin) 60 mg 12 hr tablet Take 60 mg by mouth at bedtime., 60 mg, Oral, NIGHTLY, Until Discontinued Active clonazePAM (KlonoPIN) 1 mg tablet Take 1 mg by mouth 3 times daily., 1 mg, Oral, 3 TIMES DAILY, Until Discontinued Active cyclobenzaprine (FLEXERIL) 10 mg tablet Take 10 mg by mouth at bedtime as needed., 10 mg, Oral, NIGHTLY PRN, Until Discontinued Active diclofenac (CATAFLAM) 50 mg tablet Take 50 mg by mouth 2 times daily., 50 mg, Oral, 2 TIMES DAILY, Until Discontinued, Active Active Problems Problem Noted Date Diagnosed Date Chronic back pain Encounters Date Type Department Care Team Description 03/07/2025 Telephone [facility] Cardiology [facility] [address] [place] [address] Deric Ricketts MD 02/27/2025 Telephone [facility] Cardiology [facility] [address] [place] [address] Deric Ricketts MD from Last 3 Months Social History Tobacco Use Types Packs/Day Years Used Date Smoking Tobacco: Never Assessed Sex and Gender Information Value Date Recorded Sex Assigned at Not on file Legal Sex Male 4:19 PM EST Gender Identity Not on file Sexual Orientation Not on file Plan of Treatment Health Maintenance Due Date Last Done Comments Zoster Vaccines (1 of 2) 2014 Pneumococcal Vaccine: 50+ Ye ars (2 of 2 - PCV) 02/24/2019 02/24/2018 Pneumococcal Vaccine: Pediat rics (0 to 5 Years) and At-Risk Patients (6 to 64 Years) (2 of 2 - PCV) 02/24/2019 02/24/2018 DTaP,Tdap,and Td Vaccines (2 - Td or Tdap) 04/28/2023 04/28/2013 COVID-19 Vaccine (1 - 2023-2 5 season) 2024 RSV Immunization Adult Patie nts (1 - Risk 60-74 years 1-dose series) 2024 Cholesterol Screening (Lipid Panel) 10/19/2024 Colorectal Cancer Screening: Colonoscopy 10/19/2024 Depression Screening 10/19/2024 HIV Screening 10/19/2024 Hepatitis C Screening 10/19/2024 Medicare Annual Wellness Visit 10/19/2024 Social Influencers of Health Screening 10/19/2024 Hypertension/CHF/CAD Annual BMP Blood Test 11/24/2024 Influenza Vaccine (Season Ended) 2025 07/06/20 20 HIB Vaccines Aged Out No longer eligi ble based on patient's age to complete this topic HPV Vaccines Aged Out No longer eligi ble based on patient's age to complete this topic Hepatitis A Vaccines Aged Out No long er eligible based on patient's age to complete this topic Hepatitis B Vaccines Aged Out No long er eligible based on patient's age to complete this topic IPV Vaccines Aged Out No longer eligi ble based on patient's age to complete this topic MMR Vaccines Aged Out No longer eligi ble based on patient's age to complete this topic Meningococcal ACWY Vaccine Aged Out N o longer eligible based on patient's age to complete this topic Meningococcal B Vaccine Aged Out No l onger eligible based on patient's age to complete this topic RSV Immunization Patients Un asmita 20 months Aged Out No longer eligible b ased on patient's age to complete this topic Varicella Vaccines Aged Out No longer eligible based on patient's age to complete this topic Insurance MEDICAID - [place] [employer] MEDICARE Member Subscriber Plan / Payer (Ef fective 2020-Present) Name:ADRIAN SAMUELS Relation to Subscriber:Self Name:Adrian Samuels Payer ID:[id number] Group ID:[id number] Type:Not on file Address: [address] [place] [address] Care Teams [employer] Relationship Specialty Start Date End Date Deric Ricketts MD [address] [place] [phone] PCP - General Internal Medicine 10/19/24
--- NOTE | 2025-03-14 11:31 | ED.CHESTPAIN ---
HPI - Chest Pain General Chief Complaint: Chest Pain Stated Complaint: weakness, unsteady Time Seen by Provider: 03/14/25 11:23 Source: patient and EMS Mode of arrival: EMS Limitations: no limitations History of Present Illness ED Provider: DR. Hester HPI narrative: A 59-year-old male PMH AFib on Eliquis, HTN, COPD, hypothyroidism, CKD, anxiety with panic attacks who came in for evaluation of chest tightness, shortness of breath, feeling spacey and foggy and generalized weakness since 08:00 this morning, patient felt similar when he had pneumonia 2 months ago. Patient describes chest pain as chest tightness is localized to the chest with no radiation, no fever, no chills, no cough, no recent travel, no prolonged immobilization, no lower history of DVT or PE. Related Data Home Medications ?Medication ?Instructions ?Recorded ?Confirmed albuterol sulfate 90 mcg/actuation 2 puff PO Q4H PRN Dyspnea 12/18/21 02/04/25 aerosol inhaler atorvastatin 20 mg tablet 20 mg PO DAILY 12/18/21 02/04/25 clonazepam 1 mg tablet 1 mg PO TID 12/18/21 02/04/25 oxycodone 20 mg tablet 20 mg PO QID 12/18/21 02/04/25 apixaban 5 mg tablet (Eliquis) 5 mg PO BID 12/28/22 02/04/25 levothyroxine 100 mcg tablet 100 mcg PO DAILY@0600 07/31/23 02/04/25 lisinopril 20 mg tablet 10 mg PO DAILY 06/13/24 02/04/25 Held on 02/06/25. Instructions: Monitor blood pressure at home and report 1 week readings to PCP before restarting any blood pressure medicaiton Previous Rx's ?Medication ?Instructions ?Recorded amlodipine 10 mg tablet 5 mg (1/2 x 10 mg) PO DAILY #30 02/06/25 tabs cefuroxime axetil 500 mg tablet 500 mg PO BID #14 tabs 02/06/25 doxycycline monohydrate 100 mg 100 mg PO BID #14 caps 02/06/25 capsule ipratropium 0.5 mg-albuterol 3 mg 3 ml inhalation Q6-8H PRN Dyspnea, 02/06/25 (2.5 mg base)/3 mL nebulization Wheezing #90 mL soln albuterol sulfate 90 mcg/actuation 2 puff inhalation Q4-6H PRN 03/14/25 aerosol inhaler (Ventolin HFA) shortness of breath or wheezing #8.5 grams azithromycin 250 mg tablet See Rx Instructions PO .COMPLEX #6 03/14/25 (Zithromax Z-Parth) tabs prednisone 20 mg tablet 20 mg PO BID #10 tabs 03/14/25 Allergies Allergy/AdvReac Type Severity Reaction Status Date / Time aspirin (ASA) Allergy Intermediate BLEEDING Verified 03/14/25 10:09 ULCERS, stomach upset NSAIDS (Non-Steroidal Allergy Intermediate BLEEDING Verified 03/14/25 10:09 Anti-Inflamma (NSAIDS ULCERS (NON-STEROIDAL ANTI-INFLAMMA) Review of Systems Review of Systems: All other systems are reviewed and are negative Constitutional: Reports as per HPI and Reports no additional constitutional complaints Eyes: Reports as per HPI and Reports no additional eye complaints Reports system reviewed and no additional complaints, except as documented Cardiovascular: Reports as per HPI and Reports no additional cardiovascular complaints Respiratory: Reports as per HPI and Reports no additional respiratory complaints Gastrointestinal: Reports as per HPI and Reports no additional gastrointestinal complaints Genitourinary: Reports no additional female genitourinary complaints Musculoskeletal: Reports no additional musculoskeletal complaints Skin/Breast: Reports system reviewed and no additional complaints, except as docu Psychiatric: Reports no additional psychiatric complaints Endocrine: Reports no additional endocrine complaints Hematologic/Lymphatic: Reports no additional hematologic/lymphatic complaints Allergic/Immunologic: Reports no additional allergic/immunologic complaints Reports system reviewed and no additional complaints, except as documented and Reports Abnormal speech present [facility] Past Medical History Medical History Anxiety COPD (chronic obstructive pulmonary disease) Hypertension Paroxysmal atrial fibrillation CVA (cerebral vascular accident) Anxiety disorder Symptomatic bradycardia Hypertensive urgency Encounter for prostate cancer screening Social History Social History Household Members: None Housing: Apartment Do you presently have visiting nurse or other home services: Yes Alcohol intake: current Alcohol intake frequency: holidays/special occasions only Alcohol type: beer Patient Tobacco Use Status: Current someday Tobacco user Tobacco use type: Cigarette Cigarettes Per Day: 3 Years Smoked: 20 Smoked in Last 30 Days: Yes e-Cigarette/Vaping Use: Never Used Second Hand Smoke Exposure: Yes Use of substances other than those prescribed or required for medical reasons: No Advance Directives: Yes Advance Directives on File: Yes Advance Directives Date on File: 01/02/23 service: No Current occupational status: disabled Physical Exam Vital Signs: Vital Signs: Last Vital Signs Temp 97.8 F 03/14/25 16:55 Pulse 91 03/14/25 16:55 Resp 15 03/14/25 16:55 BP 133/77 03/14/25 16:55 Pulse Ox 94 03/14/25 16:55 O2 Del Method Room Air 03/14/25 16:55 BMI result Body Mass Index 29.5 Vital signs have been reviewed and appear to be correct. Blood pressure elevated. Heart rate normal. Respiratory rate normal. Temperature normal. Oxygen saturation normal. Appearance: Alert. Oriented X3. No acute distress. Head: Normal external exam. Normocephalic. Atraumatic. No Cohn signs noted. No raccoon eyes noted Eyes: PERRLA. EOMI. Conjunctiva and sclera normal. Eyelids normal. ENT: TM's Normal. Pharynx normal. Uvula midline. Moist mucous membranes. No trismus noted. No drooling noted. No muffled voice noted. Neck: Normal inspection. Neck supple. FROM. No adenopathy. Thyroid Normal. No meningeal signs. No neck mass noted. CVS: Normal heart rate and rhythm. Heart sound normal. No murmurs noted. Pulses normal throughout. Respiratory: No respiratory distress. Painless inspiration. Breath sounds normal. Diffuse bilateral mild expiratory wheezing with prolonged expiration. No accessory muscle usage noted or decreased air movement noted. Abdomen: Soft and nontender. Bowel sounds normal in all 4 quadrants. No distention noted. No organomegaly noted. No visible injury noted. Back: No CVA tenderness. Full range of motion noted. Skin: Skin warm and dry. Normal skin color. Normal skin turgor. No rashes/lesions/lacerations noted. Extremities: No lower extremity edema. Extremities exhibit normal range of motion. Extremities nontender. Neuro: Oriented X 3. Cranial nerve exam: II-XII are grossly intact No motor deficit. No sensory deficit. Reflexes normal. Course Reevaluation(s) Reevaluation #1: Came in for chest pain, unremarkable EKG and troponin x2 chest x-ray is clear, patient feels better able to breathe better with no wheezing received multiple doses of albuterol which could attribute to lactic acidosis that improved with IV hydration. Patient was wheezing with history of asthma will discharge with albuterol and 5 days of prednisone with Z-Parth. Patient with history of anxiety and panic attack which is likely is the underlying reason for patient's symptoms today. Patient will be safe to discharge home. Time: 18:06 Medications Administered Discontinued Medications Generic Name Dose Route Start Last Admin Trade Name Kristina PRN Reason Stop Dose Admin Albuterol Sulfate 8 puff 03/14/25 11:37 03/14/25 11:45 Albuterol Sulfate 90 Mcg 8 Gm Inhaler INHALE 03/14/25 11:38 8 puff ONCE ONE Administration Ceftriaxone Sodium 1 gm 03/14/25 11:29 03/14/25 11:54 Ceftriaxone Sodium 1 Gm Vial IVPUSH 03/14/25 11:30 1 gm ONCE ONE Administration Magnesium Sulfate 2 gm in 50 mls @ 25 mls/hr 03/14/25 11:29 03/14/25 13:54 Magnesium Sulfate/H2o IV 03/14/25 13:28 Infused ONCE ONE Infusion Lactated Ringer's 1,000 mls @ 999 mls/hr 03/14/25 15:00 03/14/25 15:07 Lr IV 03/14/25 16:00 999 mls/hr .Q1H1M KAVEH Administration Methylprednisolone Sodium Succinate 125 mg 03/14/25 11:29 03/14/25 11:54 Methylprednisolone Sod Succ 125 Mg Vial IVPUSH 03/14/25 11:30 125 mg ONCE ONE Administration Medical Decision Making Differential Diagnosis Differential Diagnoses: The differential diagnosis associated with the presentation includes (Pneumonia, pneumothorax, pleural effusion, ACS, chest wall pain, anxiety.) Admission/Observation Consideration of admission/observation: Escalation of care including admission/observation considered Lab Data MDM Lab Attestation statement: I reviewed the patient's lab results. 03/14/25 11:53 03/14/25 11:53 Labs: Lab Results 03/14/25 03/14/25 Range/Units 11:53 14:15 WBC 9.4 (4.8-10.8) X10*3/uL RBC 4.03 L (4.60-5.80) X10*6/uL Hgb 13.3 L (14.0-18.0) g/dl Hct 38.5 L (42.0-52.0) % MCV 95.5 (80.0-98.0) fL MCH 33.0 (27.0-33.0) pg MCHC 34.5 (31.0-36.0) g/dl RDW 13.1 (11.0-16.0) % Plt Count 262 (160-400) X10*3/uL MPV 8.6 L (9.4-12.4) fL Immature Gran % (Auto) 1.1 H (0.0-0.4) % Neut % (Auto) 61.5 (45-73) % Lymph % (Auto) 28.7 (20-40) % Cooke % (Auto) 6.7 (2-11) % Eos % (Auto) 1.5 (0-4) % Baso % (Auto) 0.5 (0-2) % Lymph # (Auto) 2.7 (1.2-4.9) X10*3/uL [place]oke # (Auto) 0.6 (0.1-1.2) X10*3/uL Eos # (Auto) 0.1 (0.0-0.4) X10*3/uL Baso # (Auto) 0.1 (0.0-0.2) X10*3/uL Abs Immat Gran (auto) 0.10 H (0.00-0.03) X10*3/uL Absolute Neuts (auto) 5.8 (2.0-8.3) x10*3/uL Absolute Nucleated RBC 0.000 (0.0-0.012) X10*3/uL Nucleated RBC % (auto) 0.0 (0.0-0.2) /100WBC PT 12.0 (10.9-12.4) SEC INR 1.0 (0.9-1.1) Sodium 137 (135-145) mmol/L Potassium 4.1 (3.3-5.1) mmol/L Chloride 101 (96-108) mmol/L Carbon Dioxide 24 (22-29) mmol/L Anion Gap 16 (12-20) BUN 17 H (9-16) mg/dL Creatinine 1.43 H (0.5-1.4) mg/dL Estim Creat Clear Calc 70.7 Estimated GFR 50 Random Glucose 93 (60-115) mg/dL Lactic Acid 3.2 H* (0.5-2.0) mmol/L Lactic Acid F/U @ 2Hr 2.3 H* (0.5-2.0) mmol/L Calcium 8.8 (8.4-10.2) mg/dL Total Bilirubin 0.3 (0.0-1.0) mg/dL Direct Bilirubin 0.2 (0.0-0.5) mg/dL AST 25 (5-37) U/L ALT 25 (0-40) U/L Alkaline Phosphatase 64 (39-117) U/L Troponin I High Sens < 2.7 < 2.7 (<3.5-35.0) ng/L B-Natriuretic Peptide 48 (<100) pg/mL Total Protein 7.2 (6.5-8.0) g/dL Albumin 4.3 (3.5-5.0) g/dL Lipase 29 (8-78) U/L Urine Color Yellow Urine Appearance Clear Urine pH 5.5 (5.0-9.0) Ur Specific [place] <= 1.005 (1.005-1.025) Urine Protein Negative (Neg-Trace) mg/dL Urine Glucose (UA) Negative (Negative) mg/dL Urine Ketones Negative (Negative) mg/dL Urine Blood Negative (Negative) Urine Nitrite Negative (Negative) Ur Leukocyte Esterase Negative (Negative) Influenza Type A (PCR) NEGATIVE (Negative) Influenza Type B (PCR) NEGATIVE (Negative) RSV RNA Qual (PCR) NEGATIVE (Negative) SARS-CoV-2 RNA (RT-PCR) NEGATIVE (Negative) Independent Interpretation I performed an independent interpretation of an: Plain X-Ray (Chest:No acute cardiopulmonary abnormality. The previously seen right basilar consolidation has resolved. ) Radiology Impression Discussion of test interpretation with radiology: I have reviewed the radiologist's reading. Discharge Plan Discharge Clinical Impression: Chest pain, Anxiety, Acute asthma exacerbation Patient Disposition: Home, Self-Care Instructions: Chest Pain (ED) Prescriptions: New albuterol sulfate [Ventolin HFA] 90 mcg/actuation HFA aerosol inhaler 2 puff inhalation Q4-6H PRN (Reason: shortness of breath or wheezing) Qty: 8.5 0RF prednisone 20 mg tablet 20 mg PO BID Qty: 10 0RF azithromycin [Zithromax Z-Parth] 250 mg tablet See Rx Instructions .ROUTE .COMPLEX Qty: 6 0RF Rx Instructions: For 250 mg dose pack: take 500 mg today (day 1), then 250 mg for 4 days (days 2-5) No Action doxycycline monohydrate 100 mg capsule 100 mg PO BID Qty: 14 0RF cefuroxime axetil 500 mg tablet 500 mg PO BID Qty: 14 0RF ipratropium-albuterol 0.5 mg-3 mg(2.5 mg base)/3 mL solution for nebulization 3 ml inhalation Q6-8H PRN (Reason: Dyspnea, Wheezing) Qty: 90 0RF amlodipine 10 mg tablet 5 mg PO DAILY Qty: 30 0RF Eliquis 5 mg tablet 5 mg PO BID oxycodone 20 mg tablet 20 mg PO QID clonazepam 1 mg tablet 1 mg PO TID atorvastatin 20 mg tablet 20 mg PO DAILY albuterol sulfate 90 mcg/actuation HFA aerosol inhaler 2 puff PO Q4H PRN (Reason: Dyspnea) levothyroxine 100 mcg tablet 100 mcg PO DAILY@0600 lisinopril 20 mg tablet 10 mg PO DAILY Print Language: Ethiopian
[2025-03-14] MEDS: Albuterol Sulfate 90 MCG 8 GM INHALER 8 PUFF INHALE (11:45)
--- NOTE | 2025-03-14 11:49 | ECG_ITS ---
Test Reason : CP Blood Pressure : */* mmHG Vent. Rate : 74 BPM Atrial Rate : 326 BPM P-R Int : * ms QRS Dur : 110 ms QT Int : 412 ms P-R-T Axes : * -17 84 degrees QTcB Int : 457 ms Atrial flutter with variable A-V block Nonspecific T wave abnormality Abnormal ECG When compared with ECG of 04-Feb-2025 06:36, Atrial flutter has replaced Atrial fibrillation Referred By: Kyara Hester Electronically Signed By: KEMI YADAV
[2025-03-14] MEDS: cefTRIAXone sodium 1 GM VIAL IVPUSH (11:54)
[2025-03-14] MEDS: Magnesium Sulfate/H2O 2 GM/50 ML PIGGYBACK IV (11:54)
[2025-03-14 12:01] LABS: MANUAL DIFF FLAG NO
[2025-03-14 12:08] LABS: Basophils Absolute Auto 0.1 X10*3/uL (0.0-0.2); Basophils Percent Auto 0.5 % (0-2); Eosinophils Absolute Auto 0.1 X10*3/uL (0.0-0.4); Eosinophils Percent Auto 1.5 % (0-4); Hematocrit 38.5 % (42.0-52.0); Hemoglobin 13.3 g/dl (14.0-18.0); Imm Gran Pct Auto 1.1 % (0.0-0.4); Lymphocytes Absolute Auto 2.7 X10*3/uL (1.2-4.9); Lymphocytes Percent Auto 28.7 % (20-40); Mean Corpuscular HGB Conc 34.5 g/dl (31.0-36.0); Mean Corpuscular Volume 95.5 fL (80.0-98.0); Mean Platelet Volume 8.6 fL (9.4-12.4); Monocytes Absolute Auto 0.6 X10*3/uL (0.1-1.2); Monocytes Percent Auto 6.7 % (2-11); Neutrophils Absolute Auto 5.8 x10*3/uL (2.0-8.3); Neutrophils Percent Auto 61.5 % (45-73); Platelet Count 262 X10*3/uL (160-400); Red Blood Count 4.03 X10*6/uL (4.60-5.80); Red Cell Distribution Width 13.1 % (11.0-16.0); White Blood Count 9.4 X10*3/uL (4.8-10.8)
[2025-03-14 12:10] LABS: Appearance Urine Clear; Color Urine Yellow; Glucose Urine UA Negative (Negative); Leukocyte Esterase Urine Negative (Negative); Nitrite Urine Negative (Negative); PH 5.5 (5.0-9.0); Specific Gravity - Urine <= 1.005 (1.005-1.025); Urine Blood Negative (Negative); Urine Ketones Negative (Negative); Urine Protein Negative (Neg-Trace)
[2025-03-14 12:24] LABS: Alanine Aminotransferase 25 U/L (0-40); Albumin Level 4.3 g/dL (3.5-5.0); Alkaline Phosphatase 64 U/L (39-117); Aspartate Amino Transferase 25 U/L (5-37); Bilirubin Direct 0.2 mg/dL (0.0-0.5); Bilirubin Total 0.3 mg/dL (0.0-1.0); Lipase 29 U/L (8-78); Total Protein 7.2 g/dL (6.5-8.0)
[2025-03-14 12:32] LABS: B Type Natriuretic Peptide 48 pg/mL (<100); Lactic Acid 3.2 mmol/L (0.5-2.0)
[2025-03-14 12:33] LABS: Troponin-I High Sensitivity < 2.7 ng/L (<3.5-35.0)
[2025-03-14 12:49] LABS: Influenza A PCR NEGATIVE (Negative); Influenza B PCR NEGATIVE (Negative); Resp Syncy Virus RNA Qual PCR NEGATIVE (Negative); SARS COV2 PCR INHOUSE NEGATIVE (Negative)
[2025-03-14 13:07] LABS: Anion Gap 16 (12-20); Blood Urea Nitrogen 17 mg/dL (9-16); Calcium 8.8 mg/dL (8.4-10.2); Carbon Dioxide 24 mmol/L (22-29); Chloride 101 mmol/L (96-108); Creatinine Clr Calc Pharmacy 70.7; Estimated Glomerular Filt Rate 50; Glucose Random 93 mg/dL (60-115); Potassium 4.1 mmol/L (3.3-5.1); Sodium 137 mmol/L (135-145)
[2025-03-14 13:58] LABS: Reflex Lactate? Lactic Acid Added
[2025-03-14 14:38] LABS: ~Lactic Acid-LAB USE ONLY 2.3 mmol/L (0.5-2.0)
[2025-03-14 14:43] LABS: Troponin-I High Sensitivity < 2.7 ng/L (<3.5-35.0)
[2025-03-14] MEDS: Lactated Ringers 1,000 ML 999 ML IV (15:07)
[2025-03-14 16:20] LABS: Reflex Lactate? 2 Y
[2025-03-14 18:24] LABS: Lactic Acid 2.2 mmol/L (0.5-2.0)
[2025-03-14 20:00] LABS: Reflex Lactate? Lactic Acid Added
== END 2025-03-14 18:42 | disposition home or self-care (01) ==
PROVIDERS: Emergency Provider Emergency Medicine
DX: R07.89 Other chest pain (principal); F41.9 Anxiety disorder, unspecified; J45.901 Unspecified asthma with (acute) exacerbation; Z03.818 Encounter for observation for suspected exposure to other biological agents ruled out; I10 Essential (primary) hypertension; I48.0 Paroxysmal atrial fibrillation; R06.02 Shortness of breath; F17.210 Nicotine dependence, cigarettes, uncomplicated; Z86.73 Personal history of transient ischemic attack (TIA), and cerebral infarction without residual deficits; Z79.01 Long term (current) use of anticoagulants; Z79.899 Other long term (current) drug therapy
CPT/HCPCS: 0241U; 36415; 71045; 80048; 80076; 81003; 83605; 83690; 83880; 84484; 85025; 85610; 87040; 93005; 94640; 96361; 96365; 96366; 96375; 99284; 99285; J0696; J2919; J3475; J7120

== ENCOUNTER → 2025-03-14 11:49 | Outpatient (BNV) | payer OTHER, SELFPAY | PROVIDERS: Emergency Provider Emergency Medicine; Visit Provider Internal Medicine | DX: I48.92 Unspecified atrial flutter (principal); I44.0 Atrioventricular block, first degree | CPT/HCPCS: 93010 ==

== ENCOUNTER → 2025-03-14 11:49 | Outpatient (BNV) | payer OTHER, SELFPAY | PROVIDERS: Emergency Provider Emergency Medicine; Visit Provider Radiology Diagnostic Radiology | DX: R07.9 Chest pain, unspecified (principal) | CPT/HCPCS: 71045 ==

== ENCOUNTER 2025-04-15 09:27 | Outpatient (REF) | payer OTHER, SELFPAY ==
--- NOTE | ~2025-04-15 | XR_ITS ---
CLINICAL HISTORY: J06.9 - Acute upper respiratory infection, unspecified --- Additional Notes or Special Instructions: COPD W COUGH, INS EXP WHEEZE THROUGHOUT 2 view chest x-ray Comparison: 03/14/2025 Findings: Subsegmental hazy right lower lobe atelectasis/infiltrate. Normal size heart. No acute fracture. IMPRESSION: Subsegmental hazy right lower lobe atelectasis/infiltrate. This document has been electronically signed by: Wendy Murry MD on 04/15/2025 10:45:39
[2025-04-15 12:57] LABS: Chlamydia pneumoniae PCR Not Detected (Not Detect.); Coronavirus 229E PCR Not Detected (Not Detect.); Coronavirus HKU1 PCR Not Detected (Not Detect.); Coronavirus NL63 PCR Not Detected (Not Detect.); Coronavirus OC43 PCR Not Detected (Not Detect.); RSV PCR Not Detected (Not Detect.); Rhino/Enterovirus PCR Detected (Not Detect.)
[2025-04-15 13:53] LABS: Influenza A H1 PCR Not Detected (Not Detect.); Influenza A H1-2009 PCR Not Detected (Not Detect.); Influenza A H3 PCR Not Detected (Not Detect.); SARS-CoV-2 PCR Not Detected (Not Detect.)
== END 2025-04-15 09:28 | disposition home or self-care (01) ==
LOC: HO.HMGCX 09:27
PROVIDERS: Visit Provider Nurse Practitioner Family
DX: J06.9 Acute upper respiratory infection, unspecified (principal); J41.8 Mixed simple and mucopurulent chronic bronchitis; J18.9 Pneumonia, unspecified organism; F17.210 Nicotine dependence, cigarettes, uncomplicated; R06.02 Shortness of breath; R05.9 Cough, unspecified; R09.89 Other specified symptoms and signs involving the circulatory and respiratory systems; Z11.59 Encounter for screening for other viral diseases; Z79.01 Long term (current) use of anticoagulants; Z79.51 Long term (current) use of inhaled steroids
CPT/HCPCS: 71046; 87633; 87880; 99212

== ENCOUNTER 2025-04-15 09:27 | Outpatient (AMB) | payer OTHER, SELFPAY ==
--- NOTE | 2025-04-15 09:30 | AM.OFFWIN_ITS ---
Intake Vital Signs 04/15/25 09:31 Height 6 ft 2 in Weight 230 lb BMI 29.5 BP 140/80 H Blood Pressure Location Rt brachial Position Sitting Pulse 106 H Pulse Source Pulse Oximeter Temp 98.3 F Temp Source Oral Pulse Oximetry (%) 95 Intake Visit Reasons: EP-sob, chest tight, cough, sore throat Patient Tobacco Use Status: Current someday Tobacco user Allergies aspirin (ASA) Allergy (Intermediate, Verified 04/15/25 09:38) BLEEDING ULCERS, stomach upset NSAIDS (Non-Steroidal Anti-Inflamma (NSAIDS (NON-STEROIDAL ANTI-INFLAMMA) Allergy (Intermediate, Verified 04/15/25 09:38) BLEEDING ULCERS Medication List - Last Reconciled 04/15/25 by Irish Durant, [facility]- albuterol sulfate 90 mcg/actuation (Ventolin HFA) 2 puffs inhalation Q4-6H PRN albuterol sulfate 90 mcg/actuation 2 puffs PO Q4H PRN amlodipine 5 mg (1/2 x 10 mg) PO DAILY apixaban (Eliquis) 5 mg PO BID atorvastatin 20 mg PO DAILY clonazepam 1 mg PO TID ipratropium-albuterol 0.5 mg-3 mg(2.5 mg base)/3 mL 3 mL inhalation Q6-8H PRN levothyroxine 100 mcg PO DAILY@0600 lisinopril 10 mg PO DAILY Held on 02/06/25. Instructions: Monitor blood pressure at home and report 1 week readings to PCP before restarting any blood pressure medicaiton oxycodone 20 mg PO QID Do you need a note to return to daycare/school/sports/work: No HPI HPI Comments History of Present Illness Details CALL FRIEND VAL Goodwin/ RESULTS [phone] History of Present Illness - The patient is a 59-year-old male pres enting with upper respiratory symptoms. - Symptoms include chest tightness, prod uctive cough with thick expectoration, and sore throat. - Onset of symptoms is 1 week ago - other assoc sx include L ear pain - Reported treatment with inhalers and n ebulizer for COPD which have been ineffective. - Reports hx of RLL PNA recently Review of Systems - Respiratory: Reports chest tightness a nd cough. - ENT (Ear, Nose, Throat): Reports sore throat and ear infection. - General: Reports poor sleep. - No information was provided on other s ystems. Physical Exam General: Well developed, well nourished, in no acute distress. Appears stated age. Head: Normocephalic, atraumatic. Ears: TM intact & mildly erythematous on L, TM intact and clear on R, EAC clear bilat Eyes: Pupils are equal, round and reactive to light and accommodation. Conjunctivae are clear. Vision grossly normal. Nose: Thick white drainage noted, turbinates wnl, no sinus tenderness Pharynx: mild erythema, + PND Lungs: ins/exp wheezes throughout, paroxsymal cough noted with white expectorant. Heart: Regular rate and rhythm. No murmurs, click, rubs or gallops are noted. Extremities: No clubbing, cyanosis nor edema is noted. Psych: Mood and affect appropriate. Diagnostic results Rapid strep negative CXR today - see below Resp Path panel - see below Plan CXR Viral swab Start Prednisone, Zpak and Augmentin Cont inhalers; refills sent Smoking cessation RTO/ED edu provided. Consent Patient was informed and verbally consented to the use of an ambient scribe for clinic note documentation during this visit. Total time spent caring for the patient today was 40 minutes. This includes time spent before the visit reviewing the chart, time spent during the visit, and time spent after the visit on documentation, reviewing laboratory results, diagnostic imaging, medications, performing a medically necessary evaluation, counseling on diagnoses, care coordination, ordering appropriate tests, ordering appropriate medications, review of tests performed by other providers, reporting test results with the patient, communication with other healthcare providers. [facility] Medical History Anxiety COPD (chronic obstructive pulmonary disease) Hypertension Paroxysmal atrial fibrillation CVA (cerebral vascular accident) Anxiety disorder Symptomatic bradycardia Hypertensive urgency Encounter for prostate cancer screening Social History Household Members: None Housing: Apartment Do you presently have visiting nurse or other home services: Yes Alcohol intake: current Alcohol intake frequency: holidays/special occasions only Alcohol type: beer Patient Tobacco Use Status: Current someday Tobacco user Tobacco use type: Cigarette Cigarettes Per Day: 3 Years Smoked: 20 e-Cigarette/Vaping Use: Never Used Second Hand Smoke Exposure: Yes Advance Directives Date on File: 01/02/23 service: No Current occupational status: disabled Physical Exam Vital Signs: Last Vital Signs Temp 98.3 F 04/15/25 09:31 Pulse 106 H 04/15/25 09:31 BP 140/80 H 04/15/25 09:31 Pulse Ox 95 04/15/25 09:31 BMI result Body Mass Index 29.5 Results AMB Rapid Strep AMB Rapid Strep Negative Last Edit by Fareed Stark CMA on 04/15/25 10 :30 Results Reviewed Results Reviewed: Laboratory Last Values Strep Scn Rapid Clinic Negative 04/15/25 10:29 CXR Findings: Subsegmental hazy right lower lobe atelectasis/infiltrate. Normal size heart. No acute fracture. IMPRESSION: Subsegmental hazy right lower lobe atelectasis/infiltrate. Assessment & Plan Assessment & Plan (1) RLL pneumonia: Onset Date: ~04/15/25 Code(s): J18.9 - Pneumonia, unspecified organism Qualifiers: Pneumonia type: due to unspecified organism Qualified Code(s): J18.9 - Pneumonia, unspecified organism (2) URI (upper respiratory infection): Code(s): J06.9 - Acute upper respiratory infection, unspecified Qualifiers: URI type: unspecified URI Qualified Code(s): J06.9 - Acute upper respiratory infection, unspecified (3) COPD (chronic obstructive pulmonary disease): Code(s): J44.9 - Chronic obstructive pulmonary disease, unspecified Qualifiers: COPD type: chronic bronchitis Chronic bronchitis type: mixed simple and mucopurulent Qualified Code(s): J41.8 - Mixed simple and mucopurulent chronic bronchitis (4) Nicotine dependence: Code(s): F17.200 - Nicotine dependence, unspecified, uncomplicated Qualifiers: Nicotine product type: cigarettes Substance use status: uncomplicated Qualified Code(s): F17.210 - Nicotine dependence, cigarettes, uncomplicated Plan , Orders: Orders Resp Pathogen Panel - [facility] [place] Today R09.89 - Other specified symptoms and signs involving the circulatory and respiratory systems XR chest 2V Today J06.9 - Acute upper respiratory infection, unspecified AMB Rapid Strep Screen Today Z13.9 - Encounter for screening, unspecified Medications: New prednisone 50 mg PO DAILY 5 tabs 0RF 5 days azithromycin For 250 mg dose pack: take 500 mg today (day 1), then 250 mg for 4 days (days 2-5) PO 6 tabs 0RF 5 days amoxicillin-pot clavulanate 875-125 mg 1 tab PO BID 14 tabs 0RF 7 days Refilled ipratropium-albuterol 0.5 mg-3 mg(2.5 mg base)/3 mL 3 mL inhalation Q6-8H PRN 90 mL 0RF Dyspnea, Wheezing Coding Level of Care Code Est Pt Level 5 (08441) Diagnoses Pneumonia of right lower lobe due to infectious organism J18.9 Pneumonia type: due to unspecified organism Upper respiratory tract infection, unspecified type J06.9 URI type: unspecified URI Mixed simple and mucopurulent chronic bronchitis J41.8 COPD type: chronic bronchitis Chronic bronchitis type: mixed simple and mucopurulent Cigarette nicotine dependence without complication F17.210 Nicotine product type: cigarettes Substance use status: uncomplicated
[2025-04-15 09:31] VITALS: BP 140/80; PULSE 106; TEMP 36.8; O2SAT 95; BMI 29.5
== END 2025-04-15 10:24 | disposition home or self-care (01) ==
PROVIDERS: Visit Provider Nurse Practitioner Family
DX: J18.9 Pneumonia, unspecified organism (principal); J06.9 Acute upper respiratory infection, unspecified; J41.8 Mixed simple and mucopurulent chronic bronchitis; F17.210 Nicotine dependence, cigarettes, uncomplicated; J02.9 Acute pharyngitis, unspecified

== ENCOUNTER → 2025-04-15 10:05 | Outpatient (BNV) | payer OTHER, SELFPAY | PROVIDERS: Visit Provider Radiology Diagnostic Radiology | DX: J98.11 Atelectasis (principal) | CPT/HCPCS: 71046 ==